=== PATIENT | female | born 1945 | race Caucasian/White ===

== ENCOUNTER 2016-07-30 13:32 | Inpatient (IN) | payer MEDICARE, OTHER ==
[2016-07-30] MEDS ORDERED: solu-MEDROL 125 MG IV ONE (13:57)
[2016-07-30] MEDS ORDERED: Pepcid 20 MG VIAL IV ONE ×2 (13:57→14:19)
[2016-07-30] MEDS ORDERED: DUONEB 0.5-3 MG/3 ml Neb IH ONE ×2 (13:57→14:59)
[2016-07-30] MEDS ORDERED: Sodium Chloride 0.9% 1000 ML 1,000 ML IV SCH ×2 (14:00→16:13)
--- NOTE | 2016-07-30 14:04 | ERPHSYRPT ---
- History of Present Illness Time Seen by Provider: 07/30/16 13:50 Source: patient Patient Subjective Stated Complaint: sob Triage Nursing Assessment: states since tuesday, pt has had bronchitis and is currently on prednisone. productive cough with clear sputum. increased sob. 4-5 word sentences. states insomnia due to coughing. fever at home. lt lower extrem 2+ edema--pt states that is normal Physician History: CC: cough Hx: 71 y/o patient of Dr Kim. She has COPD and is on home oxygen. She uses nebs. She was doing well last week and saw Dr Bri Strickland. Over the weekend she began to cough and has fever and worsening cough with dyspnea. She saw [facility] and had steroid shot. She saw [facility] and had more steroids. No current abtx. Dyspnea is moderate. Timing/Duration: day(s) (few) Allergies/Adverse Reactions: No Known Drug Allergies Allergy (Unverified 07/30/16 13:49) Home Medications: Albuterol 2.5 mg/3 ml Neb [Proventil 2.5 mg/3 ml Neb] 2.5 mg IH TID [History] Albuterol 8 gm Mdi Hfa [Ventolin Hfa MDI] 8 gm IH QIDPRN PRN 07/30/16 [ History] Hx Tetanus, Diphtheria Vaccination/Date Given: Yes Hx Influenza Vaccination/Date Given: No Hx Pneumococcal Vaccination/Date Given: No Immunizations Up to Date: Yes - Review of Systems Constitutional: Fever, Chills, Fatigue, Malaise Eyes: No Symptoms Ears, Nose, & Throat: No Symptoms Respiratory: Cough, Dyspnea, Wheezing Cardiac: No Chest Pain Abdominal/Gastrointestinal: No Abdominal Pain, No Vomiting, No Diarrhea Skin: No Rash Neurological: No Headache All Other Systems: Reviewed and Negative - Past Medical History Pertinent Past Medical History: Yes Cardiac History: Congestive Heart Failure Respiratory History: Asthma, COPD - Past Surgical History Past Surgical History: Yes Female Surgical History: Hysterectomy - Social History Smoking Status: Former smoker Drug Use: none Patient Lives Alone: No - Nursing Vital Signs Nursing Vital Signs: Initial Vital Signs Temperature 99.1 F Temperature Source Rectal Pulse Rate 102 Respiratory Rate 37 Blood Pressure [Right Arm] 169/76 Pain Intensity 0 - Physical Exam General Appearance: alert, other (mildly breathless at rest) Eye Exam: PERRL/EOMI Neck Exam: normal inspection, non-tender, supple Respiratory Exam: diminished breath sounds, wheezing Cardiovascular/Chest Exam: normal heart sounds, regular rate/rhythm Abdominal/Gastrointestinal Exam: soft, No tenderness, No distention Neurologic Exam: alert, oriented x 3, cooperative, sensation nml, No motor deficits Skin Exam: warm, dry, No rash SpO2 Interpretation: borderline oxygenation, O2 applied SpO2: 92 Oxygen Delivery: Nasal Cannula - Course Nursing assessment & vital signs reviewed: Yes - Radiology Exams cxr X-ray Interpretation: Reviewed by me (copd, mild patchy mid lung airspace disease bialteral) Ordered Tests: Active Orders 24 hr Category Date Time Status Dog Or Horse Racing Official STAT Care 07/30/16 13:57 Active IV Insertion STAT Care 07/30/16 13:57 Active Oxygen-ED Only NASAL CANNULA 2 lpm Care 07/30/16 13:57 Active Pulse Oximetry (ED) STAT Care 07/30/16 13:57 Active Rectal Temperature STAT Care 07/30/16 13:57 Active CHEST 1 VIEW (PORTABLE) Stat Exams 07/30/16 13:58 Completed BLOOD CULTURE Stat Lab 07/30/16 14:25 Received CBC W DIFF Stat Lab 07/30/16 14:20 Completed CMP Stat Lab 07/30/16 14:20 Completed Lactic Acid Urgent Lab 07/30/16 13:57 Completed Manual Differential NC Stat Lab 07/30/16 14:20 Completed VENOUS BLOOD GAS Urgent Lab 07/30/16 13:57 Completed Respiratory Nebulizer STAT RT 07/30/16 13:59 Active Medication Summary Generic Name Dose Route Start Last Admin Trade Name Freq PRN Reason Stop Dose Admin Sodium Chloride 1,000 mls @ 100 mls/hr 07/30/16 14:00 07/30/16 14:21 Sodium Chloride 0.9% 1000 Ml IV 08/29/16 13:59 100 mls/hr .Q10H TONI Administration Azithromycin 250 mls @ 125 mls/hr 07/30/16 14:32 Zithromax 500 Mg/ 250 Ml Nacl Premix IV 07/30/16 16:31 STAT ONE Discontinued Medications Generic Name Dose Route Start Last Admin Trade Name Freq PRN Reason Stop Dose Admin Albuterol/Ipratropium 3 ml 07/30/16 13:57 07/30/16 15:00 Duoneb 0.5-3 Mg/3 Ml Neb IH 07/30/16 13:58 3 ml STAT ONE Administration Albuterol/Ipratropium Confirm 07/30/16 14:59 Duoneb 0.5-3 Mg/3 Ml Neb Administered 07/30/16 15:00 Dose 3 ml IH .STK-MED ONE Famotidine 20 mg 07/30/16 13:57 07/30/16 14:21 Pepcid 20 Mg Vial IV 07/30/16 13:58 20 mg STAT ONE Administration Famotidine Confirm 07/30/16 14:19 Pepcid 20 Mg Vial Administered 07/30/16 14:20 Dose 20 mg IV .STK-MED ONE Sodium Chloride Confirm 07/30/16 14:20 Sodium Chloride 0.9% 1000 Ml Administered 07/30/16 14:21 Dose 1,000 mls @ ud .ROUTE .STK-MED ONE Ceftriaxone Sodium/Dextrose 50 mls @ 100 mls/hr 07/30/16 14:32 07/30/16 14:38 Rocephin 1 Gm-D5w 50 Ml Bag IV 07/30/16 15:01 100 mls/hr STAT ONE Administration Ceftriaxone Sodium/Dextrose Confirm 07/30/16 14:36 Rocephin 1 Gm-D5w 50 Ml Bag Administered 07/30/16 14:37 Dose 50 mls @ ud IV .STK-MED ONE Methylprednisolone Sodium Succinate 125 mg 07/30/16 13:57 07/30/16 14:21 Solu-Medrol 125 Mg IV 07/30/16 13:58 125 mg STAT ONE Administration Methylprednisolone Sodium Succinate Confirm 07/30/16 14:20 Solu-Medrol 125 Mg Administered 07/30/16 14:21 Dose 125 mg .ROUTE .STK-MED ONE Lab/Rad Data: Laboratory Result Diagrams 07/30/16 14:20 07/30/16 14:20 Laboratory Results 07/30/16 07/30/16 07/30/16 Range/Units 14:20 14:20 13:57 WBC 20.4 H (4.0-10.5) K/mm3 RBC 4.10 (4.1-5.4) M/mm3 Hgb 11.7 L (12.0-16.0) gm/dl Hct 38.9 (35-47) % MCV 94.9 (78-100) fl MCH 28.5 (26-32) pg MCHC 30.1 L (32-36) g/dl RDW 13.3 (11.5-14.0) % Plt Count 259 (150-450) K/mm3 MPV 12.2 H (6-9.5) fl Segmented Neutrophils 66 (36.0-66.0) % Band Neutrophils 23 H (0.0-2.0) % Lymphocytes (Manual) 5 L (24-44) % Monocytes (Manual) 6 (0.0-12.0) % Differential Comment ABNORMAL Platelet Estimate NORMAL (NORMAL) Poikilocytosis 1+ Anisocytosis 1+ VBG pH 7.34 (7.32-7.42) VBG pCO2 at Pat Temp 84 H* (42-55) mm/Hg VBG pO2 at Pat Temp 44 H (25-40) mm/Hg VBG HCO3 45.3 H* (22-28) meq/L VBG O2 Sat (Trever) 85.2 L (95-100) VBG Base Excess 15.7 H (-2.0-2.0) VBG Hemoglobin 12.4 VBG Carboxyhemoglobin 3.3 (0.0-6.9) % T HGB POC Potassium 4.0 (3.5-5.1) Sodium 143 (136-145) mEq/L Potassium 3.6 (3.5-5.1) mEq/L Chloride 100 (98-107) mEq/L Carbon Dioxide 35.3 H (21-32) mEq/L Anion Gap 11.5 (5-15) MEQ/L BUN 23 H (9-20) mg/dL Creatinine 0.67 (0.55-1.30) mg/dl Estimated GFR > 60 ML/MIN Glucose 126 H (70-110) MG/DL Lactic Acid 0.9 (0.4-2.0) Calcium 9.3 (8.5-10.1) mg/dL Total Bilirubin 0.2 (0.2-1.0) mg/dL AST 10 L (15-37) U/L ALT 19 (12-78) U/L Alkaline Phosphatase 101 (46-116) U/L Serum Total Protein 7.5 (6.4-8.2) gm/dL Albumin 2.9 L (3.4-5.0) g/dL - Progress Progress Note: 07/30/16 15:31 She has failed OP treatement. She has left shift leukocytosis. Called Dr Kim for admission. Flu pending. Abtx started. Discussed with .: Paulie Will see patient in: hospital (full admit) Counseled pt/family regarding: lab results, diagnosis, need for follow-up, rad results - Departure Time of Disposition: 15:31 Departure Disposition: In-patient Admission Clinical Impression: Pneumonia, COPD exacerbation Condition: Fair Critical Care Time: No Referrals: MARIN KIM [Primary Care Provider] -
[2016-07-30] MEDS ORDERED: solu-MEDROL 125 MG ONE (14:20)
[2016-07-30] MEDS ORDERED: Sodium Chloride 0.9% 1000 ML 1,000 ML ONE (14:20)
[2016-07-30 14:31] LABS: Mean Cell Volume 94.9 fl (78-100); Mean Corpuscular Hemoglobin 28.5 pg (26-32); Mean Platelet Volume 12.2 fl (6-9.5); Platelet Count 259 K/mm3 (150-450); Red Cell Distribution Width 13.3 % (11.5-14.0); White Blood Count 20.4 K/mm3 (4.0-10.5)
[2016-07-30] MEDS ORDERED: ROCEPHIN 1 Gm-D5w 50 ml Bag** 50 ML IV ONE ×2 (14:32→14:36)
[2016-07-30] MEDS ORDERED: Zithromax 500 MG/ 250 ML NaCl Premix 250 ML IV ONE ×2 (14:32→15:36)
--- NOTE | 2016-07-30 14:42 | XRAY ---
Indication: Cough and dyspnea. Comparison: September 20, 2013. Portable chest degraded by respiration and breasts. Again prominent interstitial lung markings with new patchy airspace disease in the midlung bilaterally and new small bibasilar effusions. Heart is not enlarged. Stable osteopenia and mild bony degenerative changes.
[2016-07-30 14:52] LABS: Lactic Acid 0.9 (0.4-2.0); VBG BASE EXCESS 15.7 (-2.0-2.0); VBG CARBOXYHEMOGLOBIN 3.3 % T HGB (0.0-6.9); VBG HCO3- 45.3 meq/L (22-28); VBG HEMOGLOBIN 12.4; VBG O2 SATURATION 85.2 (95-100); VBG pH 7.34 (7.32-7.42)
[2016-07-30 14:53] LABS: BAND 23 % (0.0-2.0); Total Cells Counted 100
[2016-07-30 14:55] LABS: ANISOCYTOSIS 1+; Platelet Estimate NORMAL (NORMAL); Poikilocytosis 1+
[2016-07-30 14:59] LABS: ALBUMIN 2.9 g/dL (3.4-5.0); ALKALINE PHOSPHATASE 101 U/L (46-116); ANION GAP 11.5 MEQ/L (5-15); BILIRUBIN,TOTAL 0.2 mg/dL (0.2-1.0); BLOOD UREA NITROGEN 23 mg/dL (9-20); CHLORIDE 100 mEq/L (98-107); Carbon Dioxide 35.3 mEq/L (21-32); Glucose 126 MG/DL (70-110); Potassium 3.6 mEq/L (3.5-5.1); SGOT/AST 10 U/L (15-37); SGPT/ALT 19 U/L (12-78); SODIUM 143 mEq/L (136-145); Total Protein 7.5 gm/dL (6.4-8.2)
[2016-07-30] MEDS ORDERED: TYLENOL 325 MG PO PRN (16:13)
[2016-07-30 17:50] LABS: A-aADO2 54; ARTERIAL BLD GAS O2 SATURATION 98.5 % (95-100); ARTERIAL BLOOD GAS BASE EXCESS 14.5 (-2.0-2.0); ARTERIAL BLOOD GAS FIO2 36 %; ARTERIAL BLOOD GAS PO2 93 mmHg (75-100); ARTERIAL BLOOD GAS pH 7.31 (7.35-7.45)
[2016-07-30 17:51] LABS: ALLEN TEST OK? YES
[2016-07-30] MEDS ORDERED: Cardizem 30 MG ONE (18:10)
[2016-07-30] MEDS: Cardizem 30 MG PO SCH (18:12)
[2016-07-30] MEDS: solu-MEDROL 125 MG IV SCH ×2 (18:54→23:56)
[2016-07-30] MEDS ORDERED: Lasix 20 MG/2 ML ONE (20:08)
[2016-07-30] MEDS: Apresoline 25 MG TABLET PO PRN (20:15)
[2016-07-30] MEDS: Lasix 20 MG/2 ML IV ONE (20:15)
[2016-07-30] MEDS: Pepcid 20 MG VIAL IV SCH (21:18)
[2016-07-30] MEDS: DUONEB 0.5-3 MG/3 ml Neb IH SCH (21:39)
[2016-07-31] MEDS: DUONEB 0.5-3 MG/3 ml Neb IH SCH ×7 (00:32→22:42)
[2016-07-31] MEDS: Apresoline 25 MG TABLET PO PRN ×3 (04:29→12:52)
[2016-07-31] MEDS: solu-MEDROL 125 MG IV SCH ×4 (05:23→23:44)
[2016-07-31 05:52] LABS: Mean Cell Volume 96.3 fl (78-100); Mean Corpuscular Hemoglobin 28.4 pg (26-32); Mean Platelet Volume 12.1 fl (6-9.5); Platelet Count 293 K/mm3 (150-450); Red Blood Count 4.08 M/mm3 (4.1-5.4); Red Cell Distribution Width 13.4 % (11.5-14.0); White Blood Count 18.1 K/mm3 (4.0-10.5)
[2016-07-31 06:09] LABS: ANION GAP 8.6 MEQ/L (5-15); BLOOD UREA NITROGEN 29 mg/dL (9-20); CHLORIDE 100 mEq/L (98-107); Carbon Dioxide 40.1 mEq/L (21-32); Glucose 149 MG/DL (70-110); Potassium 3.9 mEq/L (3.5-5.1); SODIUM 145 mEq/L (136-145)
[2016-07-31 08:17] LABS: BAND 3 % (0.0-2.0); Platelet Estimate NORMAL (NORMAL); Total Cells Counted 100; Toxic Granulation 2+
[2016-07-31 08:19] LABS: ANISOCYTOSIS 1+
--- NOTE | 2016-07-31 08:25 | PCM.NOTE ---
Date and Time: 07/31/16818 Subjective Assessment: She reports she wore the bipap last night and is feeling better today. 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 She reports not urinating much with the IV lasix last night. She says her blood pressure is often high when she is sick and then comes back down to normal. - Review of Systems Constitutional: Fatigue Eyes: No Symptoms Ears, Nose, & Throat: No Symptoms Respiratory: Cough, Short Of Breath, Wheezing Cardiac: No Symptoms Abdominal/Gastrointestinal: No Symptoms Genitourinary Symptoms: No Symptoms Musculoskeletal: No Symptoms Skin: No Symptoms, Other (swelling has improved in her legs.) Objective Exam General Appearance: no apparent distress, alert Neurologic Exam: alert, cooperative, normal mood/affect Skin Exam: normal color, warm, dry, No rash Respiratory Exam: other (distant, equal breath sounds with scattered wheezes throughout.), No crackles/rales, No rhonchi Cardiovascular Exam: regular rate/rhythm, normal heart sounds, No murmur, No friction rub, No gallop Gastrointestinal/Abdomen Exam: soft, normal bowel sounds, No tenderness, No distention, No mass, No guarding Extremity Exam: other (no c/c/e) OBJECTIVE DATA Vital Signs: Vital Signs - 24 hr Temp Pulse Resp BP Pulse Ox 07/31/16 07:33 97 07/31/16 07:23 98 F 100 H 22 174/89 99 07/31/16 07:00 96 H 20 97 07/31/16 04:00 98.1 F 94 H 14 193/96 100 07/31/16 03:53 89 23 98 07/31/16 00:32 87 18 100 07/30/16 23:59 98.5 F 89 14 145/66 100 07/30/16 20:08 98.1 F 99 H 15 188/90 96 07/30/16 19:02 98 07/30/16 16:47 22 170/90 07/30/16 16:19 98.4 F 111 H 22 200/100 90 L 07/30/16 16:14 98.4 F 105 H 22 170/90 92 L 07/30/16 16:13 94 L 07/30/16 15:55 100 H 22 171/85 97 07/30/16 15:32 92 L 07/30/16 15:00 102 H 37 H 98 07/30/16 14:45 91 H 22 169/76 96 07/30/16 14:12 99.1 F 07/30/16 13:50 94 L 07/30/16 13:41 98.3 F 106 H 22 165/73 92 L Oxygen-Last 24 hours O2 Percentage 4 Liters = 36% O2 Percentage 4 Liters = 36% O2 Percentage 4 Liters = 36% O2 Percentage 2 Liters = 28% O2 Percentage 4 Liters = 36% O2 Percentage 2 Liters = 28% O2 Percentage 2 Liters = 28% O2 Percentage 2 Liters = 28% O2 Percentage 2 Liters = 28% O2 Percentage 2 Liters = 28% Pain Assessment - Last Documented Pain Intensity 0 Pain Scale Used 0-10 Pain Scale Intake and Output: Intake & Output 07/29/16 07/30/16 07/31/16 08/01/16 06:59 06:59 06:59 07:59 Intake Total 658 Output Total 500 Balance 158 Weight 99.79 kg Lab Results: Lab Results-Last 24 Hours 07/30/16 07/31/16 07/31/16 Range/Units 17:40 05:20 05:20 WBC 18.1 H (4.0-10.5) K/mm3 RBC 4.08 L (4.1-5.4) M/mm3 Hgb 11.6 L (12.0-16.0) gm/dl Hct 39.3 (35-47) % MCV 96.3 (78-100) fl MCH 28.4 (26-32) pg MCHC 29.5 L (32-36) g/dl RDW 13.4 (11.5-14.0) % Plt Count 293 (150-450) K/mm3 MPV 12.1 H (6-9.5) fl Puncture Site RIGHT BRACHIAL pCO2 88 H* (35-45) mmHg pO2 93 (75-100) mmHg Base Excess 14.5 H (-2.0-2.0) O2 Saturation 95.4 (94-100) g/dF ABG pH 7.31 L (7.35-7.45) ABG HCO3 44.3 H* (22-28) ABG O2 Sat (Measured) 98.5 (95-100) % Huey Test YES A-a Gradient 54 a/A Ratio 0.63 Hemoglobin 11.6 Carboxyhemoglobin 1.7 (0.0-6.9) % THgb Methemoglobin 1.4 (1.4-1.5) % Potassium 3.8 3.9 (3.5-5.1) Temperature 37.0 C POC O2 Flow Rate 36 % Sodium 145 (136-145) mEq/L Chloride 100 (98-107) mEq/L Carbon Dioxide 40.1 H (21-32) mEq/L Anion Gap 8.6 (5-15) MEQ/L BUN 29 H (9-20) mg/dL Creatinine 0.78 (0.55-1.30) mg/dl Estimated GFR > 60 ML/MIN Glucose 149 H (70-110) MG/DL Calcium 9.2 (8.5-10.1) mg/dL Radiology Exams: Radiology Procedures Category Date Time Status CHEST 2 VIEWS (PA AND LAT) Routine Exams 07/31/16 08:18 Ordered ECHO W/2D AND DOPPLER [US] Routine Exams 08/02/16 09:00 Ordered Multi-Disciplinary Progress Notes: Multi-Disciplinary Progress Notes 07/30/16 21:35 Respiratory Note by Parish,Percy CAME INTO PT RM TO FIND THAT HER BIPAP WAS OFF AND SHE WAS ON O2. WHEN I QUESTIONED NURSING THEY STATED THAT WHEN THEY ENTERED PT RM SHE HAD BIPAP OFF AND NO O2 SO THEY PUT HER ON THE O2. PT DENIES TAKING BIPAP OFF. I HAVE TRIED TO PUT IT BACK ON HER AND SHE IS BEING SOMEWHAT COMBATIVE. PT SEEMS CONFUSED AND IRRITABLE. I WILL GIVE HER A TX VIA NEB AND MASK AND TRY AND PUT BIPAP ON AGAIN. Initialized on 07/30/16 21:35 - END OF NOTE Assessment/Plan (1) Pneumonia Current Visit: Yes Status: Acute Qualifiers: Laterality: bilateral Assessment & Plan: Continue with ceftriaxone and azithromycin Day 2. Continue oxygen and BIPAP if needed. [employer] System Operator, Dr. Jorge Strickland consulted and I appreciate his input. Lactic acid was normal yesterday. Check PA and lateral chest X-ray today. WBC improving. Code(s): J18.9 - PNEUMONIA, UNSPECIFIED ORGANISM (2) COPD exacerbation Current Visit: Yes Status: Acute Assessment & Plan: Continue IV steroids, antibiotics and oxygen as well as breathing treatments. Code(s): J44.1 - CHRONIC OBSTRUCTIVE PULMONARY DISEASE W (ACUTE) EXACERBATION (3) Hypertension Current Visit: Yes Status: Acute Assessment & Plan: Continue short acting diltiazem and use hydralazine as needed. Code(s): I10 - ESSENTIAL (PRIMARY) HYPERTENSION (4) Acute exacerbation of CHF (congestive heart failure) Current Visit: Yes Status: Acute Qualifiers: Congestive heart failure type: systolic Qualified Code(s): I50.23 - Acute on chronic systolic (congestive) heart failure Assessment & Plan: Check cardiac Echo Tuesday. BNP was elevated. Will try lasix 40 mg IV once today. Code(s): I50.9 - HEART FAILURE, UNSPECIFIED (5) DVT prophylaxis Current Visit: Yes Status: Acute Assessment & Plan: Continue lovenox and john hose. Code(s): [id number] -
[2016-07-31] MEDS ORDERED: FLUZONE QUAD 2016-2017 SYRINGE 36MO-64YO IM ONE ×2 (10:00→16:28)
[2016-07-31] MEDS ORDERED: PREVNAR 13 SYRINGE IM ONE (10:00)
[2016-07-31] MEDS: Calcium 500MG W/Vit D Tablet PO SCH (11:46)
[2016-07-31] MEDS: ENOXAPARIN SODIUM SQ SCH (11:46)
[2016-07-31] MEDS: Pepcid 20 MG VIAL IV SCH ×2 (11:47→22:13)
[2016-07-31] MEDS: Cardizem 30 MG PO SCH ×4 (11:47→22:15)
[2016-07-31] MEDS: ROCEPHIN 1 Gm-D5w 50 ml Bag** 50 ML IV SCH (11:53)
[2016-07-31] MEDS: Zithromax 500 MG/ 250 ML NaCl Premix 250 ML IV SCH (11:53)
--- NOTE | 2016-07-31 14:00 | HP ---
HISTORY OF PRESENT ILLNESS: This is a 71 y/o patient who presented to the Emergency Department with increasing shortness of breath. The patient reports she started to feel bad on Tuesday. She saw KULDEEP Andrade in the clinic and was given a shot of steroids and then she started to feel a little bit better and then got worse and Tuesday. She denies any cough. She says she is short of breath and just feels like she can't get enough air. She reports she uses CPAP at night at home and has 2 liters of O2 at night at home. She has had a fever at home and feels fatigued. REVIEW OF SYSTEMS: She has had some left lower extremity edema. She reports the right worse than the left. No chest pain. No abdominal pain. She reports she uses her nebulizer at home and that helps some with her breathing. PAST MEDICAL HISTORY: Asthma and chronic obstructive pulmonary disease. She has seen Dr. Jorge Strickland in the past. She wears O2 at night. History of knee pain. PAST SURGICAL HISTORY: Hysterectomy. SOCIAL HISTORY: She doesn't smoke. She reports she quit smoking 5 years ago. She lives with her grandchildren. She denies any alcohol use. FAMILY HISTORY: Noncontributory. CURRENT MEDICATIONS: Albuterol tid the nebulizer, albuterol HFA qid PRN, calcium 500 mg PO daily, naproxen 220 mg PO bid PRN. ALLERGIES: NO KNOWN ALLERGIES. PHYSICAL EXAMINATION: VITAL SIGNS: Temperature current 98.4, temperature maximum 99.1, heart rate 91-111, respiratory rate 22-37, O2 saturation 90-97% on 2-4 liters nasal cannula, BP 170-200/85-100. GENERAL: The patient is sitting up in bed. She is eating some supper. She can talk in full sentences, but is dyspneic with subcostal retractions. Respiratory rate 28. CVS: She is tachycardic with a regular rhythm. No murmurs, gallops, or rubs are appreciated. CHEST: She has distant breath sounds. Decreased breath sounds at the bases. Few scattered wheezes. ABDOMEN: Soft, nontender, nondistended with normal bowel sounds. EXTREMITIES: Trace edema. No clubbing. No cyanosis. LABORATORY DATA: WBC 20,400 with 66% neutrophils, 23% bands, 5% lymphocytes, 6% monocytes. Venous arterial blood gas had a PCO2 of 84, pH 7.34. CMP has got a glucose of 1126, albumin 2.9. Influenza A and B and respiratory syncytial virus were negative. Portable chest x-ray was read as interstitial lung markings with new patchy air space disease in the midlung bilaterally and new small bibasilar effusions. Heart is not enlarged. Stable osteopenia and mild bony degenerative changes. ASSESSMENT AND PLAN: 1. BILATERAL PNEUMONIA. She has been started on ceftriaxone and azithromycin. Will continue with these. Going to have them check an arterial blood gas. Will continue with O2 as needed. 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 2. HYPERTENSION. Will start diltiazem 30 mg PO qid and order hydralazine PRN. 3. CHRONIC OBSTRUCTIVE PULMONARY DISEASE EXACERBATION. Will continue with the IV steroids and antibiotics as well as O2 and nebulizer treatments. 4. EDEMA. Will check a NT Pro BNP.
[2016-07-31] MEDS: Lasix 20 MG/2 ML IV ONE (19:48)
--- NOTE | 2016-07-31 21:57 | XRAY ---
Indication: Pneumonia. Comparison: One day earlier. PA/lateral chest again hyperinflated with prominent interstitial lung markings. There remains bilateral midlung airspace disease, stable on the left and mildly improved on the right. Heart is not enlarged. No new cardiopulmonary abnormalities. Comment: Preliminary interpretation was made by [facility]. No discrepancy.
[2016-08-01] MEDS: DUONEB 0.5-3 MG/3 ml Neb IH SCH ×6 (03:02→22:56)
[2016-08-01] MEDS: solu-MEDROL 125 MG IV SCH ×3 (05:29→21:09)
[2016-08-01 05:37] LABS: Mean Cell Volume 97.3 fl (78-100); Mean Platelet Volume 11.8 fl (6-9.5); Platelet Count 335 K/mm3 (150-450); Red Blood Count 4.02 M/mm3 (4.1-5.4); Red Cell Distribution Width 13.4 % (11.5-14.0); White Blood Count 13.4 K/mm3 (4.0-10.5)
[2016-08-01 05:42] LABS: Mean Corpuscular Hemoglobin 28.8 pg (26-32)
[2016-08-01 05:57] LABS: ANION GAP 5.3 MEQ/L (5-15); BLOOD UREA NITROGEN 39 mg/dL (9-20); CHLORIDE 101 mEq/L (98-107); Carbon Dioxide 42.4 mEq/L (21-32); Glucose 174 MG/DL (70-110); SODIUM 145 mEq/L (136-145)
[2016-08-01 06:56] LABS: BAND 1 % (0.0-2.0); Platelet Estimate NORMAL (NORMAL); Total Cells Counted 100; Toxic Granulation 1+
[2016-08-01 06:57] LABS: ANISOCYTOSIS 1+
[2016-08-01] MEDS: ENOXAPARIN SODIUM SQ SCH (10:04)
[2016-08-01] MEDS: Pepcid 20 MG VIAL IV SCH ×2 (10:04→21:09)
[2016-08-01] MEDS: Cardizem 30 MG PO SCH ×4 (10:04→21:09)
[2016-08-01] MEDS: Zithromax 500 MG/ 250 ML NaCl Premix 250 ML IV SCH (10:05)
[2016-08-01] MEDS: ROCEPHIN 1 Gm-D5w 50 ml Bag** 50 ML IV SCH (10:05)
[2016-08-01] MEDS: Calcium 500MG W/Vit D Tablet PO SCH (10:05)
--- NOTE | 2016-08-01 12:45 | PCM.NOTE ---
Date and Time: 08/01/16 1241 Subjective Assessment: She reports she does not like the bipap and it scared her last night when she woke up with it on and she does not want to use it again unless she absolutely needs it. She reports she is feeling better. She is concerned about going back to work and having to work 12 hour shifts as she only wants to work 8 hours at a time. She has had a good appetite. She feels like her breathing is better. - Review of Systems Constitutional: No Symptoms Eyes: No Symptoms Ears, Nose, & Throat: No Symptoms Respiratory: Short Of Breath, Wheezing Cardiac: No Symptoms Abdominal/Gastrointestinal: No Symptoms Genitourinary Symptoms: No Symptoms Musculoskeletal: No Symptoms Skin: No Symptoms Objective Exam General Appearance: no apparent distress, alert, other (talkative) Neurologic Exam: alert, cooperative, normal mood/affect Skin Exam: normal color, No warm, No dry, No rash Respiratory Exam: other (few scattered wheezes, equal breath sounds, no retractions, no tachypnea) Cardiovascular Exam: regular rate/rhythm, normal heart sounds, No murmur, No friction rub, No gallop Gastrointestinal/Abdomen Exam: soft, normal bowel sounds, No tenderness, No distention, No mass Extremity Exam: other (no c/c/e) OBJECTIVE DATA Vital Signs: Vital Signs - 24 hr Temp Pulse Resp BP Pulse Ox 08/01/16 11:53 98.5 F 87 21 155/74 97 08/01/16 11:06 81 18 97 08/01/16 08:11 24 08/01/16 07:39 98.4 F 81 22 181/88 97 08/01/16 07:22 94 L 08/01/16 07:18 84 18 94 L 08/01/16 04:00 98.0 F 86 14 178/81 97 08/01/16 03:05 72 20 98 08/01/16 00:50 98.5 F 77 14 161/81 100 07/31/16 22:53 97 H 24 98 07/31/16 20:19 98 07/31/16 20:00 98.6 F 98 H 14 150/73 99 07/31/16 18:48 99 H 18 98 07/31/16 17:20 78 22 163/76 99 07/31/16 16:14 98 F 99 H 20 162/77 96 07/31/16 15:00 94 H 18 97 Oxygen-Last 24 hours O2 Percentage 3 Liters = 32% O2 Percentage 3 Liters = 32% O2 Percentage 5 Liters = 40% O2 Percentage 4 Liters = 36% Pain Assessment - Last Documented Pain Intensity 0 Pain Scale Used 0-10 Pain Scale Intake and Output: Intake & Output 07/30/16 07/31/16 08/01/16 08/02/16 05:59 05:59 06:59 06:59 Intake Total Output Total Balance Weight Lab Results: Lab Results-Last 24 Hours 08/01/16 08/01/16 Range/Units 05:15 05:15 WBC 13.4 H (4.0-10.5) K/mm3 RBC 4.02 L (4.1-5.4) M/mm3 Hgb 11.6 L (12.0-16.0) gm/dl Hct 39.1 (35-47) % MCV 97.3 (78-100) fl MCH 28.8 (26-32) pg MCHC 29.7 L (32-36) g/dl RDW 13.4 (11.5-14.0) % Plt Count 335 (150-450) K/mm3 MPV 11.8 H (6-9.5) fl Segmented Neutrophils 91 H (36.0-66.0) % Band Neutrophils 1 (0.0-2.0) % Lymphocytes (Manual) 5 L (24-44) % Monocytes (Manual) 3 (0.0-12.0) % Differential Comment ABNORMAL Toxic Granulation 1+ Platelet Estimate NORMAL (NORMAL) Anisocytosis 1+ Sodium 145 (136-145) mEq/L Potassium 4.0 (3.5-5.1) mEq/L Chloride 101 (98-107) mEq/L Carbon Dioxide 42.4 H (21-32) mEq/L Anion Gap 5.3 (5-15) MEQ/L BUN 39 H (9-20) mg/dL Creatinine 0.74 (0.55-1.30) mg/dl Estimated GFR > 60 ML/MIN Glucose 174 H (70-110) MG/DL Calcium 9.3 (8.5-10.1) mg/dL Radiology Exams: Radiology Procedures Category Date Time Status CHEST 2 VIEWS (PA AND LAT) Routine Exams 07/31/16 08:18 Completed ECHO W/2D AND DOPPLER [US] Routine Exams 08/02/16 09:00 Ordered Assessment/Plan (1) Pneumonia Current Visit: Yes Status: Acute Qualifiers: Laterality: bilateral Assessment & Plan: Continue ceftriaxone and azithromycin, oxygen as needed, breathing treatments. Her WBC is improving. Blood cultures no growth to date. Code(s): J18.9 - PNEUMONIA, UNSPECIFIED ORGANISM (2) COPD exacerbation Current Visit: Yes Status: Acute Assessment & Plan: Will start to wean steroids and continue treatment as above for pneumonia. Code(s): J44.1 - CHRONIC OBSTRUCTIVE PULMONARY DISEASE W (ACUTE) EXACERBATION (3) Hypertension Current Visit: Yes Status: Acute Assessment & Plan: Her blood pressure is better on the cardizem. She did need one dose of hydralazine yesterday. Code(s): I10 - ESSENTIAL (PRIMARY) HYPERTENSION (4) Acute exacerbation of CHF (congestive heart failure) Current Visit: Yes Status: Acute Qualifiers: Congestive heart failure type: systolic Qualified Code(s): I50.23 - Acute on chronic systolic (congestive) heart failure Assessment & Plan: Echo ordered. Improved. Code(s): I50.9 - HEART FAILURE, UNSPECIFIED (5) DVT prophylaxis Current Visit: Yes Status: Acute Assessment & Plan: continue lovenox. Code(s): [id number] -
[2016-08-01] MEDS: Apresoline 25 MG TABLET PO PRN ×2 (16:02→18:08)
[2016-08-02] MEDS: DUONEB 0.5-3 MG/3 ml Neb IH SCH ×6 (03:15→23:12)
[2016-08-02] MEDS: Apresoline 25 MG TABLET PO PRN ×3 (03:29→20:13)
[2016-08-02] MEDS: solu-MEDROL 125 MG IV SCH (05:28)
[2016-08-02 05:55] LABS: Mean Cell Volume 95.3 fl (78-100); Mean Platelet Volume 11.7 fl (6-9.5); Platelet Count 306 K/mm3 (150-450); Red Blood Count 4.02 M/mm3 (4.1-5.4); Red Cell Distribution Width 13.4 % (11.5-14.0); White Blood Count 13.4 K/mm3 (4.0-10.5)
[2016-08-02 06:01] LABS: Mean Corpuscular Hemoglobin 28.8 pg (26-32)
[2016-08-02 06:06] LABS: ANION GAP 9.1 MEQ/L (5-15); BLOOD UREA NITROGEN 29 mg/dL (9-20); CHLORIDE 103 mEq/L (98-107); Carbon Dioxide 40.3 mEq/L (21-32); Glucose 179 MG/DL (70-110); Potassium 4.3 mEq/L (3.5-5.1); SODIUM 148 mEq/L (136-145)
--- NOTE | 2016-08-02 08:30 | PCM.NOTE ---
Date and Time: 08/02/16824 Subjective Assessment: She reports her breathing is better. She has oxygen at home but she only wears it at night and during the day if she feels short of breath. She reports she will need a refill on her albuterol inhaler. She states she has been drinking well and her appetite has been good. She reports some mild rib/right upper quadrant tenderness. She does not feel like this is worse with eating. - Review of Systems Constitutional: No Symptoms Eyes: No Symptoms Ears, Nose, & Throat: No Symptoms Respiratory: Cough, Short Of Breath Cardiac: No Symptoms Abdominal/Gastrointestinal: No Symptoms Genitourinary Symptoms: No Symptoms Musculoskeletal: No Symptoms Skin: No Symptoms Neurological: No Symptoms Objective Exam General Appearance: no apparent distress Neurologic Exam: alert, cooperative, normal mood/affect Skin Exam: normal color, warm, dry, No rash Respiratory Exam: airway intact, diminished breath sounds, prolonged expirations , wheezing, No respiratory distress, No accessory muscle use, No crackles/rales , No rhonchi Cardiovascular Exam: regular rate/rhythm, normal heart sounds, No murmur, No friction rub, No gallop Gastrointestinal/Abdomen Exam: soft, normal bowel sounds, tenderness, other ( very mild right upper quadrant tenderness), No distention, No mass Extremity Exam: other (trace edema in left lower extremity) OBJECTIVE DATA Vital Signs: Vital Signs - 24 hr Temp Pulse Resp BP Pulse Ox 08/02/16 07:36 98.1 F 88 20 175/85 96 08/02/16 07:01 94 H 20 97 08/02/16 04:00 98.4 F 93 H 17 190/98 97 08/02/16 03:31 93 H 18 97 08/02/16 00:00 98.2 F 94 H 15 186/83 96 08/01/16 22:58 93 H 18 96 08/01/16 20:00 97 H 18 95 08/01/16 19:42 98.6 F 93 H 14 190/81 94 L 08/01/16 17:00 16 08/01/16 16:00 97.5 F 82 22 195/89 98 08/01/16 15:26 86 18 96 08/01/16 13:00 20 08/01/16 11:53 98.5 F 87 21 155/74 97 08/01/16 11:06 81 18 97 Oxygen-Last 24 hours O2 Percentage 3 Liters = 32% O2 Percentage 3 Liters = 32% O2 Percentage 4 Liters = 36% O2 Percentage 3 Liters = 32% O2 Percentage 3 Liters = 32% O2 Percentage 3 Liters = 32% Pain Assessment - Last Documented Pain Intensity 0 Pain Scale Used 0-10 Pain Scale Intake and Output: Intake & Output 07/31/16 08/01/16 08/02/16 08/03/16 05:59 06:59 06:59 06:59 Intake Total 480 Output Total 400 225 Balance 80 -225 Weight Lab Results: Lab Results-Last 24 Hours 08/02/16 08/02/16 Range/Units 05:15 05:15 WBC 13.4 H (4.0-10.5) K/mm3 RBC 4.02 L (4.1-5.4) M/mm3 Hgb 11.6 L (12.0-16.0) gm/dl Hct 38.3 (35-47) % MCV 95.3 (78-100) fl MCH 28.8 (26-32) pg MCHC 30.3 L (32-36) g/dl RDW 13.4 (11.5-14.0) % Plt Count 306 (150-450) K/mm3 MPV 11.7 H (6-9.5) fl Sodium 148 H (136-145) mEq/L Potassium 4.3 (3.5-5.1) mEq/L Chloride 103 (98-107) mEq/L Carbon Dioxide 40.3 H (21-32) mEq/L Anion Gap 9.1 (5-15) MEQ/L BUN 29 H (9-20) mg/dL Creatinine 0.67 (0.55-1.30) mg/dl Estimated GFR > 60 ML/MIN Glucose 179 H (70-110) MG/DL Calcium 8.9 (8.5-10.1) mg/dL Radiology Exams: Radiology Procedures Category Date Time Status CHEST 2 VIEWS (PA AND LAT) Routine Exams 07/31/16 08:18 Completed ECHO W/2D AND DOPPLER [US] Routine Exams 08/02/16 09:00 Ordered Assessment/Plan (1) Pneumonia Current Visit: Yes Status: Acute Qualifiers: Laterality: bilateral Assessment & Plan: Continue ceftriaxone and azithromycin Day 4, Continue oxygen as needed, breathing treatments. Code(s): J18.9 - PNEUMONIA, UNSPECIFIED ORGANISM (2) COPD exacerbation Current Visit: Yes Status: Acute Assessment & Plan: I will wean her steroids and continue treatment as above for pneumonia. Code(s): J44.1 - CHRONIC OBSTRUCTIVE PULMONARY DISEASE W (ACUTE) EXACERBATION (3) Hypertension Current Visit: Yes Status: Acute Assessment & Plan: Start Cardizem 240 mg po daily in AM and continue hydralazine as needed. Code(s): I10 - ESSENTIAL (PRIMARY) HYPERTENSION (4) Acute exacerbation of CHF (congestive heart failure) Current Visit: Yes Status: Acute Qualifiers: Congestive heart failure type: systolic Qualified Code(s): I50.23 - Acute on chronic systolic (congestive) heart failure Assessment & Plan: Checking Echo today. Code(s): I50.9 - HEART FAILURE, UNSPECIFIED (5) DVT prophylaxis Current Visit: Yes Status: Acute Code(s): [id number] - (6) Hyperglycemia Current Visit: Yes Status: Acute Assessment & Plan: Check hgb A1C. May be due to the steroids. Code(s): R73.9 - HYPERGLYCEMIA, UNSPECIFIED
[2016-08-02] MEDS: Cardizem CD 240 MG PO SCH (09:19)
[2016-08-02] MEDS: ROCEPHIN 1 Gm-D5w 50 ml Bag** 50 ML IV SCH (09:19)
[2016-08-02] MEDS: ENOXAPARIN SODIUM SQ SCH (09:20)
[2016-08-02] MEDS: Calcium 500MG W/Vit D Tablet PO SCH (09:20)
[2016-08-02] MEDS: Pepcid 20 MG VIAL IV SCH ×2 (09:20→21:23)
[2016-08-02 09:28] LABS: BAND 4 % (0.0-2.0); Platelet Estimate NORMAL (NORMAL); Total Cells Counted 100
[2016-08-02] MEDS: Zithromax 500 MG/ 250 ML NaCl Premix 250 ML IV SCH (10:40)
[2016-08-02] MEDS: solu-MEDROL 40 MG IV SCH (18:05)
[2016-08-03] MEDS: DUONEB 0.5-3 MG/3 ml Neb IH SCH ×6 (03:20→23:43)
[2016-08-03 05:47] LABS: Mean Cell Volume 93.9 fl (78-100); Mean Corpuscular Hemoglobin 28.9 pg (26-32); Mean Platelet Volume 11.2 fl (6-9.5); Platelet Count 311 K/mm3 (150-450); Red Blood Count 4.26 M/mm3 (4.1-5.4); Red Cell Distribution Width 13.4 % (11.5-14.0); White Blood Count 12.7 K/mm3 (4.0-10.5)
[2016-08-03 06:03] LABS: ANION GAP 7.9 MEQ/L (5-15); BLOOD UREA NITROGEN 26 mg/dL (9-20); CHLORIDE 103 mEq/L (98-107); Carbon Dioxide 39.4 mEq/L (21-32); Glucose 167 MG/DL (70-110); Potassium 4.7 mEq/L (3.5-5.1); SODIUM 146 mEq/L (136-145)
[2016-08-03] MEDS: solu-MEDROL 40 MG IV SCH ×2 (06:33→17:41)
[2016-08-03 07:37] LABS: BAND 6 % (0.0-2.0); Total Cells Counted 100
[2016-08-03 07:38] LABS: Platelet Estimate NORMAL (NORMAL)
[2016-08-03] MEDS: ROCEPHIN 1 Gm-D5w 50 ml Bag** 50 ML IV SCH (08:44)
[2016-08-03] MEDS: Pepcid 20 MG VIAL IV SCH ×2 (09:06→21:55)
--- NOTE | 2016-08-03 09:10 | PCM.NOTE ---
Date and Time: 08/03/16904 Subjective Assessment: She reports she continues to have a cough and wheezing. Her blood pressure was elevated yesterday even after I had increased her blood pressure medication. She wears oxgyen 2L NC usually at night and as needed during the day. She reports the swelling in her left leg is down more today. - Review of Systems Constitutional: No Symptoms Eyes: No Symptoms Ears, Nose, & Throat: No Symptoms Respiratory: Short Of Breath, Wheezing Cardiac: No Symptoms Abdominal/Gastrointestinal: No Symptoms Genitourinary Symptoms: No Symptoms Musculoskeletal: No Symptoms Objective Exam General Appearance: no apparent distress, alert Neurologic Exam: alert, cooperative, normal mood/affect Skin Exam: normal color, warm, dry, No rash Respiratory Exam: other (scattered wheezes throughout, equal breath sounds, no retractions.), No crackles/rales, No rhonchi Cardiovascular Exam: regular rate/rhythm, normal heart sounds, No murmur, No friction rub, No gallop Gastrointestinal/Abdomen Exam: soft, normal bowel sounds, No tenderness, No distention, No mass Extremity Exam: other (no c/c/e) OBJECTIVE DATA Vital Signs: Vital Signs - 24 hr Temp Pulse Resp BP Pulse Ox 08/03/16 07:58 18 08/03/16 07:25 98.2 F 87 18 198/91 95 08/03/16 07:00 77 16 96 08/03/16 05:00 21 08/03/16 04:00 98.2 F 91 H 21 164/77 93 L 08/03/16 03:00 86 20 94 L 08/03/16 01:00 21 08/03/16 00:00 98.2 F 94 H 21 201/98 95 08/02/16 23:19 79 20 94 L 08/02/16 21:00 25 H 08/02/16 19:39 98.7 F 89 25 H 221/98 94 L 08/02/16 19:32 78 20 93 L 08/02/16 16:00 98.2 F 89 23 180/83 96 08/02/16 15:01 88 20 95 08/02/16 12:00 98.3 F 85 21 171/80 94 L 08/02/16 10:46 90 20 95 Oxygen-Last 24 hours O2 Percentage 2 Liters = 28% O2 Percentage 3 Liters = 32% O2 Percentage 3 Liters = 32% O2 Percentage 3 Liters = 32% O2 Percentage 3 Liters = 32% O2 Percentage 3 Liters = 32% Pain Assessment - Last Documented Pain Intensity 4 Pain Scale Used 0-10 Pain Scale Intake and Output: Intake & Output 08/01/16 08/02/16 08/03/16 08/04/16 06:59 06:59 06:59 06:59 Intake Total 480 1192 Output Total 400 1275 Balance 80 -83 Weight 99.79 kg Lab Results: Lab Results-Last 24 Hours 08/02/16 08/02/16 08/03/16 Range/Units 05:15 08:30 05:35 WBC 13.4 H 12.7 H (4.0-10.5) K/mm3 RBC 4.02 L 4.26 (4.1-5.4) M/mm3 Hgb 11.6 L 12.3 (12.0-16.0) gm/dl Hct 38.3 40.0 (35-47) % MCV 95.3 93.9 (78-100) fl MCH 28.8 28.9 (26-32) pg MCHC 30.3 L 30.8 L (32-36) g/dl RDW 13.4 13.4 (11.5-14.0) % Plt Count 306 311 (150-450) K/mm3 MPV 11.7 H 11.2 H (6-9.5) fl Segmented Neutrophils 90 H 82 H (36.0-66.0) % Band Neutrophils 4 H 6 H (0.0-2.0) % Lymphocytes (Manual) 4 L 10 L (24-44) % Monocytes (Manual) 2 2 (0.0-12.0) % Differential Comment NORMAL NORMAL Platelet Estimate NORMAL NORMAL (NORMAL) Sodium (136-145) mEq/L Potassium (3.5-5.1) mEq/L Chloride (98-107) mEq/L Carbon Dioxide (21-32) mEq/L Anion Gap (5-15) MEQ/L BUN (9-20) mg/dL Creatinine (0.55-1.30) mg/dl Estimated GFR ML/MIN Glucose (70-110) MG/DL Hemoglobin A1c 5.8 (4.5-6.2) Calcium (8.5-10.1) mg/dL 08/03/16 Range/Units 05:35 WBC (4.0-10.5) K/mm3 RBC (4.1-5.4) M/mm3 Hgb (12.0-16.0) gm/dl Hct (35-47) % MCV (78-100) fl MCH (26-32) pg MCHC (32-36) g/dl RDW (11.5-14.0) % Plt Count (150-450) K/mm3 MPV (6-9.5) fl Segmented Neutrophils (36.0-66.0) % Band Neutrophils (0.0-2.0) % Lymphocytes (Manual) (24-44) % Monocytes (Manual) (0.0-12.0) % Differential Comment Platelet Estimate (NORMAL) Sodium 146 H (136-145) mEq/L Potassium 4.7 (3.5-5.1) mEq/L Chloride 103 (98-107) mEq/L Carbon Dioxide 39.4 H (21-32) mEq/L Anion Gap 7.9 (5-15) MEQ/L BUN 26 H (9-20) mg/dL Creatinine 0.66 (0.55-1.30) mg/dl Estimated GFR > 60 ML/MIN Glucose 167 H (70-110) MG/DL Hemoglobin A1c (4.5-6.2) Calcium 8.6 (8.5-10.1) mg/dL Radiology Exams: Radiology Procedures Category Date Time Status ECHO W/2D AND DOPPLER [US] Routine Exams 08/02/16 09:00 Taken Assessment/Plan (1) Pneumonia Current Visit: Yes Status: Acute Qualifiers: Laterality: bilateral Assessment & Plan: Continue ceftriaxone and azithromycin. Blood cultures no growth to date. Continue oxygen as needed. Dr. Jorge Strickland consulted. Continue with breathing treatments. Code(s): J18.9 - PNEUMONIA, UNSPECIFIED ORGANISM (2) COPD exacerbation Current Visit: Yes Status: Acute Assessment & Plan: Continue IV steroids. Code(s): J44.1 - CHRONIC OBSTRUCTIVE PULMONARY DISEASE W (ACUTE) EXACERBATION (3) Hypertension Current Visit: Yes Status: Acute Assessment & Plan: Continue cardizem and add lisinopril 20 mg po qam . Code(s): I10 - ESSENTIAL (PRIMARY) HYPERTENSION (4) Acute exacerbation of CHF (congestive heart failure) Current Visit: Yes Status: Acute Qualifiers: Congestive heart failure type: systolic Qualified Code(s): I50.23 - Acute on chronic systolic (congestive) heart failure Assessment & Plan: Echo done, awaiting report from financial planning assistant. Code(s): I50.9 - HEART FAILURE, UNSPECIFIED (5) DVT prophylaxis Current Visit: Yes Status: Acute Assessment & Plan: Continue lovenox. Code(s): [id number] - (6) Hyperglycemia Current Visit: Yes Status: Acute Assessment & Plan: Her Hgb A1C was normal at 5.8 so hyperglycemia most likely due to stress and steroids. Code(s): R73.9 - HYPERGLYCEMIA, UNSPECIFIED
[2016-08-03] MEDS: Cardizem CD 240 MG PO SCH (09:11)
[2016-08-03] MEDS: Apresoline 25 MG TABLET PO PRN ×2 (09:12→17:02)
[2016-08-03] MEDS: Zithromax 500 MG/ 250 ML NaCl Premix 250 ML IV SCH (09:12)
[2016-08-03] MEDS: ENOXAPARIN SODIUM SQ SCH (09:12)
[2016-08-03] MEDS: Calcium 500MG W/Vit D Tablet PO SCH (09:12)
[2016-08-03] MEDS: Zestril 20 MG PO SCH (09:28)
--- NOTE | 2016-08-03 10:56 | ECHO ---
Transthoracic echocardiographic examination and color Doppler was done on 08/02/2016. INDICATION: Hypertension, chronic obstructive pulmonary disease. IMPRESSION: 1) NO DEFINITE REGIONAL WALL MOTION ABNORMALITY. ESTIMATED GLOBAL LEFT VENTRICULAR EJECTION FRACTION 60%. 2) THERE IS MITRAL REGURGITATION. 3) TRACE TRICUSPID REGURGITATION. RIGHT VENTRICULAR SYSTOLIC PRESSURE OF 20 MM OF MERCURY. The left ventricle is visualized and demonstrated adequate motion of all the segments. Estimated global left ventricular ejection fraction 60%. Left ventricular thickness is normal. The mitral valve is seen and this opens adequately. There is trace mitral regurgitation. Left atrium is mildly enlarged. The aortic valve opens adequately. Right side chambers are normal. There is trace tricuspid regurgitation. Right ventricular systolic pressure of 20 mm of Mercury.
[2016-08-03] MEDS: hydroDIURIL 25 MG PO SCH (17:03)
[2016-08-04] MEDS: Apresoline 25 MG TABLET PO PRN (00:20)
[2016-08-04] MEDS: DUONEB 0.5-3 MG/3 ml Neb IH SCH ×6 (03:02→22:37)
[2016-08-04] MEDS: solu-MEDROL 40 MG IV SCH ×2 (05:29→17:27)
[2016-08-04] MEDS: ROCEPHIN 1 Gm-D5w 50 ml Bag** 50 ML IV SCH (09:27)
[2016-08-04] MEDS: ENOXAPARIN SODIUM SQ SCH (09:29)
[2016-08-04] MEDS: hydroDIURIL 25 MG PO SCH (09:29)
[2016-08-04] MEDS: Zestril 20 MG PO SCH (09:29)
[2016-08-04] MEDS: Calcium 500MG W/Vit D Tablet PO SCH (09:29)
[2016-08-04] MEDS: Cardizem CD 240 MG PO SCH (09:29)
[2016-08-04] MEDS: Pepcid 20 MG VIAL IV SCH ×2 (09:29→20:59)
[2016-08-04] MEDS: Zithromax 500 MG/ 250 ML NaCl Premix 250 ML IV SCH (10:06)
--- NOTE | 2016-08-04 13:02 | PCM.NOTE ---
Date and Time: 08/04/16 1256 Subjective Assessment: She reports she continues to feel better each day. She still has a cough. She reports she would like to go home in the next 1-[address] Jorge Strickland stated he would be in to see her today. - Review of Systems Constitutional: No Symptoms Eyes: No Symptoms Ears, Nose, & Throat: Nose Pain Respiratory: Cough, Wheezing Cardiac: No Symptoms Abdominal/Gastrointestinal: No Symptoms Genitourinary Symptoms: No Symptoms Musculoskeletal: No Symptoms Skin: No Symptoms Objective Exam General Appearance: no apparent distress, alert, obese Neurologic Exam: alert, cooperative, normal mood/affect Skin Exam: normal color, warm, dry, No rash Respiratory Exam: other (distant breath sounds with slightly better air exchange. Continued scattered wheezes.) Cardiovascular Exam: regular rate/rhythm, normal heart sounds, No murmur, No friction rub, No gallop Gastrointestinal/Abdomen Exam: soft, normal bowel sounds, No tenderness, No distention, No mass Extremity Exam: other (no c/c/e) OBJECTIVE DATA Vital Signs: Vital Signs - 24 hr Temp Pulse Resp BP Pulse Ox 08/04/16 11:19 97.7 F 84 20 163/74 97 08/04/16 10:21 94 H 20 96 08/04/16 06:59 97.8 F 85 20 170/85 96 08/04/16 06:39 82 20 97 08/04/16 04:00 98.0 F 77 15 167/81 95 08/04/16 03:02 77 15 95 08/04/16 00:00 98.4 F 81 17 191/93 93 L 08/03/16 23:44 75 18 92 L 08/03/16 19:56 84 16 96 08/03/16 19:46 98.7 F 88 15 181/90 92 L 08/03/16 17:00 18 08/03/16 16:00 98.1 F 87 18 188/89 95 08/03/16 14:00 83 16 93 L 08/03/16 13:00 18 Oxygen-Last 24 hours O2 Percentage 2 Liters = 28% O2 Percentage 3 Liters = 32% O2 Percentage 2 Liters = 28% O2 Percentage 2 Liters = 28% O2 Percentage 3 Liters = 32% O2 Percentage 2 Liters = 28% Pain Assessment - Last Documented Pain Intensity 4 Pain Scale Used 0-10 Pain Scale Intake and Output: Intake & Output 08/02/16 08/03/16 08/04/16 08/05/16 06:59 06:59 06:59 06:59 Intake Total 480 1192 540 420 Output Total 400 1275 600 Balance 80 -83 -60 420 Weight 99.79 kg Assessment/Plan (1) Pneumonia Current Visit: Yes Status: Acute Qualifiers: Laterality: bilateral Assessment & Plan: Continue ceftriaxone Day 5. She has finished 5 days of azithromycin so will discontinue this now. Continue oxygen as needed. May need home oxygen evaluation. Dr. Jorge Strickland to see her today and he usually prescribes her home oxygen. Code(s): J18.9 - PNEUMONIA, UNSPECIFIED ORGANISM (2) COPD exacerbation Current Visit: Yes Status: Acute Assessment & Plan: Continue with breathing treatments, IV steroids and IV antibiotics. Code(s): J44.1 - CHRONIC OBSTRUCTIVE PULMONARY DISEASE W (ACUTE) EXACERBATION (3) Hypertension Current Visit: Yes Status: Acute Assessment & Plan: She is on lisinopril, HCTZ and diltazem. She continues to have high blood pressure readings but they are starting to get better. She was not on any blood pressure medication at home. Code(s): I10 - ESSENTIAL (PRIMARY) HYPERTENSION (4) Acute exacerbation of CHF (congestive heart failure) Current Visit: Yes Status: Acute Qualifiers: Congestive heart failure type: systolic Qualified Code(s): I50.23 - Acute on chronic systolic (congestive) heart failure Assessment & Plan: Her cardiac Echo was normal. Code(s): I50.9 - HEART FAILURE, UNSPECIFIED (5) DVT prophylaxis Current Visit: Yes Status: Acute Code(s): [id number] -
--- NOTE | 2016-08-04 15:13 | CONS ---
CONSULT DATE: 08/04/2016 REASON FOR CONSULTATION: Evaluation of shortness of breath. HISTORY: Dg Copeland is a 71 year-old woman well known to me who was recently seen in the office. The patient reports that about four days after being seen she started experiencing cough, shortness of breath and wheezing that got progressively worse. She saw nurse practitioner at the urgent care clinic the next day and had a "shot" with p.o. steroids. However her symptoms got even further worse and today she was seen by Dr. Apodaca and has been admitted because of worsening pulmonary status. The patient did show possible infiltrate in the left lower lobe on admission. She does report significant clinical improvement since being admitted. PAST MEDICAL HISTORY: Positive for chronic obstructive pulmonary disease. Hypoxemia on home oxygen therapy. Anxiety disorder. The patient was noted to have accelerated hypertension which has now improved. PAST SURGICAL HISTORY: No recent surgeries. PERSONAL AND SOCIAL HISTORY: The patient is a former smoker. She was recently working but quit her job due to working and health problems. MEDICATIONS: Home and current medications are reviewed. ALLERGIES: ALLERGIES NOTED. PHYSICAL EXAMINATION: This is an elderly woman who appears comfortable. She is sitting in a chair. She is able to speak without difficulty. Vital signs are noted. HEENT: Normocephalic. Pupils are reactive. Oral exam is unremarkable. NECK: Supple. CVS: First and second heart sounds are normal, regular, rhythmic. RESPIRATORY: Shows diminished breath sounds. Scattered posterior rhonchi are heard. ABDOMEN: Soft. EXTREMITIES: No edema is noted. LABORATORY DATA AND TESTS: X-rays reviewed. ASSESSMENT: This is a 71 year old woman admitted with: 1) Left lower lobe community acquired pneumonia. 2) Chronic obstructive pulmonary disease with exacerbation. 3) Chronic respiratory failure with hypoxemia on home oxygen therapy. 4) Hypertension accelerated, improved. RECOMMENDATIONS: 1) The patient has shown clinical improvement. Will obtain follow up chest x-rays. 2) Reduce steroids. 3) Monitor blood pressure. 4) May discharge home when stable from primary care standpoint with outpatient follow up. Discussed his plan of care with the patient. Thank you for allowing me to participate in the care of Dg Copeland.
[2016-08-05] MEDS: DUONEB 0.5-3 MG/3 ml Neb IH SCH ×3 (02:45→10:53)
[2016-08-05] MEDS: solu-MEDROL 40 MG IV SCH (06:11)
[2016-08-05 07:25] VITALS: BP 150/72
[2016-08-05] MEDS: ENOXAPARIN SODIUM SQ SCH (08:48)
[2016-08-05] MEDS: hydroDIURIL 25 MG PO SCH (08:49)
[2016-08-05] MEDS: Cardizem CD 240 MG PO SCH (08:49)
[2016-08-05] MEDS: Calcium 500MG W/Vit D Tablet PO SCH (08:49)
[2016-08-05] MEDS: Apresoline 25 MG TABLET PO PRN (08:49)
[2016-08-05] MEDS: Pepcid 20 MG VIAL IV SCH (08:50)
[2016-08-05] MEDS: Zestril 20 MG PO SCH (08:50)
[2016-08-05] MEDS: ROCEPHIN 1 Gm-D5w 50 ml Bag** 50 ML IV SCH (08:50)
[2016-08-05 08:55] LABS: Mean Cell Volume 92.1 fl (78-100); Mean Corpuscular Hemoglobin 28.2 pg (26-32); Mean Platelet Volume 10.9 fl (6-9.5); Platelet Count 271 K/mm3 (150-450); Red Blood Count 4.29 M/mm3 (4.1-5.4); Red Cell Distribution Width 13.6 % (11.5-14.0); White Blood Count 12.8 K/mm3 (4.0-10.5)
--- NOTE | 2016-08-05 09:29 | XRAY ---
Indication: Short of breath. Comparison: July 31, 2016. PA/lateral chest again hyperinflated with chronic lung markings and calcified granulomas. There is continued improvement of the previous bilateral airspace opacities, cleared in the right lung and trace still present in the lingula. Heart is not enlarged. No new cardiopulmonary abnormalities.
--- NOTE | 2016-08-05 10:03 | PCM.DCORD ---
- Discharge Discharge Date: 08/05/16 Disposition: Home, Self-Care Condition: Good Prescriptions: New Prednisone 20 mg [Deltasone 20 mg] 20 mg PO DAILY #4 tablet Lisinopril/Hydrochlorothiazide [Lisinopril-Hctz 20-25 mg Tab] 1 each PO DAILY #30 tablet Metoprolol Tartrate 50 mg [Lopressor 50 MG] 50 mg PO BID #60 tablet Cefdinir [Omnicef 300 mg] 300 mg PO BID #6 capsule Continue Albuterol 2.5 mg/3 ml Neb [Proventil 2.5 mg/3 ml Neb] 2.5 mg IH TID Albuterol 8 gm Mdi Hfa [Ventolin Hfa MDI] 8 gm IH QIDPRN PRN PRN Reason: resp Naproxen Sodium [Aleve] 220 mg PO BIDPRN PRN PRN Reason: Pain Calcium 500 mg PO DAILY Instructions: Heart Failure, Chronic Obstructive Pulmonary Disease, Pneumonia - - Adult Additional Instructions: follow up with LUIS MANUEL Billy in 2-3 weeks Follow up with: SHAWNEE BILLY [ACTIVE STAFF] - 08/26/16 9:45 am MARIN KIM [Primary Care Provider] - Forms: Discharge Instructions, Patient Portal Information
[2016-08-05 10:56] VITALS: PULSE 86; O2SAT 94
--- NOTE | 2016-08-05 14:07 | DS ---
DISCHARGE DIAGNOSES: 1) BILATERAL PNEUMONIA. 2) CHRONIC OBSTRUCTIVE PULMONARY DISEASE EXACERBATION. 3) HYPERTENSION. DISCHARGE PHYSICAL EXAMINATION: VITALS: Temperature current 98.2F, temperature max 98.9F, heart rate 79 to 88, respiratory rate 19 to 20, blood pressure 135 to 175 over 63 to 78, currently 150/72. Oxygen saturation 95 to 97% on 2 liters nasal cannula. GENERAL: The patient is a pleasant talkative lady sitting up in bed in no acute distress. CVS: She has a regular rate and rhythm. No murmurs, gallops or rubs are appreciated. CHEST: She has a few scattered wheezes throughout with equal breath sounds. No retractions. No dyspnea. ABDOMEN: Soft, nontender, nondistended with normal bowel sounds. EXTREMITIES: No clubbing, cyanosis or edema. SKIN: Warm, dry and intact. HOSPITAL COURSE: 1) BILATERAL PNEUMONIA: She was started on ceftriaxone and azithromycin. She finished five days of azithromycin and seven days of ceftriaxone. I am sending her home with Cefdinir 300 mg p.o. b.i.d. for three more days. She had a repeat chest x-ray on the day of her discharge that was read as continued improvement in the previous bilateral airspace opacities cleared in the right lung and trace still present in the lingula. Dr. Riaz Strickland saw her while she was here and plans to follow up with her in the clinic. She has oxygen at home and states she has all the supplies that she needs for this. 2) CHRONIC OBSTRUCTIVE PULMONARY DISEASE WITH EXACERBATION: She was given IV steroids while she was here, will plan to discharge her with prednisone 20 mg tablet 1 tablet p.o. daily for four days, will continue with Albuterol treatments at home and have her follow up with Dr. Riaz Strickland as she has a lot of trouble affording any breathing medications as she does not have any prescription drug coverage. 3) HYPERTENSION: Her blood pressure was extremely high during her hospital stay. She was on Cardizem 240 mg extended release daily as well as lisinopril/hydrochlorothiazide 20/25 mg, again she has trouble with prescription drug coverage. I am going to discharge her on lisinopril/hydrochlorothiazide 20/25 mg tablets 1 tablet p.o. daily which as far as I can tell is on the [employer] $4 list. I am also going to have her start Lopressor 50 mg p.o. b.i.d. in the a.m. tomorrow for her blood pressure as Keith is not on the [employer] $4 list. DISCHARGE MEDICATIONS: She is to resume all of her home medications and take the medications as described above in the hospital course. DISPOSITION: The patient was discharged to home in fair condition. She is to follow up with myself and Dr. Riaz Strickland.
== END 2016-08-05 13:05 | disposition home or self-care (01) | DRG 193 ==
LOC: ED 13:32 → MED SURG 16:12
PROVIDERS: ADMIT Internal Medicine; ATTEND Internal Medicine
DX: J18.9 Pneumonia, unspecified organism (principal); I50.23 Acute on chronic systolic (congestive) heart failure; J44.1 Chronic obstructive pulmonary disease with (acute) exacerbation; I10 Essential (primary) hypertension; J45.909 Unspecified asthma, uncomplicated; R09.02 Hypoxemia; R73.9 Hyperglycemia, unspecified; M81.0 Age-related osteoporosis without current pathological fracture; Z99.81 Dependence on supplemental oxygen; Z79.899 Other long term (current) drug therapy; Z87.891 Personal history of nicotine dependence
CPT/HCPCS: 36000; 36415; 36600; 71010; 71020; 80048; 80053; 82375; 82803; 82805; 83036; 83605; 83880; 85025; 87040; 87631; 90670; 90686; 93041; 93306; 94002; 94003; 94640; 94667; 94668; 94760; 94762; 96360; 96361; 96365; 96366; 96374; 96375; 99285; G0008; G0009; J0456; J0696; J1650; J1940; J2920; J2930

== ENCOUNTER 2017-08-15 03:07 | Inpatient (IN) | payer MEDICARE, OTHER ==
[2017-08-15] MEDS ORDERED: PROVENTIL 2.5 MG/3 ML NEB IH ONE (15:19)
[2017-08-15] MEDS ORDERED: Zofran 4 MG/2 ML VIAL IV PRN (15:24)
[2017-08-15] MEDS ORDERED: TYLENOL 325 MG PO PRN (15:24)
[2017-08-15 15:49] LABS: A-aADO2 66; ABG HEMOGLOBIN 10.8; ARTERIAL BLD GAS O2 SATURATION 97.5 % (95-100); ARTERIAL BLOOD GAS BASE EXCESS 14.2 (-2.0-2.0); ARTERIAL BLOOD GAS FIO2 32 %; ARTERIAL BLOOD GAS PO2 73 mmHg (75-100); ARTERIAL BLOOD GAS pH 7.38 (7.35-7.45); HGB O2 SAT 94.5 g/dF (94-100); Methhemoglobin 1.1 % (1.4-1.5); paO2 pAO1 0.53
[2017-08-15 15:50] LABS: ABG POTASSIUM 2.8 (3.5-5.1); ARTERIAL BLOOD GAS PCO2 71 mmHg (35-45)
[2017-08-15 15:50] LABS: BASOPHIL % 0.1 % (0.0-0.4); Basophil (Absolute #) 0.01 (0-0.4); Eosinophil % 0.2 % (0.00-5.0); Eosinophil (Absolute #) 0.03 (0-0.5); Granulocyte Absolute (ANC) 16.65 (1.4-6.9); Granulocytes % 91.2 % (36.0-66.0); Hematocrit 34.7 % (35-47); Hemoglobin 10.9 gm/dl (12.0-16.0); Lymphocyte (Absolute #) 0.61 (1.0-4.6); Lymphocytes % 3.3 % (24.0-44.0); Mean Cell Volume 91.6 fl (78-100); Mean Corpuscular Hgb Concent. 31.4 g/dl (32-36); Mean Platelet Volume 11.7 fl (6-9.5); Monocyte (Absolute #) 0.94 (0.0-1.3); Monocytes % 5.2 % (0.0-12.0); Platelet Count 257 K/mm3 (150-450); Red Blood Count 3.79 M/mm3 (4.1-5.4); White Blood Count 18.2 K/mm3 (4.0-10.5)
[2017-08-15 15:51] LABS: ABG SITE LEFT RADIAL; ALLEN TEST OK? YES
[2017-08-15] MEDS: ROCEPHIN 1 Gm-D5w 50 ml Bag** 1 G/50 ML IVPB IV SCH (15:56)
[2017-08-15] MEDS: solu-CORTEF 100MG IV SCH (15:58)
[2017-08-15 16:05] LABS: Mean Corpuscular Hemoglobin 28.7 pg (26-32)
[2017-08-15] MEDS: ENOXAPARIN SODIUM SQ SCH (16:06)
[2017-08-15] MEDS: PROVENTIL 2.5 MG/3 ML NEB IH SCH ×2 (16:09→19:12)
[2017-08-15 16:50] LABS: ALBUMIN 3.7 g/dL (3.5-5.0); ALKALINE PHOSPHATASE 123 U/L (38-126); BLOOD UREA NITROGEN 18 mg/dL (7-17); CHLORIDE 87 mmol/L (98-107); Calcium 9.4 mg/dL (8.4-10.2); Creatinine 1 0.65 mg/dL (0.52-1.04); Glucose 144 mg/dL (74-106); Potassium 3.1 mmol/L (3.5-5.1); SGOT/AST 15 U/L (14-36); SGPT/ALT 16 U/L (0-35); SODIUM 139 mmol/L (137-145); Total Protein 7.3 g/dL (6.3-8.2)
[2017-08-15 16:58] LABS: Carbon Dioxide 39 mmol/L (22-30); NT PRO BNP 1220 pg/mL (0-900)
[2017-08-15] MEDS: Zithromax 500 MG/ 250 ML NaCl Premix 500 MG/250 ML IVPB IV SCH (17:09)
[2017-08-15] MEDS: Lasix 40 MG PO SCH (17:09)
[2017-08-15] MEDS ORDERED: Sodium Chloride 0.9% 500 ML 500 ML IV SCH (17:30)
[2017-08-15] MEDS: POTASSIUM CHLORIDE 20 mEq IN WATER 100ML 20 MEQ/100 ML BAG IV SCH ×2 (18:18→21:03)
--- NOTE | 2017-08-15 18:22 | PCM.HP ---
History of Present Illness - Chief Complaint Chief Complaint: exacerbation COPD Date: 08/15/17 History of Present Illness: is a 72 year old female. who has been having fever chills cough congestion and shortness of breath for the last 7 days. [facility] and was evaluated. She wears O2 at night and during the day as needed. She was on room air when she arrived with pulse ox of 80 and placed on her home O2 back up to 94% sent for chest xray and flu swab. Xray concerning for pneumonia. I was contacted emergency response technician for Dr. Apodaca for direct admission. She states she is feeling a little better after the treatments just weak and tired and congestion in her chest. No swelling in her legs no chest pain nausea vomiting or diarrhea. - Review of Systems Constitutional: Fever, Chills, Fatigue Eyes: No Symptoms Ears, Nose, & Throat: No Symptoms Respiratory: Cough, Short Of Breath Cardiac: No Chest Pain, No Edema, No Syncope Abdominal/Gastrointestinal: No Abdominal Pain, No Nausea, No Vomiting, No Diarrhea Genitourinary Symptoms: No Dysuria Musculoskeletal: No Back Pain, No Neck Pain Skin: No Rash Neurological: No Dizziness, No Focal Weakness, No Sensory Changes Psychological: No Symptoms Endocrine: No Symptoms Hematologic/Lymphatic: No Symptoms Immunological/Allergic: No Symptoms Medications & Allergies Home Medications: Home Medication List Albuterol 2.5 mg/3 ml Neb [Proventil 2.5 mg/3 ml Neb] 2.5 mg IH QID [History Confirmed 08/15/17] Albuterol 8 gm Mdi Hfa [Ventolin Hfa MDI] 8 gm IH QIDPRN PRN 07/30/16 [ History Confirmed 08/15/17] Calcium 500 mg PO DAILY 07/30/16 [History Confirmed 08/15/17] Naproxen Sodium [Aleve] 220 mg PO BIDPRN PRN 07/30/16 [History Confirmed ] Lisinopril/Hydrochlorothiazide [Lisinopril-Hctz 20-25 mg Tab] 1 each PO DAILY # 30 tablet 08/05/16 [Rx Confirmed 08/15/17] Metoprolol Tartrate 50 mg [Lopressor 50 MG] 50 mg PO BID #60 tablet [Rx Confirmed 08/15/17] Furosemide 40 mg [Lasix 40 MG] 40 mg PO DAILY PRN PRN 08/15/17 [History Confirmed 08/15/17] Allergies/Adverse Reactions: Allergies Allergy/AdvReac Type Severity Reaction Status Date / Time No Known Drug Allergies Allergy Unverified 07/30/16 13:49 - Past Medical History Past Medical History: Yes Neurological History: No Pertinent History ENT History: No Pertinent History Cardiac History: Hypertension Respiratory History: Asthma, COPD Endocrine Medical History: No Pertinent History Musculoskelatal History: No Pertinent History GI Medical History: No Pertinent History History: No Pertinent History Pyscho-Social History: No Pertinent History Reproductive Disorders: No Pertinent History - Female History Are you now?: No - Past Surgical History Past Surgical History: Yes Neuro Surgical History: No Pertinent History Cardiac History: No Pertinent History Respiratory Surgery: No Pertinent History GI Surgical History: Appendectomy Genitourinary Surgical Hx: No Pertinent History Musculskeletal Surgical Hx: No Pertinent History Female Surgical History: Hysterectomy - Social History Smoking Status: Former smoker Exposure to second hand smoke: No Alcohol: Occasionally Drug Use: none - Physical Exam Vital Signs: Vital Signs - 24 hr Temp Pulse Resp BP Pulse Ox 08/15/17 16:09 84 22 97 08/15/17 16:00 98.6 F 83 18 142/64 97 08/15/17 14:32 99.0 F 89 24 133/77 92 L Oxygen-Last 24 hours O2 Percentage 2 Liters = 28% O2 Percentage 3 Liters = 32% General Appearance: no apparent distress, alert Neurologic Exam: alert, oriented x 3, cooperative, normal mood/affect, nml cerebellar function, sensation nml, No motor deficits Eye Exam: PERRL/EOMI, eyes nml inspection Ears, Nose, Throat Exam: normal ENT inspection, pharynx normal, moist mucous membranes Neck Exam: normal inspection, non-tender, supple, full range of motion Respiratory Exam: rhonchi, wheezing Cardiovascular Exam: regular rate/rhythm, normal heart sounds, normal peripheral pulses Gastrointestinal/Abdomen Exam: soft, normal bowel sounds, No tenderness, No mass Back Exam: normal inspection, normal range of motion, No CVA tenderness, No vertebral tenderness Extremity Exam: normal inspection, normal range of motion, pelvis stable Skin Exam: normal color, warm, dry, No rash Lymphatic Exam: No adenopathy Results - Labs Lab/Micro Results: Lab Results-Last 24 Hours 08/15/17 08/15/17 08/15/17 Range/Units 15:24 15:36 15:36 WBC 18.2 H (4.0-10.5) K/mm3 RBC 3.79 L (4.1-5.4) M/mm3 Hgb 10.9 L (12.0-16.0) gm/dl Hct 34.7 L (35-47) % MCV 91.6 (78-100) fl MCH 28.7 (26-32) pg MCHC 31.4 L (32-36) g/dl RDW 13.0 (11.5-14.0) % Plt Count 257 (150-450) K/mm3 MPV 11.7 H (6-9.5) fl Gran % 91.2 H (36.0-66.0) % Eos # (Auto) 0.03 (0-0.5) Absolute Lymphs (auto) 0.61 L (1.0-4.6) Absolute Monos (auto) 0.94 (0.0-1.3) Lymphocytes % 3.3 L (24.0-44.0) % Monocytes % 5.2 (0.0-12.0) % Eosinophils % 0.2 (0.00-5.0) % Basophils % 0.1 (0.0-0.4) % Absolute Granulocytes 16.65 H (1.4-6.9) Basophils # 0.01 (0-0.4) Puncture Site LEFT RADIAL pCO2 71 H* (35-45) mmHg pO2 73 L (75-100) mmHg Base Excess 14.2 H (-2.0-2.0) O2 Saturation 94.5 (94-100) g/dF ABG pH 7.38 (7.35-7.45) ABG HCO3 42.0 H* (22-28) ABG O2 Sat (Measured) 97.5 (95-100) % Huey Test YES A-a Gradient 66 a/A Ratio 0.53 Hemoglobin 10.8 Carboxyhemoglobin 2.0 (0.0-6.9) % THgb Methemoglobin 1.1 L (1.4-1.5) % Potassium 2.8 L* 3.1 L (3.5-5.1) Temperature 37.0 C POC O2 Flow Rate 32 % Sodium 139 (137-145) mmol/L Chloride 87 L (98-107) mmol/L Carbon Dioxide 39 H (22-30) mmol/L BUN 18 H (7-17) mg/dL Creatinine 0.65 (0.52-1.04) mg/dL Estimated GFR > 60 ML/MIN Glucose 144 H (74-106) mg/dL Calcium 9.4 (8.4-10.2) mg/dL Total Bilirubin 0.40 (0.2-1.3) mg/dL AST 15 (14-36) U/L ALT 16 (0-35) U/L Alkaline Phosphatase 123 (38-126) U/L NT-Pro-B Natriuret Pep 1220 H (0-900) pg/mL Serum Total Protein 7.3 (6.3-8.2) g/dL Albumin 3.7 (3.5-5.0) g/dL - Other Procedures and Tests Respiratory Therapy 08/15/17 15:53 Respiratory Nebulizer PRN Respiratory Nebulizer QID 08/15/17 15:54 Oxygen NASAL CANNULA 2 lpm Assessment/Plan (1) Pneumonia Current Visit: Yes Status: Acute Qualifiers: Laterality: bilateral Assessment & Plan: patchy bilateral airspace disease on cxr today in quick care negative flu on Rocephin and azithromycin hydrocortisone 50 mg q6h with the copd exacerbation as well continue nebs prn lovenox for ppx replace K Code(s): J18.9 - PNEUMONIA, UNSPECIFIED ORGANISM (2) COPD exacerbation Current Visit: Yes Status: Acute Code(s): J44.1 - CHRONIC OBSTRUCTIVE PULMONARY DISEASE W (ACUTE) EXACERBATION (3) Chronic respiratory failure with hypoxia and hypercapnia Current Visit: Yes Status: Acute Code(s): J96.11 - CHRONIC RESPIRATORY FAILURE WITH HYPOXIA; J96.12 - CHRONIC RESPIRATORY FAILURE WITH HYPERCAPNIA (4) Hypertension Current Visit: Yes Status: Chronic Code(s): I10 - ESSENTIAL (PRIMARY) HYPERTENSION
[2017-08-15] MEDS: Klor Con 10 MEQ PO SCH (22:00)
[2017-08-15] MEDS: Lopressor 50 MG PO SCH (22:00)
[2017-08-16] MEDS: solu-CORTEF 100MG IV SCH ×4 (01:02→23:38)
[2017-08-16] MEDS ORDERED: Ativan 1 MG PO PRN (01:08)
[2017-08-16] MEDS ORDERED: solu-MEDROL 125 MG IV ONE (03:21)
[2017-08-16] MEDS ORDERED: DUONEB 0.5-3 MG/3 ml Neb IH ONE (03:22)
[2017-08-16 03:51] LABS: A-aADO2 -74; ABG HEMOGLOBIN 11.1; ABG POTASSIUM 3.3 (3.5-5.1); ARTERIAL BLD GAS O2 SATURATION 99.9 % (95-100); ARTERIAL BLOOD GAS BASE EXCESS 14.4 (-2.0-2.0); ARTERIAL BLOOD GAS FIO2 42 %; ARTERIAL BLOOD GAS PO2 216 mmHg (75-100); HGB O2 SAT 96.6 g/dF (94-100); Methhemoglobin 1.2 % (1.4-1.5); paO2 pAO1 1.52
[2017-08-16 03:53] LABS: ARTERIAL BLOOD GAS pH 7.18 (7.35-7.45)
[2017-08-16 03:54] LABS: ABG SITE RIGHT BRACHIAL; ALLEN TEST OK? YES; ARTERIAL BLOOD GAS PCO2 126 mmHg (35-45)
[2017-08-16 05:55] LABS: Granulocyte Absolute (ANC) 14.84 (1.4-6.9); Hematocrit 32.5 % (35-47); Hemoglobin 9.8 gm/dl (12.0-16.0); Mean Cell Volume 93.9 fl (78-100); Mean Corpuscular Hemoglobin 28.3 pg (26-32); Mean Corpuscular Hgb Concent. 30.2 g/dl (32-36); Mean Platelet Volume 12.9 fl (6-9.5); Platelet Count 117 K/mm3 (150-450); Red Blood Count 3.46 M/mm3 (4.1-5.4); Red Cell Distribution Width 13.2 % (11.5-14.0); White Blood Count 15.9 K/mm3 (4.0-10.5)
[2017-08-16 06:11] LABS: ANION GAP 13.6 MEQ/L (5-15); BLOOD UREA NITROGEN 18 mg/dL (7-17); CHLORIDE 90 mmol/L (98-107); Calcium 8.8 mg/dL (8.4-10.2); Carbon Dioxide 37 mmol/L (22-30); Creatinine 1 0.63 mg/dL (0.52-1.04); Glucose 160 mg/dL (74-106); Potassium 3.9 mmol/L (3.5-5.1); SODIUM 136 mmol/L (137-145)
[2017-08-16 06:53] LABS: A-aADO2 53; ABG POTASSIUM 3.3 (3.5-5.1); ARTERIAL BLD GAS O2 SATURATION 94.8 % (95-100); ARTERIAL BLOOD GAS BASE EXCESS 16.2 (-2.0-2.0); ARTERIAL BLOOD GAS FIO2 32 %; ARTERIAL BLOOD GAS PO2 58 mmHg (75-100); ARTERIAL BLOOD GAS VENT MODE BiPAP; CARBOXYHEMOGLOBIN 2.2 % THgb (0.0-6.9); HCO3- 46.3 (22-28); HGB O2 SAT 91.8 g/dF (94-100); Methhemoglobin 1.1 % (1.4-1.5); paO2 pAO1 0.52
[2017-08-16 06:54] LABS: ABG SITE RIGHT RADIAL; ALLEN TEST OK? YES; ARTERIAL BLOOD GAS PCO2 94 mmHg (35-45)
[2017-08-16] MEDS: PROVENTIL 2.5 MG/3 ML NEB IH SCH ×4 (07:00→19:17)
[2017-08-16 07:14] LABS: Lymphocytes 2 % (24-44); Monocyte 1 % (0.0-12.0); Neutrophils 97 % (36.0-66.0); Total Cells Counted 100
[2017-08-16 07:15] LABS: Platelet Estimate NORMAL (NORMAL)
--- NOTE | 2017-08-16 07:57 | PCM.NOTE ---
Date and Time: 08/16/17 0752 Subjective Assessment: she had code rapid called last night for respiratory distress and somnolent status. Currently she is on bipap she arouses easily asks questions appropriately and denies any pain or needs. She asks what happened last night. She denies any chest pain nausea or other pain. She is now communicating well. Objective Exam General Appearance: no apparent distress, alert, obese Neurologic Exam: alert, oriented x 3, cooperative, normal mood/affect, sensation nml, No motor deficits Skin Exam: normal color, warm, dry Eye Exam: PERRL, EOMI, eyes nml inspection Ears, Nose, Throat Exam: normal ENT inspection, pharynx normal, moist mucous membranes Neck Exam: normal inspection, non-tender, supple, full range of motion Respiratory Exam: diminished breath sounds, prolonged expirations (on bipap FiO2 at 32% currently), wheezing, other, No respiratory distress Cardiovascular Exam: regular rate/rhythm, normal heart sounds Gastrointestinal/Abdomen Exam: soft, No tenderness, No mass Extremity Exam: normal inspection, normal range of motion Back Exam: normal inspection, normal range of motion, No CVA tenderness, No vertebral tenderness Pelvic Exam: deferred Rectal Exam: deferred OBJECTIVE DATA Vital Signs: Vital Signs - 24 hr Temp Pulse Resp BP Pulse Ox 08/16/17 07:01 80 24 92 L 08/16/17 04:00 85 24 145/68 98 08/16/17 03:50 88 39 H 90 L 08/16/17 00:35 82 24 97 08/16/17 00:00 98.4 F 86 24 169/118 92 L 08/15/17 20:00 99.0 F 89 20 114/62 94 L 08/15/17 19:17 87 18 93 L 08/15/17 19:15 87 18 93 L 08/15/17 16:09 84 22 97 08/15/17 16:00 98.6 F 83 18 142/64 97 08/15/17 14:32 99.0 F 89 24 133/77 92 L Oxygen-Last 24 hours O2 Percentage 3 Liters = 32% O2 Percentage 3 Liters = 32% O2 Percentage 3 Liters = 32% O2 Percentage 2 Liters = 28% O2 Percentage 3 Liters = 32% Oxygen Flowrate (L/min)-RT 3 Pain Assessment - Last Documented Pain Intensity 0 Pain Scale Used 0-10 Pain Scale Intake and Output: Intake & Output 08/13/17 08/14/17 08/15/17 08/16/17 11:59 11:59 11:59 11:59 Intake Total 1023 Output Total 125 Balance 898 Weight 97.3 kg Lab Results: Lab Results-Last 24 Hours 08/15/17 08/15/17 08/15/17 Range/Units 15:24 15:36 15:36 WBC 18.2 H (4.0-10.5) K/mm3 RBC 3.79 L (4.1-5.4) M/mm3 Hgb 10.9 L (12.0-16.0) gm/dl Hct 34.7 L (35-47) % MCV 91.6 (78-100) fl MCH 28.7 (26-32) pg MCHC 31.4 L (32-36) g/dl RDW 13.0 (11.5-14.0) % Plt Count 257 (150-450) K/mm3 MPV 11.7 H (6-9.5) fl Gran % 91.2 H (36.0-66.0) % Eos # (Auto) 0.03 (0-0.5) Absolute Lymphs (auto) 0.61 L (1.0-4.6) Absolute Monos (auto) 0.94 (0.0-1.3) Lymphocytes % 3.3 L (24.0-44.0) % Monocytes % 5.2 (0.0-12.0) % Eosinophils % 0.2 (0.00-5.0) % Basophils % 0.1 (0.0-0.4) % Absolute Granulocytes 16.65 H (1.4-6.9) Segmented Neutrophils (36.0-66.0) % Lymphocytes (Manual) (24-44) % Monocytes (Manual) (0.0-12.0) % Basophils # 0.01 (0-0.4) Differential Comment Platelet Estimate (NORMAL) Puncture Site LEFT RADIAL pCO2 71 H* (35-45) mmHg pO2 73 L (75-100) mmHg Base Excess 14.2 H (-2.0-2.0) O2 Saturation 94.5 (94-100) g/dF ABG pH 7.38 (7.35-7.45) ABG HCO3 42.0 H* (22-28) ABG O2 Sat (Measured) 97.5 (95-100) % Huey Test YES A-a Gradient 66 a/A Ratio 0.53 Hemoglobin 10.8 Carboxyhemoglobin 2.0 (0.0-6.9) % THgb Methemoglobin 1.1 L (1.4-1.5) % Potassium 2.8 L* 3.1 L (3.5-5.1) Temperature 37.0 C POC O2 Flow Rate 32 % Vent Mode Inspiratory BiPAP Expiratory BiPAP Sodium 139 (137-145) mmol/L Chloride 87 L (98-107) mmol/L Carbon Dioxide 39 H (22-30) mmol/L Anion Gap (5-15) MEQ/L BUN 18 H (7-17) mg/dL Creatinine 0.65 (0.52-1.04) mg/dL Estimated GFR > 60 ML/MIN Glucose 144 H (74-106) mg/dL Calcium 9.4 (8.4-10.2) mg/dL Magnesium (1.6-2.3) mg/dL Total Bilirubin 0.40 (0.2-1.3) mg/dL AST 15 (14-36) U/L ALT 16 (0-35) U/L Alkaline Phosphatase 123 (38-126) U/L NT-Pro-B Natriuret Pep 1220 H (0-900) pg/mL Serum Total Protein 7.3 (6.3-8.2) g/dL Albumin 3.7 (3.5-5.0) g/dL 08/16/17 08/16/17 08/16/17 Range/Units 03:16 03:16 03:45 WBC (4.0-10.5) K/mm3 RBC (4.1-5.4) M/mm3 Hgb (12.0-16.0) gm/dl Hct (35-47) % MCV (78-100) fl MCH (26-32) pg MCHC (32-36) g/dl RDW (11.5-14.0) % Plt Count (150-450) K/mm3 MPV (6-9.5) fl Gran % (36.0-66.0) % Eos # (Auto) (0-0.5) Absolute Lymphs (auto) (1.0-4.6) Absolute Monos (auto) (0.0-1.3) Lymphocytes % (24.0-44.0) % Monocytes % (0.0-12.0) % Eosinophils % (0.00-5.0) % Basophils % (0.0-0.4) % Absolute Granulocytes (1.4-6.9) Segmented Neutrophils (36.0-66.0) % Lymphocytes (Manual) (24-44) % Monocytes (Manual) (0.0-12.0) % Basophils # (0-0.4) Differential Comment Platelet Estimate (NORMAL) Puncture Site RIGHT BRACHIAL pCO2 126 H* (35-45) mmHg pO2 216 H* (75-100) mmHg Base Excess 14.4 H (-2.0-2.0) O2 Saturation 96.6 (94-100) g/dF ABG pH 7.18 L* (7.35-7.45) ABG HCO3 47.0 H* (22-28) ABG O2 Sat (Measured) 99.9 (95-100) % Huey Test YES A-a Gradient -74 a/A Ratio 1.52 Hemoglobin 11.1 Carboxyhemoglobin 2.0 (0.0-6.9) % THgb Methemoglobin 1.2 L (1.4-1.5) % Potassium 3.7 3.3 L (3.5-5.1) Temperature 37.0 C POC O2 Flow Rate 42 % Vent Mode Inspiratory BiPAP Expiratory BiPAP Sodium (137-145) mmol/L Chloride (98-107) mmol/L Carbon Dioxide (22-30) mmol/L Anion Gap (5-15) MEQ/L BUN (7-17) mg/dL Creatinine (0.52-1.04) mg/dL Estimated GFR ML/MIN Glucose (74-106) mg/dL Calcium (8.4-10.2) mg/dL Magnesium 2.5 H (1.6-2.3) mg/dL Total Bilirubin (0.2-1.3) mg/dL AST (14-36) U/L ALT (0-35) U/L Alkaline Phosphatase (38-126) U/L NT-Pro-B Natriuret Pep (0-900) pg/mL Serum Total Protein (6.3-8.2) g/dL Albumin (3.5-5.0) g/dL 08/16/17 08/16/17 08/16/17 Range/Units 05:30 05:30 07:00 WBC 15.9 H (4.0-10.5) K/mm3 RBC 3.46 L (4.1-5.4) M/mm3 Hgb 9.8 L (12.0-16.0) gm/dl Hct 32.5 L (35-47) % MCV 93.9 (78-100) fl MCH 28.3 (26-32) pg MCHC 30.2 L (32-36) g/dl RDW 13.2 (11.5-14.0) % Plt Count 117 L (150-450) K/mm3 MPV 12.9 H (6-9.5) fl Gran % (36.0-66.0) % Eos # (Auto) (0-0.5) Absolute Lymphs (auto) (1.0-4.6) Absolute Monos (auto) (0.0-1.3) Lymphocytes % (24.0-44.0) % Monocytes % (0.0-12.0) % Eosinophils % (0.00-5.0) % Basophils % (0.0-0.4) % Absolute Granulocytes 14.84 H (1.4-6.9) Segmented Neutrophils 97 H (36.0-66.0) % Lymphocytes (Manual) 2 L (24-44) % Monocytes (Manual) 1 (0.0-12.0) % Basophils # (0-0.4) Differential Comment NORMAL Platelet Estimate NORMAL (NORMAL) Puncture Site RIGHT RADIAL pCO2 94 H* (35-45) mmHg pO2 58 L (75-100) mmHg Base Excess 16.2 H (-2.0-2.0) O2 Saturation 91.8 L (94-100) g/dF ABG pH 7.30 L (7.35-7.45) ABG HCO3 46.3 H* (22-28) ABG O2 Sat (Measured) 94.8 L (95-100) % Huey Test YES A-a Gradient 53 a/A Ratio 0.52 Hemoglobin 11.0 Carboxyhemoglobin 2.2 (0.0-6.9) % THgb Methemoglobin 1.1 L (1.4-1.5) % Potassium 3.9 3.3 L (3.5-5.1) Temperature 37.0 C POC O2 Flow Rate 32 % Vent Mode BiPAP Inspiratory BiPAP 12 Expiratory BiPAP 6 Sodium 136 L (137-145) mmol/L Chloride 90 L (98-107) mmol/L Carbon Dioxide 37 H (22-30) mmol/L Anion Gap 13.6 (5-15) MEQ/L BUN 18 H (7-17) mg/dL Creatinine 0.63 (0.52-1.04) mg/dL Estimated GFR > 60 ML/MIN Glucose 160 H (74-106) mg/dL Calcium 8.8 (8.4-10.2) mg/dL Magnesium (1.6-2.3) mg/dL Total Bilirubin (0.2-1.3) mg/dL AST (14-36) U/L ALT (0-35) U/L Alkaline Phosphatase (38-126) U/L NT-Pro-B Natriuret Pep (0-900) pg/mL Serum Total Protein (6.3-8.2) g/dL Albumin (3.5-5.0) g/dL Radiology Exams: Radiology Procedures Category Date Time Status CHEST 1 VIEW (PORTABLE) Routine Exams 08/16/17 07:51 Ordered Assessment/Plan (1) Acute respiratory failure with hypercapnia Current Visit: Yes Status: Acute Assessment & Plan: last night she became more somnolent difficult to arouse with increased respiratory distress code rapid called with Dr. Borrego responding and given 3 duoneb treatments. ABG showed hypercapnea to 120 with her oxygen in the upper 90 's throughout the night. It was likely failure secondary to decreased respiratory drive from her chronic respiratory failure. She was placed on bipap and did well on FiO2 at 32% currently titrated to keep pulse ox in the 88 to 92 % range. Continue the bipap repeat abg in 4 hours sooner as needed repeat chest xray incerase steroid solucortef 100 q6h continue antibiotic rocephin, azithromicin hold iv fluids with previous hx of volume overload Code(s): J96.02 - ACUTE RESPIRATORY FAILURE WITH HYPERCAPNIA (2) Acute metabolic encephalopathy Current Visit: Yes Status: Acute Code(s): G93.41 - METABOLIC ENCEPHALOPATHY (3) Pneumonia Current Visit: Yes Status: Acute Qualifiers: Laterality: bilateral Code(s): J18.9 - PNEUMONIA, UNSPECIFIED ORGANISM (4) COPD exacerbation Current Visit: Yes Status: Acute Code(s): J44.1 - CHRONIC OBSTRUCTIVE PULMONARY DISEASE W (ACUTE) EXACERBATION (5) Chronic respiratory failure with hypoxia and hypercapnia Current Visit: Yes Status: Acute Code(s): J96.11 - CHRONIC RESPIRATORY FAILURE WITH HYPOXIA; J96.12 - CHRONIC RESPIRATORY FAILURE WITH HYPERCAPNIA (6) Hypertension Current Visit: Yes Status: Chronic Code(s): I10 - ESSENTIAL (PRIMARY) HYPERTENSION (7) Thrombocytopenia Current Visit: Yes Status: Acute
--- NOTE | 2017-08-16 08:51 | XRAY ---
Indication: Respiratory failure. Comparison: One day earlier. Portable chest unchanged again demonstrating left mid to lower and right base airspace disease. Stable COPD, CIPD, biapical pleural thickening, and right base calcified granuloma. Heart is not enlarged. No new abnormalities.
[2017-08-16] MEDS ORDERED: NON-FORMULARY ITEM (Lisinopril/Hydrochlorothiazide [Lisinopril-Hctz 20-25 Mg Tab] 1 EACH) PO SCH ×2 (10:00)
[2017-08-16] MEDS: ROCEPHIN 1 Gm-D5w 50 ml Bag** 1 G/50 ML IVPB IV SCH (10:26)
[2017-08-16] MEDS: Lasix 40 MG PO SCH (10:35)
[2017-08-16] MEDS: Zestril 20 MG PO SCH (10:35)
[2017-08-16] MEDS: Klor Con 10 MEQ PO SCH ×2 (10:35→23:37)
[2017-08-16] MEDS: hydroDIURIL 25 MG PO SCH (10:35)
[2017-08-16] MEDS: Lopressor 50 MG PO SCH ×2 (10:36→23:38)
[2017-08-16] MEDS: ENOXAPARIN SODIUM SQ SCH (10:36)
[2017-08-16 11:48] LABS: A-aADO2 61; ABG HEMOGLOBIN 10.4; ABG POTASSIUM 3.4 (3.5-5.1); ARTERIAL BLD GAS O2 SATURATION 96.3 % (95-100); ARTERIAL BLOOD GAS BASE EXCESS 18.6 (-2.0-2.0); ARTERIAL BLOOD GAS PO2 62 mmHg (75-100); ARTERIAL BLOOD GAS pH 7.36 (7.35-7.45); CARBOXYHEMOGLOBIN 2.4 % THgb (0.0-6.9); HCO3- 47.5 (22-28); HGB O2 SAT 93.1 g/dF (94-100); Methhemoglobin 0.9 % (1.4-1.5)
[2017-08-16 11:49] LABS: ABG SITE RIGHT BRACHIAL; ARTERIAL BLOOD GAS PCO2 84 mmHg (35-45)
[2017-08-16] MEDS: Zithromax 500 MG/ 250 ML NaCl Premix 500 MG/250 ML IVPB IV SCH (12:09)
[2017-08-16 12:27] LABS: ARTERIAL BLOOD GAS FIO2 28 %
[2017-08-17] MEDS: PROVENTIL 2.5 MG/3 ML NEB IH PRN (04:22)
[2017-08-17 05:55] LABS: VBG BASE EXCESS 23.1 (-2.0-2.0); VBG CARBOXYHEMOGLOBIN 2.7 % T HGB (0.0-6.9); VBG HCO3- 52.6 meq/L (22-28); VBG O2 SATURATION 88.6 (95-100); VBG POTASSIUM 3.5 (3.5-5.1); VBG pH 7.38 (7.32-7.42)
[2017-08-17 06:06] LABS: Granulocyte Absolute (ANC) 10.07 (1.4-6.9); Hematocrit 36.5 % (35-47); Hemoglobin 10.7 gm/dl (12.0-16.0); Mean Cell Volume 96.3 fl (78-100); Mean Corpuscular Hemoglobin 28.2 pg (26-32); Mean Corpuscular Hgb Concent. 29.3 g/dl (32-36); Mean Platelet Volume 11.3 fl (6-9.5); Platelet Count 343 K/mm3 (150-450); Red Blood Count 3.79 M/mm3 (4.1-5.4); Red Cell Distribution Width 13.2 % (11.5-14.0); White Blood Count 11.6 K/mm3 (4.0-10.5)
[2017-08-17 06:19] LABS: ALBUMIN 3.6 g/dL (3.5-5.0); ALKALINE PHOSPHATASE 104 U/L (38-126); BLOOD UREA NITROGEN 29 mg/dL (7-17); CHLORIDE 86 mmol/L (98-107); Calcium 9.4 mg/dL (8.4-10.2); Creatinine 1 0.77 mg/dL (0.52-1.04); Glucose 200 mg/dL (74-106); Potassium 3.5 mmol/L (3.5-5.1); SGOT/AST 11 U/L (14-36); SGPT/ALT 16 U/L (0-35); SODIUM 143 mmol/L (137-145)
[2017-08-17] MEDS: solu-CORTEF 100MG IV SCH ×3 (06:20→17:34)
[2017-08-17 06:32] LABS: Carbon Dioxide 47 mmol/L (22-30)
[2017-08-17] MEDS: PROVENTIL 2.5 MG/3 ML NEB IH SCH ×4 (06:59→19:24)
[2017-08-17 07:20] LABS: Lymphocytes 6 % (24-44); Monocyte 8 % (0.0-12.0); Neutrophils 86 % (36.0-66.0); Platelet Estimate NORMAL (NORMAL); Total Cells Counted 100; Toxic Granulation 1+
--- NOTE | 2017-08-17 08:06 | PCM.NOTE ---
Date and Time: 08/17/17 0804 Subjective Assessment: sttes she is breathing better having cough with production of some mucous that is improving eating well felt much better yesterday wore bipap early in the night and then took it off very tired this am and co2 back up so it was placed back on she is tolerating it well she states she is just tired. Objective Exam General Appearance: no apparent distress, alert, obese Neurologic Exam: alert, oriented x 3, cooperative, normal mood/affect, nml cerebellar function, sensation nml, No motor deficits Skin Exam: normal color, warm, dry Eye Exam: PERRL, EOMI, eyes nml inspection Ears, Nose, Throat Exam: normal ENT inspection, pharynx normal, moist mucous membranes Neck Exam: normal inspection, non-tender, supple, full range of motion Respiratory Exam: crackles/rales, wheezing, No respiratory distress Cardiovascular Exam: regular rate/rhythm, normal heart sounds Gastrointestinal/Abdomen Exam: soft, No tenderness, No mass Extremity Exam: normal inspection, normal range of motion Back Exam: normal inspection, normal range of motion, No CVA tenderness, No vertebral tenderness Pelvic Exam: deferred Rectal Exam: deferred OBJECTIVE DATA Vital Signs: Vital Signs - 24 hr Temp Pulse Resp BP Pulse Ox 08/17/17 07:50 98.3 F 81 29 H 145/85 96 08/17/17 07:03 80 26 H 95 08/17/17 04:00 98.5 F 78 22 174/65 93 L 08/17/17 00:00 98.2 F 83 24 146/66 92 L 08/16/17 20:00 98.6 F 86 28 H 135/63 98 08/16/17 19:21 86 28 H 97 08/16/17 16:00 98.7 F 72 16 126/56 90 L 08/16/17 14:13 86 18 94 L 08/16/17 12:41 86 31 H 94 L 08/16/17 12:00 98.7 F 86 24 135/60 89 L Oxygen-Last 24 hours O2 Percentage 2 Liters = 28% O2 Percentage 2 Liters = 28% O2 Percentage 2 Liters = 28% O2 Percentage 2 Liters = 28% O2 Percentage 2 Liters = 28% O2 Percentage 2 Liters = 28% Pain Assessment - Last Documented Pain Intensity 0 Pain Scale Used 0-10 Pain Scale Intake and Output: Intake & Output 08/14/17 08/15/17 08/16/17 08/17/17 11:59 11:59 11:59 11:59 Intake Total 1023 1140 Output Total 125 1600 Balance 898 -460 Weight 97.3 kg Lab Results: Lab Results-Last 24 Hours 08/16/17 08/17/17 08/17/17 Range/Units 11:45 05:45 05:55 WBC 11.6 H (4.0-10.5) K/mm3 RBC 3.79 L (4.1-5.4) M/mm3 Hgb 10.7 L (12.0-16.0) gm/dl Hct 36.5 (35-47) % MCV 96.3 (78-100) fl MCH 28.2 (26-32) pg MCHC 29.3 L (32-36) g/dl RDW 13.2 (11.5-14.0) % Plt Count 343 (150-450) K/mm3 MPV 11.3 H (6-9.5) fl Absolute Granulocytes 10.07 H (1.4-6.9) Segmented Neutrophils 86 H (36.0-66.0) % Lymphocytes (Manual) 6 L (24-44) % Monocytes (Manual) 8 (0.0-12.0) % Differential Comment NORMAL Toxic Granulation 1+ Platelet Estimate NORMAL (NORMAL) Puncture Site RIGHT BRACHIAL pCO2 84 H* (35-45) mmHg pO2 62 L (75-100) mmHg pO2/FiO2 Ratio 28.0 % Base Excess 18.6 H (-2.0-2.0) O2 Saturation 93.1 L (94-100) g/dF ABG pH 7.36 (7.35-7.45) ABG HCO3 47.5 H* (22-28) ABG O2 Sat (Measured) 96.3 (95-100) % Huey Test NOT APPLICABLE VBG pH 7.38 (7.32-7.42) VBG pCO2 at Pat Temp 89 H* (42-55) mm/Hg VBG pO2 at Pat Temp 43 H (25-40) mm/Hg VBG HCO3 52.6 H* (22-28) meq/L VBG O2 Sat (Trever) 88.6 L (95-100) VBG Base Excess 23.1 H (-2.0-2.0) VBG Hemoglobin 11.0 VBG Carboxyhemoglobin 2.7 (0.0-6.9) % T HGB A-a Gradient 61 a/A Ratio 0.50 Hemoglobin 10.4 Carboxyhemoglobin 2.4 (0.0-6.9) % THgb Methemoglobin 0.9 L (1.4-1.5) % Potassium 3.4 L (3.5-5.1) POC Potassium 3.5 (3.5-5.1) Temperature 37.0 C POC O2 Flow Rate 28 % Sodium (137-145) mmol/L Chloride (98-107) mmol/L Carbon Dioxide (22-30) mmol/L BUN (7-17) mg/dL Creatinine (0.52-1.04) mg/dL Estimated GFR ML/MIN Glucose (74-106) mg/dL Calcium (8.4-10.2) mg/dL Total Bilirubin (0.2-1.3) mg/dL AST (14-36) U/L ALT (0-35) U/L Alkaline Phosphatase (38-126) U/L Serum Total Protein (6.3-8.2) g/dL Albumin (3.5-5.0) g/dL 08/17/17 Range/Units 05:55 WBC (4.0-10.5) K/mm3 RBC (4.1-5.4) M/mm3 Hgb (12.0-16.0) gm/dl Hct (35-47) % MCV (78-100) fl MCH (26-32) pg MCHC (32-36) g/dl RDW (11.5-14.0) % Plt Count (150-450) K/mm3 MPV (6-9.5) fl Absolute Granulocytes (1.4-6.9) Segmented Neutrophils (36.0-66.0) % Lymphocytes (Manual) (24-44) % Monocytes (Manual) (0.0-12.0) % Differential Comment Toxic Granulation Platelet Estimate (NORMAL) Puncture Site pCO2 (35-45) mmHg pO2 (75-100) mmHg pO2/FiO2 Ratio % Base Excess (-2.0-2.0) O2 Saturation (94-100) g/dF ABG pH (7.35-7.45) ABG HCO3 (22-28) ABG O2 Sat (Measured) (95-100) % Huey Test VBG pH (7.32-7.42) VBG pCO2 at Pat Temp (42-55) mm/Hg VBG pO2 at Pat Temp (25-40) mm/Hg VBG HCO3 (22-28) meq/L VBG O2 Sat (Trever) (95-100) VBG Base Excess (-2.0-2.0) VBG Hemoglobin VBG Carboxyhemoglobin (0.0-6.9) % T HGB A-a Gradient a/A Ratio Hemoglobin Carboxyhemoglobin (0.0-6.9) % THgb Methemoglobin (1.4-1.5) % Potassium 3.5 (3.5-5.1) POC Potassium (3.5-5.1) Temperature C POC O2 Flow Rate % Sodium 143 (137-145) mmol/L Chloride 86 L (98-107) mmol/L Carbon Dioxide 47 H (22-30) mmol/L BUN 29 H (7-17) mg/dL Creatinine 0.77 (0.52-1.04) mg/dL Estimated GFR > 60 ML/MIN Glucose 200 H (74-106) mg/dL Calcium 9.4 (8.4-10.2) mg/dL Total Bilirubin 0.20 (0.2-1.3) mg/dL AST 11 L (14-36) U/L ALT 16 (0-35) U/L Alkaline Phosphatase 104 (38-126) U/L Serum Total Protein 7.0 (6.3-8.2) g/dL Albumin 3.6 (3.5-5.0) g/dL Radiology Exams: Radiology Procedures Category Date Time Status CHEST 1 VIEW (PORTABLE) Routine Exams 08/16/17 07:51 Completed Multi-Disciplinary Progress Notes: Multi-Disciplinary Progress Notes 08/16/17 09:32 Case Management Note by Caro Tatum Talked with LISSETTE SPIVEY regarding needs at time of discharge. Pt lives at home and plans on returning there at discharge. She currently has home O2 provided for her by [facility] but says she needs a portable tank that she can carry. Plan to discuss with [facility] today. Discharge questionaire reviewed with patient. Important message from Medicare signed. Patient verbalized understanding. Forms placed on chart. Patient meets Acute Adult Inpatient Criteria. Will continue to follow for all Discharge needs. Initialized on 08/16/17 09:32 - END OF NOTE Assessment/Plan (1) Acute respiratory failure with hypercapnia Current Visit: Yes Status: Acute Assessment & Plan: improving bipap helped will use with sleeping now and prn continue keeping O2 88 to 92% continue azithromycin and rocephin and hydrocortisone for the pneumonia. Code(s): J96.02 - ACUTE RESPIRATORY FAILURE WITH HYPERCAPNIA (2) Acute metabolic encephalopathy Current Visit: Yes Status: Acute Code(s): G93.41 - METABOLIC ENCEPHALOPATHY (3) Pneumonia Current Visit: Yes Status: Acute Qualifiers: Laterality: bilateral Code(s): J18.9 - PNEUMONIA, UNSPECIFIED ORGANISM (4) COPD exacerbation Current Visit: Yes Status: Acute Code(s): J44.1 - CHRONIC OBSTRUCTIVE PULMONARY DISEASE W (ACUTE) EXACERBATION (5) Chronic respiratory failure with hypoxia and hypercapnia Current Visit: Yes Status: Acute Code(s): J96.11 - CHRONIC RESPIRATORY FAILURE WITH HYPOXIA; J96.12 - CHRONIC RESPIRATORY FAILURE WITH HYPERCAPNIA (6) Hypertension Current Visit: Yes Status: Chronic Code(s): I10 - ESSENTIAL (PRIMARY) HYPERTENSION
[2017-08-17] MEDS: ENOXAPARIN SODIUM SQ SCH (10:29)
[2017-08-17] MEDS: Klor Con 10 MEQ PO SCH ×2 (10:30→22:08)
[2017-08-17] MEDS: Pepcid 20 MG PO SCH ×2 (10:30→22:08)
[2017-08-17] MEDS: Zestril 20 MG PO SCH (10:30)
[2017-08-17] MEDS: ROCEPHIN 1 Gm-D5w 50 ml Bag** 1 G/50 ML IVPB IV SCH (10:30)
[2017-08-17] MEDS: hydroDIURIL 25 MG PO SCH (10:30)
[2017-08-17] MEDS: Lopressor 50 MG PO SCH ×2 (10:31→22:08)
[2017-08-17] MEDS: Lasix 40 MG PO SCH (10:31)
[2017-08-17] MEDS: Zithromax 500 MG/ 250 ML NaCl Premix 500 MG/250 ML IVPB IV SCH (12:24)
[2017-08-18] MEDS: solu-CORTEF 100MG IV SCH ×2 (01:00→05:44)
[2017-08-18] MEDS: PROVENTIL 2.5 MG/3 ML NEB IH PRN (05:23)
[2017-08-18 06:24] LABS: Granulocyte Absolute (ANC) 8.26 (1.4-6.9); Hematocrit 36.8 % (35-47); Mean Cell Volume 96.1 fl (78-100); Mean Corpuscular Hemoglobin 28.7 pg (26-32); Mean Corpuscular Hgb Concent. 29.9 g/dl (32-36); Mean Platelet Volume 13.1 fl (6-9.5); Platelet Count 258 K/mm3 (150-450); Red Blood Count 3.83 M/mm3 (4.1-5.4); White Blood Count 10.8 K/mm3 (4.0-10.5)
[2017-08-18 06:31] LABS: VBG BASE EXCESS 31.4 (-2.0-2.0); VBG CARBOXYHEMOGLOBIN 3.2 % T HGB (0.0-6.9); VBG HCO3- 57.6 meq/L (22-28); VBG HEMOGLOBIN 11.5; VBG O2 SATURATION 99.3 (95-100); VBG POTASSIUM 3.3 (3.5-5.1)
[2017-08-18 06:32] LABS: VBG pH 7.59 (7.32-7.42)
[2017-08-18 06:39] LABS: BLOOD UREA NITROGEN 39 mg/dL (7-17); CHLORIDE 85 mmol/L (98-107); Calcium 9.1 mg/dL (8.4-10.2); Creatinine 1 0.74 mg/dL (0.52-1.04); Glucose 113 mg/dL (74-106); Potassium 3.2 mmol/L (3.5-5.1); SODIUM 144 mmol/L (137-145)
[2017-08-18 06:50] LABS: Carbon Dioxide 50 mmol/L (22-30)
[2017-08-18] MEDS: PROVENTIL 2.5 MG/3 ML NEB IH SCH ×4 (06:51→20:38)
[2017-08-18 07:35] LABS: Lymphocytes 12 % (24-44); Monocyte 5 % (0.0-12.0); Neutrophils 83 % (36.0-66.0); Platelet Estimate NORMAL (NORMAL); Total Cells Counted 100
[2017-08-18] MEDS ORDERED: Klor Con 10 MEQ PO ONE (09:00)
--- NOTE | 2017-08-18 09:14 | PCM.NOTE ---
Date and Time: 08/18/17913 Subjective Assessment: she is feeling better today still with some coughing wore bipap some last night bp increasing no chest pain she is coughing nonproductive now no vomiting tolerating po less confusion Objective Exam General Appearance: no apparent distress, obese Neurologic Exam: alert, oriented x 3, cooperative Skin Exam: warm, dry Ears, Nose, Throat Exam: moist mucous membranes Neck Exam: non-tender, supple Respiratory Exam: crackles/rales, rhonchi, wheezing Cardiovascular Exam: regular rate/rhythm, No murmur Gastrointestinal/Abdomen Exam: soft, normal bowel sounds, No tenderness Extremity Exam: normal inspection OBJECTIVE DATA Vital Signs: Vital Signs - 24 hr Temp Pulse Resp BP Pulse Ox 08/18/17 07:56 80 20 167/79 91 L 08/18/17 07:10 98.3 F 67 20 195/95 91 L 08/18/17 06:52 64 21 98 08/18/17 05:44 69 24 96 08/18/17 04:00 98.4 F 79 16 180/82 94 L 08/18/17 00:00 98.3 F 81 16 150/65 93 L 08/17/17 20:00 98.4 F 74 18 178/80 95 08/17/17 19:29 85 14 96 08/17/17 16:00 98.4 F 84 20 155/81 91 L 08/17/17 14:50 80 22 94 L 08/17/17 12:00 98.5 F 73 22 135/76 96 08/17/17 10:56 78 24 98 Oxygen-Last 24 hours O2 Percentage 2 Liters = 28% O2 Percentage 2 Liters = 28% O2 Percentage 2 Liters = 28% O2 Percentage 2 Liters = 28% O2 Percentage 2 Liters = 28% O2 Percentage 2 Liters = 28% Pain Assessment - Last Documented Pain Intensity 0 Pain Scale Used 0-10 Pain Scale Intake and Output: Intake & Output 08/15/17 08/16/17 08/17/17 08/18/17 11:59 11:59 11:59 11:59 Intake Total 1023 1140 720 Output Total 125 1600 400 Balance 898 -460 320 Weight 97.3 kg Lab Results: Lab Results-Last 24 Hours 08/18/17 08/18/17 08/18/17 Range/Units 05:25 05:25 05:25 WBC 10.8 H (4.0-10.5) K/mm3 RBC 3.83 L (4.1-5.4) M/mm3 Hgb 11.0 L (12.0-16.0) gm/dl Hct 36.8 (35-47) % MCV 96.1 (78-100) fl MCH 28.7 (26-32) pg MCHC 29.9 L (32-36) g/dl RDW 13.0 (11.5-14.0) % Plt Count 258 (150-450) K/mm3 MPV 13.1 H (6-9.5) fl Absolute Granulocytes 8.26 H (1.4-6.9) Segmented Neutrophils 83 H (36.0-66.0) % Lymphocytes (Manual) 12 L (24-44) % Monocytes (Manual) 5 (0.0-12.0) % Differential Comment NORMAL Platelet Estimate NORMAL (NORMAL) pO2/FiO2 Ratio 28.0 % VBG pH 7.59 H* (7.32-7.42) VBG pCO2 at Pat Temp 60 H (42-55) mm/Hg VBG pO2 at Pat Temp 92 H (25-40) mm/Hg VBG HCO3 57.6 H* (22-28) meq/L VBG O2 Sat (Trever) 99.3 (95-100) VBG Base Excess 31.4 H (-2.0-2.0) VBG Hemoglobin 11.5 VBG Carboxyhemoglobin 3.2 (0.0-6.9) % T HGB POC Potassium 3.3 L (3.5-5.1) Sodium 144 (137-145) mmol/L Potassium 3.2 L (3.5-5.1) mmol/L Chloride 85 L (98-107) mmol/L Carbon Dioxide 50 H (22-30) mmol/L BUN 39 H (7-17) mg/dL Creatinine 0.74 (0.52-1.04) mg/dL Estimated GFR > 60 ML/MIN Glucose 113 H (74-106) mg/dL Calcium 9.1 (8.4-10.2) mg/dL Assessment/Plan (1) Acute respiratory failure with hypercapnia Current Visit: Yes Status: Acute Assessment & Plan: change steroid to po prednisone increase metoprolol for the elevated bp continue iv antibiotics for pneumonia if tolerting possibly home tomorrow the hypercapnea is improved now with metabolic alkalosis hold the lasix today Code(s): J96.02 - ACUTE RESPIRATORY FAILURE WITH HYPERCAPNIA (2) Acute metabolic encephalopathy Current Visit: Yes Status: Acute Code(s): G93.41 - METABOLIC ENCEPHALOPATHY (3) Pneumonia Current Visit: Yes Status: Acute Qualifiers: Laterality: bilateral Code(s): J18.9 - PNEUMONIA, UNSPECIFIED ORGANISM (4) COPD exacerbation Current Visit: Yes Status: Acute Code(s): J44.1 - CHRONIC OBSTRUCTIVE PULMONARY DISEASE W (ACUTE) EXACERBATION (5) Chronic respiratory failure with hypoxia and hypercapnia Current Visit: Yes Status: Acute Code(s): J96.11 - CHRONIC RESPIRATORY FAILURE WITH HYPOXIA; J96.12 - CHRONIC RESPIRATORY FAILURE WITH HYPERCAPNIA (6) Hypertension Current Visit: Yes Status: Chronic Code(s): I10 - ESSENTIAL (PRIMARY) HYPERTENSION
[2017-08-18] MEDS: Lopressor 50 MG PO SCH ×2 (11:15→21:30)
[2017-08-18] MEDS: DELTASONE 20 MG PO SCH (11:15)
[2017-08-18] MEDS: Zestril 20 MG PO SCH ×2 (11:16→21:30)
[2017-08-18] MEDS: ENOXAPARIN SODIUM SQ SCH (11:16)
[2017-08-18] MEDS: Pepcid 20 MG PO SCH ×2 (11:16→21:30)
[2017-08-18] MEDS: hydroDIURIL 25 MG PO SCH (11:16)
[2017-08-18] MEDS: ROCEPHIN 1 Gm-D5w 50 ml Bag** 1 G/50 ML IVPB IV SCH (11:17)
[2017-08-18] MEDS: Zithromax 500 MG/ 250 ML NaCl Premix 500 MG/250 ML IVPB IV SCH (11:18)
[2017-08-18] MEDS ORDERED: Klor Con 10 MEQ PO SCH (15:00)
[2017-08-18] MEDS ORDERED: APRESOLINE 20 MG/ML INJ IV PRN (17:17)
[2017-08-18] MEDS: Mucomyst 200 MG/ML IH SCH (20:38)
[2017-08-19] MEDS: PROVENTIL 2.5 MG/3 ML NEB IH SCH (05:15)
[2017-08-19] MEDS: Mucomyst 200 MG/ML IH SCH (05:15)
--- NOTE | 2017-08-19 08:17 | PCM.DS ---
Discharge Summary Date of Admission: 08/16/17 03:07 Date of Discharge: 08/19/2017 Admitting Physician: KIRA SOLOMON Primary Care Provider: MARIN KIM Allergies Allergies No Known Drug Allergies Allergy (Unverified 07/30/16 13:49) Hospital Summary - Hospital Course Hospital Course: she presented to [facility] an was found to be hypoxic with pneumonia and tachypnea with respiratory distress. She was direct admitted and required bipap overnight with hypercapneic respiratory failure with acute on chronic respiratory failure exacerbated by contraction alkalosis. She slowly showed improvement on the iv abx, steroids, bipap, and oxygen support. She did have hypertension and her blood pressure medications are adjusted and is still having some hypertension. her steroids were weaned to po and was tolerating well the day prior to discharge. She tolerated off the bipap the night prior to discharge as well and was ambulating in the room with her 3L nc O2 without significant difficulty. She will finish the steroid taper and antibiotics We have adjusted her blood pressure medications and she will followup next week to repeat blood pressure - Vitals & Intake/Output Vital Signs: Vital Signs Temperature 97.8 F 08/19/17 07:15 Pulse Rate 68 08/19/17 07:15 Respiratory Rate 20 08/19/17 07:15 Blood Pressure 153/67 08/19/17 07:15 O2 Sat by Pulse Oximetry 95 08/19/17 07:15 Oxygen-Last Documented O2 Percentage 3 Liters = 32% Intake & Output: Intake & Output 08/16/17 08/17/17 08/18/17 08/19/17 11:59 11:59 11:59 11:59 Intake Total 1023 5603 414 7097 Output Total 125 1600 400 Balance 898 -031 382 4182 Weight 97.3 kg 97.3 kg - Lab Result Diagrams: 08/18/17 05:25 08/18/17 05:25 Micro Results-Entire Visit: Microbiology 08/15/17 21:24 Sputum Culture - Preliminary Sputum - Expectorant Klebsiella Oxytoca 08/15/17 15:44 Blood Culture - Preliminary Blood NO GROWTH TO DATE 08/15/17 15:36 Blood Culture - Preliminary Blood NO GROWTH TO DATE - Procedures and Test Procedures and Tests throughout Hospitalization: Therapy Orders & Screens 08/15/17 14:52 RT Screen per Nursing Assess ONCE Comment: Protocol Order Physician Instructions: Greater than 3 points order RT Admission Screen Reason For Exam: Triggered on Admission Diagnosis: exacerbation COPD Diagnosis: exacerbation COPD Pneumonia: Yes Home O2: Yes Asthma: Yes CHF: No Home CPAP/BIPAP: No Home Nebs/MDI: Yes Total Points: 17 08/15/17 15:24 EKG STAT Comment: Diagnosis: exacerbation COPD 08/15/17 15:53 Respiratory Nebulizer BID Comment: Diagnosis: exacerbation COPD Respiratory Nebulizer QID Comment: Diagnosis: exacerbation COPD 08/15/17 15:54 Oxygen NASAL CANNULA 2 lpm Comment: Diagnosis: exacerbation COPD 08/16/17 03:22 Respiratory Nebulizer STAT Comment: Diagnosis: exacerbation COPD 08/16/17 04:01 BiPap/CPAP Assessment ROUTINE Comment: Diagnosis: exacerbation COPD Discharge Exam General Appearance: no apparent distress, alert, obese Neurologic Exam: alert, oriented x 3, cooperative, normal mood/affect, nml cerebellar function, sensation nml, No motor deficits Skin Exam: normal color, warm, dry Eye Exam: PERRL, EOMI, eyes nml inspection Ears, Nose, Throat Exam: normal ENT inspection, pharynx normal, moist mucous membranes Neck Exam: normal inspection, non-tender, supple, full range of motion Respiratory Exam: normal breath sounds, lungs clear, No respiratory distress Cardiovascular Exam: regular rate/rhythm, normal heart sounds Gastrointestinal/Abdomen Exam: soft, No tenderness, No mass Extremity Exam: No calf tenderness, No pedal edema Back Exam: No CVA tenderness Pelvic Exam: deferred Rectal Exam: deferred Final Diagnosis/Problem List - Final Discharge Diagnosis/Problem (1) Acute respiratory failure with hypercapnia Status: Acute (2) Acute metabolic encephalopathy Status: Resolved (3) Pneumonia Status: Acute (4) COPD exacerbation Status: Acute (5) Chronic respiratory failure with hypoxia and hypercapnia Status: Acute (6) Hypertension Status: Chronic - Discharge Discharge Date: 08/19/17 Disposition: Home, Self-Care Condition: Stable Prescriptions: New Prednisone 20 mg [Deltasone 20 mg] 40 mg PO UD #10 tablet Metoprolol Tartrate 100 mg PO BID #60 tablet Cefdinir 300 mg [Omnicef 300 mg] 300 mg PO BID #10 capsule Lisinopril 20 mg [Zestril 20 MG] 20 mg PO DAILY #30 tablet Continue Albuterol 2.5 mg/3 ml Neb [Proventil 2.5 mg/3 ml Neb] 2.5 mg IH QID Albuterol 8 gm Mdi Hfa [Ventolin Hfa MDI] 8 gm IH QIDPRN PRN PRN Reason: resp Calcium 500 mg PO DAILY Lisinopril/Hydrochlorothiazide [Lisinopril-Hctz 20-25 mg Tab] 1 each PO DAILY #30 tablet Furosemide 40 mg [Lasix 40 MG] 40 mg PO DAILY PRN PRN PRN Reason: swelling Discontinued Naproxen Sodium [Aleve] 220 mg PO BIDPRN PRN PRN Reason: Pain Metoprolol Tartrate 50 mg [Lopressor 50 MG] 50 mg PO BID #60 tablet Instructions: Pneumonia, Adult (DC) Follow up with: MARIN KIM [Primary Care Provider] - 08/29/17 10:15 am Forms: Discharge Instructions
[2017-08-19] MEDS: Zestril 20 MG PO SCH (08:42)
[2017-08-19] MEDS: Lopressor 50 MG PO SCH (08:43)
[2017-08-19] MEDS: hydroDIURIL 25 MG PO SCH (08:43)
[2017-08-19] MEDS: DELTASONE 20 MG PO SCH (08:43)
[2017-08-19] MEDS: Pepcid 20 MG PO SCH (08:43)
[2017-08-19] MEDS: ROCEPHIN 1 Gm-D5w 50 ml Bag** 1 G/50 ML IVPB IV SCH (08:52)
[2017-08-19] MEDS: ENOXAPARIN SODIUM SQ SCH (08:52)
[2017-08-19] MEDS: Zithromax 500 MG/ 250 ML NaCl Premix 500 MG/250 ML IVPB IV SCH (10:03)
[2017-08-19 12:23] VITALS: BP 153/70; PULSE 63; O2SAT 96
== END 2017-08-19 12:10 | disposition home or self-care (01) | DRG 189 ==
LOC: MED SURG 03:07 → OBSVTOIN 08-16 03:07 → MED SURG 08-16 04:32
PROVIDERS: ADMIT Family Medicine; ATTEND Family Medicine
DX: J96.02 Acute respiratory failure with hypercapnia (principal); G93.41 Metabolic encephalopathy; J18.9 Pneumonia, unspecified organism; J44.1 Chronic obstructive pulmonary disease with (acute) exacerbation; J96.11 Chronic respiratory failure with hypoxia; J96.12 Chronic respiratory failure with hypercapnia; I10 Essential (primary) hypertension; D69.6 Thrombocytopenia, unspecified; J45.909 Unspecified asthma, uncomplicated; Z87.891 Personal history of nicotine dependence
CPT/HCPCS: 36415; 36600; 71045; 71046; 80048; 80053; 82375; 82803; 82805; 83735; 83880; 84132; 85025; 87040; 87070; 87077; 87186; 93005; 93268; 94002; 94003; 94150; 94640; 94760; J0360; J0456; J0696; J1650; J1720; J2930; J3480; A9270-GY; G0378

== ENCOUNTER 2018-09-05 10:15 | Emergency (ER) | payer MEDICARE ==
[2018-09-05] MEDS ORDERED: solu-MEDROL 125 MG IV ONE (10:26)
--- NOTE | 2018-09-05 10:26 | ERPHSYRPT ---
- History of Present Illness Time Seen by Provider: 09/05/18 10:23 Source: patient, EMS Exam Limitations: no limitations Physician History: 73 y/o white female former smoker with h/o copd complains of worsening soa and productive cough for 3 days. pt called ems. upon arrival oxygen sats was 82 % on 2 liters. pt given duoneb svn and oxygen sats increased to 99% on 2 liters nc. denies cp. denies abd pain. denies n/v/d Timing/Duration: day(s) (4 days) Activities at Onset: none Severity of Dyspnea-Max: moderate Severity of Dyspnea-Current: moderate Possible Cause: occasional episodes Modifying Factors: Improves With: coughing, oxygen Associated Symptoms: cough, No chest pain/discomfort, No hemoptysis Allergies/Adverse Reactions: No Known Drug Allergies Allergy (Verified 09/05/18 10:32) Home Medications: Albuterol 2.5 mg/3 ml Neb [Proventil 2.5 mg/3 ml Neb] 2.5 mg IH QID [History] Albuterol 8 gm Mdi Hfa [Ventolin Hfa MDI] 8 gm IH QIDPRN PRN 07/30/16 [ History] Calcium 500 mg PO DAILY 07/30/16 [History] Furosemide 40 mg [Lasix 40 MG] 40 mg PO DAILY PRN PRN 08/15/17 [History] Doxycycline Hyclate 100 mg PO BID 09/05/18 [History] Hx Tetanus, Diphtheria Vaccination/Date Given: Yes Hx Influenza Vaccination/Date Given: No Hx Pneumococcal Vaccination/Date Given: No - Review of Systems Constitutional: No Symptoms Eyes: No Symptoms Ears, Nose, & Throat: No Symptoms Respiratory: Cough, Dyspnea Cardiac: No Symptoms, No Chest Pain, No Palpitations, No Syncope Abdominal/Gastrointestinal: No Symptoms, No Abdominal Pain, No Nausea, No Vomiting, No Diarrhea Genitourinary Symptoms: No Symptoms, No Dysuria, No Frequency, No Hematuria Musculoskeletal: No Symptoms Skin: No Symptoms Neurological: No Symptoms Psychological: No Symptoms Endocrine: No Symptoms Hematologic/Lymphatic: No Symptoms Immunological/Allergic: No Symptoms All Other Systems: Reviewed and Negative - Past Medical History Pertinent Past Medical History: Yes Neurological History: No Pertinent History ENT History: No Pertinent History Cardiac History: Hypertension Respiratory History: Asthma, COPD Endocrine Medical History: No Pertinent History Musculoskeletal History: No Pertinent History GI Medical History: No Pertinent History History: No Pertinent History Psycho-Social History: No Pertinent History Female Reproductive Disorders: No Pertinent History - Past Surgical History Past Surgical History: Yes Neuro Surgical History: No Pertinent History Cardiac: No Pertinent History Respiratory: No Pertinent History Gastrointestinal: Appendectomy Genitourinary: No Pertinent History Musculoskeletal: No Pertinent History Female Surgical History: Hysterectomy - Social History Smoking Status: Former smoker Exposure to second hand smoke: No Drug Use: none Patient Lives Alone: No - Nursing Vital Signs Nursing Vital Signs: Initial Vital Signs Temperature 98.2 F 09/05/18 10:16 Pulse Rate 89 09/05/18 10:16 Blood Pressure 172/80 09/05/18 10:16 O2 Sat by Pulse Oximetry 100 09/05/18 10:16 Pain Scale Pain Intensity 0 - Physical Exam General Appearance: mild distress, alert, anxiety Eye Exam: PERRL/EOMI Ears, Nose, Throat Exam: hearing grossly normal, normal ENT inspection, normal pharynx Neck Exam: normal inspection, non-tender, supple, full range of motion Respiratory Exam: airway intact, rhonchi, wheezing, No chest tenderness, No respiratory distress, No accessory muscle use Cardiovascular/Chest Exam: normal heart sounds, regular rate/rhythm, normal peripheral pulses Abdominal/Gastrointestinal Exam: soft, normal bowel sounds, No tenderness Rectal Exam: not done Extremity Exam: non-tender, normal range of motion, normal inspection Neurologic Exam: alert, oriented x 3, cooperative, aircraft inspector II-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 prolonged qrs. no sig change from ekg dated 08/15/17) Ordered Tests: Active Orders 24 hr Category Date Time Status Supervisor Engine Assembly STAT Care 09/05/18 10:27 Active EKG-ER Only STAT Care 09/05/18 10:26 Active IV Insertion STAT Care 09/05/18 10:26 Active CHEST 1 VIEW (PORTABLE) Stat Exams 09/05/18 10:27 Completed CHEST WITH CONTRAST [CT] Stat Exams 09/05/18 12:22 Taken BLOOD CULTURE Stat Lab 09/05/18 Ordered CBC W DIFF Stat Lab 09/05/18 10:20 Completed CMP Stat Lab 09/05/18 10:20 Completed D-DIMER QUANTITATION Stat Lab 09/05/18 10:20 Completed Lactic Acid Stat Lab 09/05/18 10:35 Completed Manual Differential NC Stat Lab 09/05/18 10:20 Completed NT PRO BNP Stat Lab 09/05/18 10:20 Completed TROPONIN Q3H Lab 09/05/18 10:20 Completed TROPONIN Q3H Lab 09/05/18 13:35 Completed TROPONIN Q3H Lab 09/05/18 16:30 Ordered TROPONIN Q3H Lab 09/05/18 19:30 Ordered TROPONIN Q3H Lab 09/05/18 22:30 Ordered Peak Expiratory Flow Rate DAILY RT 09/05/18 10:35 Active Respiratory Therapy Assessment DAILY RT 09/06/18 10:35 Active Medication Summary Generic Name Dose Route Start Last Admin Trade Name Freq PRN Reason Stop Dose Admin Ceftriaxone Sodium/Dextrose 1 g in 50 mls @ 100 mls/hr 09/05/18 14:24 Rocephin 1 Gm-D5w 50 Ml Bag IV 09/05/18 14:53 STAT STA Discontinued Medications Generic Name Dose Route Start Last Admin Trade Name Freq PRN Reason Stop Dose Admin Albuterol Sulfate Confirm 09/05/18 10:37 Proventil 2.5 Mg/3 Ml Neb Administered 09/05/18 10:38 Dose 2.5 mg IH .STK-MED ONE Albuterol Sulfate 2.5 mg 09/05/18 10:35 09/05/18 10:35 Proventil 2.5 Mg/3 Ml Neb IH 09/05/18 10:36 2.5 mg STAT ONE Administration Ceftriaxone Sodium/Dextrose Confirm 09/05/18 14:27 Rocephin 1 Gm-D5w 50 Ml Bag Administered 09/05/18 14:28 Dose 1 g in 50 mls @ ud IV .STK-MED ONE Methylprednisolone Sodium Succinate 125 mg 09/05/18 10:26 09/05/18 10:49 Solu-Medrol 125 Mg IV 09/05/18 10:27 125 mg STAT ONE Administration Methylprednisolone Sodium Succinate Confirm 09/05/18 10:47 Solu-Medrol 125 Mg Administered 09/05/18 10:48 Dose 125 mg .ROUTE .STK-MED ONE Potassium Bicarbonate 50 meq 09/05/18 14:24 K-Lyte 25 Meq PO 09/05/18 14:25 STAT ONE Potassium Bicarbonate Confirm 09/05/18 14:27 K-Lyte 25 Meq Administered 09/05/18 14:28 Dose 50 meq .ROUTE .STK-MED ONE Lab/Rad Data: Laboratory Result Diagrams 09/05/18 10:20 09/05/18 10:20 Laboratory Results 09/05/18 09/05/18 09/05/18 Range/Units 13:35 10:35 10:20 WBC (4.0-10.5) K/mm3 RBC (4.1-5.4) M/mm3 Hgb (12.0-16.0) gm/dl Hct (35-47) % MCV (78-100) fl MCH (26-32) pg MCHC (32-36) g/dl RDW (11.5-14.0) % Plt Count (150-450) K/mm3 MPV (6-9.5) fl Segmented Neutrophils (36.0-66.0) % Band Neutrophils (0.0-2.0) % Lymphocytes (Manual) (24-44) % Monocytes (Manual) (0.0-12.0) % Toxic Granulation Platelet Estimate (NORMAL) RBC Morphology D-Dimer (215-500) ng/mL Sodium (137-145) mmol/L Potassium (3.5-5.1) mmol/L Chloride (98-107) mmol/L Carbon Dioxide (22-30) mmol/L Anion Gap (5-15) MEQ/L BUN (7-17) mg/dL Creatinine (0.52-1.04) mg/dL Estimated GFR ML/MIN Glucose (74-106) mg/dL Lactic Acid 1.1 (0.4-2.0) Calcium (8.4-10.2) mg/dL Total Bilirubin (0.2-1.3) mg/dL AST (14-36) U/L ALT (0-35) U/L Alkaline Phosphatase (38-126) U/L Troponin I 0.061 H* 0.054 H* (0.000-0.034) ng/mL NT-Pro-B Natriuret Pep (0-900) pg/mL Serum Total Protein (6.3-8.2) g/dL Albumin (3.5-5.0) g/dL 09/05/18 09/05/18 09/05/18 Range/Units 10:20 10:20 10:20 WBC 18.3 H (4.0-10.5) K/mm3 RBC 3.74 L (4.1-5.4) M/mm3 Hgb 10.9 L (12.0-16.0) gm/dl Hct 36.6 (35-47) % MCV 97.9 (78-100) fl MCH 29.1 (26-32) pg MCHC 29.8 L (32-36) g/dl RDW 13.3 (11.5-14.0) % Plt Count 344 (150-450) K/mm3 MPV 11.1 H (6-9.5) fl Segmented Neutrophils 86 H (36.0-66.0) % Band Neutrophils 2 (0.0-2.0) % Lymphocytes (Manual) 9 L (24-44) % Monocytes (Manual) 3 (0.0-12.0) % Toxic Granulation 1+ Platelet Estimate NORMAL (NORMAL) RBC Morphology NORMAL D-Dimer 1385 H* (215-500) ng/mL Sodium 140 (137-145) mmol/L Potassium 3.1 L (3.5-5.1) mmol/L Chloride 87 L (98-107) mmol/L Carbon Dioxide 43 H (22-30) mmol/L Anion Gap 13.1 (5-15) MEQ/L BUN 30 H (7-17) mg/dL Creatinine 1.00 (0.52-1.04) mg/dL Estimated GFR 57.8 ML/MIN Glucose 155 H (74-106) mg/dL Lactic Acid (0.4-2.0) Calcium 10.0 (8.4-10.2) mg/dL Total Bilirubin 0.40 (0.2-1.3) mg/dL AST 16 (14-36) U/L ALT 19 (0-35) U/L Alkaline Phosphatase 101 (38-126) U/L Troponin I (0.000-0.034) ng/mL NT-Pro-B Natriuret Pep 1950 H (0-900) pg/mL Serum Total Protein 7.3 (6.3-8.2) g/dL Albumin 3.5 (3.5-5.0) g/dL - Progress Progress: improved, re-examined Air Movement: fair Progress Note: 09/05/18 14:37 cta chest-no pulmonary emboli; left lower lobe consolidation; enlarging right costrophrenic angle noncalcified mass versus atelectasis 09/05/18 14:39 spoke with maria eugenia mcdaniels at [facility]. reviewed pt hx, condition, lab, ekg and xray/ct scan results. she auto accepts pt. she is discussing with ED and will call back if any concerns or additional info needed. Blood Culture(s) Obtained: Yes Antibiotics given: Yes Counseled pt/family regarding: lab results, diagnosis - Departure Departure Disposition: Transfer Clinical Impression: CHF (congestive heart failure), Hypokalemia, Elevated troponin, Left lower lobe pneumonia Condition: Fair Critical Care Time: Yes Critical Care Time(excluding separately billable procedures): 30-74 minutes Referrals: MARIN KIM [Primary Care Provider] - Instructions: Heart Failure
[2018-09-05] MEDS ORDERED: PROVENTIL 2.5 MG/3 ML NEB IH ONE ×2 (10:35→10:37)
[2018-09-05 10:45] LABS: Hematocrit 36.6 % (35-47); Hemoglobin 10.9 gm/dl (12.0-16.0); Mean Cell Volume 97.9 fl (78-100); Mean Corpuscular Hemoglobin 29.1 pg (26-32); Mean Corpuscular Hgb Concent. 29.8 g/dl (32-36); Mean Platelet Volume 11.1 fl (6-9.5); Platelet Count 344 K/mm3 (150-450); Red Blood Count 3.74 M/mm3 (4.1-5.4); Red Cell Distribution Width 13.3 % (11.5-14.0); White Blood Count 18.3 K/mm3 (4.0-10.5)
[2018-09-05] MEDS ORDERED: solu-MEDROL 125 MG ONE (10:47)
--- NOTE | 2018-09-05 10:53 | XRAY ---
Indication: Short of breath. Cough. COPD. Comparison: August 16, 2017. Portable chest again demonstrates COPD, CIPD, right base calcified granuloma, and blunting of both costophrenic angles. Heart is not enlarged. Bony thorax intact again with mild degenerative changes and scoliosis. No new/acute findings. Impression: Stable nonacute chest with chronic features.
[2018-09-05 11:00] LABS: ALBUMIN 3.5 g/dL (3.5-5.0); BILIRUBIN,TOTAL 0.4 mg/dL (0.2-1.3); Potassium 3.1 mmol/L (3.5-5.1); Total Protein 7.3 g/dL (6.3-8.2)
[2018-09-05 11:01] LABS: ANION GAP 13.1 MEQ/L (5-15)
[2018-09-05 11:03] LABS: BAND 2 % (0.0-2.0); Lymphocytes 9 % (24-44); Monocyte 3 % (0.0-12.0); Neutrophils 86 % (36.0-66.0); Platelet Estimate NORMAL (NORMAL); Total Cells Counted 100; Toxic Granulation 1+
[2018-09-05] MEDS ORDERED: K-LYTE 25 MEQ PO ONE (14:24)
[2018-09-05] MEDS ORDERED: ROCEPHIN 1 Gm-D5w 50 ml Bag** 1 G/50 ML IVPB IV STA (14:24)
[2018-09-05] MEDS ORDERED: ROCEPHIN 1 Gm-D5w 50 ml Bag** 1 G/50 ML IVPB IV ONE (14:27)
[2018-09-05] MEDS ORDERED: K-LYTE 25 MEQ ONE (14:27)
[2018-09-05] MEDS ORDERED: DUONEB 0.5-3 MG/3 ml Neb IH ONE ×2 (15:33→15:35)
[2018-09-05 15:39] VITALS: O2SAT 96
[2018-09-05 15:43] VITALS: BP 147/87; PULSE 92
== END 2018-09-05 16:00 | disposition home or self-care (01) ==
LOC: ED 10:15
DX: I50.9 Heart failure, unspecified (principal); E87.6 Hypokalemia; R74.8 Abnormal levels of other serum enzymes; J18.1 Lobar pneumonia, unspecified organism; J44.9 Chronic obstructive pulmonary disease, unspecified; Z79.899 Other long term (current) drug therapy
CPT/HCPCS: 36000; 36415; 71045; 71260; 80053; 83605; 83880; 84484; 85025; 85379; 87040; 93005; 93041; 94150; 94640; 96365; 96374; 99285; J0696; J2930; J7609; A9270-GY

== ENCOUNTER 2019-03-03 15:47 | Inpatient (IN) | payer MEDICARE ==
[2019-03-03] MEDS ORDERED: DUONEB 0.5-3 MG/3 ml Neb IH ONE ×2 (15:50→15:54)
[2019-03-03] MEDS: Sodium Chloride 0.9% 1000 ML 1,000 ML IV SCH (15:57)
[2019-03-03 16:08] LABS: Hematocrit 33.8 % (35-47); Hemoglobin 10.5 gm/dl (12.0-16.0); Mean Cell Volume 92.6 fl (78-100); Mean Corpuscular Hgb Concent. 31.1 g/dl (32-36); Mean Platelet Volume 12.3 fl (6-9.5); Platelet Count 165 K/mm3 (150-450); Red Blood Count 3.65 M/mm3 (4.1-5.4); White Blood Count 18.4 K/mm3 (4.0-10.5)
[2019-03-03 16:09] LABS: Mean Corpuscular Hemoglobin 28.7 pg (26-32)
--- NOTE | 2019-03-03 16:23 | ERPHSYRPT ---
- History of Present Illness Time Seen by Provider: 03/03/19 15:50 Source: patient Exam Limitations: no limitations Patient Subjective Stated Complaint: increasing sob and cough with fever since last tuesday. hx copd Triage Nursing Assessment: to er per w/c from [facility]. has been sob for three days and had run out of oxygen in portable tank. patient sob at present time. skin w/d, color pale. patient placed on wall oxygen. sats increased to 98%. breath sounds diminished. Physician History: increasing sob and cough with fever since last Tuesday. 72-year-old female with significant past medical history of chronic obstructive lung disease, started having chest congestion, cough and shortness of breath since Tuesday. She came to the acute care clinic today, but she was so short of breath at this and had immediately to the emergency room. In the emergency room. She was very short of breath and she has oxygen but she ran out of the oxygen side, oxygen saturations were in the low 70s. She denies any fevers, chills, nausea, vomiting or chest pain. Timing/Duration: day(s) (2-3 days) Severity of Dyspnea-Max: moderate Severity of Dyspnea-Current: severe Possible Cause: frequent episodes Associated Symptoms: denies symptoms International travel in last 2 weeks: No Allergies/Adverse Reactions: No Known Drug Allergies Allergy (Verified 03/03/19 15:57) Home Medications: Albuterol 2.5 mg/3 ml Neb [Proventil 2.5 mg/3 ml Neb] 2.5 mg IH QID [History] Albuterol 8 gm Mdi Hfa [Ventolin Hfa MDI] 8 gm IH QIDPRN PRN 07/30/16 [ History] Calcium 500 mg PO DAILY 07/30/16 [History] Furosemide 40 mg [Lasix 40 MG] 40 mg PO DAILY PRN PRN 08/15/17 [History] Hx Tetanus, Diphtheria Vaccination/Date Given: No Hx Influenza Vaccination/Date Given: Yes Hx Pneumococcal Vaccination/Date Given: Yes - Review of Systems Constitutional: No Fever, No Chills Eyes: No Symptoms Ears, Nose, & Throat: No Symptoms Respiratory: Dyspnea, Dyspnea on Exertion (JESUS), Wheezing, No Cough Cardiac: No Chest Pain, No Edema, No Syncope Abdominal/Gastrointestinal: No Abdominal Pain, No Nausea, No Vomiting, No Diarrhea Genitourinary Symptoms: No Dysuria Musculoskeletal: No Back Pain, No Neck Pain Skin: No Rash Neurological: No Dizziness, No Focal Weakness, No Sensory Changes Psychological: No Symptoms Endocrine: No Symptoms All Other Systems: Reviewed and Negative - Past Medical History Pertinent Past Medical History: Yes Neurological History: No Pertinent History ENT History: No Pertinent History Cardiac History: Hypertension Respiratory History: Asthma, COPD Endocrine Medical History: No Pertinent History Musculoskeletal History: No Pertinent History GI Medical History: No Pertinent History History: No Pertinent History Psycho-Social History: No Pertinent History Female Reproductive Disorders: No Pertinent History - Past Surgical History Past Surgical History: Yes Neuro Surgical History: No Pertinent History Cardiac: No Pertinent History Respiratory: No Pertinent History Gastrointestinal: Appendectomy Genitourinary: No Pertinent History Musculoskeletal: No Pertinent History Female Surgical History: Hysterectomy - Social History Smoking Status: Former smoker How long have you smoked: 30 years Exposure to second hand smoke: No Drug Use: none Patient Lives Alone: Yes - Nursing Vital Signs Nursing Vital Signs: Initial Vital Signs Temperature 98.6 F 03/03/19 15:48 Pulse Rate 122 H 03/03/19 15:48 Respiratory Rate 28 H 03/03/19 15:48 Blood Pressure 172/82 03/03/19 15:48 O2 Sat by Pulse Oximetry 88 L 03/03/19 15:48 Pain Scale Pain Intensity 0 - Physical Exam General Appearance: no apparent distress, alert Eye Exam: PERRL/EOMI Neck Exam: normal inspection, supple Respiratory Exam: diminished breath sounds, prolonged expirations, crackles/ rales, rhonchi, wheezing Cardiovascular/Chest Exam: normal heart sounds, regular rate/rhythm Abdominal/Gastrointestinal Exam: soft, No tenderness, No distention, No mass Extremity Exam: non-tender, normal range of motion, normal inspection, no calf tenderness, no pedal edema Neurologic Exam: alert, oriented x 3, cooperative, clinical lab specialist II-XII nml as tested, sensation nml, No motor deficits Skin Exam: normal color, warm, No dry SpO2 Interpretation: borderline oxygenation SpO2: 88 - Course Nursing assessment & vital signs reviewed: Yes EKG Interpreted by Me: Right Bundle Branch Block - Radiology Exams Chest X-ray Interpretation: Reviewed by me Ordered Tests: Active Orders 24 hr Category Date Time Status Bedrest with BRP/BSC ROUTINE Activity 03/03/19 17:32 Ordered CO2 Monitoring STAT Care 03/03/19 15:50 Active Call Admit Doctor for Orders ROUTINE Care 03/03/19 17:31 Ordered Senior Caregiver STAT Care 03/03/19 16:04 Active Code Status Order ROUTINE Care 03/03/19 17:32 Ordered Code Status Order ROUTINE Care 03/03/19 17:32 Ordered EKG-ER Only STAT Care 03/03/19 15:50 Active IV Care Q6H Care 03/03/19 17:32 Ordered IV Care Q6H Care 03/03/19 17:32 Ordered IV Insertion STAT Care 03/03/19 16:04 Active Implement Chest Pain Pathway ROUTINE Care 03/03/19 17:32 Ordered Miscellaneous Nursing Order ROUTINE Care 03/03/19 17:31 Ordered Oxygen-ED Only Nasal Cannula 3 lpm Care 03/03/19 15:[address] in Observation ROUTINE Care 03/03/19 17:32 Ordered Ruddy Hose, Apply ROUTINE Care 03/03/19 17:32 Ordered Ruddy Hose, Apply ROUTINE Care 03/03/19 17:32 Ordered Weight,Daily 0600 Care 03/03/19 17:32 Ordered Weight,Daily 0600 Care 03/03/19 17:32 Ordered Cardiac Diet Diet 03/03/19 Dinner Ordered CHEST 1 VIEW (PORTABLE) Stat Exams 03/03/19 15:50 Taken CHEST 2 VIEWS (PA AND LAT) DAILY Exams 03/03/19 17:45 Ordered BLOOD CULTURE Stat Lab 03/03/19 16:38 Received CBC W DIFF Stat Lab 03/03/19 15:50 Completed CMP Stat Lab 03/03/19 15:50 Completed LIPID PROFILE AM.LAB Lab 03/04/19 04:00 Ordered Lactic Acid Stat Lab 03/03/19 16:00 Completed Manual Differential NC Stat Lab 03/03/19 15:50 Completed NT PRO BNP Stat Lab 03/03/19 15:50 Completed TROPONIN Q3H Lab 03/03/19 16:00 Completed TROPONIN Q3H Lab 03/03/19 19:00 Ordered TROPONIN Q3H Lab 03/03/19 22:00 Ordered TROPONIN Q3H Lab 03/04/19 01:00 Ordered TROPONIN Q3H Lab 03/04/19 04:00 Ordered EKG Q8HX2,QAMX3,PRN RT 03/03/19 17:32 Ordered Oxygen Nasal Cannula 3 lpm RT 03/03/19 17:31 Ordered Pulse Oximetry Q4H RT 03/03/19 17:32 Ordered Respiratory Therapy Assessment DAILY RT 03/04/19 07:00 Active Medication Summary Generic Name Dose Route Start Last Admin Trade Name Freq PRN Reason Stop Dose Admin Sodium Chloride 1,000 mls @ 50 mls/hr 03/03/19 16:00 03/03/19 15:57 Sodium Chloride 0.9% 1000 Ml IV 04/02/19 15:59 50 mls/hr .Q20H TONI Administration Discontinued Medications Generic Name Dose Route Start Last Admin Trade Name Freq PRN Reason Stop Dose Admin Albuterol/Ipratropium 3 ml 03/03/19 15:50 03/03/19 16:00 Duoneb 0.5-3 Mg/3 Ml Neb IH 03/03/19 15:51 3 ml STAT ONE Administration Albuterol/Ipratropium Confirm 03/03/19 15:54 Duoneb 0.5-3 Mg/3 Ml Neb Administered 03/03/19 15:55 Dose 3 ml IH .STK-MED ONE Ceftriaxone Sodium/Dextrose 1 g in 50 mls @ 100 mls/hr 03/03/19 16:25 16:48 Rocephin 1 Gm-D5w 50 Ml Bag IV 03/03/19 16:54 Infused STAT STA Infusion Azithromycin 500 mg in 250 mls @ 250 mls/hr 03/03/19 16:25 03/03/19 16:45 Zithromax 500 Mg/ 250 Ml Nacl Premix IV 03/03/19 17:24 250 ml/hr STAT STA 250 mls/hr Administration Azithromycin Confirm 03/03/19 16:29 Zithromax 500 Mg/ 250 Ml Nacl Premix Administered 03/03/19 16:30 Dose 500 mg in 250 mls @ ud IV .STK-MED ONE Ceftriaxone Sodium/Dextrose Confirm 03/03/19 16:29 Rocephin 1 Gm-D5w 50 Ml Bag Administered 03/03/19 16:30 Dose 1 g in 50 mls @ ud IV .STK-MED ONE Methylprednisolone Sodium Succinate 80 mg 03/03/19 16:25 03/03/19 16:39 Solu-Medrol 125 Mg IV 03/03/19 16:26 80 mg STAT ONE Administration Methylprednisolone Sodium Succinate Confirm 03/03/19 16:29 Solu-Medrol 125 Mg Administered 03/03/19 16:30 Dose 125 mg .ROUTE .STK-MED ONE Lab/Rad Data: Laboratory Result Diagrams 03/03/19 15:50 03/03/19 15:50 Laboratory Results 03/03/19 03/03/19 03/03/19 Range/Units 16:15 16:00 16:00 WBC (4.0-10.5) K/mm3 RBC (4.1-5.4) M/mm3 Hgb (12.0-16.0) gm/dl Hct (35-47) % MCV (78-100) fl MCH (26-32) pg MCHC (32-36) g/dl RDW (11.5-14.0) % Plt Count (150-450) K/mm3 MPV (6-9.5) fl Sodium (137-145) mmol/L Potassium (3.5-5.1) mmol/L Chloride (98-107) mmol/L Carbon Dioxide (22-30) mmol/L Anion Gap (5-15) MEQ/L BUN (7-17) mg/dL Creatinine (0.52-1.04) mg/dL Estimated GFR ML/MIN Glucose (74-106) mg/dL Lactic Acid 1.3 (0.4-2.0) Calcium (8.4-10.2) mg/dL Total Bilirubin (0.2-1.3) mg/dL AST (14-36) U/L ALT (0-35) U/L Alkaline Phosphatase (38-126) U/L Troponin I 0.048 H* (0.000-0.034) ng/mL NT-Pro-B Natriuret Pep (0-900) pg/mL Serum Total Protein (6.3-8.2) g/dL Albumin (3.5-5.0) g/dL Influenza Type A Ag NEGATIVE (NEGATIVE) Influenza Type B Ag NEGATIVE (NEGATIVE) RSV (PCR) NEGATIVE (Negative) 03/03/19 03/03/19 Range/Units 15:50 15:50 WBC 18.4 H (4.0-10.5) K/mm3 RBC 3.65 L (4.1-5.4) M/mm3 Hgb 10.5 L (12.0-16.0) gm/dl Hct 33.8 L (35-47) % MCV 92.6 (78-100) fl MCH 28.7 (26-32) pg MCHC 31.1 L (32-36) g/dl RDW 14.0 (11.5-14.0) % Plt Count 165 (150-450) K/mm3 MPV 12.3 H (6-9.5) fl Sodium 137 (137-145) mmol/L Potassium 3.8 (3.5-5.1) mmol/L Chloride 93 L (98-107) mmol/L Carbon Dioxide 35 H (22-30) mmol/L Anion Gap 12.9 (5-15) MEQ/L BUN 22 H (7-17) mg/dL Creatinine 1.03 (0.52-1.04) mg/dL Estimated GFR 55.8 ML/MIN Glucose 158 H (74-106) mg/dL Lactic Acid (0.4-2.0) Calcium 9.8 (8.4-10.2) mg/dL Total Bilirubin 0.60 (0.2-1.3) mg/dL AST 15 (14-36) U/L ALT 13 (0-35) U/L Alkaline Phosphatase 99 (38-126) U/L Troponin I (0.000-0.034) ng/mL NT-Pro-B Natriuret Pep 554 (0-900) pg/mL Serum Total Protein 7.9 (6.3-8.2) g/dL Albumin 4.2 (3.5-5.0) g/dL Influenza Type A Ag (NEGATIVE) Influenza Type B Ag (NEGATIVE) RSV (PCR) (Negative) - Progress Progress: improved, re-examined Air Movement: good Progress Note: 03/03/19 17:02 Patient is feeling much better shortness of breath has also improved. Oxygen saturation has improved ranges from 95-99%. Patient troponin is very slightly elevated, will admit patient as observation 03/03/19 17:38 initial admission orders are written Blood Culture(s) Obtained: Yes Antibiotics given: Yes Discussed with Dr.: Payne Counseled pt/family regarding: lab results, diagnosis, need for follow-up, rad results - Departure Departure Disposition: Observation Clinical Impression: COPD exacerbation, Elevated troponin I level Condition: Fair Critical Care Time: Yes Critical Care Time(excluding separately billable procedures): Critical 30-74 mins Referrals: MARIN KIM [Primary Care Provider] -
[2019-03-03] MEDS ORDERED: Zithromax 500 MG/ 250 ML NaCl Premix 500 MG/250 ML IVPB IV STA (16:25)
[2019-03-03] MEDS ORDERED: ROCEPHIN 1 Gm-D5w 50 ml Bag** 1 G/50 ML IVPB IV STA (16:25)
[2019-03-03] MEDS ORDERED: solu-MEDROL 125 MG IV ONE (16:25)
[2019-03-03] MEDS ORDERED: solu-MEDROL 125 MG ONE (16:29)
[2019-03-03] MEDS ORDERED: Zithromax 500 MG/ 250 ML NaCl Premix 500 MG/250 ML IVPB IV ONE (16:29)
[2019-03-03] MEDS ORDERED: ROCEPHIN 1 Gm-D5w 50 ml Bag** 1 G/50 ML IVPB IV ONE (16:29)
[2019-03-03 16:30] LABS: ALBUMIN 4.2 g/dL (3.5-5.0); ANION GAP 12.9 MEQ/L (5-15); BILIRUBIN,TOTAL 0.6 mg/dL (0.2-1.3); Calcium 9.8 mg/dL (8.4-10.2); Creatinine 1 1.03 mg/dL (0.52-1.04); Potassium 3.8 mmol/L (3.5-5.1); Total Protein 7.9 g/dL (6.3-8.2)
[2019-03-03 16:57] LABS: INFLUENZA A NEGATIVE (NEGATIVE); INFLUENZA B NEGATIVE (NEGATIVE); RESPIRATORY SYNCTIAL VIRUS NEGATIVE (Negative)
[2019-03-03] MEDS ORDERED: Zofran 4 MG/2 ML VIAL IV PRN (17:31)
[2019-03-03] MEDS ORDERED: MILK OF MAGNESIA 30 ML PO PRN (17:31)
[2019-03-03] MEDS ORDERED: Senokot-S Tablet PO PRN (17:31)
[2019-03-03] MEDS ORDERED: MAALOX ES 30 ML UNIT DOSE PO PRN (17:31)
[2019-03-03] MEDS ORDERED: Sodium Chloride 0.9% 1000 ML 1,000 ML IV SCH (17:45)
--- NOTE | 2019-03-03 18:57 | XRAY ---
Indication: Short of breath. Comparison: September 05, 2018. Portable chest unchanged again demonstrating COPD, CIPD, and right base calcified granuloma. Heart is not enlarged. Bony thorax intact again with mild degenerative changes and minimal scoliosis. No new/acute findings. Impression: Stable nonacute chest with chronic features.
[2019-03-03] MEDS: DUONEB 0.5-3 MG/3 ml Neb IH SCH ×2 (20:52→23:54)
[2019-03-03] MEDS: Advair Hfa 115/21 Common canister IH SCH (20:53)
[2019-03-03] MEDS: Mucinex 600MG ER Tabs PO SCH (22:21)
[2019-03-03] MEDS: solu-MEDROL 40 MG IV SCH (22:21)
[2019-03-03 23:49] LABS: Lymphocytes 11 % (24-44); Monocyte 7 % (0.0-12.0); Neutrophils 82 % (36.0-66.0); Total Cells Counted 100
[2019-03-03 23:50] LABS: Platelet Estimate NORMAL (NORMAL)
[2019-03-04] MEDS: DUONEB 0.5-3 MG/3 ml Neb IH SCH ×6 (03:47→23:15)
[2019-03-04 05:17] LABS: Risk Ratio 2.8
[2019-03-04 05:28] LABS: TROPONIN 0.044 ng/mL (0.000-0.034)
[2019-03-04] MEDS ORDERED: DUONEB 0.5-3 MG/3 ml Neb IH ONE (07:01)
[2019-03-04] MEDS ORDERED: Lasix 40 MG PO PRN (08:07)
[2019-03-04] MEDS: Advair Hfa 115/21 Common canister IH SCH ×2 (08:10→19:24)
[2019-03-04] MEDS: Spiriva 18 Mcg/Cap Inhaler IH SCH (08:11)
[2019-03-04] MEDS: hydroDIURIL 25 MG PO SCH (08:42)
[2019-03-04] MEDS: Mucinex 600MG ER Tabs PO SCH ×2 (08:42→23:02)
[2019-03-04] MEDS: Zestril 20 MG PO SCH (08:42)
[2019-03-04] MEDS: Lopressor 50 MG PO SCH ×2 (08:43→23:01)
[2019-03-04] MEDS: Calcium 500MG W/Vit D Tablet PO SCH (08:43)
[2019-03-04] MEDS: Ecotrin 325 MG PO SCH (08:43)
[2019-03-04] MEDS: ROCEPHIN 1 Gm-D5w 50 ml Bag** 1 G/50 ML IVPB IV SCH (08:44)
[2019-03-04] MEDS: Zithromax 500 MG/ 250 ML NaCl Premix 500 MG/250 ML IVPB IV SCH (09:40)
[2019-03-04] MEDS ORDERED: NON-FORMULARY ITEM (Calcium [Calcium] 500 MG) PO SCH (10:00)
[2019-03-04] MEDS ORDERED: NON-FORMULARY ITEM (Lisinopril/Hydrochlorothiazide [Lisinopril-Hctz 20-25 Mg Tab] 1 EACH) PO SCH (10:00)
[2019-03-04] MEDS ORDERED: NON-FORMULARY ITEM (Metoprolol Tartrate [Metoprolol Tartrate] 100 MG) PO SCH (10:00)
[2019-03-04] MEDS: solu-MEDROL 40 MG IV SCH ×2 (10:03→23:02)
[2019-03-04] MEDS: Sodium Chloride 0.9% 1000 ML 1,000 ML IV SCH (13:22)
--- NOTE | 2019-03-04 15:38 | PCM.HP ---
History of Present Illness - Chief Complaint Chief Complaint: COPD Elevated CTNI History of Present Illness: is a 73 year old female pt of Dr. Christina who was admitted through ER with COPD exacerbation and elevated troponin. She was going to [facility] and ran out of her oxygen; she was SOB with O2 sats in the 70s so was sent straight to ER. Pt c/o increased SOB, cough, and F for the past 5d. She initially had some STOVALL which has resolved. In the ER was started on rocephin and zithromax and given steroids. She is feeling better today. Pt does see a duralumin mechanic. Initial troponin was elevated to 0.048 and increased to 0.055, but has decreased since then. She has not had any chest pain. - Review of Systems Constitutional: Fever (low grade subjective 5d ago) Respiratory: Cough, Short Of Breath Musculoskeletal: Back Pain Neurological: Headache Psychological: Depression (chronic), No Suicidal Ideations, No Homicidal Ideations Medications & Allergies Home Medications: Home Medication List Albuterol 2.5 mg/3 ml Neb [Proventil 2.5 mg/3 ml Neb] 2.5 mg IH QID [History Confirmed 03/03/19] Albuterol 8 gm Mdi Hfa [Ventolin Hfa MDI] 8 gm IH QIDPRN PRN 07/30/16 [ History Confirmed 03/03/19] Calcium 500 mg PO DAILY 07/30/16 [History Confirmed 03/03/19] Lisinopril/Hydrochlorothiazide [Lisinopril-Hctz 20-25 mg Tab] 1 each PO DAILY # 30 tablet 08/05/16 [Rx Confirmed 03/03/19] Furosemide 40 mg [Lasix 40 MG] 40 mg PO DAILY PRN PRN 08/15/17 [History Confirmed 03/03/19] Metoprolol Tartrate 100 mg PO BID #60 tablet 08/19/17 [Rx Confirmed 03/03/19] Prednisone 20 mg [Deltasone 20 mg] 40 mg PO DAILY PRN PRN 03/03/19 [ History Confirmed 03/03/19] Allergies/Adverse Reactions: Allergies Allergy/AdvReac Type Severity Reaction Status Date / Time No Known Drug Allergies Allergy Verified 03/03/19 15:57 - Past Medical History Past Medical History: Yes Neurological History: No Pertinent History ENT History: No Pertinent History Cardiac History: Congestive Heart Failure, Hypertension Respiratory History: Asthma, CHF, COPD Endocrine Medical History: No Pertinent History Musculoskelatal History: No Pertinent History GI Medical History: No Pertinent History History: No Pertinent History Pyscho-Social History: No Pertinent History Reproductive Disorders: No Pertinent History - Past Surgical History Past Surgical History: Yes Neuro Surgical History: No Pertinent History Cardiac History: No Pertinent History Respiratory Surgery: No Pertinent History GI Surgical History: Appendectomy Genitourinary Surgical Hx: No Pertinent History Musculskeletal Surgical Hx: No Pertinent History Female Surgical History: Hysterectomy - Social History Smoking Status: Former smoker How long have you smoked: 30 years Exposure to second hand smoke: No Alcohol: None Drug Use: none - Physical Exam Vital Signs: Vital Signs - 24 hr Temp Pulse Resp BP Pulse Ox 03/04/19 12:29 98.1 F 86 20 130/67 94 L 03/04/19 12:28 94 L 03/04/19 11:29 88 20 95 03/04/19 07:27 97.8 F 88 20 147/80 94 L 03/04/19 07:00 80 18 98 03/04/19 04:15 97.5 F 88 18 137/61 98 03/04/19 03:48 98 H 18 98 03/04/19 00:14 98.4 F 103 H 22 137/63 91 L 03/03/19 23:54 110 H 20 92 L 03/03/19 20:53 120 H 20 93 L 03/03/19 20:00 98.1 F 120 H 20 162/72 93 L 03/03/19 18:24 98.1 F 120 H 20 162/72 93 L 03/03/19 18:05 98.1 F 120 H 20 162/72 93 L 03/03/19 17:39 88 L 03/03/19 17:36 110 H 20 145/60 98 03/03/19 17:09 122 H 22 138/84 96 03/03/19 16:53 114 H 20 155/73 97 03/03/19 16:19 118 H 22 152/72 99 03/03/19 16:00 96 03/03/19 15:48 98.6 F 122 H 28 H 172/82 88 L Oxygen-Last 24 hours O2 Percentage 3 Liters = 32% O2 Percentage 3 Liters = 32% O2 Percentage 3 Liters = 32% O2 Percentage 3 Liters = 32% O2 Percentage 3 Liters = 32% O2 Percentage 3 Liters = 32% O2 Percentage 3 Liters = 32% O2 Percentage 3 Liters = 32% O2 Percentage 3 Liters = 32% O2 Percentage 3 Liters = 32% O2 Percentage 3 Liters = 32% O2 Percentage 3 Liters = 32% O2 Percentage 2 Liters = 28% O2 Percentage 2 Liters = 28% Oxygen Flowrate (L/min)-RT 3 Oxygen Flowrate (L/min)-RT 3 General Appearance: no apparent distress, alert Neurologic Exam: oriented x 3, cooperative Eye Exam: eyes nml inspection Ears, Nose, Throat Exam: moist mucous membranes Neck Exam: normal inspection, non-tender, No lymphadenopathy Respiratory Exam: diminished breath sounds (poor to fair air exchange), wheezing (expiratory, throughout) Cardiovascular Exam: regular rate/rhythm, normal heart sounds, No murmur Gastrointestinal/Abdomen Exam: soft, normal bowel sounds, No tenderness, No distention, No mass, No guarding, No rebound Back Exam: normal inspection, No CVA tenderness, No rash Extremity Exam: normal inspection, No swelling, No tenderness Skin Exam: normal color, warm, dry, No rash Results - Labs Lab/Micro Results: Lab Results-Last 24 Hours 03/03/19 03/03/19 03/03/19 Range/Units 15:50 15:50 16:00 WBC 18.4 H (4.0-10.5) K/mm3 RBC 3.65 L (4.1-5.4) M/mm3 Hgb 10.5 L (12.0-16.0) gm/dl Hct 33.8 L (35-47) % MCV 92.6 (78-100) fl MCH 28.7 (26-32) pg MCHC 31.1 L (32-36) g/dl RDW 14.0 (11.5-14.0) % Plt Count 165 (150-450) K/mm3 MPV 12.3 H (6-9.5) fl Segmented Neutrophils 82 H (36.0-66.0) % Lymphocytes (Manual) 11 L (24-44) % Monocytes (Manual) 7 (0.0-12.0) % Platelet Estimate NORMAL (NORMAL) RBC Morphology NORMAL Sodium 137 (137-145) mmol/L Potassium 3.8 (3.5-5.1) mmol/L Chloride 93 L (98-107) mmol/L Carbon Dioxide 35 H (22-30) mmol/L Anion Gap 12.9 (5-15) MEQ/L BUN 22 H (7-17) mg/dL Creatinine 1.03 (0.52-1.04) mg/dL Estimated GFR 55.8 ML/MIN Glucose 158 H (74-106) mg/dL Lactic Acid 1.3 (0.4-2.0) Calcium 9.8 (8.4-10.2) mg/dL Total Bilirubin 0.60 (0.2-1.3) mg/dL AST 15 (14-36) U/L ALT 13 (0-35) U/L Alkaline Phosphatase 99 (38-126) U/L Troponin I (0.000-0.034) ng/mL NT-Pro-B Natriuret Pep 554 (0-900) pg/mL Serum Total Protein 7.9 (6.3-8.2) g/dL Albumin 4.2 (3.5-5.0) g/dL Triglycerides (30-150) mg/dL Cholesterol (50-200) mg/dL LDL Cholesterol (30-100) mg/dL HDL Cholesterol (40-60) mg/dL Heart Disease Risk Ratio Influenza Type A Ag (NEGATIVE) Influenza Type B Ag (NEGATIVE) RSV (PCR) (Negative) 03/03/19 03/03/19 03/03/19 Range/Units 16:00 16:15 19:00 WBC (4.0-10.5) K/mm3 RBC (4.1-5.4) M/mm3 Hgb (12.0-16.0) gm/dl Hct (35-47) % MCV (78-100) fl MCH (26-32) pg MCHC (32-36) g/dl RDW (11.5-14.0) % Plt Count (150-450) K/mm3 MPV (6-9.5) fl Segmented Neutrophils (36.0-66.0) % Lymphocytes (Manual) (24-44) % Monocytes (Manual) (0.0-12.0) % Platelet Estimate (NORMAL) RBC Morphology Sodium (137-145) mmol/L Potassium (3.5-5.1) mmol/L Chloride (98-107) mmol/L Carbon Dioxide (22-30) mmol/L Anion Gap (5-15) MEQ/L BUN (7-17) mg/dL Creatinine (0.52-1.04) mg/dL Estimated GFR ML/MIN Glucose (74-106) mg/dL Lactic Acid (0.4-2.0) Calcium (8.4-10.2) mg/dL Total Bilirubin (0.2-1.3) mg/dL AST (14-36) U/L ALT (0-35) U/L Alkaline Phosphatase (38-126) U/L Troponin I 0.048 H* 0.055 H* (0.000-0.034) ng/mL NT-Pro-B Natriuret Pep (0-900) pg/mL Serum Total Protein (6.3-8.2) g/dL Albumin (3.5-5.0) g/dL Triglycerides (30-150) mg/dL Cholesterol (50-200) mg/dL LDL Cholesterol (30-100) mg/dL HDL Cholesterol (40-60) mg/dL Heart Disease Risk Ratio Influenza Type A Ag NEGATIVE (NEGATIVE) Influenza Type B Ag NEGATIVE (NEGATIVE) RSV (PCR) NEGATIVE (Negative) 03/03/19 03/04/19 03/04/19 Range/Units 23:17 01:15 04:20 WBC (4.0-10.5) K/mm3 RBC (4.1-5.4) M/mm3 Hgb (12.0-16.0) gm/dl Hct (35-47) % MCV (78-100) fl MCH (26-32) pg MCHC (32-36) g/dl RDW (11.5-14.0) % Plt Count (150-450) K/mm3 MPV (6-9.5) fl Segmented Neutrophils (36.0-66.0) % Lymphocytes (Manual) (24-44) % Monocytes (Manual) (0.0-12.0) % Platelet Estimate (NORMAL) RBC Morphology Sodium (137-145) mmol/L Potassium (3.5-5.1) mmol/L Chloride (98-107) mmol/L Carbon Dioxide (22-30) mmol/L Anion Gap (5-15) MEQ/L BUN (7-17) mg/dL Creatinine (0.52-1.04) mg/dL Estimated GFR ML/MIN Glucose (74-106) mg/dL Lactic Acid (0.4-2.0) Calcium (8.4-10.2) mg/dL Total Bilirubin (0.2-1.3) mg/dL AST (14-36) U/L ALT (0-35) U/L Alkaline Phosphatase (38-126) U/L Troponin I 0.047 H* 0.047 H* 0.044 H* (0.000-0.034) ng/mL NT-Pro-B Natriuret Pep (0-900) pg/mL Serum Total Protein (6.3-8.2) g/dL Albumin (3.5-5.0) g/dL Triglycerides 52 (30-150) mg/dL Cholesterol 200 (50-200) mg/dL LDL Cholesterol 62 (30-100) mg/dL HDL Cholesterol 73 H (40-60) mg/dL Heart Disease Risk Ratio 2.8 Influenza Type A Ag (NEGATIVE) Influenza Type B Ag (NEGATIVE) RSV (PCR) (Negative) - Radiology Impressions Radiology Exams & Impressions: Radiology Procedures Category Date Time Status CHEST 1 VIEW (PORTABLE) Stat Exams 03/03/19 15:50 Completed CHEST 2 VIEWS (PA AND LAT) Routine Exams 03/04/19 07:06 Taken - Other Procedures and Tests Respiratory Therapy 03/03/19 17:31 Oxygen Nasal Cannula 3 lpm 03/03/19 22:34 Peak Expiratory Flow Rate ONCE 03/04/19 07:00 Respiratory Therapy Assessment DAILY 03/05/19 05:00 EKG DAILY 03/06/19 05:00 EKG DAILY 03/07/19 05:00 EKG DAILY Assessment/Plan (1) COPD exacerbation Current Visit: Yes Status: Acute Assessment & Plan: On rocephin and zithromax day #2 with improvement. IV steroid 40 mg BID. Code(s): J44.1 - CHRONIC OBSTRUCTIVE PULMONARY DISEASE W (ACUTE) EXACERBATION (2) Elevated troponin I level Current Visit: Yes Status: Acute Assessment & Plan: trended down. Code(s): R79.89 - OTHER SPECIFIED ABNORMAL FINDINGS OF BLOOD CHEMISTRY (3) Chronic respiratory failure with hypoxia and hypercapnia Current Visit: No Status: Chronic Code(s): J96.11 - CHRONIC RESPIRATORY FAILURE WITH HYPOXIA; J96.12 - CHRONIC RESPIRATORY FAILURE WITH HYPERCAPNIA (4) DVT prophylaxis Current Visit: No Status: Acute Assessment & Plan: started pt on lovenox 40mg SQ daily. Code(s): TBC7933 - (5) Hypertension Current Visit: No Status: Chronic Qualifiers: Hypertension type: essential hypertension Qualified Code(s): I10 - Essential (primary) hypertension Code(s): I10 - ESSENTIAL (PRIMARY) HYPERTENSION
[2019-03-04] MEDS: ENOXAPARIN SODIUM SQ SCH (16:47)
--- NOTE | 2019-03-04 20:40 | XRAY ---
Indication: COPD exacerbation. Comparison: One day earlier. Portable chest demonstrates new minimal bibasilar infiltrates/atelectasis and tiny right effusion. Remaining chest unchanged with stable COPD, CIPD, and right base calcified granuloma. Heart is not enlarged.
[2019-03-05] MEDS: DUONEB 0.5-3 MG/3 ml Neb IH SCH ×6 (03:33→23:39)
[2019-03-05 04:56] LABS: Absolute Neutrophil Ct (ANC) 12.88 (1.4-6.9); Basophil (Absolute #) 0 (0-0.4); Eosinophil % 0.1 % (0.00-5.0); Eosinophil (Absolute #) 0.01 (0-0.5); Hematocrit 31.9 % (35-47); Hemoglobin 9.3 gm/dl (12.0-16.0); Lymphocytes % 4.3 % (24.0-44.0); Mean Cell Volume 97.3 fl (78-100); Mean Corpuscular Hgb Concent. 29.2 g/dl (32-36); Mean Platelet Volume 12.4 fl (6-9.5); Monocyte (Absolute #) 0.57 (0.0-1.3); Monocytes % 4.1 % (0.0-12.0); Neutrophil % 91.5 % (36.0-66.0); Red Blood Count 3.28 M/mm3 (4.1-5.4); Red Cell Distribution Width 13.7 % (11.5-14.0); White Blood Count 14.1 K/mm3 (4.0-10.5)
[2019-03-05 04:58] LABS: ANION GAP 10.7 MEQ/L (5-15); Calcium 9.4 mg/dL (8.4-10.2); Creatinine 1 1.03 mg/dL (0.52-1.04)
[2019-03-05 05:05] LABS: Potassium 5.2 mmol/L (3.5-5.1)
[2019-03-05 05:08] LABS: Mean Corpuscular Hemoglobin 28.3 pg (26-32)
[2019-03-05 05:09] LABS: Platelet Count 228 K/mm3 (150-450)
[2019-03-05] MEDS: Advair Hfa 115/21 Common canister IH SCH ×2 (06:58→19:14)
[2019-03-05] MEDS: Spiriva 18 Mcg/Cap Inhaler IH SCH (06:58)
--- NOTE | 2019-03-05 10:33 | PCM.NOTE ---
Date and Time: 03/05/19 1028 Subjective Assessment: 73 yr old female seen and examined this am. Patient reports that she is doing better today. She has been coughing and feels like she is getting stuff up now. Patient reports that she has been doing the incentive spirometry as directed. She reports at baseline she requires 2.5 L of oxygen as needed. She reports decreased SOB. Patient reports that she takes lasix at home but is not on potassium supplementation because her potassium was wnl. Patient reports she is routinely on prednisone for PMR. - Review of Systems Constitutional: No Fever Eyes: No Symptoms Ears, Nose, & Throat: Other (throat irritation), No Ear Pain, No Nose Discharge Respiratory: Cough, Short Of Breath Cardiac: Edema (hx of edema but patient states it has improved), No Chest Pain Abdominal/Gastrointestinal: No Abdominal Pain, No Nausea, No Vomiting, No Diarrhea, No Constipation Genitourinary Symptoms: No Dysuria, No Hematuria Musculoskeletal: Other (Hx of PMR) Skin: No Symptoms Neurological: No Headache Psychological: Other (Quit smoking 6 years ago) Objective Exam General Appearance: mild distress Neurologic Exam: alert, oriented x 3, cooperative, normal mood/affect Skin Exam: normal color, warm, dry Eye Exam: eyes nml inspection, No scleral icterus Ears, Nose, Throat Exam: moist mucous membranes Neck Exam: normal inspection, non-tender Respiratory Exam: diminished breath sounds, wheezing Cardiovascular Exam: normal heart sounds, No murmur Gastrointestinal/Abdomen Exam: soft, normal bowel sounds, No tenderness Extremity Exam: normal inspection OBJECTIVE DATA Vital Signs: Vital Signs - 24 hr Temp Pulse Resp BP Pulse Ox 03/05/19 07:33 98.1 F 79 19 159/69 97 03/05/19 07:05 76 22 95 03/05/19 03:46 98.2 F 79 18 159/70 96 03/05/19 03:45 96 03/05/19 03:39 79 18 96 03/05/19 00:00 98.2 F 86 22 142/60 96 03/04/19 23:15 90 20 97 03/04/19 20:00 98.8 F 87 22 139/60 92 L 03/04/19 19:26 76 20 94 L 03/04/19 16:06 97.8 F 76 20 128/70 94 L 03/04/19 16:00 94 L 03/04/19 15:48 88 18 95 03/04/19 12:29 98.1 F 86 20 130/67 94 L 03/04/19 12:28 94 L 03/04/19 11:29 88 20 95 Oxygen-Last 24 hours O2 Percentage 3 Liters = 32% O2 Percentage 3 Liters = 32% O2 Percentage 3 Liters = 32% Oxygen Flowrate (L/min)-RT 3 Oxygen Flowrate (L/min)-RT 3 Oxygen Flowrate (L/min)-RT 3 Oxygen Flowrate (L/min)-RT 3 Pain Assessment - Last Documented Pain Intensity 0 Pain Scale Used 0-10 Pain Scale Intake and Output: Intake & Output 03/02/19 03/03/19 03/04/19 03/05/19 11:59 11:59 11:59 11:59 Intake Total 2091 2792 Output Total 850 600 Balance 1241 2192 Weight 98 kg 99.8 kg Lab Results: Lab Results-Last 24 Hours 03/05/19 03/05/19 Range/Units 04:51 04:51 WBC 14.1 H (4.0-10.5) K/mm3 RBC 3.28 L (4.1-5.4) M/mm3 Hgb 9.3 L (12.0-16.0) gm/dl Hct 31.9 L (35-47) % MCV 97.3 (78-100) fl MCH 28.3 (26-32) pg MCHC 29.2 L (32-36) g/dl RDW 13.7 (11.5-14.0) % Plt Count 228 D (150-450) K/mm3 MPV 12.4 H (6-9.5) fl Gran % 91.5 H (36.0-66.0) % Eos # (Auto) 0.01 (0-0.5) Absolute Lymphs (auto) 0.60 L (1.0-4.6) Absolute Monos (auto) 0.57 (0.0-1.3) Lymphocytes % 4.3 L (24.0-44.0) % Monocytes % 4.1 (0.0-12.0) % Eosinophils % 0.1 (0.00-5.0) % Basophils % 0.0 (0.0-0.4) % Absolute Granulocytes 12.88 H (1.4-6.9) Basophils # 0 (0-0.4) Sodium 140 (137-145) mmol/L Potassium 5.2 H D (3.5-5.1) mmol/L Chloride 97 L (98-107) mmol/L Carbon Dioxide 38 H (22-30) mmol/L Anion Gap 10.7 (5-15) MEQ/L BUN 36 H (7-17) mg/dL Creatinine 1.03 (0.52-1.04) mg/dL Estimated GFR 55.8 ML/MIN Glucose 163 H (74-106) mg/dL Calcium 9.4 (8.4-10.2) mg/dL Radiology Exams: Radiology Procedures Category Date Time Status CHEST 1 VIEW (PORTABLE) Stat Exams 03/03/19 15:50 Completed CHEST 2 VIEWS (PA AND LAT) Routine Exams 03/04/19 07:06 Completed Assessment/Plan (1) COPD exacerbation Current Visit: Yes Status: Acute Assessment & Plan: Patient has been receiving breathing treatments, steroids and cough medication for COPD exacerbation. Patient reports she has been doing incentive spirometry as well. Patient has been breathing better. She reports that she feels like she is clearing her lung congestion. Will continue with steroids and duonebs and incentive spirometry.Patient has been on mucinex and antibiotics as well. Code(s): J44.1 - CHRONIC OBSTRUCTIVE PULMONARY DISEASE W (ACUTE) EXACERBATION (2) Hyperkalemia Current Visit: Yes Status: Acute Assessment & Plan: Patient's potassium has trended up from to 5.2. Unsure why as patient is not on potassium supplementation. Will continue to trend. If elevated in am patient will likely need to have hyperkalemia treatment including calcium gluconate and insulin with D5. Code(s): E87.5 - HYPERKALEMIA (3) Hypertension Current Visit: No Status: Chronic Qualifiers: Hypertension type: essential hypertension Qualified Code(s): I10 - Essential (primary) hypertension Assessment & Plan: Patient has hx of HTN. Will continue with routine meds and continue to monitor. Code(s): I10 - ESSENTIAL (PRIMARY) HYPERTENSION (4) Chronic respiratory failure with hypoxia and hypercapnia Current Visit: No Status: Chronic Assessment & Plan: Same plan as for COPD exacerbation. Code(s): J96.11 - CHRONIC RESPIRATORY FAILURE WITH HYPOXIA; J96.12 - CHRONIC RESPIRATORY FAILURE WITH HYPERCAPNIA
[2019-03-05] MEDS: Mucinex 600MG ER Tabs PO SCH ×2 (10:41→23:03)
[2019-03-05] MEDS: Zestril 20 MG PO SCH (10:41)
[2019-03-05] MEDS: Zithromax 500 MG/ 250 ML NaCl Premix 500 MG/250 ML IVPB IV SCH (10:41)
[2019-03-05] MEDS: hydroDIURIL 25 MG PO SCH (10:42)
[2019-03-05] MEDS: Lopressor 50 MG PO SCH ×2 (10:42→23:02)
[2019-03-05] MEDS: ENOXAPARIN SODIUM SQ SCH (10:42)
[2019-03-05] MEDS: Ecotrin 325 MG PO SCH (10:42)
[2019-03-05] MEDS: Calcium 500MG W/Vit D Tablet PO SCH (10:42)
[2019-03-05] MEDS: solu-MEDROL 40 MG IV SCH ×2 (10:51→23:03)
[2019-03-05] MEDS: Sodium Chloride 0.9% 1000 ML 1,000 ML IV SCH (11:00)
[2019-03-05] MEDS: ROCEPHIN 1 Gm-D5w 50 ml Bag** 1 G/50 ML IVPB IV SCH (12:07)
[2019-03-05 19:41] LABS: A-aADO2 -1; ABG HEMOGLOBIN 16.5; ARTERIAL BLD GAS O2 SATURATION 97.5 % (95-100); ARTERIAL BLOOD GAS BASE EXCESS 8.8 (-2.0-2.0); ARTERIAL BLOOD GAS FIO2 32 %; ARTERIAL BLOOD GAS PO2 80 mmHg (75-100); CARBOXYHEMOGLOBIN 2.1 % THgb (0.0-6.9); HCO3- 43.4 (22-28); HGB O2 SAT 94.3 g/dF (94-100); Methhemoglobin 1.1 % (1.4-1.5); paO2 pAO1 1.01
[2019-03-05 19:42] LABS: ABG SITE RIGHT RADIAL; ALLEN TEST OK? YES; ARTERIAL BLOOD GAS PCO2 119 mmHg (35-45); ARTERIAL BLOOD GAS pH 7.17 (7.35-7.45)
[2019-03-05 21:39] LABS: A-aADO2 54; ABG HEMOGLOBIN 10.4; ARTERIAL BLD GAS O2 SATURATION 97.6 % (95-100); ARTERIAL BLOOD GAS FIO2 36 %; ARTERIAL BLOOD GAS PO2 79 mmHg (75-100); ARTERIAL BLOOD GAS pH 7.26 (7.35-7.45); CARBOXYHEMOGLOBIN 1.8 % THgb (0.0-6.9); HCO3- 44.4 (22-28); HGB O2 SAT 94.6 g/dF (94-100); Methhemoglobin 1.4 % (1.4-1.5); paO2 pAO1 0.59
[2019-03-05 21:40] LABS: ABG SITE RIGHT RADIAL; ALLEN TEST OK? YES; ARTERIAL BLOOD GAS PCO2 99 mmHg (35-45)
[2019-03-06] MEDS: Sodium Chloride 0.9% 1000 ML 1,000 ML IV SCH ×2 (01:11→23:04)
[2019-03-06] MEDS: DUONEB 0.5-3 MG/3 ml Neb IH SCH ×6 (03:36→22:57)
[2019-03-06 04:54] LABS: A-aADO2 64; ABG HEMOGLOBIN 8.8; ABG POTASSIUM 4.8 (3.5-5.1); ARTERIAL BLD GAS O2 SATURATION 98.2 % (95-100); ARTERIAL BLOOD GAS BASE EXCESS 12.7 (-2.0-2.0); ARTERIAL BLOOD GAS FIO2 36 %; ARTERIAL BLOOD GAS PO2 88 mmHg (75-100); CARBOXYHEMOGLOBIN 1.6 % THgb (0.0-6.9); HCO3- 41.3 (22-28); HGB O2 SAT 94.8 g/dF (94-100); Methhemoglobin 1.9 % (1.4-1.5); paO2 pAO1 0.58
[2019-03-06 04:55] LABS: ABG SITE LEFT RADIAL; ALLEN TEST OK? YES; ARTERIAL BLOOD GAS PCO2 84 mmHg (35-45)
[2019-03-06] MEDS: Advair Hfa 115/21 Common canister IH SCH ×2 (07:13→18:56)
[2019-03-06] MEDS: Spiriva 18 Mcg/Cap Inhaler IH SCH (07:14)
[2019-03-06] MEDS: ROCEPHIN 1 Gm-D5w 50 ml Bag** 1 G/50 ML IVPB IV SCH (09:49)
[2019-03-06] MEDS: Lopressor 50 MG PO SCH ×2 (09:52→21:04)
[2019-03-06] MEDS: Calcium 500MG W/Vit D Tablet PO SCH (09:52)
[2019-03-06] MEDS: solu-MEDROL 40 MG IV SCH ×2 (09:52→21:04)
[2019-03-06] MEDS: Zestril 20 MG PO SCH (09:54)
[2019-03-06] MEDS: hydroDIURIL 25 MG PO SCH (09:54)
[2019-03-06] MEDS: ENOXAPARIN SODIUM SQ SCH (09:55)
[2019-03-06] MEDS: Mucinex 600MG ER Tabs PO SCH ×2 (09:55→21:04)
[2019-03-06] MEDS: Ecotrin 325 MG PO SCH (09:55)
[2019-03-06] MEDS: Zithromax 500 MG/ 250 ML NaCl Premix 500 MG/250 ML IVPB IV SCH (10:33)
[2019-03-06] MEDS: Robitussin AC Syrup Unit Dose Cup PO PRN (22:46)
[2019-03-07] MEDS: DUONEB 0.5-3 MG/3 ml Neb IH SCH ×6 (02:58→23:36)
[2019-03-07 03:31] LABS: A-aADO2 69; ABG HEMOGLOBIN 10.4; ABG POTASSIUM 4.9 (3.5-5.1); ARTERIAL BLD GAS O2 SATURATION 98.5 % (95-100); ARTERIAL BLOOD GAS BASE EXCESS 16.9 (-2.0-2.0); ARTERIAL BLOOD GAS FIO2 36 %; ARTERIAL BLOOD GAS PO2 81 mmHg (75-100); ARTERIAL BLOOD GAS pH 7.34 (7.35-7.45); CARBOXYHEMOGLOBIN 1.9 % THgb (0.0-6.9); HCO3- 45.9 (22-28); HGB O2 SAT 95.4 g/dF (94-100); Methhemoglobin 1.2 % (1.4-1.5); paO2 pAO1 0.54
[2019-03-07 03:32] LABS: ABG SITE LEFT RADIAL; ALLEN TEST OK? YES; ARTERIAL BLOOD GAS PCO2 85 mmHg (35-45)
[2019-03-07 04:45] LABS: Hematocrit 33.7 % (35-47); Hemoglobin 9.9 gm/dl (12.0-16.0); Mean Cell Volume 97.1 fl (78-100); Mean Corpuscular Hemoglobin 28.5 pg (26-32); Mean Corpuscular Hgb Concent. 29.4 g/dl (32-36); Mean Platelet Volume 11.2 fl (6-9.5); Platelet Count 287 K/mm3 (150-450); Red Blood Count 3.47 M/mm3 (4.1-5.4); Red Cell Distribution Width 13.5 % (11.5-14.0); White Blood Count 7.1 K/mm3 (4.0-10.5)
[2019-03-07 04:53] LABS: BLOOD UREA NITROGEN 39 mg/dL (7-17); CHLORIDE 95 mmol/L (98-107); Calcium 9.9 mg/dL (8.4-10.2); Creatinine 1 0.91 mg/dL (0.52-1.04); Glucose 143 mg/dL (74-106); Potassium 5.1 mmol/L (3.5-5.1); SODIUM 141 mmol/L (137-145)
[2019-03-07 05:00] LABS: Carbon Dioxide 39 mmol/L (22-30)
[2019-03-07 05:02] LABS: ANION GAP 12.1 MEQ/L (5-15)
[2019-03-07] MEDS: Advair Hfa 115/21 Common canister IH SCH ×2 (07:57→19:38)
[2019-03-07] MEDS: Robitussin AC Syrup Unit Dose Cup PO PRN ×3 (08:03→20:50)
[2019-03-07] MEDS: xanAX 0.25 MG PO PRN (08:03)
--- NOTE | 2019-03-07 08:06 | PCM.NOTE ---
Date and Time: 03/07/19800 Subjective Assessment: Patient is alert and oriented x 3 but then doesn't answer other questions appropriately. She tells me it is still Tuesday. Discussed with her that if the director of customer acquisition could not see her here today for whatever reason, that she would need transferred and she tells me she is "fine" and "not disoriented anymore". When I asked her if she would want to be put on a ventilator or have chest compressions done if she did not improve, she said "I would just want my family notified". I called her granddaughter ,Molly Rivas, and updated her and discussed her code status and she states she would want her to be a full code. She is also aware if the director of customer acquisition can't see her today that she would need transferred to a [facility]. Patient denies pain, denies constipation. - Review of Systems Constitutional: Other (tired) Respiratory: Cough, Short Of Breath Cardiac: No Symptoms Abdominal/Gastrointestinal: No Symptoms, No Diarrhea, No Constipation Genitourinary Symptoms: No Symptoms Musculoskeletal: No Symptoms Skin: No Symptoms Objective Exam General Appearance: no apparent distress, alert, other (talking but not always making sense) Skin Exam: normal color, warm, dry, No rash Respiratory Exam: other (decreased breath sounds at bases bilat, scattered rhonichi, deep cough) Cardiovascular Exam: regular rate/rhythm, No murmur, No friction rub, No gallop Gastrointestinal/Abdomen Exam: soft, normal bowel sounds, No tenderness, No distention, No mass Extremity Exam: other (no c/c/e) OBJECTIVE DATA Vital Signs: Vital Signs - 24 hr Temp Pulse Resp BP Pulse Ox 03/07/19 04:00 98.7 F 68 20 146/67 97 03/07/19 02:58 74 25 H 98 03/07/19 00:00 98.3 F 72 26 H 136/72 96 03/06/19 22:51 75 28 H 99 03/06/19 20:00 98.1 F 82 24 154/72 99 03/06/19 18:56 77 20 99 03/06/19 15:36 77 20 96 03/06/19 15:00 98.6 F 71 18 171/77 98 03/06/19 11:00 98.5 F 77 20 150/70 98 03/06/19 10:54 74 24 94 L Oxygen-Last 24 hours Oxygen Flowrate (L/min)-RT 4 Oxygen Flowrate (L/min)-RT 4 Pain Assessment - Last Documented Pain Intensity 0 Pain Scale Used 0-10 Pain Scale Intake and Output: Intake & Output 03/05/19 03/06/19 03/07/19 03/08/19 06:59 06:59 06:59 06:59 Intake Total 3752 2982 2559 Output Total 1250 1400 Balance 2502 1582 2559 Weight 99.8 kg 102.7 kg 102.7 kg Lab Results: Lab Results-Last 24 Hours 03/07/19 03/07/19 03/07/19 Range/Units 03:25 04:25 04:25 WBC 7.1 (4.0-10.5) K/mm3 RBC 3.47 L (4.1-5.4) M/mm3 Hgb 9.9 L (12.0-16.0) gm/dl Hct 33.7 L (35-47) % MCV 97.1 (78-100) fl MCH 28.5 (26-32) pg MCHC 29.4 L (32-36) g/dl RDW 13.5 (11.5-14.0) % Plt Count 287 (150-450) K/mm3 MPV 11.2 H (6-9.5) fl Puncture Site LEFT RADIAL pCO2 85 H* (35-45) mmHg pO2 81 (75-100) mmHg Base Excess 16.9 H (-2.0-2.0) O2 Saturation 95.4 (94-100) g/dF ABG pH 7.34 L (7.35-7.45) ABG HCO3 45.9 H* (22-28) ABG O2 Sat (Measured) 98.5 (95-100) % Huey Test YES A-a Gradient 69 a/A Ratio 0.54 Hemoglobin 10.4 Carboxyhemoglobin 1.9 (0.0-6.9) % THgb Methemoglobin 1.2 L (1.4-1.5) % Potassium 4.9 5.1 (3.5-5.1) Temperature 37.0 C POC O2 Flow Rate 36 % Sodium 141 (137-145) mmol/L Chloride 95 L (98-107) mmol/L Carbon Dioxide 39 H (22-30) mmol/L Anion Gap 12.1 (5-15) MEQ/L BUN 39 H (7-17) mg/dL Creatinine 0.91 (0.52-1.04) mg/dL Estimated GFR > 60.0 ML/MIN Glucose 143 H (74-106) mg/dL Calcium 9.9 (8.4-10.2) mg/dL Radiology Exams: Radiology Procedures Category Date Time Status CHEST 2 VIEWS (PA AND LAT) Urgent Exams 03/07/19 Ordered Assessment/Plan (1) Acute on chronic respiratory failure with hypercapnia Current Visit: Yes Status: Acute Assessment & Plan: Continue Bipap as needed. Dr. Jorge Strickland consulted yesterday. I spoke with him personally and he says he will be here today to see her. Checking D-dimer today and also repeat chest X-ray. Code(s): J96.22 - ACUTE AND CHRONIC RESPIRATORY FAILURE WITH HYPERCAPNIA (2) End stage COPD Current Visit: Yes Status: Acute Assessment & Plan: Continue IV steroids and IV antibiotics. WBC has improved. Overall prognosis guarded and poor. Granddaughter updated. Code(s): J44.9 - CHRONIC OBSTRUCTIVE PULMONARY DISEASE, UNSPECIFIED (3) Elevated troponin I level Current Visit: Yes Status: Acute Assessment & Plan: Will recheck troponin and ask for cardiology consult. No hx of CAD in past. EKG with sinus rhythm with RBBB. Code(s): R79.89 - OTHER SPECIFIED ABNORMAL FINDINGS OF BLOOD CHEMISTRY (4) Elevated troponin Current Visit: No Status: Acute Assessment & Plan: Will ask for telecardiology consult today. Recheck troponin today. Code(s): R74.8 - ABNORMAL LEVELS OF OTHER SERUM ENZYMES (5) COPD exacerbation Current Visit: Yes Status: Acute Assessment & Plan: Continue IV steroids and IV antibiotics. Code(s): J44.1 - CHRONIC OBSTRUCTIVE PULMONARY DISEASE W (ACUTE) EXACERBATION (6) Hypertension Current Visit: No Status: Chronic Qualifiers: Hypertension type: essential hypertension Qualified Code(s): I10 - Essential (primary) hypertension Assessment & Plan: Continue home medication. Code(s): I10 - ESSENTIAL (PRIMARY) HYPERTENSION (7) DVT prophylaxis Current Visit: No Status: Acute Assessment & Plan: On lovenox. Code(s): [id number] -
[2019-03-07 08:53] LABS: A-aADO2 71; ABG HEMOGLOBIN 10.2; ABG POTASSIUM 4.9 (3.5-5.1); ARTERIAL BLD GAS O2 SATURATION 99.4 % (95-100); ARTERIAL BLOOD GAS BASE EXCESS 17.8 (-2.0-2.0); ARTERIAL BLOOD GAS FIO2 36 %; ARTERIAL BLOOD GAS PCO2 54 mmHg (35-45); ARTERIAL BLOOD GAS PO2 118 mmHg (75-100); ARTERIAL BLOOD GAS VENT MODE BiPAP; ARTERIAL BLOOD GAS pH 7.51 (7.35-7.45); CARBOXYHEMOGLOBIN 3.7 % THgb (0.0-6.9); HCO3- 43.1 (22-28); HGB O2 SAT 93.9 g/dF (94-100); Methhemoglobin 1.7 % (1.4-1.5); paO2 pAO1 0.62
[2019-03-07 08:54] LABS: ABG SITE RIGHT RADIAL; ALLEN TEST OK? YES
[2019-03-07] MEDS: Spiriva 18 Mcg/Cap Inhaler IH SCH (09:19)
--- NOTE | 2019-03-07 10:19 | XRAY ---
Indication: Short of breath. Comparison: March 04, 2019. Portable apical lordotic chest again demonstrates minimal bibasilar infiltrates/atelectasis, left greater than right with minimal increasing small left effusion. Remaining heart and lungs unremarkable again with COPD, CIPD, and right base calcified granuloma.
[2019-03-07] MEDS: solu-MEDROL 40 MG IV SCH ×2 (10:20→20:50)
[2019-03-07] MEDS: ROCEPHIN 1 Gm-D5w 50 ml Bag** 1 G/50 ML IVPB IV SCH (10:20)
[2019-03-07] MEDS: Zithromax 500 MG/ 250 ML NaCl Premix 500 MG/250 ML IVPB IV SCH (10:58)
[2019-03-07] MEDS: Calcium 500MG W/Vit D Tablet PO SCH (12:23)
[2019-03-07] MEDS: Ecotrin 325 MG PO SCH (12:23)
[2019-03-07] MEDS: Mucinex 600MG ER Tabs PO SCH ×2 (12:23→20:49)
[2019-03-07] MEDS: hydroDIURIL 25 MG PO SCH (12:23)
[2019-03-07] MEDS: ENOXAPARIN SODIUM SQ SCH (12:23)
[2019-03-07] MEDS: Lopressor 50 MG PO SCH ×2 (12:23→20:49)
[2019-03-07] MEDS: Zestril 20 MG PO SCH (12:23)
--- NOTE | 2019-03-07 13:13 | CONS ---
CONSULT DATE: 03/07/2019 BRIEF HISTORY: This is a 73 year-old female who was seen because of an elevated troponin I. The patient was primarily admitted for progressive shortness of breath secondary to exacerbation of chronic obstructive pulmonary disease. She apparently had ran out of oxygen. On initial evaluation in the emergency room she was in respiratory acidosis with severe hypoxemia. She was started on IV antibiotics and was given steroids. She had troponin I obtained which peaked to about 0.055 but is trending down. She denies any chest pain. She has never had myocardial infarction or heart failure. CARDIAC RISK FACTORS: Negative for diabetes. History of hypertension. She quit smoking several years ago. She has hyperlipidemia. FAMILY HISTORY: Positive for coronary artery disease. Father had myocardial infarction. CURRENT MEDICATIONS: DuoNeb, Xanax, aspirin, Lasix, Mucinex, Robitussin AC, hydrodiuril, Zithromax, Rocephin, Zestril, Milk Of Magnesia, Solu-Medrol, Lopressor, Advair, Senokot, Spiriva. REVIEW OF SYSTEMS: [employer]: There is no history of stroke. No seizures. No chronic headache. RESPIRATORY: She has chronic obstructive lung disease, asthma and history of bronchitis. No history of pulmonary embolism. GI: She has had history of heartburn in the past. No nausea. No vomiting. No diarrhea. : Negative for dysuria or hematuria. No urinary frequency. No flank pain. PERIPHERAL VASCULAR: No history of deep venous thrombosis or claudication. HEMATOLOGY: No history of blood dyscrasia. ENDOCRINE: No thyroid disorder. MUSCULOSKELETAL: She has occasional joint pains. PAST SURGICAL HISTORY: Unremarkable. 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 She has no significant alcohol intake. PHYSICAL EXAMINATION: Her blood pressure is 146/67 with a heart rate 68, respirations about 20. GENERAL: The patient is an elderly female who is alert, oriented, who is not in any form of distress, who is chest pain free. HEENT: Unremarkable. NECK: No significant JVD. No carotid bruit. CHEST: The breath sounds are generally diminished with some rhonchi. CARDIAC: Heart tones are somewhat distant. The rhythm is regular. No audible gallop. ABDOMEN: Soft with normal bowel sounds. Guarding. EXTREMITIES: No significant edema with decreased distal pulses. LAB DATA AND DIAGNOSTIC TESTS: The EKG showed sinus rhythm with a right bundle branch block. Laboratory data: The troponin I was 0.055. Glomerular filtration rate greater than 55. Sugar 163. The hemoglobin is 10.5 with PLT of 165,000. Lactic acid was 1.3. ProBNP 554. Serum transaminases are normal. The initial blood gases on 03/05/2019 showed a pH of 7.1, pCO2 119 with a pO2 of 80. ASSESSMENT AND PLAN: 1) The mild troponin is most likely secondary to benign ischemia from severe hypoxemia and respiratory acidosis, exacerbation of chronic obstructive pulmonary disease: Currently she does not have any chest pains and therefore no evidence of ACS. She does have multiple cardiac risk factors which need to be evaluation when her respiratory status has improved, this can be done as an outpatient. 2) Hypertension: Continue with current medical regimen. I will be glad to see her in the office for her follow up.
[2019-03-07] MEDS: Sodium Chloride 0.9% 1000 ML 1,000 ML IV SCH (20:47)
[2019-03-08] MEDS: xanAX 0.25 MG PO PRN (00:01)
[2019-03-08] MEDS: DUONEB 0.5-3 MG/3 ml Neb IH SCH ×6 (03:37→23:29)
[2019-03-08] MEDS: Advair Hfa 115/21 Common canister IH SCH ×2 (06:52→19:15)
[2019-03-08] MEDS: Spiriva 18 Mcg/Cap Inhaler IH SCH (06:53)
--- NOTE | 2019-03-08 08:44 | CONS ---
CONSULT DATE: 03/07/2019 HISTORY: Dg Copeland is a 73 year-old woman with history of chronic obstructive pulmonary disease, well known to me, who has been hospitalized with complaints of cough, shortness of breath and wheezing that started about four to five days prior to admission. The patient was seen in the emergency room at [facility] where her labs revealed elevated white count of 18.4 and a positive cardiac enzyme of 0.05. She also was noted to have acute on chronic hypercapnic respiratory failure. She was placed on BiPAP. Subsequent blood gases have shown improvement. I was contacted two nights ago at which time I recommended increasing back up rate which seems to have helped. Her ABG this morning showed pH of 7.34, pCO2 85, pO2 81. Subsequent blood gases showed pH of 7.51 indicating over correction of hypercapnia. At the time of my evaluation the patient is awake, comfortable and able to talk. She was just taken off of BiPAP. She reports feeling "A lot better". PAST MEDICAL HISTORY: Positive for chronic obstructive pulmonary disease, chronic bronchitis, chronic hypoxemia and respiratory failure. She also has history of hypertension. PAST SURGICAL HISTORY: No recent surgery. In the past she had hysterectomy. PERSONAL AND SOCIAL HISTORY: She is a former smoker and had smoked for about 30 years. MEDICATIONS: Home and current medications are reviewed. ALLERGIES: NKDA. PHYSICAL EXAMINATION: This is an elderly woman who appears tired but not in any distress. Vital signs are noted. HEENT: Normocephalic. Oral exam is limited. NECK: Supple. Accessory muscles are mildly prominent. CVS: First and second heart sounds are normal, regular and rhythmic. RESPIRATORY: Shows diminished breath sounds, scattered rhonchi are heard. ABDOMEN: Soft. EXTREMITIES: 1+ leg edema is noted. LABORATORY DATA AND TESTS: Troponin has now normalized. D-dimer is 867. White count 7.1, hemoglobin 9.9, hematocrit 33.7, PLT 287,000. Sodium 141, potassium 5.1, chloride 95, bicarb 39, glucose 142, BUN 39, creatinine 0.9. Chest x-ray has been reviewed. ASSESSMENT: This is a 73 year old woman admitted with: 1) Acute on chronic hypercapnic respiratory failure. Acute component resolved. 2) Chronic hypoxemia. 3) Chronic obstructive pulmonary disease with exacerbation. 4) Acute bronchitis, resolving. 5) Non-ST myocardial infarction likely from stress of pulmonary problems causing cardiac enzymes. 6) Positive D-dimer low clinical suspicion of pulmonary embolism. 7) Severe debilitation. RECOMMENDATIONS: 1) The patient has shown significant improvement with BiPAP. 2) Discussed with respiratory therapy, will reduce back up rate of BiPAP from 26 now to 16. 3) Will attempt to get BiPAP off during day as much as possible and have the patient sleep with it on at night. 4) The patient will have to be reassessed prior to discharge to see if she will qualify for noninvasive ventilation. 5) I agree with antibiotics, steroids, bronchodilators. 6) Cardiac work up as may be deemed necessary by Dr. Apodaca. 7) Further recommendations pending clinical improvement. Discussed this plan of care with respiratory therapy, nursing staff as well as the patient. Thank you, Dr. Apodaca, for allowing me to participate in the care of your patient.
[2019-03-08] MEDS: ROCEPHIN 1 Gm-D5w 50 ml Bag** 1 G/50 ML IVPB IV SCH (09:33)
[2019-03-08] MEDS: Calcium 500MG W/Vit D Tablet PO SCH (09:34)
[2019-03-08] MEDS: Ecotrin 325 MG PO SCH (09:34)
[2019-03-08] MEDS: Zithromax 500 MG/ 250 ML NaCl Premix 500 MG/250 ML IVPB IV SCH (09:34)
[2019-03-08] MEDS: Lopressor 50 MG PO SCH ×2 (09:34→21:34)
[2019-03-08] MEDS: Mucinex 600MG ER Tabs PO SCH ×2 (09:34→21:34)
[2019-03-08] MEDS: solu-MEDROL 40 MG IV SCH ×2 (09:35→21:34)
[2019-03-08] MEDS: Zestril 20 MG PO SCH (09:35)
[2019-03-08] MEDS: hydroDIURIL 25 MG PO SCH (09:35)
[2019-03-08] MEDS: ENOXAPARIN SODIUM SQ SCH (09:35)
--- NOTE | 2019-03-08 10:19 | PCM.NOTE ---
Date and Time: 03/08/19 [facility] Subjective Assessment: Patient denies constipation and states she is feeling better and was happy to see her family yesterday. She is coughing up some white sputum. - Review of Systems Constitutional: No Symptoms, Other Eyes: No Symptoms Ears, Nose, & Throat: No Symptoms Respiratory: Cough, Short Of Breath Cardiac: No Symptoms Abdominal/Gastrointestinal: No Symptoms, No Constipation Genitourinary Symptoms: No Symptoms Musculoskeletal: No Symptoms Skin: No Symptoms Objective Exam General Appearance: no apparent distress, alert, obese Neurologic Exam: alert, cooperative, normal mood/affect, other (says month is january) Skin Exam: normal color, warm, dry, No rash Respiratory Exam: other (few scattered wheezes, no crackles, equal breath sounds ) Cardiovascular Exam: regular rate/rhythm, normal heart sounds, No murmur, No friction rub, No gallop Gastrointestinal/Abdomen Exam: soft, normal bowel sounds, No tenderness, No distention, No mass Extremity Exam: other (no c/c/e) OBJECTIVE DATA Vital Signs: Vital Signs - 24 hr Temp Pulse Resp BP Pulse Ox 03/08/19 07:54 98.5 F 71 26 H 139/79 99 03/08/19 06:55 71 26 H 100 03/08/19 04:00 98.2 F 61 26 H 141/65 92 L 03/08/19 03:38 66 26 H 96 03/07/19 23:59 98.1 F 61 22 144/70 94 L 03/07/19 23:36 76 32 H 91 L 03/07/19 19:51 98.6 F 72 21 149/68 95 03/07/19 19:39 73 20 94 L 03/07/19 18:00 93 L 03/07/19 16:00 97.3 F 65 22 136/70 96 03/07/19 15:36 74 29 H 96 03/07/19 12:00 99.3 F 75 22 126/63 94 L 03/07/19 10:57 66 24 99 Oxygen-Last 24 hours O2 Percentage 2 Liters = 28% O2 Percentage 4 Liters = 36% O2 Percentage 3 Liters = 32% O2 Percentage 2 Liters = 28% Pain Assessment - Last Documented Pain Intensity 0 Pain Scale Used 0-10 Pain Scale Intake and Output: Intake & Output 03/06/19 03/07/19 03/08/1918/19 06:59 06:59 06:59 06:59 Intake Total 2982 2559 2666 240 Output Total 1400 550 Balance 1582 2559 2116 240 Weight 102.7 kg 102.7 kg 102.2 kg Radiology Exams: Radiology Procedures Category Date Time Status CHEST 1 VIEW (PORTABLE) Urgent Exams 03/07/19 10:06 Completed Assessment/Plan (1) Acute on chronic respiratory failure with hypercapnia Current Visit: Yes Status: Acute Assessment & Plan: Continue bipap as needed. Dr. Jorge Strickland is following. Code(s): J96.22 - ACUTE AND CHRONIC RESPIRATORY FAILURE WITH HYPERCAPNIA (2) End stage COPD Current Visit: Yes Status: Acute Assessment & Plan: Continue IV antibiotics and IV steroids. Code(s): J44.9 - CHRONIC OBSTRUCTIVE PULMONARY DISEASE, UNSPECIFIED (3) Elevated troponin I level Current Visit: Yes Status: Acute Assessment & Plan: Dr. Ren saw her and wants to follow as an outpatient. Code(s): R79.89 - OTHER SPECIFIED ABNORMAL FINDINGS OF BLOOD CHEMISTRY (4) Elevated troponin Current Visit: No Status: Acute Code(s): R74.8 - ABNORMAL LEVELS OF OTHER SERUM ENZYMES (5) COPD exacerbation Current Visit: Yes Status: Acute Assessment & Plan: Continue breathing treatments, Treatment as above. Code(s): J44.1 - CHRONIC OBSTRUCTIVE PULMONARY DISEASE W (ACUTE) EXACERBATION (6) Hypertension Current Visit: No Status: Chronic Qualifiers: Hypertension type: essential hypertension Qualified Code(s): I10 - Essential (primary) hypertension Assessment & Plan: Well controlled. Code(s): I10 - ESSENTIAL (PRIMARY) HYPERTENSION (7) DVT prophylaxis Current Visit: No Status: Acute Assessment & Plan: Continue lovenox. Code(s): [id number] -
[2019-03-08] MEDS: Sodium Chloride 0.9% 1000 ML 1,000 ML IV SCH (23:04)
[2019-03-09] MEDS: DUONEB 0.5-3 MG/3 ml Neb IH SCH ×6 (03:51→23:08)
[2019-03-09 04:33] LABS: Hematocrit 32.6 % (35-47); Hemoglobin 9.9 gm/dl (12.0-16.0); Mean Cell Volume 94.2 fl (78-100); Mean Corpuscular Hemoglobin 28.6 pg (26-32); Mean Corpuscular Hgb Concent. 30.4 g/dl (32-36); Platelet Count 288 K/mm3 (150-450); Red Blood Count 3.46 M/mm3 (4.1-5.4); Red Cell Distribution Width 13.7 % (11.5-14.0); White Blood Count 7.7 K/mm3 (4.0-10.5)
[2019-03-09 04:45] LABS: BLOOD UREA NITROGEN 34 mg/dL (7-17); CHLORIDE 91 mmol/L (98-107); Calcium 9.5 mg/dL (8.4-10.2); Creatinine 1 0.85 mg/dL (0.52-1.04); Glucose 153 mg/dL (74-106); SODIUM 139 mmol/L (137-145)
[2019-03-09 04:53] LABS: Carbon Dioxide 45 mmol/L (22-30)
[2019-03-09 04:54] LABS: ANION GAP 8 MEQ/L (5-15)
[2019-03-09 05:17] LABS: ATYPICAL LYMPHS 1 %; Lymphocytes 9 % (24-44); Monocyte 2 % (0.0-12.0); Neutrophils 88 % (36.0-66.0); Total Cells Counted 100
[2019-03-09 05:18] LABS: Platelet Estimate NORMAL (NORMAL); Toxic Granulation RARE
[2019-03-09] MEDS: Spiriva 18 Mcg/Cap Inhaler IH SCH (07:06)
[2019-03-09] MEDS: Advair Hfa 115/21 Common canister IH SCH ×2 (07:07→19:02)
--- NOTE | 2019-03-09 08:44 | PCM.NOTE ---
Date and Time: 03/09/19843 Subjective Assessment: Patient reports she slept better and wore the cpap last night. She states she doesn't feel as confused. She is not sure about going to a swing bed. Dr. Jorge Strickland was looking into seeing if she qualified for a home noninvasive ventilator. She denies constipation and has been up to a chair. - Review of Systems Constitutional: Weakness Eyes: No Symptoms Ears, Nose, & Throat: No Symptoms Respiratory: Cough, Short Of Breath Cardiac: No Symptoms Abdominal/Gastrointestinal: No Symptoms Genitourinary Symptoms: No Symptoms Musculoskeletal: Other (IV sight is bothering her) Objective Exam General Appearance: no apparent distress, obese Neurologic Exam: alert, cooperative, normal mood/affect Skin Exam: normal color, warm, dry, No rash Respiratory Exam: other (distant breath sounds, scattered rhonchi, no wheezing, no crackles, equal breath sounds) Cardiovascular Exam: regular rate/rhythm, normal heart sounds, No murmur, No friction rub, No gallop Gastrointestinal/Abdomen Exam: soft, normal bowel sounds, No tenderness, No distention, No mass Extremity Exam: normal inspection OBJECTIVE DATA Vital Signs: Vital Signs - 24 hr Temp Pulse Resp BP Pulse Ox 03/09/19 07:24 98.2 F 70 20 138/72 99 03/09/19 07:10 68 18 97 03/09/19 04:00 98.1 F 62 21 123/76 96 03/09/19 03:15 65 18 95 03/09/19 00:00 98.3 F 57 L 16 165/75 97 03/08/19 23:30 67 17 97 03/08/19 20:00 98.3 F 71 16 149/70 95 03/08/19 19:19 68 22 95 03/08/19 16:00 98.9 F 63 22 175/74 97 03/08/19 12:00 98.4 F 69 20 171/71 96 03/08/19 11:04 73 24 98 Oxygen-Last 24 hours O2 Percentage 2 Liters = 28% O2 Percentage 3 Liters = 32% O2 Percentage 3 Liters = 32% O2 Percentage 2 Liters = 28% O2 Percentage 2 Liters = 28% O2 Percentage 2 Liters = 28% Pain Assessment - Last Documented Pain Intensity 0 Pain Scale Used 0-10 Pain Scale Intake and Output: Intake & Output 03/07/19 03/08/19 03/09/19 03/10/19 06:59 06:59 06:59 06:59 Intake Total 2550 5796 2198 Output Total 550 850 350 Balance 2559 2116 1348 -350 Weight 102.7 kg 102.2 kg 102.9 kg Lab Results: Lab Results-Last 24 Hours 03/09/19 03/09/19 Range/Units 04:15 04:15 WBC 7.7 (4.0-10.5) K/mm3 RBC 3.46 L (4.1-5.4) M/mm3 Hgb 9.9 L (12.0-16.0) gm/dl Hct 32.6 L (35-47) % MCV 94.2 (78-100) fl MCH 28.6 (26-32) pg MCHC 30.4 L (32-36) g/dl RDW 13.7 (11.5-14.0) % Plt Count 288 (150-450) K/mm3 MPV 11.0 H (6-9.5) fl Segmented Neutrophils 88 H (36.0-66.0) % Lymphocytes (Manual) 9 L (24-44) % Monocytes (Manual) 2 (0.0-12.0) % Atypical Lymphocytes 1 % Toxic Granulation RARE Platelet Estimate NORMAL (NORMAL) RBC Morphology NORMAL Sodium 139 (137-145) mmol/L Potassium 5.0 (3.5-5.1) mmol/L Chloride 91 L (98-107) mmol/L Carbon Dioxide 45 H (22-30) mmol/L Anion Gap 8 (5-15) MEQ/L BUN 34 H (7-17) mg/dL Creatinine 0.85 (0.52-1.04) mg/dL Estimated GFR > 60.0 ML/MIN Glucose 153 H (74-106) mg/dL Calcium 9.5 (8.4-10.2) mg/dL Radiology Exams: Radiology Procedures Category Date Time Status CHEST 1 VIEW (PORTABLE) Urgent Exams 03/07/19 10:06 Completed Multi-Disciplinary Progress Notes: Multi-Disciplinary Progress Notes 03/08/19 15:32 Nutrition Note by Gloria Ackerman F/u Note: Cardiac diet con't with 90-100% po intake. adm weight 03/03= 98 kg; current wt 102.2 kg. +fluid balance 2559 mls. Labs 03/07= BUN 39, glu 143, hgb 9.9, hct 33.7. goal of maintaining po intake >=75% met goal to decrease fluid balance not met. Pt on Na restriction with cardiac diet. Recommend to con't with diet and goals. Will con't to monitor and f/u prn. TSUZAN Swan Initialized on 03/08/19 15:32 - END OF NOTE 03/08/19 15:00 (created 03/08/19 15:07) Case Management Note by Ivone Mack DISCHARGE PLAN REVIEWED WITH PT AND DAUGHTER AT BEDSIDE. DISCUSSED HOME WITH C SERVICES VS REHAB STAY AT [facility] VS SWING BED. DISCUSSED TRILOGY, IF PT MEETS REQUIREMENTS. DAUGHTER REPORTS THAT SHE FEELS THAT PT COULD BENEFIT FROM SWING BED FOR SHORT TERM P.T. PRIOR TO GOING HOME. REPORTS THAT WHEN SHE GOES HOME, THAT SHE WILL BE STAYING WITH HER, MAKING SURE HER NEEDS ARE MET. DENIES ADDNL NEEDS AT PRESENT. DOES HAVE [facility] FOR ALL HOME OXYGEN NEEDS, REPORTS THAT ALL EQUIP IS IN WORKING CONDITION. DAUGHTER REPORTS THAT SHE WOULD LIKE FOR PT TO HAVE AN OXYGEN TANK THAT IS MORE PORTABLE. REPORTS THAT SHE HAS TO CARRY AROUND A LARGE TANK WHEN SHE IS OUT. DISCUSSED THAT WE COULD CALL [facility] , AND ASK ABOUT DIFFERENT OPTIONS FOR PORTABILITY. PT REPORTS THAT SHE WILL DISCUSS SWING BED WITH HER DAUGHTER AND DR. KIM. WILL FOLLOW. Initialized on 03/08/19 15:07 - END OF NOTE Assessment/Plan (1) Acute on chronic respiratory failure with hypercapnia Current Visit: Yes Status: Acute Assessment & Plan: Continue with management per branch employment coordinator, Dr. Jorge Strickland. Code(s): J96.22 - ACUTE AND CHRONIC RESPIRATORY FAILURE WITH HYPERCAPNIA (2) End stage COPD Current Visit: Yes Status: Acute Assessment & Plan: Improving with IV steroids and IV antibiotics. Code(s): J44.9 - CHRONIC OBSTRUCTIVE PULMONARY DISEASE, UNSPECIFIED (3) Elevated troponin I level Current Visit: Yes Status: Acute Assessment & Plan: Dr. Ren saw her while she was here. Trended down and will follow up as an outpatient. Code(s): R79.89 - OTHER SPECIFIED ABNORMAL FINDINGS OF BLOOD CHEMISTRY (4) Elevated troponin Current Visit: No Status: Acute Code(s): R74.8 - ABNORMAL LEVELS OF OTHER SERUM ENZYMES (5) COPD exacerbation Current Visit: Yes Status: Acute Code(s): J44.1 - CHRONIC OBSTRUCTIVE PULMONARY DISEASE W (ACUTE) EXACERBATION (6) Hypertension Current Visit: No Status: Chronic Qualifiers: Hypertension type: essential hypertension Qualified Code(s): I10 - Essential (primary) hypertension Assessment & Plan: Well controlled. Code(s): I10 - ESSENTIAL (PRIMARY) HYPERTENSION (7) DVT prophylaxis Current Visit: No Status: Acute Code(s): [id number] -
[2019-03-09] MEDS: solu-MEDROL 40 MG IV SCH ×2 (10:34→21:19)
[2019-03-09] MEDS: ROCEPHIN 1 Gm-D5w 50 ml Bag** 1 G/50 ML IVPB IV SCH (10:36)
[2019-03-09] MEDS: TYLENOL 325 MG PO PRN (10:39)
[2019-03-09] MEDS: Mucinex 600MG ER Tabs PO SCH ×2 (10:39→21:19)
[2019-03-09] MEDS: hydroDIURIL 25 MG PO SCH (10:39)
[2019-03-09] MEDS: Calcium 500MG W/Vit D Tablet PO SCH (10:39)
[2019-03-09] MEDS: Zestril 20 MG PO SCH (10:39)
[2019-03-09] MEDS: Ecotrin 325 MG PO SCH (10:39)
[2019-03-09] MEDS: Lopressor 50 MG PO SCH ×2 (10:39→21:19)
[2019-03-09] MEDS: ENOXAPARIN SODIUM SQ SCH (10:42)
[2019-03-09] MEDS: Zithromax 500 MG/ 250 ML NaCl Premix 500 MG/250 ML IVPB IV SCH (11:51)
[2019-03-09] MEDS: Robitussin AC Syrup Unit Dose Cup PO PRN (21:20)
[2019-03-10] MEDS: DUONEB 0.5-3 MG/3 ml Neb IH SCH ×6 (03:40→23:00)
[2019-03-10] MEDS: Advair Hfa 115/21 Common canister IH SCH ×2 (06:44→19:22)
[2019-03-10] MEDS: Spiriva 18 Mcg/Cap Inhaler IH SCH (06:44)
[2019-03-10] MEDS: Sodium Chloride 0.9% 1000 ML 1,000 ML IV SCH ×2 (07:18→17:30)
[2019-03-10] MEDS: Mucinex 600MG ER Tabs PO SCH ×2 (09:01→21:23)
[2019-03-10] MEDS: ROCEPHIN 1 Gm-D5w 50 ml Bag** 1 G/50 ML IVPB IV SCH (09:01)
[2019-03-10] MEDS: ENOXAPARIN SODIUM SQ SCH (09:01)
[2019-03-10] MEDS: solu-MEDROL 40 MG IV SCH ×2 (09:02→21:23)
[2019-03-10] MEDS: hydroDIURIL 25 MG PO SCH (09:02)
[2019-03-10] MEDS: Zestril 20 MG PO SCH (09:02)
[2019-03-10] MEDS: Lopressor 50 MG PO SCH ×2 (09:02→21:23)
[2019-03-10] MEDS: Calcium 500MG W/Vit D Tablet PO SCH (09:02)
[2019-03-10] MEDS: Ecotrin 325 MG PO SCH (09:02)
[2019-03-10] MEDS: Zithromax 500 MG/ 250 ML NaCl Premix 500 MG/250 ML IVPB IV SCH (09:46)
--- NOTE | 2019-03-10 10:32 | PCM.NOTE ---
Date and Time: 03/10/19 1030 Subjective Assessment: patient reports improvement in her breathing and that she thinks she is benefitting from the cpap, no new complaints Objective Exam General Appearance: no apparent distress, alert Respiratory Exam: prolonged expirations, rhonchi Cardiovascular Exam: regular rate/rhythm, normal heart sounds Gastrointestinal/Abdomen Exam: soft, No tenderness, No mass OBJECTIVE DATA Vital Signs: Vital Signs - 24 hr Temp Pulse Resp BP Pulse Ox 03/10/19 07:25 98.7 F 72 20 137/68 99 03/10/19 06:48 70 20 95 03/10/19 05:00 71 23 164/71 96 03/10/19 03:40 57 L 25 H 96 03/10/19 01:00 98.2 F 64 20 141/70 96 03/09/19 23:08 64 18 96 03/09/19 21:00 98.6 F 77 20 159/71 92 L 03/09/19 19:08 68 20 96 03/09/19 17:02 98.2 F 78 22 170/78 95 03/09/19 15:00 78 22 95 03/09/19 11:05 71 20 97 03/09/19 10:57 97.8 F 78 20 128/74 96 Oxygen-Last 24 hours O2 Percentage 2 Liters = 28% O2 Percentage 2 Liters = 28% O2 Percentage 2 Liters = 28% O2 Percentage 2 Liters = 28% Oxygen Flowrate (L/min)-RT 2 Oxygen Flowrate (L/min)-RT 2 Pain Assessment - Last Documented Pain Intensity 0 Pain Scale Used FLACC Intake and Output: Intake & Output 03/07/19 03/08/19 03/09/19 03/10/19 11:59 11:59 11:59 11:59 Intake Total 2319 2906 2678 876 Output Total 550 1600 400 Balance 2319 2356 1078 476 Weight 102.2 kg 102.9 kg 102.4 kg Assessment/Plan (1) COPD exacerbation Current Visit: Yes Status: Acute Assessment & Plan: improving clinically on solu medrol, rocephin/zithromax and nebs Code(s): J44.1 - CHRONIC OBSTRUCTIVE PULMONARY DISEASE W (ACUTE) EXACERBATION (2) Acute on chronic respiratory failure with hypercapnia Current Visit: Yes Status: Acute Code(s): J96.22 - ACUTE AND CHRONIC RESPIRATORY FAILURE WITH HYPERCAPNIA (3) Elevated troponin I level Current Visit: Yes Status: Acute Code(s): R79.89 - OTHER SPECIFIED ABNORMAL FINDINGS OF BLOOD CHEMISTRY (4) End stage COPD Current Visit: Yes Status: Acute Code(s): J44.9 - CHRONIC OBSTRUCTIVE PULMONARY DISEASE, UNSPECIFIED
[2019-03-10] MEDS: TYLENOL 325 MG PO PRN (14:33)
[2019-03-10] MEDS: Robitussin AC Syrup Unit Dose Cup PO PRN ×2 (14:34→21:30)
[2019-03-11] MEDS: DUONEB 0.5-3 MG/3 ml Neb IH SCH ×4 (03:05→18:22)
[2019-03-11] MEDS: Spiriva 18 Mcg/Cap Inhaler IH SCH (07:28)
[2019-03-11] MEDS: Advair Hfa 115/21 Common canister IH SCH ×2 (07:28→18:23)
[2019-03-11] MEDS: Zithromax 500 MG/ 250 ML NaCl Premix 500 MG/250 ML IVPB IV SCH (09:09)
[2019-03-11] MEDS: ROCEPHIN 1 Gm-D5w 50 ml Bag** 1 G/50 ML IVPB IV SCH (09:10)
[2019-03-11] MEDS: ENOXAPARIN SODIUM SQ SCH (09:16)
[2019-03-11] MEDS: Robitussin AC Syrup Unit Dose Cup PO PRN (09:19)
[2019-03-11] MEDS: Lopressor 50 MG PO SCH (09:20)
[2019-03-11] MEDS: Calcium 500MG W/Vit D Tablet PO SCH (09:20)
[2019-03-11] MEDS: Ecotrin 325 MG PO SCH (09:20)
[2019-03-11] MEDS: hydroDIURIL 25 MG PO SCH (09:22)
[2019-03-11] MEDS: Zestril 20 MG PO SCH (09:22)
[2019-03-11] MEDS: Mucinex 600MG ER Tabs PO SCH (09:22)
[2019-03-11] MEDS: solu-MEDROL 40 MG IV SCH (09:22)
--- NOTE | 2019-03-11 09:45 | PCM.DS ---
Discharge Summary Date of Admission: 03/04/19 15:33 Admitting Physician: MEREDITH RODRIGUEZ Consults: Consults on Case 03/05/19 20:38 Consult Pulmonology ROUTINE 03/07/19 08:12 Consult Cardiology ROUTINE Primary Care Provider: MARIN KIM Allergies Allergies No Known Drug Allergies Allergy (Verified 03/03/19 15:57) Hospital Summary - Hospital Course Hospital Course: patient admitted with acute on chronic copd exacerbation with end stage copd. has improved with treatment for exacerbation, requiring cpap at night. she is weak and deconditioned and felt a good candidate for swing bed stay for further treatment of copd and PT consult for deconditioning. - Vitals & Intake/Output Vital Signs: Vital Signs Temperature 98.2 F 03/11/19 09:00 Pulse Rate 65 03/11/19 09:00 Respiratory Rate 18 03/11/19 09:00 Blood Pressure 145/67 03/11/19 09:00 O2 Sat by Pulse Oximetry 94 L 03/11/19 09:00 Oxygen-Last Documented O2 Percentage 2 Liters = 28% Intake & Output: Intake & Output 03/08/19 03/09/19 03/10/19 03/11/19 11:59 11:59 11:59 11:59 Intake Total 2906 2678 876 1489 Output Total 550 3562 717 1895 Balance 2356 1078 476 489 Weight 102.2 kg 102.9 kg 102.4 kg 102 kg - Lab Result Diagrams: 03/09/19 04:15 03/09/19 04:15 Micro Results-Entire Visit: Microbiology 03/03/19 16:30 Blood Culture Gram Stain - Final Blood Not Reportable Blood Culture - Final NO GROWTH 03/03/19 16:38 Blood Culture Gram Stain - Final Blood Not Reportable Blood Culture - Final NO GROWTH - Procedures and Test Procedures and Tests throughout Hospitalization: Therapy Orders & Screens 03/03/19 17:31 Oxygen Nasal Cannula 3 lpm Comment: 03/03/19 17:32 EKG Q8HX2,QAMX3,PRN Comment: 03/03/19 18:39 RT Screen per Nursing Assess ONCE Comment: Protocol Order Physician Instructions: Greater than 3 points order RT Admission Screen Reason For Exam: Triggered on Admission Diagnosis: COPD Elevated CTNI Diagnosis: COPD Elevated CTNI Pneumonia: No Home O2: Yes Asthma: Yes CHF: Yes Home CPAP/BIPAP: Yes Home Nebs/MDI: Yes Total Points: 22 03/03/19 22:34 Peak Expiratory Flow Rate ONCE Comment: Reason For Exam: Diagnosis: COPD Elevated CTNI 03/04/19 00:00 EKG ROUTINE Comment: Diagnosis: COPD Elevated CTNI 03/04/19 07:00 Respiratory MDI UD Comment: RITA Diagnosis: COPD Elevated CTNI Respiratory Therapy Assessment DAILY Comment: 03/05/19 05:00 EKG DAILY Comment: Diagnosis: COPD Elevated CTNI 03/05/19 20:10 BiPap/CPAP ROUTINE Comment: Diagnosis: COPD Elevated CTNI 03/06/19 05:00 EKG DAILY Comment: Diagnosis: COPD Elevated CTNI 03/07/19 05:00 EKG DAILY Comment: Diagnosis: COPD Elevated CTNI Discharge Exam General Appearance: no apparent distress Neurologic Exam: alert, oriented x 3 Respiratory Exam: prolonged expirations, rhonchi, No respiratory distress Cardiovascular Exam: regular rate/rhythm, normal heart sounds Gastrointestinal/Abdomen Exam: soft, No tenderness, No mass Extremity Exam: normal inspection, normal range of motion Final Diagnosis/Problem List - Final Discharge Diagnosis/Problem (1) COPD exacerbation Current Visit: Yes Status: Acute Assessment & Plan: continue IV steroids, antibiotics and nebs at this time Code(s): J44.1 - CHRONIC OBSTRUCTIVE PULMONARY DISEASE W (ACUTE) EXACERBATION (2) Acute on chronic respiratory failure with hypercapnia Current Visit: Yes Status: Acute Code(s): J96.22 - ACUTE AND CHRONIC RESPIRATORY FAILURE WITH HYPERCAPNIA (3) Elevated troponin I level Current Visit: Yes Status: Acute Assessment & Plan: has been followed by Dr Ren, no intervention planned at this time. Code(s): R79.89 - OTHER SPECIFIED ABNORMAL FINDINGS OF BLOOD CHEMISTRY (4) End stage COPD Current Visit: Yes Status: Acute Code(s): J44.9 - CHRONIC OBSTRUCTIVE PULMONARY DISEASE, UNSPECIFIED - Discharge Disposition: Swing Bed @ [facility] Condition: Fair Prescriptions: No Action Albuterol 2.5 mg/3 ml Neb [Proventil 2.5 mg/3 ml Neb] 2.5 mg IH QID Albuterol 8 gm Mdi Hfa [Ventolin Hfa MDI] 8 gm IH QIDPRN PRN PRN Reason: resp Calcium 500 mg PO DAILY Lisinopril/Hydrochlorothiazide [Lisinopril-Hctz 20-25 mg Tab] 1 each PO DAILY #30 tablet Furosemide 40 mg [Lasix 40 MG] 40 mg PO DAILY PRN PRN PRN Reason: swelling Metoprolol Tartrate 100 mg PO BID #60 tablet Prednisone 20 mg [Deltasone 20 mg] 40 mg PO DAILY PRN PRN PRN Reason: Pain Follow up with: MARIN KIM [Primary Care Provider] - 1 Week
[2019-03-11 11:18] VITALS: BP 136/63
[2019-03-11 18:32] VITALS: O2SAT 96
[2019-03-11 18:46] VITALS: PULSE 69
== END 2019-03-11 14:14 | disposition swing bed (61) | DRG 190 ==
LOC: ED 15:47 → MED SURG 17:50 → OBSVTOIN 03-04 15:33 → MED SURG 03-06 15:22
PROVIDERS: ADMIT Family Medicine; ATTEND Internal Medicine
DX: J44.1 Chronic obstructive pulmonary disease with (acute) exacerbation (principal); J96.22 Acute and chronic respiratory failure with hypercapnia; J96.21 Acute and chronic respiratory failure with hypoxia; I10 Essential (primary) hypertension; R53.81 Other malaise; R79.89 Other specified abnormal findings of blood chemistry; E87.5 Hyperkalemia; R41.0 Disorientation, unspecified; Z79.899 Other long term (current) drug therapy
CPT/HCPCS: 36415; 36600; 71045; 71046; 80048; 80053; 80061; 82375; 82803; 83605; 83721; 83880; 84484; 85025; 85027; 85379; 87040; 87631; 93005; 93041; 93268; 94002; 94003; 94150; 94640; 94760; 94762; 96360; 96365; 96368; 96374; 99291; G0378; 36000; 99285; J0456; J0696; J1650; J2920; J2930; A9270-GY

== ENCOUNTER 2019-03-11 14:15 | Inpatient (IN) | payer MEDICARE ==
[2019-03-11] MEDS ORDERED: TYLENOL 325 MG PO PRN (14:54)
[2019-03-11] MEDS ORDERED: Lasix 40 MG PO PRN (14:54)
[2019-03-11] MEDS ORDERED: Sodium Chloride 0.9% 1000 ML 1,000 ML IV SCH (14:54)
[2019-03-11] MEDS ORDERED: xanAX 0.25 MG PO PRN (14:54)
[2019-03-11] MEDS ORDERED: Zofran 4 MG/2 ML VIAL IV PRN (14:54)
[2019-03-11] MEDS ORDERED: Senokot-S Tablet PO PRN (14:54)
[2019-03-11] MEDS ORDERED: MILK OF MAGNESIA 30 ML PO PRN (14:54)
[2019-03-11] MEDS ORDERED: MAALOX ES 30 ML UNIT DOSE PO PRN (14:54)
[2019-03-11] MEDS: DUONEB 0.5-3 MG/3 ml Neb IH SCH ×3 (15:19→22:50)
[2019-03-11 16:09] LABS: Calcium 9.3 mg/dL (8.4-10.2); Creatinine 1 1.01 mg/dL (0.52-1.04); Potassium 4.9 mmol/L (3.5-5.1)
[2019-03-11 16:17] LABS: ANION GAP 11.9 MEQ/L (5-15)
[2019-03-11] MEDS: Advair Hfa 115/21 Common canister IH SCH (18:41)
[2019-03-11] MEDS: Mucinex 600MG ER Tabs PO SCH (21:16)
[2019-03-11] MEDS: Lopressor 50 MG PO SCH (21:16)
[2019-03-11] MEDS: Robitussin AC Syrup Unit Dose Cup PO PRN (21:21)
[2019-03-11] MEDS ORDERED: solu-MEDROL 40 MG IV SCH (22:00)
[2019-03-12] MEDS: DUONEB 0.5-3 MG/3 ml Neb IH SCH ×6 (02:54→23:31)
[2019-03-12] MEDS: Advair Hfa 115/21 Common canister IH SCH ×2 (07:05→19:28)
[2019-03-12] MEDS: Spiriva 18 Mcg/Cap Inhaler IH SCH (07:05)
[2019-03-12] MEDS ORDERED: Sodium Chloride 0.9% 10 ML FLUSH Syringe IV PRN (08:33)
[2019-03-12] MEDS ORDERED: Aplisol ID ONE (10:00)
[2019-03-12] MEDS ORDERED: Zithromax 500 MG/ 250 ML NaCl Premix 500 MG/250 ML IVPB IV SCH (10:00)
[2019-03-12] MEDS: ROCEPHIN 1 Gm-D5w 50 ml Bag** 1 G/50 ML IVPB IV SCH (10:44)
[2019-03-12] MEDS: Calcium 500MG W/Vit D Tablet PO SCH (10:45)
[2019-03-12] MEDS: ENOXAPARIN SODIUM SQ SCH (10:45)
[2019-03-12] MEDS: Mucinex 600MG ER Tabs PO SCH ×2 (10:46→21:21)
[2019-03-12] MEDS: Zestril 20 MG PO SCH (10:46)
[2019-03-12] MEDS: hydroDIURIL 25 MG PO SCH (10:46)
[2019-03-12] MEDS: DELTASONE 20 MG PO SCH ×2 (10:46→21:21)
[2019-03-12] MEDS: Ecotrin 325 MG PO SCH (10:46)
[2019-03-12] MEDS: Lopressor 50 MG PO SCH ×2 (10:46→21:20)
--- NOTE | 2019-03-12 15:17 | CONS ---
CONSULT DATE: 03/12/2019 Events noted. HISTORY: The patient seen by me during her last admission. Now switched to swing-bed. Sitting in chair and reports significant improvement in shortness of breath. Vital signs are noted. PHYSICAL EXAMINATION: HEENT: Normocephalic. Oral exam is unremarkable. CVS: First and second heart sounds are normal, regular, rhythmic. RESPIRATORY: Shows diminished breath sounds but clear. ABDOMEN: Soft. EXTREMITIES: No edema is noted. LABORATORY DATA AND TESTS: Labs reviewed. ASSESSMENT: This is a 73 year old woman admitted with: 1) Status post acute on chronic hypercapnic respiratory failure. 2) Chronic hypoxemia. 3) Chronic obstructive pulmonary disease. 4) Acute bronchitis, resolved. 5) Non-ST myocardial infarction. RECOMMENDATIONS: 1) She is doing well from pulmonary standpoint. 2) Will benefit from polysomnography in order to arrange noninvasive ventilation upon discharge. Continue other supportive care. I will follow up in outpatient setting. Discussed with case management.
[2019-03-12] MEDS: Robitussin AC Syrup Unit Dose Cup PO PRN (21:20)
[2019-03-13] MEDS: DUONEB 0.5-3 MG/3 ml Neb IH SCH ×5 (03:15→18:46)
[2019-03-13] MEDS: Spiriva 18 Mcg/Cap Inhaler IH SCH (06:49)
[2019-03-13] MEDS: Advair Hfa 115/21 Common canister IH SCH ×2 (06:49→18:46)
[2019-03-13] MEDS: ENOXAPARIN SODIUM SQ SCH (09:08)
[2019-03-13] MEDS: ROCEPHIN 1 Gm-D5w 50 ml Bag** 1 G/50 ML IVPB IV SCH (09:08)
[2019-03-13] MEDS: Mucinex 600MG ER Tabs PO SCH ×2 (09:09→22:50)
[2019-03-13] MEDS: Calcium 500MG W/Vit D Tablet PO SCH (09:09)
[2019-03-13] MEDS: hydroDIURIL 25 MG PO SCH (09:09)
[2019-03-13] MEDS: DELTASONE 20 MG PO SCH ×2 (09:09→22:50)
[2019-03-13] MEDS: Lopressor 50 MG PO SCH ×2 (09:09→22:49)
[2019-03-13] MEDS: Ecotrin 325 MG PO SCH (09:09)
[2019-03-13] MEDS: Zestril 20 MG PO SCH (09:09)
[2019-03-14] MEDS: Spiriva 18 Mcg/Cap Inhaler IH SCH (06:57)
[2019-03-14] MEDS: Advair Hfa 115/21 Common canister IH SCH ×2 (06:57→19:25)
[2019-03-14] MEDS: DUONEB 0.5-3 MG/3 ml Neb IH SCH ×4 (06:57→19:25)
--- NOTE | 2019-03-14 08:45 | PCM.NOTE ---
Date and Time: 03/14/19 0840 Subjective Assessment: Patient reports therapy is going well and she is starting to feel better. Dr. Larry saw her yesterday and has ordered a sleep study so she can have CPAP at home when she is discharged and work toward bipap/home ventilation in the future. She reports some lower extremity swelling that is new and some redness of her left foot which seems to be getting better now. Objective Exam General Appearance: no apparent distress Neurologic Exam: alert, cooperative, normal mood/affect Skin Exam: normal color, warm, dry Respiratory Exam: prolonged expirations, other (distant breath sounds throughout ), No crackles/rales, No rhonchi, No wheezing Cardiovascular Exam: regular rate/rhythm, normal heart sounds, No murmur, No friction rub, No gallop Gastrointestinal/Abdomen Exam: soft, normal bowel sounds, No tenderness, No distention Extremity Exam: other (+1 edema of lower extremities bilat) OBJECTIVE DATA Vital Signs: Vital Signs - 24 hr Temp Pulse Resp BP Pulse Ox 03/14/19 07:43 98.4 F 66 18 141/63 99 03/14/19 07:01 67 18 98 03/13/19 20:00 99.0 F 73 17 125/60 94 L 03/13/19 18:47 76 18 76 L 03/13/19 15:25 68 16 03/13/19 11:23 76 16 Oxygen-Last 24 hours O2 Percentage 2 Liters = 28% Pain Assessment - Last Documented Pain Intensity 0 Pain Scale Used FLACC Intake and Output: Intake & Output 03/12/19 03/13/19 03/14/19 03/15/19 06:59 06:59 06:59 06:59 Intake Total 1142 770 960 Output Total 600 400 Balance 542 370 960 Weight 102 kg 102.1 kg 101.7 kg Multi-Disciplinary Progress Notes: Multi-Disciplinary Progress Notes 03/13/19 11:28 Occupational Therapy Note by Brooke Pandey Patient seated at edge of bed upon OTR arrival and stated she had already had her bath and gotten dressed this morning. She was wearing her clothes from home brought by her daughter. She transferred to [facility] with [facility] and was agreeable to skilled OT treatment session. OTR educated patient on pursed lip and diaphragmatic breathing techniques and energy conservation principles with written, illustrated handouts provided for carryover. Dg participated in BUE strengthening ther ex's with 1# wrist cuff and 1# weighted dowel to address BUE strength and functional activity tolerance in sitting with coordination of breathing techniques. Patient's daughter arrived towards end of treatment session. Dg reports that UB ADLs are still difficult for her as she tires easily when performing tasks requiring sustained BUE use above shoulder level. She tolerated today's session very well and demo's good carryover of education provided. OTR will continue to see Dg 5x/week to address functional strength, activity tolerance, and independence and safety with I/ADLs. Initialized on 03/13/19 11:28 - END OF NOTE Assessment/Plan (1) Chronic respiratory failure with hypoxia and hypercapnia Current Visit: Yes Status: Acute Assessment & Plan: Using CPAP every night; plan for sleep study. Code(s): J96.11 - CHRONIC RESPIRATORY FAILURE WITH HYPOXIA; J96.12 - CHRONIC RESPIRATORY FAILURE WITH HYPERCAPNIA (2) COPD exacerbation Current Visit: No Status: Acute Assessment & Plan: Will stop IV antibiotics today as has finished 10 days. Continue with prednisone wean. Continue breathing treatments. Will follow up with Dr. Jorge Strickland. Code(s): J44.1 - CHRONIC OBSTRUCTIVE PULMONARY DISEASE W (ACUTE) EXACERBATION (3) Hypertension Current Visit: No Status: Chronic Qualifiers: Assessment & Plan: Well controlled. Code(s): I10 - ESSENTIAL (PRIMARY) HYPERTENSION (4) Elevated troponin Current Visit: No Status: Acute Assessment & Plan: Will follow with pc installation engineer, Dr. Ren, as outpatient. Code(s): R74.8 - ABNORMAL LEVELS OF OTHER SERUM ENZYMES (5) Leg swelling Current Visit: Yes Status: Acute Assessment & Plan: Will check dopplers to rule out DVT. Code(s): M79.89 - OTHER SPECIFIED SOFT TISSUE DISORDERS
[2019-03-14] MEDS: Ecotrin 325 MG PO SCH (09:59)
[2019-03-14] MEDS: Calcium 500MG W/Vit D Tablet PO SCH (09:59)
[2019-03-14] MEDS: DELTASONE 20 MG PO SCH ×2 (09:59→23:22)
[2019-03-14] MEDS: Zestril 20 MG PO SCH (09:59)
[2019-03-14] MEDS: Lopressor 50 MG PO SCH ×2 (09:59→23:22)
[2019-03-14] MEDS: Mucinex 600MG ER Tabs PO SCH ×2 (09:59→23:22)
[2019-03-14] MEDS: hydroDIURIL 25 MG PO SCH (09:59)
[2019-03-14] MEDS: ENOXAPARIN SODIUM SQ SCH (10:00)
--- NOTE | 2019-03-14 16:24 | XRAY ---
Indication: Bilateral leg swelling. Two-dimensional sonogram and color Doppler imaging of the major venous vessels of the left and right leg was performed. Comparison: None No thrombus seen in the examined deep venous vessels of the left and right leg including greater saphenous vein. Veins demonstrate normal compressibility. Venous waveforms are normal with and without augmentation. Impression: Left and right legs negative for DVT.
[2019-03-15] MEDS: DUONEB 0.5-3 MG/3 ml Neb IH SCH ×4 (07:21→20:27)
[2019-03-15] MEDS: Spiriva 18 Mcg/Cap Inhaler IH SCH (07:21)
[2019-03-15] MEDS: Advair Hfa 115/21 Common canister IH SCH ×2 (07:21→20:29)
[2019-03-15] MEDS: Lopressor 50 MG PO SCH ×2 (09:37→21:51)
[2019-03-15] MEDS: hydroDIURIL 25 MG PO SCH (09:37)
[2019-03-15] MEDS: Zestril 20 MG PO SCH (09:37)
[2019-03-15] MEDS: Calcium 500MG W/Vit D Tablet PO SCH (09:37)
[2019-03-15] MEDS: DELTASONE 20 MG PO SCH ×2 (09:37→21:51)
[2019-03-15] MEDS: Mucinex 600MG ER Tabs PO SCH ×2 (09:37→21:51)
[2019-03-15] MEDS: Ecotrin 325 MG PO SCH (09:37)
[2019-03-15] MEDS: ENOXAPARIN SODIUM SQ SCH (09:39)
--- NOTE | 2019-03-15 10:05 | XRAY ---
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 Comparison: March 07, 2019. Portable apical lordotic chest unchanged again demonstrating COPD, CIPD, and minimal bibasilar infiltrates/atelectasis. Heart and mediastinal structures within normal limits. No new cardiopulmonary abnormalities.
[2019-03-16] MEDS: DUONEB 0.5-3 MG/3 ml Neb IH SCH ×3 (06:54→16:08)
[2019-03-16] MEDS: Spiriva 18 Mcg/Cap Inhaler IH SCH (06:56)
[2019-03-16] MEDS: Advair Hfa 115/21 Common canister IH SCH (06:57)
[2019-03-16 07:50] VITALS: BP 136/64
--- NOTE | 2019-03-16 08:59 | PCM.NOTE ---
Date and Time: 03/16/19 0859 OBJECTIVE DATA Vital Signs: Vital Signs - 24 hr Temp Pulse Resp BP Pulse Ox 03/16/19 07:49 98.4 F 64 20 136/64 99 03/16/19 07:29 65 16 98 03/15/19 20:27 61 20 98 03/15/19 20:00 98.3 F 62 20 123/57 96 03/15/19 15:23 70 20 96 03/15/19 10:50 65 20 97 Oxygen-Last 24 hours O2 Percentage 2 Liters = 28% Pain Assessment - Last Documented Pain Intensity 0 Pain Scale Used 0-10 Pain Scale,FLACC Intake and Output: Intake & Output 03/14/19 03/15/19 03/16/19 03/17/19 06:59 06:59 06:59 06:59 Intake Total 960 1060 660 Balance 960 1060 660 Weight 101.7 kg 101.2 kg 99.8 kg Radiology Exams: Radiology Procedures Category Date Time Status CHEST 1 VIEW (PORTABLE) Urgent Exams 03/14/19 19:47 Completed VENOUS BILATERAL EXTREMITY [US] Urgent Exams 03/14/19 09:52 Completed Multi-Disciplinary Progress Notes: Multi-Disciplinary Progress Notes 03/15/19 16:21 Occupational Therapy Note by Brooke Pandey Patient resting in recliner with BLE elevated upon OTR arrival to room with nasal cannula in place. Patient reports that she performed sponge bath and dressing in her bathroom and was seen by PT prior to OTR arrival OTR provided patient with written, illustrated handout for HEP carryover for home followed by patient participation in BUE strengthening ther ex's using 1.5# wrist cuffs without rest breaks 1x10 reps. She stated she would like to rest and declined participation in second set as she has had a busy morning. Patient demo's good carryover of breathing techniques and activity pacing as educated previously with occasional cueing for proper pursed lip breathing techniques. Patient tolerated session well and verbalized understanding of education provided. Will continue to see patient 1x/day to address BUE strength, functional activity tolerance, and I and safety with I/ADLs. Addendum entered by Brooke Pandey 03/15/19 16:25: OT discussed energy conservation strategies to incorporate into daily tasks at home in prep for discharge. Patient verbalized techniques for energy conservation including chair placement for rest breaks during IADLs and recommended time of day for major activities. Initialized on 03/15/19 16:21 - END OF NOTE Assessment/Plan (1) Chronic respiratory failure with hypoxia and hypercapnia Current Visit: Yes Status: Acute Code(s): J96.11 - CHRONIC RESPIRATORY FAILURE WITH HYPOXIA; J96.12 - CHRONIC RESPIRATORY FAILURE WITH HYPERCAPNIA (2) COPD exacerbation Current Visit: No Status: Acute Code(s): J44.1 - CHRONIC OBSTRUCTIVE PULMONARY DISEASE W (ACUTE) EXACERBATION (3) Hypertension Current Visit: No Status: Chronic Qualifiers: Code(s): I10 - ESSENTIAL (PRIMARY) HYPERTENSION (4) Elevated troponin Current Visit: No Status: Acute Code(s): R74.8 - ABNORMAL LEVELS OF OTHER SERUM ENZYMES (5) Leg swelling Current Visit: Yes Status: Acute Code(s): M79.89 - OTHER SPECIFIED SOFT TISSUE DISORDERS
[2019-03-16] MEDS: Zestril 20 MG PO SCH (10:12)
[2019-03-16] MEDS: hydroDIURIL 25 MG PO SCH (10:12)
[2019-03-16] MEDS: ENOXAPARIN SODIUM SQ SCH (10:12)
[2019-03-16] MEDS: Calcium 500MG W/Vit D Tablet PO SCH (10:12)
[2019-03-16] MEDS: Lopressor 50 MG PO SCH (10:12)
[2019-03-16] MEDS: DELTASONE 20 MG PO SCH (10:12)
[2019-03-16] MEDS: Ecotrin 325 MG PO SCH (10:12)
[2019-03-16] MEDS: Mucinex 600MG ER Tabs PO SCH (10:12)
--- NOTE | 2019-03-16 15:40 | PROG NOTE ---
DATE: 03/16/2019 Miss Copeland is a 73 year old woman admitted with pulmonary symptoms, well known to me. The patient has done well. She had an overnight sleep study performed which showed mild obstructive sleep apnea. The patient does report excessive daytime sleepiness and lack of morning freshness. She reports being tired and fatigued all of the time. PHYSICAL EXAMINATION: Vital signs noted. HEENT: Normocephalic. Oral exam is limited. CVS: First and second heart sounds normal, regular, rhythmic. RESPIRATORY: Shows diminished breath sounds. ABDOMEN: Soft. ASSESSMENT: A 73 year old woman admitted with: 1) COPD with exacerbation, resolved. 2) Hypoxemia. 3) Obstructive sleep apnea. 4) Hypertension. RECOMMENDATIONS: 1) The patient has tested positive for obstructive sleep apnea. 2) Will benefit from noninvasive positive pressure ventilation therapy. I will follow up in outpatient setting.
[2019-03-16 17:04] VITALS: PULSE 62; O2SAT 97
--- NOTE | 2019-03-16 17:33 | PCM.DCORD ---
- Discharge Discharge Date: 03/16/19 Disposition: Home, Self-Care Condition: Fair Prescriptions: New Fluticasone/Salmeterol 115/21 [Advair Hfa 115/21 Common canister*] 2 puff IH BIDRT #1 aer.w.adap Prednisone 20 mg [Deltasone 20 mg] 20 mg PO DAILY #7 tablet Aspirin EC 325 mg [Ecotrin 325 MG] 325 mg PO DAILY #0 tablet.ec Guaifenesin 600 mg ER [Mucinex 600MG ER Tabs] 600 mg PO BID #30 tablet Tiotropium [place] Inhaler [Spiriva 18 Mcg/Cap Inhaler] 1 ea IH DAILY inh Continue Albuterol 2.5 mg/3 ml Neb [Proventil 2.5 mg/3 ml Neb] 2.5 mg IH QID Albuterol 8 gm Mdi Hfa [Ventolin Hfa MDI] 8 gm IH QIDPRN PRN PRN Reason: resp Calcium 500 mg PO DAILY Lisinopril/Hydrochlorothiazide [Lisinopril-Hctz 20-25 mg Tab] 1 each PO DAILY #30 tablet Furosemide 40 mg [Lasix 40 MG] 40 mg PO DAILY PRN PRN PRN Reason: swelling Metoprolol Tartrate 100 mg PO BID #60 tablet Discontinued Prednisone 20 mg [Deltasone 20 mg] 40 mg PO DAILY PRN PRN PRN Reason: Pain Follow up with: JENNY LANZA [ACTIVE STAFF] - 03/29/19 3:15 pm (at [facility] office) MARIN KIM [Primary Care Provider] - 1 Week
== END 2019-03-16 18:30 | disposition home or self-care (01) | DRG 191 ==
LOC: MED SURG 14:15
PROVIDERS: ADMIT Family Medicine; ATTEND Internal Medicine
DX: J44.1 Chronic obstructive pulmonary disease with (acute) exacerbation (principal); J96.11 Chronic respiratory failure with hypoxia; J96.12 Chronic respiratory failure with hypercapnia; J20.9 Acute bronchitis, unspecified; J44.0 Chronic obstructive pulmonary disease with (acute) lower respiratory infection; R79.89 Other specified abnormal findings of blood chemistry; I10 Essential (primary) hypertension; M79.89 Other specified soft tissue disorders; G47.33 Obstructive sleep apnea (adult) (pediatric); Z79.899 Other long term (current) drug therapy
CPT/HCPCS: 36415; 71045; 80048; 93970; 94003; 94150; 94640; 94760; 94762; 95806; J0696; J1650; J2920; 97110-GP; A9270-GY; G0398

== ENCOUNTER 2020-07-23 08:01 | Emergency (ER) | payer MEDICARE ==
[2020-07-23] MEDS ORDERED: Rocephin 1000 MG INJ IM ONE (08:08)
[2020-07-23] MEDS ORDERED: Zovirax INJ*** 500 MG in D5w 100ML Mini Bag 100 ML 100 ML IV ONE (08:20)
[2020-07-23] MEDS ORDERED: VENTOLIN COMMON CANISTER IH PRN (08:23)
[2020-07-23] MEDS ORDERED: Rocephin 1000 MG INJ ONE (08:24)
[2020-07-23] MEDS ORDERED: Zovirax INJ IV ONE (08:24)
[2020-07-23] MEDS ORDERED: D5w 100ML Mini Bag 100 ML 0 ML IV ONE (08:25)
[2020-07-23 08:34] LABS: BASOPHIL % 0.1 % (0.0-0.4); Basophil (Absolute #) 0.01 (0-0.4); Eosinophil % 0.2 % (0.00-5.0); Eosinophil (Absolute #) 0.02 (0-0.5); Hematocrit 31.6 % (35-47); Hemoglobin 9.3 gm/dl (12.0-16.0); Lymphocyte (Absolute #) 1.22 (1.0-4.6); Lymphocytes % 11.7 % (24.0-44.0); Mean Cell Volume 93.2 fl (78-100); Mean Corpuscular Hemoglobin 27.4 pg (26-32); Mean Corpuscular Hgb Concent. 29.4 g/dl (32-36); Mean Platelet Volume 12.3 fl (7.5-11.0); Monocyte (Absolute #) 1.05 (0.0-1.3); Monocytes % 10.1 % (0.0-12.0); Neutrophil % 77.9 % (36.0-66.0); Platelet Count 203 K/mm3 (150-450); Red Blood Count 3.39 M/mm3 (4.1-5.4); White Blood Count 10.4 K/mm3 (4.0-10.5)
[2020-07-23] MEDS: Rocephin 1000 MG INJ IV ONE ×2 (08:39→08:40)
--- NOTE | 2020-07-23 08:43 | XRAY ---
Indication: Chest pain. Cough. Comparison: March 14, 2019. Portable chest demonstrates new marked cardiomegaly. Stable COPD and right base calcified granuloma without focal infiltrate, consolidation, or large effusion. Bony thorax intact again with mild osteopenia and degenerative changes. Impression: New cardiomegaly without CHF. Stable COPD and old granulomatous disease.
--- NOTE | 2020-07-23 08:46 | ERPHSYRPT ---
- History of Present Illness Time Seen by Provider: 07/23/20 08:05 Source: patient Exam Limitations: no limitations Patient Subjective Stated Complaint: states "For the past two days I have been short of breath and had this cough." Triage Nursing Assessment: Pt presetned alert and oriented X 3, skin pwd. Pt able to speak in clear full sentences pt hs intermittant dry cough. Pt tachypneic. PT denied any pain. Physician History: Patient is a 75-year-old female with a history of COPD presents to our emergency department with complaints of shortness of breath. Patient symptoms are similar to her previous COPD exacerbations. Shortness of breath is associated with intermittent dry cough. Symptoms started approximately 2 days ago. Symptoms have been progressive. Patient arrived via EMS. In route she received 125 mg of Solu-Medrol. Patient also received a DuoNeb. Patient states she feels much better. Patient advises that she is experiencing some soreness to the area just beneath her rib cage. Patient attributes this to work of breathing. No associated fever. No nausea or vomiting. No diarrhea. No diaphoresis. No chest pain. Symptoms are moderate in intensity. Symptoms are present at rest. . She voices no other complaints or concerns at this time. Timing/Duration: day(s) Activities at Onset: none Severity of Dyspnea-Max: moderate Severity of Dyspnea-Current: mild Possible Cause: occasional episodes Modifying Factors: Improves With: albuterol nebulizer, coughing Associated Symptoms: cough, No fever, No lightheadedness, No wheezing, No ankle swelling, No dizziness, No lightheadedness, No leg swelling, No muscle spasms feet, No muscle spasms hands, No painful breathing Allergies/Adverse Reactions: No Known Drug Allergies Allergy (Verified 03/11/19 14:43) Home Medications: Albuterol 2.5 mg/3 ml Neb [Proventil 2.5 mg/3 ml Neb] 2.5 mg IH QID 0 07/30/16 [History] Albuterol 8 gm Mdi Hfa [Ventolin Hfa MDI] 8 gm IH QIDPRN PRN 07/30/16 [History] Calcium 500 mg PO DAILY 07/30/16 [History] Furosemide 40 mg [Lasix 40 MG] 40 mg PO DAILY PRN PRN 08/15/17 [History] Celecoxib [Celebrex] 200 mg PO DAILY 07/23/20 [History] Guaifenesin 600 mg ER [Mucinex 600MG ER Tabs] 600 mg PO BID PRN 07/23/20 [History] Omeprazole 20 mg PO DAILY 07/23/20 [History] Hx Tetanus, Diphtheria Vaccination/Date Given: No Hx Influenza Vaccination/Date Given: Yes Hx Pneumococcal Vaccination/Date Given: No Immunizations Up to Date: Yes Travel Risk - International Travel Have you traveled outside of the country in past 3 weeks: No - Coronavirus Screening Are you exhibiting any of the following symptoms?: Yes Symptoms: Cough: New Onset, Shortness of Breath - Review of Systems Constitutional: No Symptoms, No Fever, No Chills Eyes: No Symptoms Ears, Nose, & Throat: No Symptoms Respiratory: No Symptoms, No Cough, No Dyspnea Cardiac: No Symptoms, No Chest Pain, No Edema, No Syncope Abdominal/Gastrointestinal: No Symptoms, No Abdominal Pain, No Nausea, No Vo miting, No Diarrhea Genitourinary Symptoms: No Symptoms, No Dysuria Musculoskeletal: No Symptoms, No Back Pain, No Neck Pain Skin: No Symptoms, No Rash Neurological: No Symptoms, No Dizziness, No Focal Weakness, No Sensory Changes Psychological: No Symptoms Endocrine: No Symptoms Hematologic/Lymphatic: No Symptoms Immunological/Allergic: No Symptoms All Other Systems: Reviewed and Negative - Past Medical History Pertinent Past Medical History: Yes Neurological History: No Pertinent History ENT History: No Pertinent History Cardiac History: Congestive Heart Failure, Hypertension Respiratory History: Asthma, CHF, COPD Endocrine Medical History: No Pertinent History Musculoskeletal History: No Pertinent History GI Medical History: No Pertinent History History: No Pertinent History Psycho-Social History: No Pertinent History Female Reproductive Disorders: No Pertinent History - Past Surgical History Past Surgical History: Yes Neuro Surgical History: No Pertinent History Cardiac: No Pertinent History Respiratory: No Pertinent History Gastrointestinal: Appendectomy Genitourinary: No Pertinent History Musculoskeletal: No Pertinent History Female Surgical History: Hysterectomy - Social History Smoking Status: Former smoker How long have you smoked: 30 years Exposure to second hand smoke: Yes Drug Use: none Patient Lives Alone: Yes - Nursing Vital Signs Nursing Vital Signs: Initial Vital Signs Temperature 98.1 F 07/23/20 08:02 Pulse Rate 103 H 07/23/20 08:02 Respiratory Rate 24 07/23/20 08:02 Blood Pressure 116/83 07/23/20 08:02 O2 Sat by Pulse Oximetry 99 07/23/20 08:02 Pain Scale Pain Intensity 0 - Physical Exam General Appearance: no apparent distress, alert Eye Exam: PERRL/EOMI Neck Exam: normal inspection, supple Respiratory Exam: diminished breath sounds, other (Mild tachypnea, slightly coarse and diminished breath sounds.) Cardiovascular/Chest Exam: normal heart sounds, regular rate/rhythm Abdominal/Gastrointestinal Exam: soft, No tenderness, No distention, No mass Extremity Exam: non-tender, normal range of motion, normal inspection, no calf tenderness, no pedal edema Neurologic Exam: alert, oriented x 3, cooperative, 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 No STEMI) - Radiology Exams Chest X-ray Interpretation: Teleradiologist Report (Portable chest demonstrates no cardiomegaly. Stable COPD and right base calcified granuloma without focal infiltrate consolidation or large effusion. Bony thorax intact mild osteopenia degenerative changes. No CHF.) Ordered Tests: Active Orders 24 hr Category Date Time Status Wildlife Officer STAT Care 07/23/20 08:04 Active EKG-ER Only STAT Care 07/23/20 08:03 Active IV Insertion STAT Care 07/23/20 08:03 Active Pulse Oximetry (ED) STAT Care 07/23/20 08:03 Active CHEST 1 VIEW (PORTABLE) Stat Exams 07/23/20 08:04 Completed BLOOD CULTURE Stat Lab 07/23/20 08:26 Received CBC W DIFF Stat Lab 07/23/20 08:34 Completed CMP Stat Lab 07/23/20 08:22 Completed D-DIMER QUANTITATIVE Stat Lab 07/23/20 08:04 Completed MAGNESIUM Stat Lab 07/23/20 08:22 Completed NT PRO BNP Stat Lab 07/23/20 08:22 Completed TROPONIN Q3H Lab 07/23/20 08:22 Completed TROPONIN Q3H Lab 07/23/20 10:17 Completed TROPONIN Q3H Lab 07/23/20 14:15 Ordered TROPONIN Q3H Lab 07/23/20 17:15 Ordered TROPONIN Q3H Lab 07/23/20 20:15 Ordered UA W/RFX UR CULTURE Stat Lab 07/23/20 08:04 Ordered Respiratory Therapy Assessment DAILY RT 07/23/20 08:38 Active Medication Summary Generic Name Dose Route Start Last Admin Trade Name Freq PRN Reason Stop Dose Admin Albuterol Sulfate 4 puff 07/23/20 08:23 07/23/20 08:37 Ventolin Common Canister IH 08/22/20 08:22 4 puff Q4H PRN PRN Administration SHORTNESS OF BREATH/WHEEZING Discontinued Medications Generic Name Dose Route Start Last Admin Trade Name Freq PRN Reason Stop Dose Admin Acyclovir Sodium Confirm 07/23/20 08:24 Zovirax Inj Administered 07/23/20 08:25 Dose 500 mg IV .STK-MED ONE Ceftriaxone Sodium 1,000 mg 07/23/20 08:08 07/23/20 08:21 Rocephin 1000 Mg Inj IM 07/23/20 08:09 Not Given STAT ONE Ceftriaxone Sodium 1,000 mg 07/23/20 08:08 07/23/20 08:40 Rocephin 1000 Mg Inj IV 07/23/20 08:09 1,000 mg STAT ONE Administration Ceftriaxone Sodium Confirm 07/23/20 08:24 Rocephin 1000 Mg Inj Administered 07/23/20 08:25 Dose 1,000 mg .ROUTE .STK-MED ONE Enoxaparin Sodium 80 mg 07/23/20 11:36 07/23/20 11:41 Enoxaparin Sodium SQ 07/23/20 11:37 80 mg STAT ONE Administration Enoxaparin Sodium Confirm 07/23/20 11:40 Enoxaparin Sodium Administered 07/23/20 11:41 Dose 80 mg SQ .STK-MED ONE Acyclovir Sodium 500 mg/ 100 mls @ 100 mls/hr 07/23/20 08:20 07/23/20 08:40 Dextrose IV 07/23/20 09:19 100 mls/hr STAT ONE Administration Dextrose Confirm 07/23/20 08:25 D5w 100ml Mini Bag 100 Ml Administered 07/23/20 08:26 Dose 100 mls @ ud IV .STK-MED ONE Lab/Rad Data: Laboratory Result Diagrams 07/23/20 08:34 07/23/20 08:22 Laboratory Results 07/23/20 07/23/20 07/23/20 Range/Units 10:17 08:34 08:22 WBC 10.4 (4.0-10.5) K/mm3 RBC 3.39 L (4.1-5.4) M/mm3 Hgb 9.3 L (12.0-16.0) gm/dl Hct 31.6 L (35-47) % MCV 93.2 (78-100) fl MCH 27.4 (26-32) pg MCHC 29.4 L (32-36) g/dl RDW 13.0 (11.5-14.0) % Plt Count 203 (150-450) K/mm3 MPV 12.3 H (7.5-11.0) fl Gran % 77.9 H (36.0-66.0) % Eos # (Auto) 0.02 (0-0.5) Absolute Lymphs (auto) 1.22 (1.0-4.6) Absolute Monos (auto) 1.05 (0.0-1.3) Lymphocytes % 11.7 L (24.0-44.0) % Monocytes % 10.1 (0.0-12.0) % Eosinophils % 0.2 (0.00-5.0) % Basophils % 0.1 (0.0-0.4) % Absolute Granulocytes 8.10 H (1.4-6.9) Basophils # 0.01 (0-0.4) D-Dimer (215-500) ng/mL Sodium (137-145) mmol/L Potassium (3.5-5.1) mmol/L Chloride (98-107) mmol/L Carbon Dioxide (22-30) mmol/L Anion Gap (5-15) MEQ/L BUN (7-17) mg/dL Creatinine (0.52-1.04) mg/dL Estimated GFR ML/MIN Glucose (74-106) mg/dL Calcium (8.4-10.2) mg/dL Magnesium (1.6-2.3) mg/dL Total Bilirubin (0.2-1.3) mg/dL AST (14-36) U/L ALT (0-35) U/L Alkaline Phosphatase (38-126) U/L Troponin I 0.032 0.031 (0.000-0.034) ng/mL NT-Pro-B Natriuret Pep (0-1800) pg/mL Serum Total Protein (6.3-8.2) g/dL Albumin (3.5-5.0) g/dL 07/23/20 07/23/20 Range/Units 08:22 08:04 WBC (4.0-10.5) K/mm3 RBC (4.1-5.4) M/mm3 Hgb (12.0-16.0) gm/dl Hct (35-47) % MCV (78-100) fl MCH (26-32) pg MCHC (32-36) g/dl RDW (11.5-14.0) % Plt Count (150-450) K/mm3 MPV (7.5-11.0) fl Gran % (36.0-66.0) % Eos # (Auto) (0-0.5) Absolute Lymphs (auto) (1.0-4.6) Absolute Monos (auto) (0.0-1.3) Lymphocytes % (24.0-44.0) % Monocytes % (0.0-12.0) % Eosinophils % (0.00-5.0) % Basophils % (0.0-0.4) % Absolute Granulocytes (1.4-6.9) Basophils # (0-0.4) D-Dimer 2407 H* (215-500) ng/mL Sodium 134 L (137-145) mmol/L Potassium 4.3 (3.5-5.1) mmol/L Chloride 93 L (98-107) mmol/L Carbon Dioxide 36 H (22-30) mmol/L Anion Gap 10.2 (5-15) MEQ/L BUN 38 H (7-17) mg/dL Creatinine 1.30 H (0.52-1.04) mg/dL Estimated GFR 42.4 ML/MIN Glucose 163 H (74-106) mg/dL Calcium 9.5 (8.4-10.2) mg/dL Magnesium 2.6 H (1.6-2.3) mg/dL Total Bilirubin 0.40 (0.2-1.3) mg/dL AST 26 (14-36) U/L ALT 26 (0-35) U/L Alkaline Phosphatase 81 (38-126) U/L Troponin I (0.000-0.034) ng/mL NT-Pro-B Natriuret Pep 1150 (0-1800) pg/mL Serum Total Protein 7.2 (6.3-8.2) g/dL Albumin 4.2 (3.5-5.0) g/dL - Progress Progress: improved Air Movement: good Progress Note: 07/23/20 11:[address] Hernandez. In light of marginally elevated troponins new cardiomegaly and excessively elevated D-dimer we will transfer patient to outside hospital. Patient prefers [facility] for transfer. Patient received a dose of weight-based Lovenox. Case discussed with Dr. Black, ER attending physician at [facility] who accepts transfer. 07/23/20 11:48 Blood Culture(s) Obtained: Yes Antibiotics given: Yes Discussed with Dr.: Bri Will see patient in: other Counseled pt/family regarding: lab results, diagnosis, rad results - Departure Departure Disposition: Observation Clinical Impression: COPD exacerbation, Cardiomegaly, Calcified granuloma of lung, Osteopenia, Degenerative arthritis, Normocytic anemia, Acute renal injury, Elevated d-dimer Condition: Stable Critical Care Time: No Referrals: MARIN KIM [NON-STAFF PHY W/O PRIVILEGES] - Instructions: Chronic Obstructive Pulmonary Disease
[2020-07-23 08:55] LABS: ALBUMIN 4.2 g/dL (3.5-5.0); ANION GAP 10.2 MEQ/L (5-15); BILIRUBIN,TOTAL 0.4 mg/dL (0.2-1.3); Calcium 9.5 mg/dL (8.4-10.2); Creatinine 1 1.3 mg/dL (0.52-1.04); EST GLOMERULAR FILTRATION RATE 42.4 ML/MIN; MAGNESIUM 2.6 mg/dL (1.6-2.3); Potassium 4.3 mmol/L (3.5-5.1); Total Protein 7.2 g/dL (6.3-8.2)
[2020-07-23 11:03] VITALS: BP 146/79; PULSE 112
[2020-07-23 11:23] VITALS: O2SAT 99
[2020-07-23] MEDS ORDERED: ENOXAPARIN SODIUM SQ ONE ×2 (11:36→11:40)
== END 2020-07-23 12:26 | disposition short-term general hospital (02) ==
LOC: ED 08:01
DX: J44.1 Chronic obstructive pulmonary disease with (acute) exacerbation (principal); I51.7 Cardiomegaly; J84.10 Pulmonary fibrosis, unspecified; M85.80 Other specified disorders of bone density and structure, unspecified site; M19.90 Unspecified osteoarthritis, unspecified site; D64.9 Anemia, unspecified; N28.9 Disorder of kidney and ureter, unspecified; R79.89 Other specified abnormal findings of blood chemistry; R06.82 Tachypnea, not elsewhere classified; R07.9 Chest pain, unspecified; R05 Cough; I50.9 Heart failure, unspecified; I10 Essential (primary) hypertension; Z79.899 Other long term (current) drug therapy
CPT/HCPCS: 36000; 36415; 71045; 80053; 83735; 83880; 84484; 85025; 85379; 87040; 93005; 93041; 94640; 94760; 96372; 96374; 96375; 99285; J0133; J0696; J1650; A9270-GY

== ENCOUNTER 2020-08-02 14:22 | Observation (INO) | payer MEDICARE ==
[2020-08-02] MEDS ORDERED: Pepcid 20 MG VIAL IV ONE ×2 (14:44→14:53)
[2020-08-02] MEDS ORDERED: Sodium Chloride 0.9% 1000 ML 1,000 ML IV STA (14:44)
[2020-08-02] MEDS ORDERED: Sodium Chloride 0.9% 1000 ML 1,000 ML ONE (14:53)
--- NOTE | 2020-08-02 15:13 | ERPHSYRPT ---
- History of Present Illness Time Seen by Provider: 08/02/20 15:07 Source: patient Exam Limitations: no limitations Patient Subjective Stated Complaint: PT states "I am short of breath again. I was released from [facility] on the and I started to have difficulty breathing ever since I was home." Triage Nursing Assessment: Pt presented alert and oriented X 3, skin pwd pt able to speak in 5 to 6 word sentences pt tachypneic. PT resting comfortably on the bed. Pt has NC in with rate of 6 LPM supplimental O2. Physician History: Patient is 75-year-old female with significant past medical history of COPD recently patient has a deep vein thrombosis and for which patient was started on Eliquis when she was admitted at [facility]. 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 Patient states that as soon as she started Metformin she started getting sick. She started having abdominal pain epigastric pain and short of breath as well as some diarrhea. She denies any blood in her stool. She denies any fever or chills. Timing/Duration: today Severity: moderate Associated Symptoms: abdominal pain, shortness of breath, heartburn, other (stomach upset and diarrhea) Allergies/Adverse Reactions: No Known Drug Allergies Allergy (Verified 03/11/19 14:43) Home Medications: Albuterol 2.5 mg/3 ml Neb [Proventil 2.5 mg/3 ml Neb] 2.5 mg IH QID 07/30/16 [History] Albuterol 8 gm Mdi Hfa [Ventolin Hfa MDI] 8 gm IH QIDPRN PRN 07/30/16 [History] Calcium 500 mg PO DAILY 07/30/16 [History] Furosemide 40 mg [Lasix 40 MG] 40 mg PO DAILY PRN PRN 08/15/17 [History] Celecoxib [Celebrex] 200 mg PO DAILY 07/23/20 [History] Guaifenesin 600 mg ER [Mucinex 600MG ER Tabs] 600 mg PO BID PRN 07/23/20 [History] Omeprazole 20 mg PO DAILY 07/23/20 [History] Apixaban [Eliquis] 2.5 mg PO BID 08/02/20 [History] Lisinopril/Hydrochlorothiazide [Lisinopril-Hctz 20-25 mg Tab] 20 mg PO DAILY 08/02/20 [History] Metformin HCl [Metformin ER Gastric] 1,000 mg PO DAILY 08/02/20 [History] Metoprolol Tartrate 25 mg PO BID 08/02/20 [History] Hx Tetanus, Diphtheria Vaccination/Date Given: No Hx Influenza Vaccination/Date Given: Yes Hx Pneumococcal Vaccination/Date Given: No Immunizations Up to Date: Yes Travel Risk - International Travel Have you traveled outside of the country in past 3 weeks: No - Coronavirus Screening Are you exhibiting any of the following symptoms?: No Close contact with a COVID-19 positive Pt in past 14-21 Days: No - Review of Systems Constitutional: No Fever, No Chills Eyes: No Symptoms Ears, Nose, & Throat: No Symptoms Respiratory: Dyspnea, No Cough Cardiac: No Chest Pain, No Edema, No Syncope Abdominal/Gastrointestinal: Abdominal Pain, Nausea, Diarrhea, Appetite Changes, No Vomiting Genitourinary Symptoms: No Dysuria Musculoskeletal: No Back Pain, No Neck Pain Skin: No Rash Neurological: No Dizziness, No Focal Weakness, No Sensory Changes Psychological: No Symptoms Endocrine: No Symptoms All Other Systems: Reviewed and Negative - Past Medical History Pertinent Past Medical History: Yes Neurological History: No Pertinent History ENT History: No Pertinent History Cardiac History: Congestive Heart Failure, Hypertension Respiratory History: Asthma, CHF, COPD Endocrine Medical History: No Pertinent History Musculoskeletal History: No Pertinent History GI Medical History: No Pertinent History History: No Pertinent History Psycho-Social History: No Pertinent History Female Reproductive Disorders: No Pertinent History - Past Surgical History Past Surgical History: Yes Neuro Surgical History: No Pertinent History Cardiac: No Pertinent History Respiratory: No Pertinent History Gastrointestinal: Appendectomy Genitourinary: No Pertinent History Musculoskeletal: No Pertinent History Female Surgical History: Hysterectomy - Social History Smoking Status: Former smoker How long have you smoked: 30 years Exposure to second hand smoke: Yes Drug Use: none Patient Lives Alone: Yes - Nursing Vital Signs Nursing Vital Signs: Initial Vital Signs Temperature 98.6 F 08/02/20 14:23 Pulse Rate 90 08/02/20 14:23 Respiratory Rate 28 H 08/02/20 14:23 Blood Pressure 106/58 08/02/20 14:23 O2 Sat by Pulse Oximetry 94 L 08/02/20 14:23 Pain Scale Pain Intensity 4 - Physical Exam General Appearance: no apparent distress, alert Eye Exam: PERRL/EOMI, eyes nml inspection Ears, Nose, Throat Exam: normal ENT inspection, TMs normal, pharynx normal, moist mucous membranes Neck Exam: normal inspection, non-tender, supple, full range of motion Respiratory Exam: normal breath sounds, lungs clear, No respiratory distress Cardiovascular Exam: regular rate/rhythm, normal heart sounds, normal peripheral pulses Gastrointestinal/Abdomen Exam: soft, normal bowel sounds, No tenderness, No mass Back Exam: normal inspection, normal range of motion, No CVA tenderness, No vertebral tenderness Extremity Exam: normal inspection, normal range of motion, pelvis stable Neurologic Exam: alert, oriented x 3, cooperative, normal mood/affect, nml cerebellar function, nml station & gait, sensation nml, No motor deficits Skin Exam: normal color, warm, dry, No rash Lymphatic Exam: No adenopathy SpO2: 94 - Course Nursing assessment & vital signs reviewed: Yes EKG Interpreted by Me: Sinus Rhythm - Radiology Exams Chest X-ray Interpretation: Reviewed by me Ordered Tests: Active Orders 24 hr Category Date 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 STAT Care 08/02/20 14:44 Active EKG-ER Only STAT Care 08/02/20 14:44 Active CHEST 1 VIEW (PORTABLE) Stat Exams 08/02/20 14:46 Taken CBC W DIFF Stat Lab 08/02/20 16:05 Completed CMP Stat Lab 08/02/20 16:05 Completed D-DIMER QUANTITATIVE Stat Lab 08/02/20 16:05 Completed NT PRO BNP Stat Lab 08/02/20 16:05 Completed TROPONIN Stat Lab 08/02/20 16:05 Completed Medication Summary Discontinued Medications Generic Name Dose Route Start Last Admin Trade Name Freq PRN Reason Stop Dose Admin Famotidine 20 mg 08/02/20 14:44 08/02/20 14:57 Pepcid 20 Mg Vial IV 08/02/20 14:45 20 mg STAT ONE Administration Famotidine Confirm 08/02/20 14:53 Pepcid 20 Mg Vial Administered 08/02/20 14:54 Dose 20 mg IV .STK-MED ONE Sodium Chloride 1,000 mls @ 999 mls/hr 08/02/20 14:44 08/02/20 16:05 Sodium Chloride 0.9% 1000 Ml IV 08/02/20 15:44 Infused .Q1H1M STA Infusion Sodium Chloride Confirm 08/02/20 14:53 Sodium Chloride 0.9% 1000 Ml Administered 08/02/20 14:54 Dose 1,000 mls @ ud .ROUTE .STK-MED ONE Pantoprazole Sodium 40 mg 08/02/20 16:45 Protonix 40 Mg Iv IV 08/02/20 16:46 STAT ONE Pantoprazole Sodium Confirm 08/02/20 16:48 Protonix 40 Mg Iv Administered 08/02/20 16:49 Dose 40 mg IV .STK-MED ONE Sucralfate 1 g 08/02/20 16:45 Carafate 1 Gm PO 08/02/20 16:46 STAT ONE Lab/Rad Data: Laboratory Result Diagrams 08/02/20 16:05 08/02/20 16:05 Laboratory Results 08/02/20 08/02/20 08/02/20 Range/Units 16:05 16:05 16:05 WBC 12.6 H (4.0-10.5) K/mm3 RBC 3.07 L (4.1-5.4) M/mm3 Hgb 8.6 L (12.0-16.0) gm/dl Hct 28.8 L (35-47) % MCV 93.8 (78-100) fl MCH 28.0 (26-32) pg MCHC 29.9 L (32-36) g/dl RDW 13.8 (11.5-14.0) % Plt Count 179 (150-450) K/mm3 MPV 12.5 H (7.5-11.0) fl Gran % 91.1 H (36.0-66.0) % Eos # (Auto) 0.02 (0-0.5) Absolute Lymphs (auto) 0.51 L (1.0-4.6) Absolute Monos (auto) 0.55 (0.0-1.3) Lymphocytes % 4.1 L (24.0-44.0) % Monocytes % 4.4 (0.0-12.0) % Eosinophils % 0.2 (0.00-5.0) % Basophils % 0.2 (0.0-0.4) % Absolute Granulocytes 11.46 H (1.4-6.9) Basophils # 0.02 (0-0.4) D-Dimer 2535 H* (215-500) ng/mL Sodium 132 L (137-145) mmol/L Potassium 4.6 (3.5-5.1) mmol/L Chloride 87 L (98-107) mmol/L Carbon Dioxide > 40 H (22-30) mmol/L Anion Gap 9.6 (5-15) MEQ/L BUN 70 H (7-17) mg/dL Creatinine 2.16 H (0.52-1.04) mg/dL Estimated GFR 23.6 ML/MIN Glucose 125 H (74-106) mg/dL Calcium 9.0 (8.4-10.2) mg/dL Total Bilirubin 0.40 (0.2-1.3) mg/dL AST 28 (14-36) U/L ALT 31 (0-35) U/L Alkaline Phosphatase 63 (38-126) U/L Troponin I 0.084 H* (0.000-0.034) ng/mL NT-Pro-B Natriuret Pep 1590 (0-1800) pg/mL Serum Total Protein 6.3 (6.3-8.2) g/dL Albumin 3.6 (3.5-5.0) g/dL - Progress Progress: improved Discussed with Dr.: Bri Ballard Will see patient in: hospital (observation) Counseled pt/family regarding: lab results, diagnosis, need for follow-up, rad results - Departure Departure Disposition: Observation Clinical Impression: Elevated troponin I level, Elevated d-dimer, Upper GI bleeding Acute renal failure Qualifiers: Acute renal failure type: unspecified Qualified Code(s): N17.9 - Acute kidney failure, unspecified Condition: Fair Critical Care Time: Yes Critical Care Time(excluding separately billable procedures): Critical 30-74 mins Referrals: SILVIA FOSTER DO [Primary Care Provider] -
[2020-08-02 16:10] LABS: Absolute Neutrophil Ct (ANC) 11.46 (1.4-6.9); BASOPHIL % 0.2 % (0.0-0.4); Basophil (Absolute #) 0.02 (0-0.4); Eosinophil % 0.2 % (0.00-5.0); Eosinophil (Absolute #) 0.02 (0-0.5); Hematocrit 28.8 % (35-47); Hemoglobin 8.6 gm/dl (12.0-16.0); Lymphocyte (Absolute #) 0.51 (1.0-4.6); Lymphocytes % 4.1 % (24.0-44.0); Mean Cell Volume 93.8 fl (78-100); Mean Corpuscular Hgb Concent. 29.9 g/dl (32-36); Mean Platelet Volume 12.5 fl (7.5-11.0); Monocyte (Absolute #) 0.55 (0.0-1.3); Monocytes % 4.4 % (0.0-12.0); Neutrophil % 91.1 % (36.0-66.0); Platelet Count 179 K/mm3 (150-450); Red Blood Count 3.07 M/mm3 (4.1-5.4); Red Cell Distribution Width 13.8 % (11.5-14.0); White Blood Count 12.6 K/mm3 (4.0-10.5)
[2020-08-02 16:32] LABS: ALBUMIN 3.6 g/dL (3.5-5.0); ALKALINE PHOSPHATASE 63 U/L (38-126); BLOOD UREA NITROGEN 70 mg/dL (7-17); CHLORIDE 87 mmol/L (98-107); Creatinine 1 2.16 mg/dL (0.52-1.04); EST GLOMERULAR FILTRATION RATE 23.6 ML/MIN; Glucose 125 mg/dL (74-106); NT PRO BNP 1590 pg/mL (0-1800); Potassium 4.6 mmol/L (3.5-5.1); SGOT/AST 28 U/L (14-36); SGPT/ALT 31 U/L (0-35); SODIUM 132 mmol/L (137-145); Total Protein 6.3 g/dL (6.3-8.2)
[2020-08-02 16:42] LABS: Carbon Dioxide > 40 mmol/L (22-30)
[2020-08-02] MEDS ORDERED: Carafate 1 GM PO ONE ×2 (16:45→17:24)
[2020-08-02] MEDS ORDERED: PROTONIX 40 MG IV IV ONE ×3 (16:45→17:24)
[2020-08-02 16:46] LABS: ANION GAP 9.6 MEQ/L (5-15); TROPONIN 0.084 ng/mL (0.000-0.034)
[2020-08-02 17:54] LABS: INFLUENZA A NEGATIVE (NEGATIVE); INFLUENZA B NEGATIVE (NEGATIVE); RESPIRATORY SYNCTIAL VIRUS NEGATIVE (Negative)
[2020-08-02] MEDS ORDERED: PROVENTIL 2.5 MG/3 ML NEB IH ONE ×2 (18:22→18:38)
[2020-08-02 19:18] LABS: Slide Review 1 YES
[2020-08-02] MEDS ORDERED: HUMULIN R SQ PRN (19:42)
[2020-08-02] MEDS: Sodium Chloride 0.9% 1000 ML 1,000 ML IV SCH (19:50)
--- NOTE | 2020-08-02 20:14 | XRAY ---
Indication: Short of breath. Comparison: July 23, 2020. Portable chest unchanged again demonstrating cardiomegaly, COPD, and right base calcified granuloma. No new/acute cardiopulmonary abnormalities.
[2020-08-02] MEDS ORDERED: VENTOLIN COMMON CANISTER IH PRN (21:00)
[2020-08-02] MEDS: Pepcid 20 MG VIAL IV SCH (21:02)
[2020-08-02] MEDS: DUONEB 0.5-3 MG/3 ml Neb IH PRN (23:25)
[2020-08-03 05:50] LABS: Absolute Neutrophil Ct (ANC) 10.38 (1.4-6.9); BASOPHIL % 0.1 % (0.0-0.4); Basophil (Absolute #) 0.01 (0-0.4); Eosinophil (Absolute #) 0 (0-0.5); Hematocrit 28.4 % (35-47); Hemoglobin 8.2 gm/dl (12.0-16.0); Lymphocyte (Absolute #) 0.61 (1.0-4.6); Lymphocytes % 5.2 % (24.0-44.0); Mean Corpuscular Hemoglobin 27.4 pg (26-32); Mean Corpuscular Hgb Concent. 28.9 g/dl (32-36); Monocyte (Absolute #) 0.84 (0.0-1.3); Monocytes % 7.1 % (0.0-12.0); Neutrophil % 87.6 % (36.0-66.0); Platelet Count 168 K/mm3 (150-450); Red Blood Count 2.99 M/mm3 (4.1-5.4); Red Cell Distribution Width 13.8 % (11.5-14.0); White Blood Count 11.8 K/mm3 (4.0-10.5)
[2020-08-03 06:14] LABS: ALBUMIN 3.6 g/dL (3.5-5.0); BILIRUBIN,TOTAL 0.1 mg/dL (0.2-1.3); Calcium 8.7 mg/dL (8.4-10.2); Creatinine 1 1.99 mg/dL (0.52-1.04); Potassium 4.3 mmol/L (3.5-5.1); Total Protein 6.3 g/dL (6.3-8.2)
[2020-08-03 06:26] LABS: ANION GAP 12.3 MEQ/L (5-15)
[2020-08-03 06:27] LABS: TROPONIN 0.063 ng/mL (0.000-0.034)
[2020-08-03] MEDS: Sodium Chloride 0.9% 1000 ML 1,000 ML IV SCH ×2 (06:30→16:34)
[2020-08-03] MEDS: DUONEB 0.5-3 MG/3 ml Neb IH SCH ×4 (06:37→19:30)
[2020-08-03 10:28] LABS: Slide Review 1 YES
[2020-08-03] MEDS: PROTONIX 40 MG IV IV SCH (11:44)
[2020-08-03] MEDS: Lopressor 25MG Tab PO SCH ×2 (11:44→21:44)
[2020-08-03] MEDS: Lasix 40 MG PO SCH (11:44)
[2020-08-03] MEDS: Pepcid 20 MG VIAL IV SCH ×2 (11:44→21:44)
--- NOTE | 2020-08-03 12:02 | PCM.HP ---
History of Present Illness - Chief Complaint Chief Complaint: GI bleed History of Present Illness: is a 75 year old female patient of Dr Kaufman, recently released from [facility], new dvt in lower extremity and new onset diabetes. put on eliquis and metformin, having abd pain and black tarry stools, has decrease in hemoglobin on arrival. thought to have upper gi bleed secondary to eliquis, no more black/tarry stools since admission and stomach is feeling better. hx of copd and chronic oxygen requirement. - Review of Systems Constitutional: No Fever, No Chills Respiratory: No Cough, No Short Of Breath Cardiac: No Chest Pain, No Edema, No Syncope Abdominal/Gastrointestinal: Abdominal Pain, Diarrhea, Hematochezia Genitourinary Symptoms: No Dysuria Skin: No Rash All Other Systems: Reviewed and Negative Medications & Allergies Home Medications: Home Medication List Albuterol 2.5 mg/3 ml Neb [Proventil 2.5 mg/3 ml Neb] 2.5 mg IH QID 07/30/16 [History Confirmed 08/02/20] Albuterol 8 gm Mdi Hfa [Ventolin Hfa MDI] 8 gm IH QIDPRN PRN 07/30/16 [History Confirmed 08/02/20] Calcium 500 mg PO DAILY PRN PRN 07/30/16 [History Confirmed 08/02/20] Furosemide 40 mg [Lasix 40 MG] 40 mg PO DAILY 08/15/17 [History Confirmed 08/02/20] Celecoxib [Celebrex] 200 mg PO DAILY PRN PRN 07/23/20 [History Confirmed 08/02/20] Guaifenesin 600 mg ER [Mucinex 600MG ER Tabs] 600 mg PO BID PRN PRN 07/23/20 [History Confirmed 08/02/20] Omeprazole 20 mg PO DAILY PRN PRN 07/23/20 [History Confirmed 08/02/20] Apixaban [Eliquis] 2.5 mg PO BID 08/02/20 [History Confirmed 08/02/20] Lisinopril/Hydrochlorothiazide [Lisinopril-Hctz 20-25 mg Tab] 20 mg PO DAILY 08/02/20 [History Confirmed 08/02/20] Metoprolol Tartrate 25 mg PO BID 08/02/20 [History Confirmed 08/02/20] Allergies/Adverse Reactions: Allergies Allergy/AdvReac Type Severity Reaction Status Date / Time No Known Drug Allergies Allergy Verified 08/02/20 20:21 - Past Medical History Past Medical History: Yes Neurological History: No Pertinent History ENT History: No Pertinent History Cardiac History: Congestive Heart Failure, Deep Vein Thrombosis, Hypertension Respiratory History: Asthma, CHF, COPD Endocrine Medical History: Diabetes Type II Musculoskelatal History: No Pertinent History GI Medical History: No Pertinent History History: No Pertinent History Pyscho-Social History: No Pertinent History Reproductive Disorders: No Pertinent History - Female History Are you now?: No - Past Surgical History Past Surgical History: Yes Neuro Surgical History: No Pertinent History Cardiac History: No Pertinent History Respiratory Surgery: No Pertinent History GI Surgical History: Appendectomy Genitourinary Surgical Hx: No Pertinent History Musculskeletal Surgical Hx: No Pertinent History Female Surgical History: Hysterectomy - Social History Smoking Status: Former smoker How long have you smoked: 25 years Exposure to second hand smoke: No Alcohol: None Drug Use: none - Physical Exam Vital Signs: Vital Signs - 24 hr Temp Pulse Resp BP Pulse Ox 08/03/20 11:08 88 20 96 08/03/20 07:43 98.5 F 90 25 H 109/51 95 08/03/20 06:40 91 H 24 96 08/03/20 04:00 98.1 F 86 20 106/55 95 08/03/20 00:00 98 F 81 20 107/57 95 08/02/20 23:25 84 20 95 08/02/20 20:45 84 20 93 L 08/02/20 20:00 98.1 F 85 22 117/60 94 L 08/02/20 18:40 81 20 97 08/02/20 18:06 98.4 F 79 20 108/70 100 08/02/20 17:34 98.4 F 80 20 168/110 98 08/02/20 17:01 94 L 08/02/20 16:05 78 22 110/60 98 08/02/20 15:25 98.6 F 79 22 106/58 99 08/02/20 14:23 98.6 F 90 28 H 106/58 93 L General Appearance: no apparent distress, alert Neurologic Exam: alert, oriented x 3, cooperative Respiratory Exam: lungs clear, diminished breath sounds, prolonged expirations, No respiratory distress Cardiovascular Exam: regular rate/rhythm, normal heart sounds, normal peripheral pulses Gastrointestinal/Abdomen Exam: soft, normal bowel sounds, No tenderness, No mass Extremity Exam: normal inspection, normal range of motion, pelvis stable Results - Labs Lab/Micro Results: Lab Results-Last 24 Hours 08/02/20 08/02/20 08/02/20 Range/Units 16:05 16:05 16:05 WBC 12.6 H (4.0-10.5) K/mm3 RBC 3.07 L (4.1-5.4) M/mm3 Hgb 8.6 L (12.0-16.0) gm/dl Hct 28.8 L (35-47) % MCV 93.8 (78-100) fl MCH 28.0 (26-32) pg MCHC 29.9 L (32-36) g/dl RDW 13.8 (11.5-14.0) % Plt Count 179 (150-450) K/mm3 MPV 12.5 H (7.5-11.0) fl Gran % 91.1 H (36.0-66.0) % Eos # (Auto) 0.02 (0-0.5) Absolute Lymphs (auto) 0.51 L (1.0-4.6) Absolute Monos (auto) 0.55 (0.0-1.3) Lymphocytes % 4.1 L (24.0-44.0) % Monocytes % 4.4 (0.0-12.0) % Eosinophils % 0.2 (0.00-5.0) % Basophils % 0.2 (0.0-0.4) % Absolute Granulocytes 11.46 H (1.4-6.9) Basophils # 0.02 (0-0.4) D-Dimer 2535 H* (215-500) ng/mL Sodium 132 L (137-145) mmol/L Potassium 4.6 (3.5-5.1) mmol/L Chloride 87 L (98-107) mmol/L Carbon Dioxide > 40 H (22-30) mmol/L Anion Gap 9.6 (5-15) MEQ/L BUN 70 H (7-17) mg/dL Creatinine 2.16 H (0.52-1.04) mg/dL Estimated GFR 23.6 ML/MIN Glucose 125 H (74-106) mg/dL POC Glucometer (74 to 106) mg/dL Calcium 9.0 (8.4-10.2) mg/dL Total Bilirubin 0.40 (0.2-1.3) mg/dL AST 28 (14-36) U/L ALT 31 (0-35) U/L Alkaline Phosphatase 63 (38-126) U/L Troponin I 0.084 H* (0.000-0.034) ng/mL NT-Pro-B Natriuret Pep 1590 (0-1800) pg/mL Serum Total Protein 6.3 (6.3-8.2) g/dL Albumin 3.6 (3.5-5.0) g/dL Influenza Type A Ag (NEGATIVE) Influenza Type B Ag (NEGATIVE) RSV (PCR) (Negative) SARS-CoV-2 (PCR) (NEGATIVE) Slides for Path Review YES 08/02/20 08/02/20 08/03/20 Range/Units 17:03 21:29 05:15 WBC 11.8 H (4.0-10.5) K/mm3 RBC 2.99 L (4.1-5.4) M/mm3 Hgb 8.2 L (12.0-16.0) gm/dl Hct 28.4 L (35-47) % MCV 95.0 (78-100) fl MCH 27.4 (26-32) pg MCHC 28.9 L (32-36) g/dl RDW 13.8 (11.5-14.0) % Plt Count 168 (150-450) K/mm3 MPV 13.0 H (7.5-11.0) fl Gran % 87.6 H (36.0-66.0) % Eos # (Auto) 0 (0-0.5) Absolute Lymphs (auto) 0.61 L (1.0-4.6) Absolute Monos (auto) 0.84 (0.0-1.3) Lymphocytes % 5.2 L (24.0-44.0) % Monocytes % 7.1 (0.0-12.0) % Eosinophils % 0.0 (0.00-5.0) % Basophils % 0.1 (0.0-0.4) % Absolute Granulocytes 10.38 H (1.4-6.9) Basophils # 0.01 (0-0.4) D-Dimer (215-500) ng/mL Sodium (137-145) mmol/L Potassium (3.5-5.1) mmol/L Chloride (98-107) mmol/L Carbon Dioxide (22-30) mmol/L Anion Gap (5-15) MEQ/L BUN (7-17) mg/dL Creatinine (0.52-1.04) mg/dL Estimated GFR ML/MIN Glucose (74-106) mg/dL POC Glucometer 160 H (74 to 106) mg/dL Calcium (8.4-10.2) mg/dL Total Bilirubin (0.2-1.3) mg/dL AST (14-36) U/L ALT (0-35) U/L Alkaline Phosphatase (38-126) U/L Troponin I (0.000-0.034) ng/mL NT-Pro-B Natriuret Pep (0-1800) pg/mL Serum Total Protein (6.3-8.2) g/dL Albumin (3.5-5.0) g/dL Influenza Type A Ag NEGATIVE (NEGATIVE) Influenza Type B Ag NEGATIVE (NEGATIVE) RSV (PCR) NEGATIVE (Negative) SARS-CoV-2 (PCR) NEGATIVE (NEGATIVE) Slides for Path Review YES 08/03/20 08/03/20 08/03/20 Range/Units 05:15 07:21 11:35 WBC (4.0-10.5) K/mm3 RBC (4.1-5.4) M/mm3 Hgb (12.0-16.0) gm/dl Hct (35-47) % MCV (78-100) fl MCH (26-32) pg MCHC (32-36) g/dl RDW (11.5-14.0) % Plt Count (150-450) K/mm3 MPV (7.5-11.0) fl Gran % (36.0-66.0) % Eos # (Auto) (0-0.5) Absolute Lymphs (auto) (1.0-4.6) Absolute Monos (auto) (0.0-1.3) Lymphocytes % (24.0-44.0) % Monocytes % (0.0-12.0) % Eosinophils % (0.00-5.0) % Basophils % (0.0-0.4) % Absolute Granulocytes (1.4-6.9) Basophils # (0-0.4) D-Dimer (215-500) ng/mL Sodium 135 L (137-145) mmol/L Potassium 4.3 (3.5-5.1) mmol/L Chloride 90 L (98-107) mmol/L Carbon Dioxide 37 H (22-30) mmol/L Anion Gap 12.3 (5-15) MEQ/L BUN 74 H (7-17) mg/dL Creatinine 1.99 H (0.52-1.04) mg/dL Estimated GFR 26.0 ML/MIN Glucose 203 H (74-106) mg/dL POC Glucometer 119 H 82 (74 to 106) mg/dL Calcium 8.7 (8.4-10.2) mg/dL Total Bilirubin 0.10 L (0.2-1.3) mg/dL AST 22 (14-36) U/L ALT 28 (0-35) U/L Alkaline Phosphatase 58 (38-126) U/L Troponin I 0.063 H* (0.000-0.034) ng/mL NT-Pro-B Natriuret Pep (0-1800) pg/mL Serum Total Protein 6.3 (6.3-8.2) g/dL Albumin 3.6 (3.5-5.0) g/dL Influenza Type A Ag (NEGATIVE) Influenza Type B Ag (NEGATIVE) RSV (PCR) (Negative) SARS-CoV-2 (PCR) (NEGATIVE) Slides for Path Review Accuchecks Date 08/03/20 - Radiology Impressions Radiology Exams & Impressions: Radiology Procedures Category Date Time Status CHEST 1 VIEW (PORTABLE) Stat Exams 08/02/20 14:46 Completed - Other Procedures and Tests Respiratory Therapy 08/02/20 19:42 Oxygen Nasal Cannula 3 lpm 08/02/20 20:55 Respiratory Therapy Assessment DAILY Assessment/Plan (1) Upper GI bleeding Current Visit: Yes Status: Acute Assessment & Plan: h/h stable, no active bleeding. hold anticoagulation and continue PPI IV, tolerating regular diet Code(s): K92.2 - GASTROINTESTINAL HEMORRHAGE, UNSPECIFIED (2) Acute renal failure Current Visit: Yes Status: Acute Qualifiers: Acute renal failure type: unspecified Qualified Code(s): N17.9 - Acute kidney failure, unspecified Assessment & Plan: improved overnight, likely exacerbated with gi bleed (3) Elevated troponin I level Current Visit: Yes Status: Acute Assessment & Plan: no chest pain, secondary to renal function elevation Code(s): R79.89 - OTHER SPECIFIED ABNORMAL FINDINGS OF BLOOD CHEMISTRY (4) Chronic respiratory failure with hypoxia and hypercapnia Current Visit: No Status: Acute Assessment & Plan: stable, chronic Code(s): J96.11 - CHRONIC RESPIRATORY FAILURE WITH HYPOXIA; J96.12 - CHRONIC RESPIRATORY FAILURE WITH HYPERCAPNIA (5) Diabetes mellitus Current Visit: Yes Status: Acute Assessment & Plan: sliding scale insulin, hold metformin Code(s): E11.9 - TYPE 2 DIABETES MELLITUS WITHOUT COMPLICATIONS
[2020-08-03] MEDS ORDERED: METOPROLOL TARTRATE 25 MG PO SCH (22:00)
[2020-08-04] MEDS: DUONEB 0.5-3 MG/3 ml Neb IH PRN (00:24)
[2020-08-04 05:37] LABS: Absolute Neutrophil Ct (ANC) 6.97 (1.4-6.9); BASOPHIL % 0.1 % (0.0-0.4); Basophil (Absolute #) 0.01 (0-0.4); Eosinophil % 0.9 % (0.00-5.0); Eosinophil (Absolute #) 0.09 (0-0.5); Hematocrit 28.7 % (35-47); Hemoglobin 8.2 gm/dl (12.0-16.0); Lymphocyte (Absolute #) 1.36 (1.0-4.6); Mean Cell Volume 96.6 fl (78-100); Mean Corpuscular Hemoglobin 27.6 pg (26-32); Mean Corpuscular Hgb Concent. 28.6 g/dl (32-36); Mean Platelet Volume 13.3 fl (7.5-11.0); Monocyte (Absolute #) 1.29 (0.0-1.3); Monocytes % 13.3 % (0.0-12.0); Neutrophil % 71.7 % (36.0-66.0); Platelet Count 172 K/mm3 (150-450); Red Blood Count 2.97 M/mm3 (4.1-5.4); White Blood Count 9.7 K/mm3 (4.0-10.5)
[2020-08-04 05:53] LABS: ALBUMIN 3.6 g/dL (3.5-5.0); BILIRUBIN,TOTAL 0.2 mg/dL (0.2-1.3); Calcium 8.6 mg/dL (8.4-10.2); Creatinine 1 1.79 mg/dL (0.52-1.04); EST GLOMERULAR FILTRATION RATE 29.3 ML/MIN; Potassium 4.9 mmol/L (3.5-5.1); Total Protein 6.2 g/dL (6.3-8.2)
[2020-08-04 06:05] LABS: ANION GAP 7.9 MEQ/L (5-15)
[2020-08-04] MEDS: DUONEB 0.5-3 MG/3 ml Neb IH SCH ×4 (06:44→19:27)
[2020-08-04 07:41] LABS: Slide Review 1 YES
[2020-08-04] MEDS: Lopressor 25MG Tab PO SCH ×2 (09:33→22:36)
[2020-08-04] MEDS: PROTONIX 40 MG IV IV SCH (09:34)
[2020-08-04] MEDS: Lasix 40 MG PO SCH (09:34)
[2020-08-04] MEDS: Pepcid 20 MG VIAL IV SCH ×2 (09:34→22:36)
--- NOTE | 2020-08-04 13:42 | PCM.NOTE ---
Date and Time: 08/04/20 0052 Subjective Assessment: Patient states she is feeling stronger . No further black stool .BM is brown since day of admission. Some epig tenderness but eating at meals without difficulty. Elliott is on hold over the weekend, recent DVT initially treated at [facility]. Is on IV Pantoprazole and Famotadine.Troponin was elevated in ER,no chest pain,no further dyspnea. Spoke to Dr Ren and he would like patient to have a cardiac calcium score (has to be done as an outptn).ECHO done today to be read by Dr Ren. Spoke with Dr Strickland,[employer] Registrar who advises IVC filter if EGD shows ulcer. Patient has chronic anemia and IVC filter may be best,will discuss with Dg. She will receive 1 dose of Lovenox,dosed by shira this evening H&H at midnight and in AM. Objective Exam General Appearance: no apparent distress Neurologic Exam: alert, oriented x 3, cooperative, normal mood/affect Skin Exam: warm, dry, pale Eye Exam: eyes nml inspection Ears, Nose, Throat Exam: normal ENT inspection Neck Exam: normal inspection Respiratory Exam: other (fine eew right mid) Cardiovascular Exam: regular rate/rhythm Gastrointestinal/Abdomen Exam: soft, normal bowel sounds, tenderness (minimal tenderness epigastrum no guarding) Extremity Exam: other (Left calf larger than right with some induration and minimal swelling but is not tender,no edema RLE) Back Exam: normal inspection Rectal Exam: other (brown stool this morning per patient) OBJECTIVE DATA Vital Signs: Vital Signs - 24 hr Temp Pulse Resp BP Pulse Ox 08/04/20 12:00 98.0 F 83 30 H 110/57 98 08/04/20 10:47 84 22 98 08/04/20 08:00 97.8 F 76 18 108/57 100 08/04/20 06:46 79 20 98 08/04/20 04:05 97.9 F 77 22 111/56 98 08/04/20 00:24 68 20 96 08/03/20 23:42 98.4 F 83 24 131/58 97 08/03/20 20:00 98.4 F 81 22 116/57 95 08/03/20 19:30 82 20 98 08/03/20 16:00 98.6 F 82 18 105/56 92 L 08/03/20 14:46 84 18 96 Pain Assessment - Last Documented Pain Intensity 2 Intake and Output: Intake & Output 08/02/20 08/03/20 08/04/20 08/05/20 10:59 11:59 11:59 11:59 Intake Total 2495 Output Total 1150 Balance 1345 Weight Lab Results: Lab Results-Last 24 Hours 08/03/20 08/03/20 08/03/20 Range/Units 09:05 16:37 21:46 WBC (4.0-10.5) K/mm3 RBC (4.1-5.4) M/mm3 Hgb (12.0-16.0) gm/dl Hct (35-47) % MCV (78-100) fl MCH (26-32) pg MCHC (32-36) g/dl RDW (11.5-14.0) % Plt Count (150-450) K/mm3 MPV (7.5-11.0) fl Gran % (36.0-66.0) % Eos # (Auto) (0-0.5) Absolute Lymphs (auto) (1.0-4.6) Absolute Monos (auto) (0.0-1.3) Lymphocytes % (24.0-44.0) % Monocytes % (0.0-12.0) % Eosinophils % (0.00-5.0) % Basophils % (0.0-0.4) % Absolute Granulocytes (1.4-6.9) Basophils # (0-0.4) Sodium (137-145) mmol/L Potassium (3.5-5.1) mmol/L Chloride (98-107) mmol/L Carbon Dioxide (22-30) mmol/L Anion Gap (5-15) MEQ/L BUN (7-17) mg/dL Creatinine (0.52-1.04) mg/dL Estimated GFR ML/MIN Glucose (74-106) mg/dL POC Glucometer 108 H 107 H (74 to 106) mg/dL Hemoglobin A1c 5.12 (4.5-6.0) % Calcium (8.4-10.2) mg/dL Total Bilirubin (0.2-1.3) mg/dL AST (14-36) U/L ALT (0-35) U/L Alkaline Phosphatase (38-126) U/L Serum Total Protein (6.3-8.2) g/dL Albumin (3.5-5.0) g/dL Slides for Path Review 08/04/20 08/04/20 08/04/20 Range/Units 04:46 04:46 07:51 WBC 9.7 (4.0-10.5) K/mm3 RBC 2.97 L (4.1-5.4) M/mm3 Hgb 8.2 L (12.0-16.0) gm/dl Hct 28.7 L (35-47) % MCV 96.6 (78-100) fl MCH 27.6 (26-32) pg MCHC 28.6 L (32-36) g/dl RDW 14.0 (11.5-14.0) % Plt Count 172 (150-450) K/mm3 MPV 13.3 H (7.5-11.0) fl Gran % 71.7 H (36.0-66.0) % Eos # (Auto) 0.09 (0-0.5) Absolute Lymphs (auto) 1.36 (1.0-4.6) Absolute Monos (auto) 1.29 (0.0-1.3) Lymphocytes % 14.0 L (24.0-44.0) % Monocytes % 13.3 H (0.0-12.0) % Eosinophils % 0.9 (0.00-5.0) % Basophils % 0.1 (0.0-0.4) % Absolute Granulocytes 6.97 H (1.4-6.9) Basophils # 0.01 (0-0.4) Sodium 137 (137-145) mmol/L Potassium 4.9 (3.5-5.1) mmol/L Chloride 93 L (98-107) mmol/L Carbon Dioxide 41 H (22-30) mmol/L Anion Gap 7.9 (5-15) MEQ/L BUN 66 H (7-17) mg/dL Creatinine 1.79 H (0.52-1.04) mg/dL Estimated GFR 29.3 ML/MIN Glucose 109 H (74-106) mg/dL POC Glucometer 99 (74 to 106) mg/dL Hemoglobin A1c (4.5-6.0) % Calcium 8.6 (8.4-10.2) mg/dL Total Bilirubin 0.20 (0.2-1.3) mg/dL AST 20 (14-36) U/L ALT 25 (0-35) U/L Alkaline Phosphatase 53 (38-126) U/L Serum Total Protein 6.2 L (6.3-8.2) g/dL Albumin 3.6 (3.5-5.0) g/dL Slides for Path Review YES 08/04/20 Range/Units 11:47 WBC (4.0-10.5) K/mm3 RBC (4.1-5.4) M/mm3 Hgb (12.0-16.0) gm/dl Hct (35-47) % MCV (78-100) fl MCH (26-32) pg MCHC (32-36) g/dl RDW (11.5-14.0) % Plt Count (150-450) K/mm3 MPV (7.5-11.0) fl Gran % (36.0-66.0) % Eos # (Auto) (0-0.5) Absolute Lymphs (auto) (1.0-4.6) Absolute Monos (auto) (0.0-1.3) Lymphocytes % (24.0-44.0) % Monocytes % (0.0-12.0) % Eosinophils % (0.00-5.0) % Basophils % (0.0-0.4) % Absolute Granulocytes (1.4-6.9) Basophils # (0-0.4) Sodium (137-145) mmol/L Potassium (3.5-5.1) mmol/L Chloride (98-107) mmol/L Carbon Dioxide (22-30) mmol/L Anion Gap (5-15) MEQ/L BUN (7-17) mg/dL Creatinine (0.52-1.04) mg/dL Estimated GFR ML/MIN Glucose (74-106) mg/dL POC Glucometer 97 (74 to 106) mg/dL Hemoglobin A1c (4.5-6.0) % Calcium (8.4-10.2) mg/dL Total Bilirubin (0.2-1.3) mg/dL AST (14-36) U/L ALT (0-35) U/L Alkaline Phosphatase (38-126) U/L Serum Total Protein (6.3-8.2) g/dL Albumin (3.5-5.0) g/dL Slides for Path Review Radiology Exams: Radiology Procedures Category Date Time Status CHEST 1 VIEW (PORTABLE) Stat Exams 08/02/20 14:46 Completed ECHO W/2D AND DOPPLER [US] Routine Exams 08/04/20 Ordered Multi-Disciplinary Progress Notes: Multi-Disciplinary Progress Notes 08/04/20 11:55 Case Management Note by Nano Yang PATIENT HAS [facility]. THEY WERE NOTIFIED PATIENT IS HERE. THEY WILL NEED NOTIFIED AT TIME OF DC AT [phone]. THEY WILL NEED FAXED THE DC INSTRUCTIONS, DC MED LIST AND DC SUMMARY (IF AVAILABLE) TO [phone] Initialized on 08/04/20 11:55 - END OF NOTE Assessment/Plan (1) Upper GI bleeding Current Visit: Yes Status: Resolved Assessment & Plan: resolved prior to admit-had black tarry stool after starting Eliquis for DVT approx 2 days prior to this admission Code(s): K92.2 - GASTROINTESTINAL HEMORRHAGE, UNSPECIFIED (2) DVT (deep venous thrombosis) Current Visit: Yes Status: Acute Qualifiers: DVT location: lower extremity Assessment & Plan: eliquis was held over the weekend and Lovenox to be given today x 1 while deciding if IVC filter or EGD to see if active ulcer.Discussed with Dr LUIS MANUEL cannon. Code(s): I82.409 - ACUTE EMBOLISM AND THOMBOS UNSP DEEP VN UNSP LOWER EXTREMITY (3) Acute on chronic respiratory failure with hypercapnia Current Visit: No Status: Acute Assessment & Plan: is oxygen dependent ,chronically and followed by Dr LUIS MANUEL Strickland Code(s): J96.22 - ACUTE AND CHRONIC RESPIRATORY FAILURE WITH HYPERCAPNIA (4) Acute renal failure Current Visit: Yes Status: Acute Qualifiers: Acute renal failure type: unspecified Qualified Code(s): N17.9 - Acute kidney failure, unspecified Assessment & Plan: Improving with hydration (5) Elevated troponin I level Current Visit: Yes Status: Acute Assessment & Plan: phone consult with Media Traffic Manager Dr Ren. Patient does not have chest pain and dyspnea has resolved. ECHO today will be read by Dr Ren. Code(s): R79.89 - OTHER SPECIFIED ABNORMAL FINDINGS OF BLOOD CHEMISTRY (6) Hyperglycemia Current Visit: No Status: Acute Assessment & Plan: A1C =5.12% this admission. Note [facility] and given Metformin that caused epigastric pain and extreme weakness. I do not believe patient to be diabetic but will monitor. Code(s): R73.9 - HYPERGLYCEMIA, UNSPECIFIED
[2020-08-04] MEDS ORDERED: PHARMACY DOSING REQUEST MC ONE (16:49)
[2020-08-04] MEDS ORDERED: ENOXAPARIN SODIUM SQ SCH (18:00)
[2020-08-04] MEDS: Sodium Chloride 0.9% 1000 ML 1,000 ML IV SCH ×2 (22:36→22:48)
[2020-08-05 00:27] LABS: Hematocrit 29.3 % (35-47); Hemoglobin 8.4 gm/dl (12.0-16.0)
[2020-08-05] MEDS: DUONEB 0.5-3 MG/3 ml Neb IH PRN (04:38)
[2020-08-05 05:17] LABS: Absolute Neutrophil Ct (ANC) 5.16 (1.4-6.9); BASOPHIL % 0.3 % (0.0-0.4); Basophil (Absolute #) 0.02 (0-0.4); Eosinophil % 1.5 % (0.00-5.0); Eosinophil (Absolute #) 0.11 (0-0.5); Hematocrit 31.1 % (35-47); Hemoglobin 8.7 gm/dl (12.0-16.0); Lymphocyte (Absolute #) 1.11 (1.0-4.6); Lymphocytes % 14.8 % (24.0-44.0); Mean Cell Volume 98.4 fl (78-100); Mean Corpuscular Hemoglobin 27.5 pg (26-32); Mean Platelet Volume 13.3 fl (7.5-11.0); Monocyte (Absolute #) 1.11 (0.0-1.3); Monocytes % 14.8 % (0.0-12.0); Neutrophil % 68.6 % (36.0-66.0); Platelet Count 192 K/mm3 (150-450); Red Blood Count 3.16 M/mm3 (4.1-5.4); Red Cell Distribution Width 13.7 % (11.5-14.0); White Blood Count 7.5 K/mm3 (4.0-10.5)
[2020-08-05 05:34] LABS: ALBUMIN 3.6 g/dL (3.5-5.0); BILIRUBIN,TOTAL 0.2 mg/dL (0.2-1.3); Creatinine 1 1.49 mg/dL (0.52-1.04); EST GLOMERULAR FILTRATION RATE 36.3 ML/MIN; Potassium 4.3 mmol/L (3.5-5.1); Slide Review 1 YES; Total Protein 6.4 g/dL (6.3-8.2)
[2020-08-05 06:22] LABS: ANION GAP 13.3 MEQ/L (5-15)
[2020-08-05] MEDS: DUONEB 0.5-3 MG/3 ml Neb IH SCH (07:42)
[2020-08-05 07:50] VITALS: O2SAT 96
[2020-08-05 08:15] VITALS: BP 134/65; PULSE 83
[2020-08-05] MEDS: Pepcid 20 MG VIAL IV SCH (09:13)
[2020-08-05] MEDS: Lopressor 25MG Tab PO SCH (09:13)
[2020-08-05] MEDS: PROTONIX 40 MG IV IV SCH (09:17)
--- NOTE | 2020-08-06 09:51 | ECHO ---
Transthoracic echocardiographic examination and color Doppler was done on 08/04/2020. INDICATION: Shortness of breath. IMPRESSION: 1) LARGE PERICARDIAL EFFUSION WITH EVIDENCE OF EARLY TAMPONADE. 2) LEFT VENTRICULAR EJECTION FRACTION OF AROUND 50%. 3) LEFT VENTRICULAR HYPERTROPHY. 4) TRACE TRICUSPID REGURGITATION. RIGHT VENTRICULAR SYSTOLIC PRESSURE OF 20 MM OF MERCURY. The left ventricle is visualized and demonstrated mild hypokinesia. Ejection fraction is around 50%. There is concentric left ventricular hypertrophy. The mitral valve was seen and this opens adequately. There is trace mitral regurgitation. Left atrium appears to be normal. The aortic valve opens adequately, mildly sclerotic. The right side chambers are normal. There is a large pericardial effusion with some evidence of early tamponade. The patient needs urgent pericardial drainage.
== END 2020-08-05 10:28 | disposition short-term general hospital (02) ==
LOC: ED 14:22 → MED SURG 19:28
PROVIDERS: ADMIT Family Medicine; ATTEND Family Medicine
DX: K92.2 Gastrointestinal hemorrhage, unspecified (principal); N17.9 Acute kidney failure, unspecified; J96.11 Chronic respiratory failure with hypoxia; J96.12 Chronic respiratory failure with hypercapnia; I82.409 Acute embolism and thrombosis of unspecified deep veins of unspecified lower extremity; E11.9 Type 2 diabetes mellitus without complications; Z79.01 Long term (current) use of anticoagulants; Z79.899 Other long term (current) drug therapy; J44.9 Chronic obstructive pulmonary disease, unspecified; I10 Essential (primary) hypertension; R79.89 Other specified abnormal findings of blood chemistry
CPT/HCPCS: 0241U; 36000; 36415; 71045; 80053; 82947; 83036; 83880; 84484; 85014; 85018; 85025; 85379; 93005; 93041; 93268; 93306; 94640; 94760; 96360; 96374; 96375; 97161; 99284; 99291; G0378; J1650; J7609; A9270-GY

== ENCOUNTER 2020-09-16 14:37 | Inpatient (IN) | payer MEDICARE ==
[2020-09-16 15:35] LABS: Absolute Neutrophil Ct (ANC) 12.76 (1.4-6.9); BASOPHIL % 0.1 % (0.0-0.4); Basophil (Absolute #) 0.02 (0-0.4); Eosinophil % 0.1 % (0.00-5.0); Eosinophil (Absolute #) 0.01 (0-0.5); Hematocrit 30.3 % (35-47); Hemoglobin 8.8 gm/dl (12.0-16.0); Lymphocyte (Absolute #) 0.44 (1.0-4.6); Lymphocytes % 3.2 % (24.0-44.0); Mean Cell Volume 93.2 fl (78-100); Mean Corpuscular Hemoglobin 27.1 pg (26-32); Mean Platelet Volume 12.6 fl (7.5-11.0); Monocyte (Absolute #) 0.58 (0.0-1.3); Monocytes % 4.2 % (0.0-12.0); Neutrophil % 92.4 % (36.0-66.0); Platelet Count 258 K/mm3 (150-450); Red Blood Count 3.25 M/mm3 (4.1-5.4); Red Cell Distribution Width 15.9 % (11.5-14.0); White Blood Count 13.8 K/mm3 (4.0-10.5)
[2020-09-16] MEDS ORDERED: DUONEB 0.5-3 MG/3 ml Neb IH ONE ×3 (15:36→22:07)
[2020-09-16] MEDS ORDERED: solu-MEDROL 125 MG IV ONE (15:37)
[2020-09-16 15:42] LABS: ALBUMIN 3.8 g/dL (3.5-5.0); ALKALINE PHOSPHATASE 80 U/L (38-126); BLOOD UREA NITROGEN 28 mg/dL (7-17); CHLORIDE 88 mmol/L (98-107); Calcium 9.6 mg/dL (8.4-10.2); Creatinine 1 0.88 mg/dL (0.52-1.04); EST GLOMERULAR FILTRATION RATE > 60.0 ML/MIN; Glucose 166 mg/dL (74-106); MAGNESIUM 2.4 mg/dL (1.6-2.3); SGOT/AST 24 U/L (14-36); SGPT/ALT 14 U/L (0-35); SODIUM 132 mmol/L (137-145)
[2020-09-16] MEDS ORDERED: solu-MEDROL 125 MG ONE (15:49)
[2020-09-16 15:51] LABS: Carbon Dioxide 39 mmol/L (22-30)
[2020-09-16 15:53] LABS: NT PRO BNP 2960 pg/mL (0-1800)
--- NOTE | 2020-09-16 15:59 | XRAY ---
Exam: AP portable chest film from 09/16/2020. Comparison: AP portable chest film from 08/02/2020. Indication: 75-year-old female with shortness of breath. Findings: The patient's chin partially obscures the suprasternal notch and upper medial edge of the left lung apex. The heart size remains mildly enlarged. Vascular calcification is seen within the aortic knob. New mild bibasilar vascular congestion or air space infiltrates are seen. The upper and midlung zones appear relatively clear. There appears to be a small pleural effusion blunting the left lateral costophrenic angle. A small calcified granuloma is again seen at the right lung base. There is no pneumothorax. Mild degenerative changes are seen within both shoulder girdles. Impression: 1. Interval development of mild bibasilar vascular congestion versus infiltrates. Pneumonia cannot be excluded. 2. In addition, there is a new small left lateral pleural effusion. 3. Mild cardiomegaly representing no change. 4. The upper lung liang appear free of active disease.
[2020-09-16] MEDS ORDERED: Lasix 40 MG/4 ML IV ONE (16:10)
[2020-09-16] MEDS ORDERED: NITRO-BID 2% UD PACKETS TOP ONE (16:11)
--- NOTE | 2020-09-16 16:16 | ERPHSYRPT ---
- History of Present Illness Time Seen by Provider: 09/16/20 14:50 Source: patient Exam Limitations: no limitations Patient Subjective Stated Complaint: SOB Triage Nursing Assessment: Patient brought back to ED and transferred self to bed. Patient A+O X3. Patient's skin pink, warm and dry. Patient complains of increased SOB since Tuesday. Patient currently wears home O2 at 3 liters per n/c. Patient's lung diminished throughout. Patient denies pain or discomfort. Physician History: Patient is a 75-year-old female presents to our ED with complaints of shortness of breath. Shortness of breath started Tuesday and progressed over the past few days. No associated chest pain. No nausea vomiting or diaphoresis. Patient has a history of a large pericardial effusion. Patient states she had a pericardial window. She currently has an IVC filter. Patient symptoms are mild to moderate in intensity. No specific worsening or improving factors. Patient denies fever. No trauma. Patient voices no other complaints or concerns at this time. Timing/Duration: day(s) (4 days ago) Activities at Onset: none Severity of Dyspnea-Max: moderate Severity of Dyspnea-Current: mild Possible Cause: occasional episodes Modifying Factors: Improves With: activity Associated Symptoms: constant, No fever, No ankle swelling, No calf pain, No leg swelling, No muscle spasms hands, No sweating Allergies/Adverse Reactions: metformin Allergy (Verified 09/16/20 21:26) Home Medications: Albuterol 2.5 mg/3 ml Neb [Proventil 2.5 mg/3 ml Neb] 2.5 mg IH QID 07/30/16 [History] Albuterol 8 gm Mdi Hfa [Ventolin Hfa MDI] 8 gm IH QIDPRN PRN 07/30/16 [History] Furosemide 40 mg [Lasix 40 MG] 40 mg PO DAILY 08/15/17 [History] Apixaban [Eliquis] 2.5 mg PO BID 08/02/20 [History] Docusate Sodium 100 mg [Colace 100 MG] 100 mg PO DAILY 09/16/20 [History] Ferrous Sulfate 325 mg PO QHS 09/16/20 [History] Furosemide 20 mg [Lasix 20 mg] 20 mg PO UD PRN 09/16/20 [History] Metoprolol Succinate 25 mg PO BID 09/16/20 [History] PANTOPRAZOLE 40 mg Tablet [Protonix 40MG Tablet] 40 mg PO QAM 09/16/20 [History] Potassium Chloride 10 Meq Tab* [Klor Con 10 MEQ] 10 meq PO DAILY 09/16/20 [History] Hx Tetanus, Diphtheria Vaccination/Date Given: No Hx Influenza Vaccination/Date Given: Yes Hx Pneumococcal Vaccination/Date Given: No Immunizations Up to Date: Yes Travel Risk - International Travel Have you traveled outside of the country in past 3 weeks: No - Coronavirus Screening Are you exhibiting any of the following symptoms?: No Close contact with a COVID-19 positive Pt in past 14-21 Days: No - Vaccine Status Have you recieved a Covid-19 vaccination: No - Review of Systems Constitutional: No Symptoms, No Fever, No Chills Eyes: No Symptoms Ears, Nose, & Throat: No Symptoms Respiratory: No Symptoms, No Cough, No Dyspnea Cardiac: No Symptoms, No Chest Pain, No Edema, No Syncope Abdominal/Gastrointestinal: No Symptoms, No Abdominal Pain, No Nausea, No Vomiting, No Diarrhea Genitourinary Symptoms: No Symptoms, No Dysuria Musculoskeletal: No Symptoms, No Back Pain, No Neck Pain Skin: No Rash Neurological: No Symptoms, No Dizziness, No Focal Weakness, No Sensory Changes Psychological: No Symptoms Endocrine: No Symptoms Hematologic/Lymphatic: No Symptoms Immunological/Allergic: No Symptoms All Other Systems: Reviewed and Negative - Past Medical History Pertinent Past Medical History: Yes Neurological History: No Pertinent History ENT History: No Pertinent History Cardiac History: Congestive Heart Failure, Deep Vein Thrombosis, Hypertension Respiratory History: Asthma, CHF, COPD Endocrine Medical History: Diabetes Type II Musculoskeletal History: No Pertinent History GI Medical History: No Pertinent History History: No Pertinent History Psycho-Social History: No Pertinent History Female Reproductive Disorders: No Pertinent History - Past Surgical History Past Surgical History: Yes Neuro Surgical History: No Pertinent History Cardiac: No Pertinent History Respiratory: No Pertinent History Gastrointestinal: Appendectomy Genitourinary: No Pertinent History Musculoskeletal: No Pertinent History Female Surgical History: Hysterectomy - Social History Smoking Status: Former smoker How long have you smoked: 25 years Exposure to second hand smoke: No Drug Use: none Patient Lives Alone: No - Female History Hx Now: No - Nursing Vital Signs Nursing Vital Signs: Initial Vital Signs Temperature 99.4 F 09/16/20 14:44 Pulse Rate 99 H 09/16/20 14:44 Respiratory Rate 23 09/16/20 14:44 Blood Pressure 144/68 09/16/20 14:44 O2 Sat by Pulse Oximetry 97 09/16/20 14:44 Pain Scale Pain Intensity 0 - Physical Exam General Appearance: no apparent distress, alert Eye Exam: PERRL/EOMI Ears, Nose, Throat Exam: hearing grossly normal, normal ENT inspection, normal pharynx Neck Exam: normal inspection, supple, No non-tender Respiratory Exam: diminished breath sounds, No respiratory distress Cardiovascular/Chest Exam: normal heart sounds, regular rate/rhythm Abdominal/Gastrointestinal Exam: soft, No tenderness, No distention, No mass Extremity Exam: non-tender, normal range of motion, normal inspection, no calf tenderness, no pedal edema Neurologic Exam: alert, oriented x 3, cooperative, 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 Pleural effusion seen.) Ordered Tests: Medication Summary Generic Name Dose Route Start Last Admin Trade Name Freq PRN Reason Stop Dose Admin Albuterol Sulfate 2 puff 09/16/20 21:36 Ventolin Common Canister IH 10/16/20 21:35 Q4H PRN PRN SHORTNESS OF BREATH/WHEEZING Albuterol/Ipratropium 3 ml 09/16/20 23:00 09/19/20 02:36 Duoneb 0.5-3 Mg/3 Ml Neb IH 10/16/20 22:59 3 ml Q4HRT TONI Administration Apixaban 2.5 mg 09/17/20 10:00 09/18/20 21:36 Eliquis 2.5 Mg Tablet PO 10/17/20 09:59 2.5 mg BID TONI Administration Docusate Sodium 100 mg 09/17/20 10:00 09/18/20 09:42 Colace 100 Mg PO 10/17/20 09:59 100 mg DAILY TONI Administration Ferrous Sulfate 325 mg 09/17/20 22:00 09/18/20 21:35 Feosol 325 Mg PO 10/17/20 21:59 325 mg QHS TONI Administration Furosemide 60 mg 09/19/20 10:00 Lasix 20 Mg PO 10/19/20 09:59 QAM TONI Metoprolol Succinate 25 mg 09/17/20 10:00 09/18/20 21:35 Toprol-Xl 25mg Tablets PO 10/17/20 09:59 25 mg BID TONI Administration Pantoprazole Sodium 40 mg 09/17/20 10:00 09/18/20 07:29 Protonix 40mg Tablet PO 10/17/20 09:59 40 mg QAM TONI Administration Potassium Chloride 10 meq 09/17/20 10:00 09/18/20 09:42 Klor Con 10 Meq PO 10/17/20 09:59 10 meq DAILY TONI Administration Discontinued Medications Generic Name Dose Route Start Last Admin Trade Name Freq PRN Reason Stop Dose Admin Albuterol/Ipratropium 3 ml 09/16/20 15:36 09/16/20 15:58 Duoneb 0.5-3 Mg/3 Ml Neb IH 09/16/20 15:37 3 ml STAT ONE Administration Albuterol/Ipratropium Confirm 09/16/20 15:47 Duoneb 0.5-3 Mg/3 Ml Neb Administered 09/16/20 15:48 Dose 3 ml IH .STK-MED ONE Albuterol/Ipratropium Confirm 09/16/20 22:07 Duoneb 0.5-3 Mg/3 Ml Neb Administered 09/16/20 22:08 Dose 3 ml IH .STK-MED ONE Apixaban 2.5 mg 09/16/20 23:40 09/16/20 23:48 Eliquis 2.5 Mg Tablet PO 09/16/20 23:41 2.5 mg ONCE ONE Administration Ferrous Sulfate 325 mg 09/16/20 23:41 09/16/20 23:48 Feosol 325 Mg PO 09/16/20 23:42 325 mg ONCE ONE Administration Furosemide 40 mg 09/16/20 16:10 09/16/20 16:26 Lasix 40 Mg/4 Ml IV 09/16/20 16:11 40 mg STAT ONE Administration Furosemide Confirm 09/16/20 16:24 Lasix 40 Mg/4 Ml Administered 09/16/20 16:25 Dose 40 mg .ROUTE .STK-MED ONE Furosemide 40 mg 09/17/20 10:00 09/17/20 10:35 Lasix 40 Mg/4 Ml IV 09/17/20 10:01 40 mg NOW ONE Administration Furosemide 20 mg 09/17/20 09:47 Lasix 20 Mg PO 10/17/20 09:46 MoWeFr PRN edema Furosemide 40 mg 09/18/20 10:00 Lasix 40 Mg PO 10/18/20 09:59 DAILY TONI Furosemide 40 mg 09/18/20 10:00 09/18/20 09:42 Lasix 40 Mg/4 Ml IV 09/18/20 10:01 40 mg 1000 TONI Administration Methylprednisolone Sodium Succinate 125 mg 09/16/20 15:37 09/16/20 16:02 Solu-Medrol 125 Mg IV 09/16/20 15:38 125 mg STAT ONE Administration Methylprednisolone Sodium Succinate Confirm 09/16/20 15:49 Solu-Medrol 125 Mg Administered 09/16/20 15:50 Dose 125 mg .ROUTE .STK-MED ONE Metoprolol Succinate 25 mg 09/16/20 23:42 09/16/20 23:48 Toprol-Xl 25mg Tablets PO 09/16/20 23:43 25 mg ONCE ONE Administration Nitroglycerin 1 gm 09/16/20 16:11 09/16/20 16:26 Nitro-Bid 2% Ud Packets TOP 09/16/20 16:12 1 gm STAT ONE Administration Nitroglycerin Confirm 09/16/20 16:24 Nitro-Bid 2% Ud Packets Administered 09/16/20 16:25 Dose 1 gm .ROUTE .STK-MED ONE Ondansetron HCl 4 mg 09/17/20 15:10 09/17/20 15:17 Zofran 4 Mg/2 Ml Vial IV 09/17/20 15:11 4 mg ONCE ONE Administration Ondansetron HCl Confirm 09/17/20 15:15 Zofran 4 Mg/2 Ml Vial Administered 09/17/20 15:16 Dose 4 mg .ROUTE .STK-MED ONE Pantoprazole Sodium 40 mg 09/17/20 06:00 09/17/20 05:50 Protonix 40mg Tablet PO 09/17/20 06:01 40 mg ONCE ONE Administration Lab/Rad Data: Laboratory Result Diagrams 09/16/20 15:34 09/16/20 15:34 Laboratory Results 09/16/20 09/16/20 09/16/20 Range/Units 18:30 17:39 16:42 WBC (4.0-10.5) K/mm3 RBC (4.1-5.4) M/mm3 Hgb (12.0-16.0) gm/dl Hct (35-47) % MCV (78-100) fl MCH (26-32) pg MCHC (32-36) g/dl RDW (11.5-14.0) % Plt Count (150-450) K/mm3 MPV (7.5-11.0) fl Gran % (36.0-66.0) % Eos # (Auto) (0-0.5) Absolute Lymphs (auto) (1.0-4.6) Absolute Monos (auto) (0.0-1.3) Lymphocytes % (24.0-44.0) % Monocytes % (0.0-12.0) % Eosinophils % (0.00-5.0) % Basophils % (0.0-0.4) % Absolute Granulocytes (1.4-6.9) Basophils # (0-0.4) Sodium (137-145) mmol/L Potassium (3.5-5.1) mmol/L Chloride (98-107) mmol/L Carbon Dioxide (22-30) mmol/L Anion Gap (5-15) MEQ/L BUN (7-17) mg/dL Creatinine (0.52-1.04) mg/dL Estimated GFR ML/MIN Glucose (74-106) mg/dL Calcium (8.4-10.2) mg/dL Magnesium (1.6-2.3) mg/dL Total Bilirubin (0.2-1.3) mg/dL AST (14-36) U/L ALT (0-35) U/L Alkaline Phosphatase (38-126) U/L Troponin I 0.040 H* (0.000-0.034) ng/mL NT-Pro-B Natriuret Pep (0-1800) pg/mL Serum Total Protein (6.3-8.2) g/dL Albumin (3.5-5.0) g/dL Urine Color YELLOW (YELLOW) Urine Appearance SLIGHTLY CLOUDY (CLEAR) Urine pH 6.0 (5-6) Ur Specific [place] 1.011 (1.005-1.025) Urine Protein NEGATIVE (Negative) Urine Ketones NEGATIVE (NEGATIVE) Urine Blood NEGATIVE (0-5) [place] Urine Nitrite NEGATIVE (NEGATIVE) Urine Bilirubin NEGATIVE (NEGATIVE) Urine Urobilinogen NEGATIVE (0-1) mg/dL Ur Leukocyte Esterase NEGATIVE (NEGATIVE) Urine WBC (Auto) 0-2 (0-5) /HPF Urine RBC (Auto) NONE (0-2) /HPF U Epithel Cells (Auto) RARE (FEW) /HPF Urine Bacteria (Auto) NONE (NEGATIVE) /HPF Urine Mucus (Auto) SLIGHT (NEGATIVE) /HPF Urine Culture Reflexed NO (NO) Urine Glucose NEGATIVE (NEGATIVE) mg/dL Influenza Type A Ag NEGATIVE (NEGATIVE) Influenza Type B Ag NEGATIVE (NEGATIVE) RSV (PCR) NEGATIVE (Negative) SARS-CoV-2 (PCR) NEGATIVE (NEGATIVE) Slides for Path Review 09/16/20 09/16/20 09/16/20 Range/Units 15:34 15:34 15:34 WBC 13.8 H (4.0-10.5) K/mm3 RBC 3.25 L (4.1-5.4) M/mm3 Hgb 8.8 L (12.0-16.0) gm/dl Hct 30.3 L (35-47) % MCV 93.2 (78-100) fl MCH 27.1 (26-32) pg MCHC 29.0 L (32-36) g/dl RDW 15.9 H (11.5-14.0) % Plt Count 258 (150-450) K/mm3 MPV 12.6 H (7.5-11.0) fl Gran % 92.4 H (36.0-66.0) % Eos # (Auto) 0.01 (0-0.5) Absolute Lymphs (auto) 0.44 L (1.0-4.6) Absolute Monos (auto) 0.58 (0.0-1.3) Lymphocytes % 3.2 L (24.0-44.0) % Monocytes % 4.2 (0.0-12.0) % Eosinophils % 0.1 (0.00-5.0) % Basophils % 0.1 (0.0-0.4) % Absolute Granulocytes 12.76 H (1.4-6.9) Basophils # 0.02 (0-0.4) Sodium 132 L (137-145) mmol/L Potassium 4.0 (3.5-5.1) mmol/L Chloride 88 L (98-107) mmol/L Carbon Dioxide 39 H (22-30) mmol/L Anion Gap 9.0 (5-15) MEQ/L BUN 28 H (7-17) mg/dL Creatinine 0.88 (0.52-1.04) mg/dL Estimated GFR > 60.0 ML/MIN Glucose 166 H (74-106) mg/dL Calcium 9.6 (8.4-10.2) mg/dL Magnesium 2.4 H (1.6-2.3) mg/dL Total Bilirubin 0.30 (0.2-1.3) mg/dL AST 24 (14-36) U/L ALT 14 (0-35) U/L Alkaline Phosphatase 80 (38-126) U/L Troponin I 0.040 H* (0.000-0.034) ng/mL NT-Pro-B Natriuret Pep 2960 H (0-1800) pg/mL Serum Total Protein 7.0 (6.3-8.2) g/dL Albumin 3.8 (3.5-5.0) g/dL Urine Color (YELLOW) Urine Appearance (CLEAR) Urine pH (5-6) Ur Specific [place] (1.005-1.025) Urine Protein (Negative) Urine Ketones (NEGATIVE) Urine Blood (0-5) [place] Urine Nitrite (NEGATIVE) Urine Bilirubin (NEGATIVE) Urine Urobilinogen (0-1) mg/dL Ur Leukocyte Esterase (NEGATIVE) Urine WBC (Auto) (0-5) /HPF Urine RBC (Auto) (0-2) /HPF U Epithel Cells (Auto) (FEW) /HPF Urine Bacteria (Auto) (NEGATIVE) /HPF Urine Mucus (Auto) (NEGATIVE) /HPF Urine Culture Reflexed (NO) Urine Glucose (NEGATIVE) mg/dL Influenza Type A Ag (NEGATIVE) Influenza Type B Ag (NEGATIVE) RSV (PCR) (Negative) SARS-CoV-2 (PCR) (NEGATIVE) Slides for Path Review YES - Progress Progress: improved Air Movement: good Progress Note: Patient is 75-year-old female presents to our ED with complaints of shortness of breath. Work-up suggestive of congestive heart failure. Mild pulmonary con gestion observed on chest x-ray. Heart mildly enlarged. Elevated BNP. Elevated troponin. Case discussed with Dr. Gupta who accepts admission to observation. Plan of care discussed with patient. She agrees to admission to [facility] for the evaluation and treatment. Blood cultures obtained. Lasix provided. Nitroglycerin administered as well. Patient voices no other complaints or concerns at this time. 09/19/20 04:53 Blood Culture(s) Obtained: Yes Antibiotics given: No Discussed with Dr.: Cespedes Counseled pt/family regarding: lab results, diagnosis, rad results - Departure Departure Disposition: Observation Clinical Impression: Cardiomegaly, Pleural effusion, CHF (congestive heart failure), Anemia, Shortness of breath, Elevated brain natriuretic peptide (BNP) level, Right bundle branch block Condition: Stable Critical Care Time: No
[2020-09-16] MEDS ORDERED: NITRO-BID 2% UD PACKETS ONE (16:24)
[2020-09-16] MEDS ORDERED: Lasix 40 MG/4 ML ONE (16:24)
[2020-09-16 17:41] LABS: INFLUENZA A NEGATIVE (NEGATIVE); INFLUENZA B NEGATIVE (NEGATIVE); RESPIRATORY SYNCTIAL VIRUS NEGATIVE (Negative)
[2020-09-16 17:49] LABS: Appearance SLIGHTLY CLOUDY (CLEAR); Bilirubin NEGATIVE (NEGATIVE); Blood NEGATIVE Ery/ul (0-5); Epithelial Cells RARE /HPF (FEW); Glucose NEGATIVE (NEGATIVE); Ketones NEGATIVE (NEGATIVE); Leukocyte Esterase NEGATIVE (NEGATIVE); Mucus SLIGHT /HPF (NEGATIVE); Nitrite NEGATIVE (NEGATIVE); Protein,Urine Dip NEGATIVE (Negative); Specific Gravity 1.011 (1.005-1.025); Urobilinogen NEGATIVE mg/dL (0-1); WBC 0-2 /HPF (0-5)
[2020-09-16 18:37] LABS: Slide Review 1 YES
[2020-09-16] MEDS ORDERED: VENTOLIN COMMON CANISTER IH PRN (21:36)
[2020-09-16] MEDS: DUONEB 0.5-3 MG/3 ml Neb IH SCH (22:09)
[2020-09-16] MEDS ORDERED: ELIQUIS 2.5 MG TABLET PO ONE (23:40)
[2020-09-16] MEDS ORDERED: FEOSOL 325 MG PO ONE (23:41)
[2020-09-16] MEDS ORDERED: Toprol-Xl 25MG Tablets PO ONE (23:42)
[2020-09-17] MEDS: DUONEB 0.5-3 MG/3 ml Neb IH SCH ×6 (02:47→22:38)
[2020-09-17 04:14] LABS: Hemoglobin 8.6 gm/dl (12.0-16.0); Mean Cell Volume 93.2 fl (78-100); Mean Corpuscular Hemoglobin 26.7 pg (26-32); Mean Corpuscular Hgb Concent. 28.7 g/dl (32-36); Mean Platelet Volume 12.3 fl (7.5-11.0); Platelet Count 268 K/mm3 (150-450); Red Blood Count 3.22 M/mm3 (4.1-5.4); Red Cell Distribution Width 15.8 % (11.5-14.0); White Blood Count 8.3 K/mm3 (4.0-10.5)
[2020-09-17 04:32] LABS: Calcium 9.7 mg/dL (8.4-10.2); Creatinine 1 1.13 mg/dL (0.52-1.04); EST GLOMERULAR FILTRATION RATE 49.9 ML/MIN; Potassium 4.6 mmol/L (3.5-5.1)
[2020-09-17 04:38] LABS: ANION GAP 12.6 MEQ/L (5-15)
[2020-09-17 05:08] LABS: Slide Review YES
[2020-09-17] MEDS ORDERED: Protonix 40MG Tablet PO ONE (06:00)
[2020-09-17] MEDS ORDERED: LASIX 20 MG PO PRN (09:47)
[2020-09-17] MEDS ORDERED: Lasix 40 MG/4 ML IV ONE (10:00)
[2020-09-17] MEDS ORDERED: NON-FORMULARY ITEM (Metoprolol Succinate 25 MG) PO SCH (10:00)
[2020-09-17] MEDS: Colace 100 MG PO SCH (10:29)
[2020-09-17] MEDS: ELIQUIS 2.5 MG TABLET PO SCH ×2 (10:30→21:27)
[2020-09-17] MEDS: Klor Con 10 MEQ PO SCH (10:31)
[2020-09-17] MEDS: Protonix 40MG Tablet PO SCH (10:32)
[2020-09-17] MEDS: Toprol-Xl 25MG Tablets PO SCH ×2 (10:33→21:27)
--- NOTE | 2020-09-17 13:51 | CONS ---
CONSULT DATE: 09/17/2020 HISTORY: Miss Dg Copeland is a 75 year-old pleasant woman, well known to me, who had been admitted through the emergency room at [facility] yesterday. The patient called the office reporting she was getting progressively more shortness of breath and was advised to go to the emergency room. Her lab work through the emergency room has shown an elevated BNP and a weakly positive troponin. She was scheduled to have a calcium score and cardiac scan done tomorrow which may still be done while she is in the hospital. She was started on diuretic therapy and currently admitted to the medical floor. She appears comfortable. She is currently sitting in chair and is able to talk in full sentences. She does report improvement in shortness of breath. Her chest x-ray was also revealed pleural effusion with congestive changes. PAST MEDICAL HISTORY: Positive for chronic obstructive pulmonary disease, coronary artery disease, congestive heart failure. The patient had a pericardial effusion that was also drained recently at [facility]. PAST SURGICAL HISTORY: As above. PERSONAL AND SOCIAL HISTORY: She is a former smoker, lives with family. MEDICATIONS: Home and current medications are reviewed. ALLERGIES: METFORMIN. PHYSICAL EXAMINATION: An elderly woman who appears comfortable, able to speak who denies shortness of breath or chest pain at rest. Vital signs noted. HEENT: Normocephalic. Oral exam is unremarkable. NECK: Supple. CVS: First and second heart sounds are mildly irregular. RESPIRATORY: Shows diminished breath sounds, basilar crackles are heard. ABDOMEN: Soft. EXTREMITIES: Trace pedal edema is noted. LABORATORY DATA AND TESTS: Troponin I 0.047. Sodium 132, potassium 4.6, chloride 88, bicarb 39, BUN 30, creatinine 1.13 and glucose 248. White count 8.3, hemoglobin 8.6, hematocrit 30, PLT 268,000. Chest x-ray noted. ASSESSMENT: This is a 75 year old female admitted with: 1) Progressive shortness of breath. Again, it appears to be primarily cardiac in etiology. 2) Underlying chronic obstructive pulmonary disease, stable. 3) Congestive heart failure with decompensation. 4) Non-ST myocardial infarction. 5) Pleural effusion secondary to congestive heart failure. 6) Comorbidities listed above. RECOMMENDATIONS: 1) Continue current treatment. 2) Cautious diuresis. 3) Cardiac work up per Dr. Ren. 4) Continue bronchodilators. 5) Clinically do not suspect pneumonia. I will be available if needed. Thank you for allowing me to participate in the care of Miss Copeland.
[2020-09-17] MEDS ORDERED: Zofran 4 MG/2 ML VIAL IV ONE (15:10)
[2020-09-17] MEDS ORDERED: Zofran 4 MG/2 ML VIAL ONE (15:15)
[2020-09-17 15:32] LABS: AMYLASE 60 U/L (30-110); LIPASE 46 U/L (23-300)
[2020-09-17] MEDS: FEOSOL 325 MG PO SCH (21:27)
[2020-09-18] MEDS: DUONEB 0.5-3 MG/3 ml Neb IH SCH ×6 (02:37→23:00)
[2020-09-18 05:23] LABS: Hematocrit 27.7 % (35-47); Hemoglobin 7.7 gm/dl (12.0-16.0); Mean Cell Volume 95.5 fl (78-100); Mean Corpuscular Hemoglobin 26.6 pg (26-32); Mean Corpuscular Hgb Concent. 27.8 g/dl (32-36); Mean Platelet Volume 11.7 fl (7.5-11.0); Platelet Count 279 K/mm3 (150-450); Red Cell Distribution Width 16.1 % (11.5-14.0); White Blood Count 9.8 K/mm3 (4.0-10.5)
[2020-09-18 05:42] LABS: Calcium 9.4 mg/dL (8.4-10.2); Creatinine 1 1.16 mg/dL (0.52-1.04); EST GLOMERULAR FILTRATION RATE 48.4 ML/MIN; Potassium 4.9 mmol/L (3.5-5.1)
[2020-09-18 06:36] LABS: ANION GAP 10.9 MEQ/L (5-15)
[2020-09-18] MEDS: Protonix 40MG Tablet PO SCH (07:29)
--- NOTE | 2020-09-18 07:57 | CONS ---
CONSULT DATE: 09/17/2020 BRIEF HISTORY: This is a 75 year-old female who was seen because of shortness of breath. The patient has a history of a large pericardial effusion sometime in July which was drained. She also has a history of deep vein thrombosis that required an inferior vena cava filter. She had an episode of GI bleeding. She has been recovering well until Tuesday when she started to become short of breath even at rest. She denies any chest pains. She is not orthopneic. No paroxysmal or nocturnal dyspnea. The patient has a long standing history of chronic obstructive pulmonary disease and is oxygen dependent. She has never had myocardial infarction. The last echocardiogram showed a normal left ventricular systolic function. CARDIAC RISK FACTORS: Negative for diabetes. History of hypertension. SOCIAL HISTORY: She is a reformed smoker. PAST MEDICAL HISTORY: Her significant medical history included chronic obstructive lung disease oxygen dependent, chronic hypoxia and respiratory failure. PAST SURGICAL HISTORY: Includes hysterectomy. FAMILY HISTORY: Negative for premature coronary artery disease. CURRENT MEDICATIONS: Albuterol inhaler, apixaban 2.5 mg twice a day, furosemide 40 mg a day, metoprolol 25 mg twice a day, Protonix 40 mg a day, ferrous sulfate 325 mg daily. PHYSICAL EXAMINATION: Blood pressure 141/71 with a heart rate of 84, respirations about 20. GENERAL: The patient is an elderly female who is alert, conversant, who does not appear to be in any acute distress. HEENT: Unremarkable. NECK: No obvious JVD. No carotid bruit. CHEST: There is decrease in respiratory excursion. The breath sounds are generally diminished. There is some expiratory wheezing. CARDIAC: The heart tones are somewhat diminished. The rhythm is regular. There is no audible gallop. There is a soft apical systolic murmur. ABDOMEN: Soft with normal bowel sounds. EXTREMITIES: There is trace edema. Decreased distal pulses. LAB DATA AND DIAGNOSTIC TESTS: The EKG showed sinus rhythm with a right bundle branch block. Laboratory data: Troponin I 0.047. Creatinine is 1.3 with GFR of 50. BNP 3450. Potassium 4.6. CBC showed hemoglobin 8.6 with PLT 268,000. ASSESSMENT AND PLAN: Shortness of breath is probably multifactorial but I suspect this is more exacerbation of chronic obstructive pulmonary disease. Will repeat her echocardiogram to reassess left ventricular systolic function and also right ventricular systolic pressure. Meanwhile continue with current medical regimen. She is due to have a cardiac calcium score to screen her for coronary artery disease. Further recommendations will be made after the tests have been completed.
[2020-09-18] MEDS: Klor Con 10 MEQ PO SCH (09:42)
[2020-09-18] MEDS: ELIQUIS 2.5 MG TABLET PO SCH ×2 (09:42→21:36)
[2020-09-18] MEDS: Toprol-Xl 25MG Tablets PO SCH ×2 (09:42→21:35)
[2020-09-18] MEDS: Colace 100 MG PO SCH (09:42)
[2020-09-18 09:54] LABS: Slide Review YES
[2020-09-18] MEDS ORDERED: Lasix 40 MG PO SCH (10:00)
[2020-09-18] MEDS ORDERED: Lasix 40 MG/4 ML IV SCH (10:00)
[2020-09-18] MEDS: FEOSOL 325 MG PO SCH (21:35)
[2020-09-19] MEDS: DUONEB 0.5-3 MG/3 ml Neb IH SCH ×6 (02:36→22:45)
[2020-09-19 06:28] LABS: Calcium 9.8 mg/dL (8.4-10.2); Creatinine 1 1.13 mg/dL (0.52-1.04); EST GLOMERULAR FILTRATION RATE 49.9 ML/MIN; Potassium 5.1 mmol/L (3.5-5.1)
[2020-09-19 06:42] LABS: ANION GAP 11.1 MEQ/L (5-15)
[2020-09-19 06:49] LABS: Hemoglobin 7.9 gm/dl (12.0-16.0); Mean Cell Volume 97.3 fl (78-100); Mean Corpuscular Hemoglobin 26.5 pg (26-32); Mean Corpuscular Hgb Concent. 27.2 g/dl (32-36); Mean Platelet Volume 11.8 fl (7.5-11.0); Platelet Count 302 K/mm3 (150-450); Red Blood Count 2.98 M/mm3 (4.1-5.4); White Blood Count 7.6 K/mm3 (4.0-10.5)
--- NOTE | 2020-09-19 09:08 | XRAY ---
Indication: Short of breath. Comparison: September 16, 2020. PA/lateral chest again hyperinflated with interval resolved cardiomegaly, diminished central vascular congestion, and diminished bibasilar infiltrates/atelectasis/effusions again left greater than right. No new cardiopulmonary abnormalities.
[2020-09-19] MEDS: LASIX 20 MG PO SCH (09:18)
[2020-09-19] MEDS: Protonix 40MG Tablet PO SCH (09:18)
[2020-09-19] MEDS: Klor Con 10 MEQ PO SCH (09:18)
[2020-09-19] MEDS: Toprol-Xl 25MG Tablets PO SCH ×2 (09:19→22:36)
[2020-09-19] MEDS: Colace 100 MG PO SCH (09:19)
[2020-09-19] MEDS: ELIQUIS 2.5 MG TABLET PO SCH ×2 (09:19→22:36)
[2020-09-19] MEDS ORDERED: Sodium Chloride 0.9% 500 ML 500 ML IV SCH (10:00)
[2020-09-19 11:34] LABS: Iron 27 ug/dL (37-170); Iron Saturation 12 % (20-39); TIBC 221 ug/dL (265-462)
[2020-09-19 12:15] LABS: ABO TYPING A; Antibody Screen NEGATIVE (NEGATIVE); RH TYPING POSITIVE
[2020-09-19 12:21] LABS: CROSS MATCH (PRBC) COMPATIBLE (COMPATIBLE)
[2020-09-19 12:33] LABS: Folate (Folic Acid) 11.6 ng/mL (2.76 - >20)
[2020-09-19] MEDS: Lasix 20 MG/2 ML IV PRN (19:00)
[2020-09-19] MEDS: FEOSOL 325 MG PO SCH (22:36)
[2020-09-20] MEDS: Lasix 20 MG/2 ML IV PRN (00:27)
[2020-09-20 02:09] LABS: Hematocrit 33.2 % (35-47); Hemoglobin 9.8 gm/dl (12.0-16.0); Mean Cell Volume 93.8 fl (78-100); Mean Corpuscular Hemoglobin 27.7 pg (26-32); Mean Corpuscular Hgb Concent. 29.5 g/dl (32-36); Platelet Count 291 K/mm3 (150-450); Red Blood Count 3.54 M/mm3 (4.1-5.4); Red Cell Distribution Width 15.8 % (11.5-14.0)
[2020-09-20 02:18] LABS: BLOOD UREA NITROGEN 23 mg/dL (7-17); CHLORIDE 84 mmol/L (98-107); Calcium 9.5 mg/dL (8.4-10.2); Creatinine 1 0.91 mg/dL (0.52-1.04); EST GLOMERULAR FILTRATION RATE > 60.0 ML/MIN; Glucose 109 mg/dL (74-106); Potassium 3.7 mmol/L (3.5-5.1); SODIUM 137 mmol/L (137-145)
[2020-09-20 02:38] LABS: Carbon Dioxide 49 mmol/L (22-30)
[2020-09-20 02:39] LABS: ANION GAP 7.7 MEQ/L (5-15)
[2020-09-20] MEDS: DUONEB 0.5-3 MG/3 ml Neb IH SCH ×6 (03:15→22:58)
[2020-09-20] MEDS: Protonix 40MG Tablet PO SCH (09:35)
[2020-09-20] MEDS: Klor Con 10 MEQ PO SCH (09:35)
[2020-09-20] MEDS: ELIQUIS 2.5 MG TABLET PO SCH ×2 (09:35→21:33)
[2020-09-20] MEDS: LASIX 20 MG PO SCH (09:35)
[2020-09-20] MEDS: Colace 100 MG PO SCH (09:35)
[2020-09-20] MEDS: Toprol-Xl 25MG Tablets PO SCH ×2 (09:35→21:33)
--- NOTE | 2020-09-20 16:45 | PCM.NOTE ---
Date and Time: 09/20/20 [facility] Subjective Assessment: Pt was up last night with blood transfusion. Her breathing is a little better. She is tolerating po but has decreased appetite. Would be interested in PT in the home upon discharge. - Review of Systems Constitutional: No Fever Respiratory: Short Of Breath Objective Exam General Appearance: no apparent distress, alert Neurologic Exam: oriented x 3, cooperative, other (sitting in chair) Skin Exam: normal color, warm, dry, No rash Eye Exam: eyes nml inspection Ears, Nose, Throat Exam: moist mucous membranes Respiratory Exam: lungs clear, diminished breath sounds (good air exchange), wheezing (faint, RLL), No crackles/rales, No rhonchi Cardiovascular Exam: regular rate/rhythm, normal heart sounds, No murmur Gastrointestinal/Abdomen Exam: soft, normal bowel sounds, No tenderness, No distention, No mass, No guarding, No rebound Extremity Exam: swelling (trace pretibial edema on L, none on R) OBJECTIVE DATA Vital Signs: Vital Signs - 24 hr Temp Pulse Resp BP Pulse Ox 09/20/20 15:59 98.0 F 81 22 116/62 98 09/20/20 15:36 82 16 98 09/20/20 11:43 98.1 F 87 16 135/65 97 09/20/20 11:35 90 20 96 09/20/20 08:00 97.9 F 86 20 137/82 97 09/20/20 07:44 83 18 97 09/20/20 04:00 97.9 F 89 21 125/60 93 L 09/20/20 03:17 91 H 18 95 09/20/20 00:00 98.2 F 94 H 19 144/63 93 L 09/19/20 22:45 91 H 19 93 L 09/19/20 19:59 88 21 99 09/19/20 19:49 98.3 F 85 19 111/61 97 Oxygen-Last 24 hours Oxygen Flowrate (L/min)-RT 3 Pain Assessment - Last Documented Pain Intensity 0 Intake and Output: Intake & Output 09/18/20 09/19/20 09/20/20 09/21/20 11:59 11:59 11:59 11:59 Intake Total 1140 1120 1573 Output Total 900 2905 2400 150 Balance 444 -3595 -067 -150 Weight 94.4 kg 93.1 kg Lab Results: Lab Results-Last 24 Hours 09/20/20 09/20/20 Range/Units 02:00 02:00 WBC 8.0 (4.0-10.5) K/mm3 RBC 3.54 L (4.1-5.4) M/mm3 Hgb 9.8 L D (12.0-16.0) gm/dl Hct 33.2 L (35-47) % MCV 93.8 (78-100) fl MCH 27.7 (26-32) pg MCHC 29.5 L (32-36) g/dl RDW 15.8 H (11.5-14.0) % Plt Count 291 (150-450) K/mm3 MPV 11.0 (7.5-11.0) fl Sodium 137 (137-145) mmol/L Potassium 3.7 D (3.5-5.1) mmol/L Chloride 84 L (98-107) mmol/L Carbon Dioxide 49 H (22-30) mmol/L Anion Gap 7.7 (5-15) MEQ/L BUN 23 H (7-17) mg/dL Creatinine 0.91 (0.52-1.04) mg/dL Estimated GFR > 60.0 ML/MIN Glucose 109 H (74-106) mg/dL Calcium 9.5 (8.4-10.2) mg/dL Radiology Exams: Radiology Procedures Category Date Time Status CHEST 2 VIEWS (PA AND LAT) Routine Exams 09/19/20 08:00 Completed Assessment/Plan (1) Anemia Current Visit: Yes Status: Acute Qualifiers: Anemia type: iron deficiency Iron deficiency anemia type: chronic blood loss Qualified Code(s): D50.0 - Iron deficiency anemia secondary to blood loss (chronic) Assessment & Plan: Received blood. Hgb 9.8 today (7.9 yesterday) Code(s): D64.9 - ANEMIA, UNSPECIFIED (2) CHF (congestive heart failure) Current Visit: Yes Status: Chronic Code(s): I50.9 - HEART FAILURE, UNSPECIFIED (3) Right bundle branch block Current Visit: Yes Status: Chronic Code(s): I45.10 - UNSPECIFIED RIGHT BUNDLE-BRANCH BLOCK (4) COPD exacerbation Current Visit: No Status: Suspected Code(s): J44.1 - CHRONIC OBSTRUCTIVE PULMONARY DISEASE W (ACUTE) EXACERBATION (5) Leg swelling Current Visit: No Status: Chronic Code(s): M79.89 - OTHER SPECIFIED SOFT TISSUE DISORDERS (6) Chronic respiratory failure with hypoxia and hypercapnia Current Visit: No Status: Chronic Code(s): J96.11 - CHRONIC RESPIRATORY FAILURE WITH HYPOXIA; J96.12 - CHRONIC RESPIRATORY FAILURE WITH HYPERCAPNIA (7) Hypertension Current Visit: No Status: Chronic Qualifiers: Hypertension type: essential hypertension Code(s): I10 - ESSENTIAL (PRIMARY) HYPERTENSION
[2020-09-20] MEDS: FEOSOL 325 MG PO SCH (21:33)
[2020-09-21] MEDS: DUONEB 0.5-3 MG/3 ml Neb IH SCH ×5 (03:20→20:34)
[2020-09-21] MEDS: Protonix 40MG Tablet PO SCH (06:38)
[2020-09-21 08:33] LABS: Hematocrit 35.2 % (35-47); Hemoglobin 10.1 gm/dl (12.0-16.0); Mean Cell Volume 95.7 fl (78-100); Mean Corpuscular Hemoglobin 27.4 pg (26-32); Mean Corpuscular Hgb Concent. 28.7 g/dl (32-36); Mean Platelet Volume 10.6 fl (7.5-11.0); Platelet Count 278 K/mm3 (150-450); Red Blood Count 3.68 M/mm3 (4.1-5.4); White Blood Count 7.2 K/mm3 (4.0-10.5)
[2020-09-21 08:52] LABS: BLOOD UREA NITROGEN 20 mg/dL (7-17); CHLORIDE 83 mmol/L (98-107); Calcium 9.7 mg/dL (8.4-10.2); Creatinine 1 0.92 mg/dL (0.52-1.04); EST GLOMERULAR FILTRATION RATE > 60.0 ML/MIN; Glucose 113 mg/dL (74-106); Potassium 4.1 mmol/L (3.5-5.1); SODIUM 137 mmol/L (137-145)
[2020-09-21] MEDS: Colace 100 MG PO SCH (09:19)
[2020-09-21] MEDS: Toprol-Xl 25MG Tablets PO SCH ×2 (09:19→21:12)
[2020-09-21] MEDS: ELIQUIS 2.5 MG TABLET PO SCH ×2 (09:19→21:11)
[2020-09-21] MEDS: Klor Con 10 MEQ PO SCH (09:19)
[2020-09-21] MEDS: LASIX 20 MG PO SCH (09:20)
[2020-09-21 09:24] LABS: Carbon Dioxide 50 mmol/L (22-30)
[2020-09-21 09:25] LABS: ANION GAP 8.1 MEQ/L (5-15)
--- NOTE | 2020-09-21 12:09 | PCM.NOTE ---
Date and Time: 09/21/20 1205 Subjective Assessment: RN heard some crackles in lungs last night so her IV has been locked today. She is stand by assist when she is up. Rboerta po but decreased appetite. She is still SOB with any exertion but her breathing is now normal at rest. She got a shower this morning! - Review of Systems Constitutional: No Fever Respiratory: Short Of Breath Objective Exam General Appearance: no apparent distress, alert Neurologic Exam: oriented x 3, cooperative Skin Exam: normal color, warm, dry, No rash Eye Exam: eyes nml inspection Ears, Nose, Throat Exam: moist mucous membranes Neck Exam: normal inspection Respiratory Exam: diminished breath sounds (good air exchange), No crackles/rales, No rhonchi, No wheezing Cardiovascular Exam: regular rate/rhythm, normal heart sounds, No murmur Gastrointestinal/Abdomen Exam: soft, normal bowel sounds, No tenderness, No distention, No mass, No guarding, No rebound Extremity Exam: normal inspection, No pedal edema, No swelling OBJECTIVE DATA Vital Signs: Vital Signs - 24 hr Temp Pulse Resp BP Pulse Ox 09/21/20 10:52 81 20 95 09/21/20 08:00 98.1 F 83 16 121/59 95 09/21/20 07:06 83 20 98 09/21/20 03:46 98.2 F 81 20 126/60 98 09/21/20 03:22 84 25 H 97 09/21/20 00:00 98.2 F 80 20 127/60 97 09/20/20 20:00 98.6 F 84 22 134/64 96 09/20/20 19:38 96 H 15 96 09/20/20 15:59 98.0 F 81 22 116/62 98 09/20/20 15:36 82 16 98 Oxygen-Last 24 hours Oxygen Flowrate (L/min)-RT 3 Pain Assessment - Last Documented Pain Intensity 0 Intake and Output: Intake & Output 09/19/20 09/20/20 09/21/20 09/22/20 11:59 11:59 11:59 11:59 Intake Total 1120 1573 440 Output Total 2475 2400 1650 Balance -2720 -727 1210 Weight 93.1 kg 92.7 kg Lab Results: Lab Results-Last 24 Hours 09/19/20 09/21/20 09/21/20 Range/Units 10:40 08:24 08:24 WBC 7.2 (4.0-10.5) K/mm3 RBC 3.68 L (4.1-5.4) M/mm3 Hgb 10.1 L (12.0-16.0) gm/dl Hct 35.2 (35-47) % MCV 95.7 (78-100) fl MCH 27.4 (26-32) pg MCHC 28.7 L (32-36) g/dl RDW 16.0 H (11.5-14.0) % Plt Count 278 (150-450) K/mm3 MPV 10.6 (7.5-11.0) fl Percent Retic 1.4 (0.6-2.6) % Sodium 137 (137-145) mmol/L Potassium 4.1 (3.5-5.1) mmol/L Chloride 83 L (98-107) mmol/L Carbon Dioxide 50 H (22-30) mmol/L Anion Gap 8.1 (5-15) MEQ/L BUN 20 H (7-17) mg/dL Creatinine 0.92 (0.52-1.04) mg/dL Estimated GFR > 60.0 ML/MIN Glucose 113 H (74-106) mg/dL Calcium 9.7 (8.4-10.2) mg/dL Assessment/Plan (1) Anemia Current Visit: Yes Status: Acute Qualifiers: Anemia type: iron deficiency Iron deficiency anemia type: chronic blood loss Qualified Code(s): D50.0 - Iron deficiency anemia secondary to blood loss (chronic) Assessment & Plan: Hgb is stable at 10.1 (was 9.8 yesterday, post transfusion). Code(s): D64.9 - ANEMIA, UNSPECIFIED (2) CHF (congestive heart failure) Current Visit: Yes Status: Chronic Assessment & Plan: kidney function is good, so will continue diuretic (po lasix) for now. Code(s): I50.9 - HEART FAILURE, UNSPECIFIED (3) Right bundle branch block Current Visit: Yes Status: Chronic Code(s): I45.10 - UNSPECIFIED RIGHT BUNDLE-BRANCH BLOCK (4) COPD exacerbation Current Visit: No Status: Suspected Assessment & Plan: Her SOB is much better. Code(s): J44.1 - CHRONIC OBSTRUCTIVE PULMONARY DISEASE W (ACUTE) EXACERBATION (5) Leg swelling Current Visit: No Status: Chronic Code(s): M79.89 - OTHER SPECIFIED SOFT TISSUE DISORDERS (6) Chronic respiratory failure with hypoxia and hypercapnia Current Visit: No Status: Chronic Code(s): J96.11 - CHRONIC RESPIRATORY FAILURE WITH HYPOXIA; J96.12 - CHRONIC RESPIRATORY FAILURE WITH HYPERCAPNIA (7) Hypertension Current Visit: No Status: Chronic Qualifiers: Hypertension type: essential hypertension Code(s): I10 - ESSENTIAL (PRIMARY) HYPERTENSION
[2020-09-21 12:50] LABS: Slide Review YES
[2020-09-21] MEDS: FEOSOL 325 MG PO SCH (21:11)
[2020-09-21] MEDS: Mucinex 600MG ER Tabs PO SCH (21:12)
[2020-09-22] MEDS: DUONEB 0.5-3 MG/3 ml Neb IH SCH ×7 (03:20→22:33)
[2020-09-22 05:46] LABS: Hematocrit 34.9 % (35-47); Mean Cell Volume 94.8 fl (78-100); Mean Corpuscular Hemoglobin 27.2 pg (26-32); Mean Corpuscular Hgb Concent. 28.7 g/dl (32-36); Mean Platelet Volume 11.2 fl (7.5-11.0); Platelet Count 286 K/mm3 (150-450); Red Blood Count 3.68 M/mm3 (4.1-5.4); Red Cell Distribution Width 16.4 % (11.5-14.0); White Blood Count 7.9 K/mm3 (4.0-10.5)
[2020-09-22 06:11] LABS: BLOOD UREA NITROGEN 20 mg/dL (7-17); CHLORIDE 82 mmol/L (98-107); Calcium 9.6 mg/dL (8.4-10.2); Creatinine 1 0.91 mg/dL (0.52-1.04); EST GLOMERULAR FILTRATION RATE > 60.0 ML/MIN; Glucose 111 mg/dL (74-106); Potassium 3.9 mmol/L (3.5-5.1); SODIUM 135 mmol/L (137-145)
[2020-09-22 06:29] LABS: Carbon Dioxide 47 mmol/L (22-30)
[2020-09-22 06:30] LABS: ANION GAP 9.9 MEQ/L (5-15)
[2020-09-22 07:56] LABS: Slide Review YES
[2020-09-22] MEDS: ELIQUIS 2.5 MG TABLET PO SCH ×2 (09:10→22:04)
[2020-09-22] MEDS: Toprol-Xl 25MG Tablets PO SCH ×2 (09:10→22:04)
[2020-09-22] MEDS: Colace 100 MG PO SCH (09:10)
[2020-09-22] MEDS: Klor Con 10 MEQ PO SCH (09:10)
[2020-09-22] MEDS: Protonix 40MG Tablet PO SCH (09:10)
[2020-09-22] MEDS: Mucinex 600MG ER Tabs PO SCH ×2 (09:10→22:04)
[2020-09-22] MEDS: LASIX 20 MG PO SCH (09:11)
--- NOTE | 2020-09-22 11:16 | ECHO ---
Transthoracic echocardiographic examination and color Doppler was done on 09/18/2020. INDICATION: Shortness of breath. The patient has history of pericardial effusion. IMPRESSION: 1) NO REGIONAL WALL MOTION ABNORMALITY. ESTIMATED GLOBAL LEFT VENTRICULAR EJECTION FRACTION OF AROUND 60-65%. 2) TRACE MITRAL REGURGITATION. 3) TRACE TRICUSPID REGURGITATION. RIGHT VENTRICULAR SYSTOLIC PRESSURE OF 43 MM OF MERCURY. 4) AORTIC VALVE SCLEROSIS. 5) THE PEAK TRANSAORTIC GRADIENT 18 MM OF MERCURY WITH MILD TO MODERATE AORTIC REGURGITATION. 6) LEFT VENTRICULAR HYPERTROPHY. 7) MILDLY DILATED RIGHT SIDE CHAMBERS. The left ventricle is visualized and demonstrated adequate motion of all the segments. Estimated global left ventricular ejection fraction between 60-65%. There is concentric left ventricular hypertrophy. The mitral valve is seen and this opens adequately. There is trace mitral regurgitation. Left atrium is normal. The aortic valve is sclerotic but opens adequately. The peak gradient across the aortic valve 18 mm of Mercury. The right side chambers are mildly dilated. There is trace tricuspid regurgitation. The right ventricular systolic pressure of 43 mm of Mercury. There is trivial pericardial effusion.
--- NOTE | 2020-09-22 13:57 | PROG NOTE ---
CONSULT DATE: 09/21/2020 Events noted. HISTORY: The patient was evaluated last week for shortness of breath. She is also followed by Dr. Ren. She has done reasonably well, currently on oxygen 2 liters, reportedly going for pulmonary rehab. PHYSICAL EXAMINATION: Vital signs noted. HEENT: Normocephalic. Oral exam limited. NECK: Supple. CVS: First and second heart sounds are normal, regular, rhythmic. RESPIRATORY: Shows diminished breath sounds, crackles have cleared. ABDOMEN: Soft. EXTREMITIES: No edema is noted. LABORATORY DATA AND TESTS: Labs reviewed from this morning: Hemoglobin 10.1. BUN 20, creatinine 0.9. ASSESSMENT: This is a 75 year old woman admitted with: 1) Shortness of breath, improved, primary cardiac etiology. 2) Chronic obstructive pulmonary disease, stable. 3) Chronic hypoxemia. 4) Congestive heart failure with decompensation. 5) Non-ST myocardial infarction. 6) Pleural effusion. 7) Will require follow up x-ray in two to three weeks for resolution. RECOMMENDATIONS: I agree with current treatment. The patient will benefit from cardiac/pulmonary rehab. Advised to follow up with me in two weeks upon release from rehab facility.
[2020-09-22] MEDS: FEOSOL 325 MG PO SCH (22:04)
[2020-09-23] MEDS: DUONEB 0.5-3 MG/3 ml Neb IH SCH ×6 (02:52→23:02)
[2020-09-23] MEDS: Protonix 40MG Tablet PO SCH (06:37)
[2020-09-23] MEDS: Klor Con 10 MEQ PO SCH (08:58)
[2020-09-23] MEDS: Mucinex 600MG ER Tabs PO SCH ×2 (08:58→21:34)
[2020-09-23] MEDS: ELIQUIS 2.5 MG TABLET PO SCH ×2 (08:58→21:34)
[2020-09-23] MEDS: Toprol-Xl 25MG Tablets PO SCH ×2 (08:58→21:34)
[2020-09-23] MEDS: Colace 100 MG PO SCH (08:58)
[2020-09-23] MEDS: LASIX 20 MG PO SCH (08:58)
[2020-09-23] MEDS: FEOSOL 325 MG PO SCH (21:34)
[2020-09-24] MEDS: DUONEB 0.5-3 MG/3 ml Neb IH SCH ×6 (03:15→22:09)
[2020-09-24] MEDS: Protonix 40MG Tablet PO SCH (06:49)
[2020-09-24] MEDS: LASIX 20 MG PO SCH (09:19)
[2020-09-24] MEDS: Toprol-Xl 25MG Tablets PO SCH ×2 (09:19→21:19)
[2020-09-24] MEDS: Mucinex 600MG ER Tabs PO SCH ×2 (09:20→21:19)
[2020-09-24] MEDS: ELIQUIS 2.5 MG TABLET PO SCH ×2 (09:20→21:19)
[2020-09-24] MEDS: Colace 100 MG PO SCH (09:20)
[2020-09-24] MEDS: Klor Con 10 MEQ PO SCH (09:20)
[2020-09-24] MEDS ORDERED: Pepcid 20 MG VIAL IV ONE (17:30)
[2020-09-24] MEDS: Pepcid 20 MG VIAL IV SCH ×2 (17:33→21:19)
[2020-09-24 20:58] LABS: Mean Cell Volume 95.1 fl (78-100); Mean Corpuscular Hemoglobin 27.2 pg (26-32); Mean Corpuscular Hgb Concent. 28.6 g/dl (32-36); Mean Platelet Volume 11.6 fl (7.5-11.0); Platelet Count 204 K/mm3 (150-450); Red Blood Count 3.68 M/mm3 (4.1-5.4); White Blood Count 12.2 K/mm3 (4.0-10.5)
[2020-09-24 21:18] LABS: ALBUMIN 3.9 g/dL (3.5-5.0); ALKALINE PHOSPHATASE 71 U/L (38-126); BLOOD UREA NITROGEN 24 mg/dL (7-17); CHLORIDE 84 mmol/L (98-107); Calcium 9.4 mg/dL (8.4-10.2); Creatinine 1 0.96 mg/dL (0.52-1.04); EST GLOMERULAR FILTRATION RATE > 60.0 ML/MIN; Glucose 125 mg/dL (74-106); NT PRO BNP 833 pg/mL (0-1800); Potassium 3.8 mmol/L (3.5-5.1); SGOT/AST 17 U/L (14-36); SGPT/ALT 13 U/L (0-35); SODIUM 132 mmol/L (137-145); Total Protein 6.7 g/dL (6.3-8.2)
[2020-09-24] MEDS: FEOSOL 325 MG PO SCH (21:19)
[2020-09-24 21:21] LABS: Carbon Dioxide 42 mmol/L (22-30)
[2020-09-24 21:22] LABS: ANION GAP 9.8 MEQ/L (5-15)
[2020-09-24] MEDS ORDERED: ROCEPHIN 1 Gm-D5w 50 ml Bag** 1 G/50 ML IVPB IV SCH (22:15)
[2020-09-25] MEDS: DUONEB 0.5-3 MG/3 ml Neb IH SCH ×6 (02:47→23:19)
[2020-09-25] MEDS: Protonix 40MG Tablet PO SCH (05:52)
[2020-09-25] MEDS ORDERED: ROCEPHIN 1 Gm-D5w 50 ml Bag** 1 G/50 ML IVPB IV SCH ×2 (07:00→22:00)
--- NOTE | 2020-09-25 08:44 | XRAY ---
Indication: Short of breath and elevated d-dimer. Multiple contiguous axial images obtained through the chest using total 130 cc Isovue 370 contrast and PE protocol. Comparison: September 05, 2018. There is good opacification of the pulmonary arteries to include the lobar and segmental branches. No pulmonary embolus. Heart is now enlarged with moderate pericardial effusion. Aorta remains mildly arteriosclerotic without aneurysm/dissection. No pathologic mediastinal/hilar lymphadenopathy. Lungs demonstrate new small bilateral pleural effusions. Elsewhere stable diffuse pulmonary emphysema, scattered fibrosis/scarring, and calcified/noncalcified micronodules. Bony thorax intact again with mild degenerative changes throughout the spine and minimal remote T7 compression deformity. Limited upper abdomen demonstrate stable bilateral adrenal adenomas. Impression: 1. Continued negative for pulmonary embolus. 2. New cardiomegaly with pericardial effusion and small bilateral effusions. Echocardiogram may yield further information. 3. Again chronic findings including pulmonary emphysema, fibrosis/scarring, calcified/noncalcified granulomas, bilateral adrenal adenomas, and chronic bony findings.
[2020-09-25] MEDS: LASIX 20 MG PO SCH (08:58)
[2020-09-25] MEDS: Mucinex 600MG ER Tabs PO SCH ×2 (08:59→22:03)
[2020-09-25] MEDS: Toprol-Xl 25MG Tablets PO SCH ×2 (08:59→22:03)
[2020-09-25] MEDS: Klor Con 10 MEQ PO SCH (08:59)
[2020-09-25] MEDS: Colace 100 MG PO SCH (08:59)
[2020-09-25] MEDS: ELIQUIS 2.5 MG TABLET PO SCH ×2 (08:59→22:03)
[2020-09-25] MEDS: Pepcid 20 MG VIAL IV SCH ×2 (09:03→22:03)
[2020-09-25] MEDS: TYLENOL EXTRA STRENGTH 500 MG PO PRN ×2 (14:44→22:21)
--- NOTE | 2020-09-25 18:18 | PCM.NOTE ---
Date and Time: 09/25/201812 Patient has had chest pain today feeling weak ,trouble getting a deep breath. Resting now after Tylenol this afternoon. States the pain was at the lower ster num under both breasts points to the area or pericardial window surgery scar. Appetite is good,denies GI upset. Hx upper GI bleed recent when on anticoagulant for DVT and had IVC place,no longer on anticoagulant. Objective Exam General Appearance: no apparent distress, lethargy Neurologic Exam: alert, oriented x 3, cooperative Skin Exam: warm, dry, ecchymosis (large right forearm), pale Neck Exam: normal inspection Respiratory Exam: diminished breath sounds (bases) Cardiovascular Exam: tachycardia (bases) Gastrointestinal/Abdomen Exam: soft, normal bowel sounds, other (epigastrum scar healed) Extremity Exam: other (no edema ,no calf tenderness) OBJECTIVE DATA Vital Signs: Vital Signs - 24 hr Temp Pulse Resp BP Pulse Ox 09/25/20 16:14 81 18 99 09/25/20 16:00 98.5 F 93 H 20 101/53 96 09/25/20 12:00 98.0 F 89 20 112/55 98 09/25/20 11:36 88 18 98 09/25/20 07:38 98.4 F 97 H 20 126/62 97 09/25/20 07:13 97 H 18 97 09/25/20 04:00 98.4 F 99 H 20 125/63 95 09/25/20 02:49 105 H 20 95 09/24/20 23:49 98.5 F 105 H 21 128/62 96 09/24/20 22:11 106 H 18 97 09/24/20 19:47 99.3 F 101 H 18 137/65 99 09/24/20 18:45 101 H 18 99 Pain Assessment - Last Documented Pain Intensity 2 Pain Scale Used 0-10 Pain Scale Intake and Output: Intake & Output 09/23/20 09/24/20 09/25/20 09/26/20 11:59 11:59 11:59 11:59 Intake Total 081 370 2555 Output Total 1100 1050 1150 Balance -260 -190 -5 Weight 91.7 kg 92.1 kg 93.2 kg Lab Results: Lab Results-Last 24 Hours 09/24/20 09/24/20 09/24/20 Range/Units 17:40 17:40 17:49 WBC 12.2 H (4.0-10.5) K/mm3 RBC 3.68 L (4.1-5.4) M/mm3 Hgb 10.0 L (12.0-16.0) gm/dl Hct 35.0 (35-47) % MCV 95.1 (78-100) fl MCH 27.2 (26-32) pg MCHC 28.6 L (32-36) g/dl RDW 17.0 H (11.5-14.0) % Plt Count 204 (150-450) K/mm3 MPV 11.6 H (7.5-11.0) fl D-Dimer 1036 H* (215-500) ng/mL Sodium 132 L (137-145) mmol/L Potassium 3.8 (3.5-5.1) mmol/L Chloride 84 L (98-107) mmol/L Carbon Dioxide 42 H (22-30) mmol/L Anion Gap 9.8 (5-15) MEQ/L BUN 24 H (7-17) mg/dL Creatinine 0.96 (0.52-1.04) mg/dL Estimated GFR > 60.0 ML/MIN Glucose 125 H (74-106) mg/dL Calcium 9.4 (8.4-10.2) mg/dL Total Bilirubin 0.50 (0.2-1.3) mg/dL AST 17 (14-36) U/L ALT 13 (0-35) U/L Alkaline Phosphatase 71 (38-126) U/L Troponin I (0.000-0.034) ng/mL NT-Pro-B Natriuret Pep 833 (0-1800) pg/mL Serum Total Protein 6.7 (6.3-8.2) g/dL Albumin 3.9 (3.5-5.0) g/dL 09/24/20 Range/Units 17:49 WBC (4.0-10.5) K/mm3 RBC (4.1-5.4) M/mm3 Hgb (12.0-16.0) gm/dl Hct (35-47) % MCV (78-100) fl MCH (26-32) pg MCHC (32-36) g/dl RDW (11.5-14.0) % Plt Count (150-450) K/mm3 MPV (7.5-11.0) fl D-Dimer (215-500) ng/mL Sodium (137-145) mmol/L Potassium (3.5-5.1) mmol/L Chloride (98-107) mmol/L Carbon Dioxide (22-30) mmol/L Anion Gap (5-15) MEQ/L BUN (7-17) mg/dL Creatinine (0.52-1.04) mg/dL Estimated GFR ML/MIN Glucose (74-106) mg/dL Calcium (8.4-10.2) mg/dL Total Bilirubin (0.2-1.3) mg/dL AST (14-36) U/L ALT (0-35) U/L Alkaline Phosphatase (38-126) U/L Troponin I 0.027 (0.000-0.034) ng/mL NT-Pro-B Natriuret Pep (0-1800) pg/mL Serum Total Protein (6.3-8.2) g/dL Albumin (3.5-5.0) g/dL Radiology Exams: Radiology Procedures Category Date Time Status CHEST WITH CONTRAST [CT] Stat Exams 09/24/20 18:25 Completed Multi-Disciplinary Progress Notes: Multi-Disciplinary Progress Notes 09/25/20 17:20 Physical Therapy Note by Rupal Cordova PT. SEEN BY PT THIS AM. REPORTED SOME MIDSTERNAL PN. HAD CHEST CT WHICH WAS - FOR PE. PT. IN CHAIR UPON P.T. ARRIVAL TO ROOM. SIT TO STAND W/ CBA X 1 W/ RW. AMBULATED TO RESTROOM AND PERFORMED TOILET TRANSFERS AND HYGIENE INDEPENDENTLY. PT. CONT. W/ O2 AT 3.5 L. O2 SATS 95% AT REST. PT. AGREEABLE TO WALK. AMBULATED ~ 100' W/ RW AND SBA W/ O2 SATS 91% WHEN PT. STOPPED TO REST IN STANDING AT 50' POINT. PT REPORTED SOME SLIGHT INCREASE IN CP AFTER WALK. O2 SATS 91% AFTER WALK. PT. WANTED TO SIT IN CHAIR. ATTEMPTED PM RX BUT CP INCREASED W/ SEATED LE EX'S S OPTED TO HOLD P.T. UNTIL AFTER DR. FOSTER SAW PT. WILL CONT. PT TOLERATED. STILL AWAITING INSURANCE AUTH FOR SNF. Initialized on 09/25/20 17:20 - END OF NOTE 09/25/20 11:42 Case Management Note by Nano Yang STILL AWAITING INSURANCE RESPONSE REGARDING REHAB STAY. UPDATED INFORMATION FAXED TO [facility] THIS AM. Initialized on 09/25/20 11:42 - END OF NOTE Assessment/Plan (1) Chest pain at rest Current Visit: Yes Status: Acute Assessment & Plan: Dr Ren ,Wallpaper Scraper evaluated patient. S/P recent tx for cardiac tampanode pericardial window ,stated feels chest pain not cardiac pain. Code(s): R07.9 - CHEST PAIN, UNSPECIFIED (2) COPD exacerbation Current Visit: Yes Status: Acute Assessment & Plan: oxygen dependent,Elevated WBC on Rocephin,will recheck CBCdiff. May be developing pulmonary infection. Code(s): J44.1 - CHRONIC OBSTRUCTIVE PULMONARY DISEASE W (ACUTE) EXACERBATION (3) Leukocytosis Current Visit: Yes Status: Acute Assessment & Plan: COPD/bronchitis on Rocephin-reevaluate. Code(s): D72.829 - ELEVATED WHITE BLOOD CELL COUNT, UNSPECIFIED (4) Hyponatremia Current Visit: Yes Status: Acute Assessment & Plan: rechecking lab now,sodium was 132 yesterday.Is contributing to lethargy. Code(s): E87.1 - HYPO-OSMOLALITY AND HYPONATREMIA (5) CHF (congestive heart failure) Current Visit: Yes Status: Chronic Code(s): I50.9 - HEART FAILURE, UNSPECIFIED (6) Frailty Current Visit: Yes Status: Chronic Assessment & Plan: Multisystem dz and recurrent hospitalizations. COPD oxygen dependent,CHF,Recent Cardiac tamponade tx with pericardial window,Hx UGI bleed while on anticoagulant. Recent IVC placed for DVT. Code(s): R54 - AGE-RELATED PHYSICAL DEBILITY
[2020-09-25] MEDS: FEOSOL 325 MG PO SCH (22:03)
[2020-09-26] MEDS: DUONEB 0.5-3 MG/3 ml Neb IH SCH ×6 (03:29→23:18)
[2020-09-26 05:50] LABS: Hematocrit 34.3 % (35-47); Hemoglobin 9.7 gm/dl (12.0-16.0); Mean Cell Volume 96.6 fl (78-100); Mean Corpuscular Hemoglobin 27.3 pg (26-32); Mean Corpuscular Hgb Concent. 28.3 g/dl (32-36); Mean Platelet Volume 11.9 fl (7.5-11.0); Platelet Count 140 K/mm3 (150-450); Red Blood Count 3.55 M/mm3 (4.1-5.4); Red Cell Distribution Width 16.6 % (11.5-14.0); White Blood Count 17.7 K/mm3 (4.0-10.5)
[2020-09-26 06:24] LABS: Calcium 9.6 mg/dL (8.4-10.2); Creatinine 1 1.18 mg/dL (0.52-1.04); EST GLOMERULAR FILTRATION RATE 47.5 ML/MIN; Potassium 4.2 mmol/L (3.5-5.1)
[2020-09-26 06:46] LABS: Lymphocytes 7 % (24-44); Monocyte 1 % (0.0-12.0); Neutrophils 92 % (36.0-66.0); Total Cells Counted 100
[2020-09-26 06:47] LABS: ANISOCYTOSIS 1+; Platelet Estimate NORMAL (NORMAL); Poikilocytosis 1+
[2020-09-26 06:52] LABS: ANION GAP 14.2 MEQ/L (5-15)
[2020-09-26] MEDS: Protonix 40MG Tablet PO SCH (07:53)
--- NOTE | 2020-09-26 08:36 | XRAY ---
Indication: Short of breath. Comparison: September 19, 2020. AP/lateral chest obtained in wheelchair unchanged again demonstrating COPD, scattered tiny calcified granulomas, borderline cardiomegaly, and bibasilar infiltrates/atelectasis/effusions. No new cardiopulmonary abnormalities.
[2020-09-26] MEDS ORDERED: PHARMACY DOSING REQUEST MC ONE (08:45)
[2020-09-26] MEDS: Colace 100 MG PO SCH (09:26)
[2020-09-26] MEDS: Klor Con 10 MEQ PO SCH (09:27)
[2020-09-26] MEDS: Pepcid 20 MG VIAL IV SCH ×2 (09:27→22:05)
[2020-09-26] MEDS: TYLENOL EXTRA STRENGTH 500 MG PO PRN ×2 (09:27→22:03)
[2020-09-26] MEDS: LASIX 20 MG PO SCH (09:27)
[2020-09-26] MEDS: Mucinex 600MG ER Tabs PO SCH ×2 (09:27→22:03)
[2020-09-26] MEDS: ELIQUIS 2.5 MG TABLET PO SCH ×2 (09:27→22:05)
[2020-09-26] MEDS: Toprol-Xl 25MG Tablets PO SCH ×2 (09:27→22:05)
[2020-09-26] MEDS: Zosyn 3.375 GM Vial 3.375 GM in Sodium Chloride 100ML MINI-BAG PLUS 100 ML IV SCH ×3 (10:02→22:02)
--- NOTE | 2020-09-26 19:09 | PCM.NOTE ---
Date and Time: 09/26/201903 Subjective Assessment: Patient had a decline early this morning . Nurse reported patient dazed and increased sob with wheezing on auscultation. WBC up to 17,700 .She was on Rocephin and changed to Zosyn. CXR this morning did not show acute changes but does have a 3 day lag before a new infiltrate would show. Treating clinically for pneumonia. Objective Exam General Appearance: mild distress (a little anxious over hearing WBC elevated ,frustrated and trying to figure out why but is confused.) Neurologic Exam: alert, confusion (trying to figure why "sick again" . When discussing WBC up she is looking all over her body "why is this happening,my hands are ok"), other Skin Exam: warm, dry, pale Eye Exam: eyes nml inspection Ears, Nose, Throat Exam: normal ENT inspection Neck Exam: normal inspection Respiratory Exam: wheezing (left mid lung liang) Gastrointestinal/Abdomen Exam: soft (nontender) Extremity Exam: other (no pitting) OBJECTIVE DATA Vital Signs: Vital Signs - 24 hr Temp Pulse Resp BP Pulse Ox 09/26/20 16:00 98.0 F 87 20 118/55 99 09/26/20 15:20 81 18 99 09/26/20 12:00 96.5 F 87 20 113/54 97 09/26/20 10:23 91 H 24 93 L 09/26/20 08:00 97.0 F 92 H 18 123/59 94 L 09/26/20 06:36 90 26 H 98 09/26/20 04:00 98.0 F 95 H 18 122/58 96 09/26/20 03:30 94 H 18 97 09/26/20 00:00 97.6 F 98 H 19 118/57 98 09/25/20 23:21 102 H 19 99 09/25/20 19:53 97.6 F 94 H 18 115/57 98 09/25/20 19:28 92 H 18 96 Pain Assessment - Last Documented Pain Intensity 0 Pain Scale Used 0-10 Pain Scale Intake and Output: Intake & Output 09/24/20 09/25/20 09/26/20 09/27/20 11:59 11:59 11:59 11:59 Intake Total 860 1145 650 120 Output Total 1050 1150 1000 Balance -190 -5 -350 120 Weight 92.1 kg 93.2 kg 93.4 kg Lab Results: Lab Results-Last 24 Hours 09/26/20 09/26/20 09/26/20 Range/Units 04:33 04:33 06:08 WBC 17.7 H (4.0-10.5) K/mm3 RBC 3.55 L (4.1-5.4) M/mm3 Hgb 9.7 L (12.0-16.0) gm/dl Hct 34.3 L (35-47) % MCV 96.6 (78-100) fl MCH 27.3 (26-32) pg MCHC 28.3 L (32-36) g/dl RDW 16.6 H (11.5-14.0) % Plt Count 140 L (150-450) K/mm3 MPV 11.9 H (7.5-11.0) fl Segmented Neutrophils 92 H (36.0-66.0) % Lymphocytes (Manual) 7 L (24-44) % Monocytes (Manual) 1 (0.0-12.0) % Platelet Estimate NORMAL (NORMAL) RBC Morphology ABNORMAL Poikilocytosis 1+ Anisocytosis 1+ Sodium 137 (137-145) mmol/L Potassium 4.2 (3.5-5.1) mmol/L Chloride 86 L (98-107) mmol/L Carbon Dioxide 41 H (22-30) mmol/L Anion Gap 14.2 (5-15) MEQ/L BUN 26 H (7-17) mg/dL Creatinine 1.18 H (0.52-1.04) mg/dL Estimated GFR 47.5 ML/MIN Glucose 135 H (74-106) mg/dL POC Glucometer 122 H (74 to 106) mg/dL Calcium 9.6 (8.4-10.2) mg/dL NT-Pro-B Natriuret Pep 1830 H (0-1800) pg/mL Radiology Exams: Radiology Procedures Category Date Time Status CHEST 2 VIEWS (PA AND LAT) Stat Exams 09/26/20 07:36 Completed CHEST WITH CONTRAST [CT] Stat Exams 09/24/20 18:25 Completed Multi-Disciplinary Progress Notes: Multi-Disciplinary Progress Notes 09/26/20 17:19 Physical Therapy Note by Rupal Cordova PT. SEEN BY P.T. BID THIS DATE. REPORTS NOT FEELING WELL TODAY. PT. WAS DYSPNEIC W/ CONVERSATION THIS AM. AGREED TO PERFORM SEATED LE EX'S. PT. PERFORMED SEATED LE EX'S X 10 REPS - LAQS, MARCHES, ANKLE PUMPS; RECLINED AND PERFORMED HEEL SLIDES, SLRS, HIP ABD, QUAD SETS. O2 SATS 95-97% W/ EX'S ON 4 L O2. IN PM PT. HAD WALKED W/ WATER MAIN PIPE LAYER AND REPORTED SHE HAD DONE WELL. PERFOMRED SAME LE EX'S AGAIN. PT. DID NOT WANT TO WALK AGAIN W/ P.T. D/T FATIGUE AND SOB. CNAS TO AMBULATE W/ PT. OVER THE WEEKEND. PLAN IS TO D/C HOME W/ HHC EARLY NEXT WEEK. Initialized on 09/26/20 17:19 - END OF NOTE 09/26/20 14:05 (created 09/26/20 14:56) Case Management Note by Ivone Mack DR. ROUNDED AND EVALUATED, REPORTS THAT PT WILL LIKELY BE HERE THROUGH THE WEEKEND FOR TREATMENT OF PNEUMONIA. WBC INCREASED TO 17.7 TODAY. PT IS SHORT OF BREATH AND NOT FEELING WELL. IV ABX CHANGED TO ZOSYN 3.375GM IV Q6H. Initialized on 09/26/20 14:56 - END OF NOTE 09/26/20 13:11 Nutrition Note by Morelia Mccallum F/u Note: Note Heart Healthy diet con't with 50-100% po intake. Labs 09/26: BUN 26, Creat 1.6, Glu 135, Hgb 9.7, Hct 34.3. Wt 09/25 93.4 kg. Goals remain. Will monitor, f/u prn. L.Alessio MSRDLD Initialized on 09/26/20 13:11 - END OF NOTE 09/26/20 11:23 Case Management Note by Nano Yang HAS ACCEPTED PATIENT. THEY WILL NEED NOTIFIED AT TIME OF DC AT [phone]. THEY WILL NEED FAXED THE DC INSTRUCTIONS, DC MED LIST AND DC SUMMARY(IF AVAILABLE) TO [phone] Initialized on 09/26/20 11:23 - END OF NOTE 09/26/20 10:44 Case Management Note by Nano Yang REFERRAL FAXED AT THIS TIME Initialized on 09/26/20 10:44 - END OF NOTE 09/26/20 10:26 Case Management Note by Nano Yang NOTIFIED PATIENT THAT INSURANCE HAS DENIED HER LONGTERM STAY- THEY FEEL LIKE HER CARE COULD BE HANDLED AT A LOWER LEVEL OF CARE. SHE VERIFIED UNDERSTANDING. WE DISCUSSED IF PATIENT WOULD LIKE TO PRIVATE PAY FOR THE LONGTERM- SHE DOES NOT WISH TO DO THIS. SHE PLANS TO RETURN HOME. SHE LIVES WITH A GREAT GRANDDAUGHTER BUT SHE IS GONE MOST OF THE TIME. SHE IS NOW AGREEABLE TO SOME HHC. SHE HAS USED 2 COMPANIES IN THE PAST THAT SHE IS NOT IMPRESSED WITH. SHE WANTS HER GRANDDAUGHTER VENANCIO TO DECIDE WHAT COMPANY TO USE. SHE REPORTS ALL OF HER OXYGEN IS IN GOOD WORKING CONDITION AT HOME AND SHE HAS A WALKER AND EVERYTHING SHE NEEDS AT HOME. S/W VENANCIO- UPDATED THAT INSURANCE DENIED LONGTERM STAY AND PATIENT HAS REFUSED/DENIED PRIVATE PAY OPTION AND SHE PLANS TO RETURN HOME. WE DISCUSSED HHC- SHE WAS GIVEN OPTIONS AND NOTIFIED SHE COULD PICK ANY COMPANY SHE PREFERS- SHE WOULD LIKE PATIENT TO HAVE [facility] WITH [facility] A BACK UP. WILL SEND REFERRAL. Initialized on 09/26/20 10:26 - END OF NOTE 09/26/20 09:43 Case Management Note by Ivone Mack FROM [facility] JUST CALLED, INSURANCE WILL NOT APPROVE REHAB STAY, INSURANCE FEELS THAT PT CAN BE MANAGED IN LOWER LEVEL OF CARE, IE: HOME WITH HHC SERVICES. Initialized on 09/26/20 09:43 - END OF NOTE Assessment/Plan (1) Chest pain at rest Current Visit: Yes Status: Resolved Code(s): R07.9 - CHEST PAIN, UNSPECIFIED (2) COPD exacerbation Current Visit: Yes Status: Acute Assessment & Plan: resp tech following Code(s): J44.1 - CHRONIC OBSTRUCTIVE PULMONARY DISEASE W (ACUTE) EXACERBATION (3) Leukocytosis Current Visit: Yes Status: Acute Assessment & Plan: WBC up to 17,700.Sputum for C&S -resp to induce. D/C Rocephin,start Zosyn,follow Code(s): D72.829 - ELEVATED WHITE BLOOD CELL COUNT, UNSPECIFIED (4) Hyponatremia Current Visit: Yes Status: Resolved Assessment & Plan: resolved Code(s): E87.1 - HYPO-OSMOLALITY AND HYPONATREMIA
[2020-09-26] MEDS: FEOSOL 325 MG PO SCH (22:05)
[2020-09-27] MEDS: DUONEB 0.5-3 MG/3 ml Neb IH SCH ×6 (03:08→23:43)
[2020-09-27] MEDS: Zosyn 3.375 GM Vial 3.375 GM in Sodium Chloride 100ML MINI-BAG PLUS 100 ML IV SCH ×4 (03:26→22:05)
[2020-09-27] MEDS: Protonix 40MG Tablet PO SCH (06:32)
[2020-09-27 06:39] LABS: Absolute Neutrophil Ct (ANC) 9.78 (1.4-6.9); BASOPHIL % 0.2 % (0.0-0.4); Basophil (Absolute #) 0.02 (0-0.4); Eosinophil % 3.8 % (0.00-5.0); Eosinophil (Absolute #) 0.44 (0-0.5); Hematocrit 33.7 % (35-47); Hemoglobin 9.2 gm/dl (12.0-16.0); Lymphocyte (Absolute #) 0.62 (1.0-4.6); Lymphocytes % 5.3 % (24.0-44.0); Mean Cell Volume 98.8 fl (78-100); Mean Corpuscular Hgb Concent. 27.3 g/dl (32-36); Mean Platelet Volume 12.1 fl (7.5-11.0); Monocyte (Absolute #) 0.87 (0.0-1.3); Monocytes % 7.4 % (0.0-12.0); Neutrophil % 83.3 % (36.0-66.0); Platelet Count 140 K/mm3 (150-450); Red Blood Count 3.41 M/mm3 (4.1-5.4); Red Cell Distribution Width 16.5 % (11.5-14.0); White Blood Count 11.7 K/mm3 (4.0-10.5)
[2020-09-27 06:53] LABS: Calcium 9.6 mg/dL (8.4-10.2); Creatinine 1 1.23 mg/dL (0.52-1.04); EST GLOMERULAR FILTRATION RATE 45.2 ML/MIN; Potassium 4.5 mmol/L (3.5-5.1)
[2020-09-27 07:02] LABS: ANION GAP 11.5 MEQ/L (5-15)
[2020-09-27] MEDS: LASIX 20 MG PO SCH (09:36)
[2020-09-27] MEDS: ELIQUIS 2.5 MG TABLET PO SCH ×2 (09:37→22:05)
[2020-09-27] MEDS: Mucinex 600MG ER Tabs PO SCH ×2 (09:37→22:06)
[2020-09-27] MEDS: Toprol-Xl 25MG Tablets PO SCH ×2 (09:37→22:06)
[2020-09-27] MEDS: Klor Con 10 MEQ PO SCH (09:37)
[2020-09-27] MEDS: Colace 100 MG PO SCH (09:37)
[2020-09-27] MEDS: Pepcid 20 MG VIAL IV SCH ×2 (10:45→22:06)
[2020-09-27 14:16] LABS: Slide Review 1 YES
[2020-09-27] MEDS: FEOSOL 325 MG PO SCH (22:05)
[2020-09-28] MEDS: DUONEB 0.5-3 MG/3 ml Neb IH SCH ×4 (03:40→19:59)
[2020-09-28] MEDS ORDERED: Sodium Chloride 100ML MINI-BAG PLUS 100 ML IV ONE (04:31)
[2020-09-28] MEDS: Zosyn 3.375 GM Vial 3.375 GM in Sodium Chloride 100ML MINI-BAG PLUS 100 ML IV SCH ×4 (05:04→20:56)
[2020-09-28] MEDS: Protonix 40MG Tablet PO SCH (06:24)
[2020-09-28 06:44] LABS: Hematocrit 32.1 % (35-47); Hemoglobin 8.8 gm/dl (12.0-16.0); Mean Cell Volume 99.1 fl (78-100); Mean Corpuscular Hemoglobin 27.2 pg (26-32); Mean Corpuscular Hgb Concent. 27.4 g/dl (32-36); Mean Platelet Volume 12.2 fl (7.5-11.0); Platelet Count 158 K/mm3 (150-450); Red Blood Count 3.24 M/mm3 (4.1-5.4); Red Cell Distribution Width 16.5 % (11.5-14.0); White Blood Count 8.1 K/mm3 (4.0-10.5)
[2020-09-28 06:50] LABS: Absolute Neutrophil Ct (ANC) 6.13 (1.4-6.9); BASOPHIL % 0.3 % (0.0-0.4); Basophil (Absolute #) 0.02 (0-0.4); Eosinophil % 3.9 % (0.00-5.0); Hematocrit 32.8 % (35-47); Hemoglobin 8.9 gm/dl (12.0-16.0); Lymphocyte (Absolute #) 0.68 (1.0-4.6); Lymphocytes % 8.7 % (24.0-44.0); Mean Cell Volume 98.8 fl (78-100); Mean Corpuscular Hemoglobin 26.8 pg (26-32); Mean Corpuscular Hgb Concent. 27.1 g/dl (32-36); Mean Platelet Volume 11.8 fl (7.5-11.0); Monocyte (Absolute #) 0.65 (0.0-1.3); Monocytes % 8.4 % (0.0-12.0); Neutrophil % 78.7 % (36.0-66.0); Platelet Count 167 K/mm3 (150-450); Red Blood Count 3.32 M/mm3 (4.1-5.4); Red Cell Distribution Width 16.5 % (11.5-14.0); White Blood Count 7.8 K/mm3 (4.0-10.5)
[2020-09-28 07:01] LABS: Calcium 9.4 mg/dL (8.4-10.2); Creatinine 1 1.05 mg/dL (0.52-1.04); EST GLOMERULAR FILTRATION RATE 54.3 ML/MIN; Potassium 4.2 mmol/L (3.5-5.1)
[2020-09-28 07:16] LABS: ANION GAP 9.2 MEQ/L (5-15)
[2020-09-28] MEDS: Mucinex 600MG ER Tabs PO SCH ×2 (09:55→21:27)
[2020-09-28] MEDS: Klor Con 10 MEQ PO SCH (09:56)
[2020-09-28] MEDS: LASIX 20 MG PO SCH (09:56)
[2020-09-28] MEDS: Colace 100 MG PO SCH (09:56)
[2020-09-28] MEDS: Toprol-Xl 25MG Tablets PO SCH ×2 (09:56→21:27)
[2020-09-28] MEDS: Pepcid 20 MG VIAL IV SCH ×2 (09:57→21:27)
[2020-09-28] MEDS: ELIQUIS 2.5 MG TABLET PO SCH ×2 (09:57→21:28)
[2020-09-28] MEDS ORDERED: PROVENTIL 2.5 MG/3 ML NEB IH PRN (10:34)
[2020-09-28] MEDS ORDERED: Lasix 20 MG/2 ML IV ONE (11:15)
[2020-09-28 11:26] LABS: Slide Review 1 YES
[2020-09-28 11:29] LABS: Slide Review YES
[2020-09-28 21:20] LABS: A-aADO2 42; ABG HEMOGLOBIN 9.4; ABG POTASSIUM 4.1 (3.5-5.1); ARTERIAL BLD GAS O2 SATURATION 97.7 % (95-100); ARTERIAL BLOOD GAS BASE EXCESS 20.8 (-2.0-2.0); ARTERIAL BLOOD GAS FIO2 34 %; ARTERIAL BLOOD GAS PCO2 94 mmHg (35-45); ARTERIAL BLOOD GAS PO2 83 mmHg (75-100); ARTERIAL BLOOD GAS pH 7.35 (7.35-7.45); CARBOXYHEMOGLOBIN 1.1 % THgb (0.0-6.9); HCO3- 51.9 (22-28); HGB O2 SAT 95.7 g/dF (94-100); Methhemoglobin 0.9 % (1.4-1.5)
[2020-09-28 21:21] LABS: ABG SITE RIGHT BRACHIAL
[2020-09-28] MEDS: FEOSOL 325 MG PO SCH (21:27)
[2020-09-29] MEDS: DUONEB 0.5-3 MG/3 ml Neb IH SCH ×2 (01:18→06:49)
[2020-09-29] MEDS: Zosyn 3.375 GM Vial 3.375 GM in Sodium Chloride 100ML MINI-BAG PLUS 100 ML IV SCH (05:36)
[2020-09-29] MEDS: Protonix 40MG Tablet PO SCH (05:42)
[2020-09-29 05:46] LABS: Absolute Neutrophil Ct (ANC) 4.65 (1.4-6.9); BASOPHIL % 0.5 % (0.0-0.4); Basophil (Absolute #) 0.03 (0-0.4); Eosinophil % 6.3 % (0.00-5.0); Eosinophil (Absolute #) 0.41 (0-0.5); Hematocrit 31.9 % (35-47); Hemoglobin 8.7 gm/dl (12.0-16.0); Lymphocyte (Absolute #) 0.78 (1.0-4.6); Lymphocytes % 11.9 % (24.0-44.0); Mean Cell Volume 98.8 fl (78-100); Mean Corpuscular Hemoglobin 26.9 pg (26-32); Mean Corpuscular Hgb Concent. 27.3 g/dl (32-36); Mean Platelet Volume 12.2 fl (7.5-11.0); Monocyte (Absolute #) 0.68 (0.0-1.3); Monocytes % 10.4 % (0.0-12.0); Neutrophil % 70.9 % (36.0-66.0); Platelet Count 185 K/mm3 (150-450); Red Blood Count 3.23 M/mm3 (4.1-5.4); Red Cell Distribution Width 16.3 % (11.5-14.0); White Blood Count 6.6 K/mm3 (4.0-10.5)
[2020-09-29 06:01] LABS: Calcium 9.5 mg/dL (8.4-10.2); Creatinine 1 1.1 mg/dL (0.52-1.04); EST GLOMERULAR FILTRATION RATE 51.5 ML/MIN
[2020-09-29 06:02] LABS: Potassium 3.8 mmol/L (3.5-5.1)
[2020-09-29 06:05] LABS: ANION GAP 9.8 MEQ/L (5-15)
[2020-09-29 06:55] LABS: A-aADO2 99; ABG HEMOGLOBIN 9.4; ABG POTASSIUM 4.1 (3.5-5.1); ARTERIAL BLD GAS O2 SATURATION 97.9 % (95-100); ARTERIAL BLOOD GAS BASE EXCESS 24.9 (-2.0-2.0); ARTERIAL BLOOD GAS FIO2 35 %; ARTERIAL BLOOD GAS PCO2 64 mmHg (35-45); ARTERIAL BLOOD GAS PO2 71 mmHg (75-100); ARTERIAL BLOOD GAS pH 7.52 (7.35-7.45); CARBOXYHEMOGLOBIN 1.6 % THgb (0.0-6.9); HCO3- 52.3 (22-28); HGB O2 SAT 95.3 g/dF (94-100); Methhemoglobin 1.1 % (1.4-1.5)
[2020-09-29 06:56] LABS: ABG SITE RIGHT BRACHIAL
[2020-09-29 07:09] LABS: Slide Review 1 YES
[2020-09-29] MEDS: Toprol-Xl 25MG Tablets PO SCH (09:03)
[2020-09-29] MEDS: Colace 100 MG PO SCH (09:03)
[2020-09-29] MEDS: Pepcid 20 MG VIAL IV SCH (09:03)
[2020-09-29] MEDS: LASIX 20 MG PO SCH (09:03)
[2020-09-29] MEDS: ELIQUIS 2.5 MG TABLET PO SCH (09:03)
[2020-09-29] MEDS: Mucinex 600MG ER Tabs PO SCH (09:03)
[2020-09-29] MEDS: Klor Con 10 MEQ PO SCH (09:03)
[2020-09-29 11:34] VITALS: BP 143/66; PULSE 82; O2SAT 99
--- NOTE | 2020-10-08 15:55 | PCM.DS ---
Discharge Summary Date of Admission: 09/18/20 08:40 Date of Discharge: 09/29/2020 Admitting Physician: SVEN BOND Consults: Consults on Case 09/17/20 09:38 Consult Pulmonology ROUTINE 09/17/20 09:39 Consult Cardiology ROUTINE 09/24/20 20:46 Consult Cardiology ROUTINE Primary Care Provider: SILVIA FOSTER DO Allergies Allergies metformin Allergy (Verified 09/16/20 21:26) Hospital Summary - Hospital Course Hospital Course: Patient is a 75yr old female with worsening of multiple health problems over the past several weeks. She was admitted to [facility] then transferred to [facility] last month when she developed an UGI bleed while on Eliquis and also developed a large pericardial effusion/tamponade treated at [facility] with pericardial window and IVC filter. She was readmitted to [facility] with dyspnea,found to be anemic and benefitted from transfusion but then developed WBC 17,700 and fever while on Rocephin for COPD exacerbation, antibiotic changed to Zosyn .CHF with increase in BNP . She became confused ,ABG showed pCO2 =94 patient grunting respirations. She was transfered to [facility] for a higher level of care. Hgb had dropped after transusion back down to 8.7 . Her Pricing Actuary is Dr Ren and Protection Manager is DR Strickland who will be able to monitor/treat her at [facility] - Vitals & Intake/Output Vital Signs: Vital Signs Temperature 98.2 F 09/29/20 11:33 Pulse Rate 82 09/29/20 11:33 Respiratory Rate 20 09/29/20 11:33 Blood Pressure 143/66 09/29/20 11:33 O2 Sat by Pulse Oximetry 99 09/29/20 11:33 - Lab Result Diagrams: 09/29/20 04:32 09/29/20 04:32 Micro Results-Entire Visit: Microbiology 09/24/20 22:26 Blood Culture Gram Stain - Final Blood Not Reportable Blood Culture - Final NO GROWTH 09/24/20 22:26 Blood Culture Gram Stain - Final Blood Not Reportable Blood Culture - Final NO GROWTH 09/16/20 16:15 Blood Culture Gram Stain - Final Blood Not Reportable Blood Culture - Final NO GROWTH 09/16/20 15:20 Blood Culture Gram Stain - Final Blood Not Reportable Blood Culture - Final NO GROWTH - Procedures and Test Procedures and Tests throughout Hospitalization: Therapy Orders & Screens 09/16/20 16:11 Respiratory Therapy Assessment DAILY Comment: 09/16/20 21:05 Oxygen NASAL CANNULA 2 lpm Comment: Diagnosis: CHF 09/16/20 21:34 Respiratory Therapy Assessment DAILY Comment: Diagnosis: CHF 09/17/20 01:01 EKG ROUTINE Comment: Diagnosis: CHF 09/18/20 09:02 PT Eval & Treat ( Order) ONCE Reason for Eval:: WEAKNESS, CHF Diagnosis: CHF 09/26/20 06:55 Sputum Specimen Obtain .as ordered Comment: Diagnosis: CHF, NSTEMI 09/28/20 20:40 Oxygen High Flow per RT 35% Comment: Diagnosis: CHF, NSTEMI Discharge Exam General Appearance: moderate distress (labored brathing per nursing and resp tech.), anxiety Neurologic Exam: alert, other (oriented to person and place but confused per nursing) Respiratory Exam: respiratory distress, diminished breath sounds, wheezing Cardiovascular Exam: tachycardia Gastrointestinal/Abdomen Exam: soft Final Diagnosis/Problem List - Final Discharge Diagnosis/Problem (1) COPD exacerbation Status: Acute Assessment & Plan: antibiotic changed from Rocephin to Zosyn day prior tp=o transfer due to elevated WBC 17,700 and worssening of wheezing and sputum production, CXR no acute infiltrate but clinically felt to be pneumonia Code(s): J44.1 - CHRONIC OBSTRUCTIVE PULMONARY DISEASE W (ACUTE) EXACERBATION (2) Leukocytosis Status: Acute Assessment & Plan: see comments above Code(s): D72.829 - ELEVATED WHITE BLOOD CELL COUNT, UNSPECIFIED (3) Hyponatremia Status: Resolved Code(s): E87.1 - HYPO-OSMOLALITY AND HYPONATREMIA (4) Hypercarbia Status: Acute Assessment & Plan: see resp therapists notes-transfer to [facility] -Dr Strickland Protection Manager asked she be managed also by Hospitalist due to multiple medical problems. Code(s): R06.89 - OTHER ABNORMALITIES OF BREATHING (5) CHF (congestive heart failure) Status: Chronic Assessment & Plan: acute on chronic. BNP up to 4,000 Code(s): I50.9 - HEART FAILURE, UNSPECIFIED - Discharge Disposition: DC TO [facility] Condition: Stable Prescriptions: No Action Albuterol 2.5 mg/3 ml Neb [Proventil 2.5 mg/3 ml Neb] 2.5 mg IH QID Albuterol 8 gm Mdi Hfa [Ventolin Hfa MDI] 8 gm IH QIDPRN PRN PRN Reason: resp Furosemide 40 mg [Lasix 40 MG] 40 mg PO DAILY Apixaban [Eliquis] 2.5 mg PO BID PANTOPRAZOLE 40 mg Tablet [Protonix 40MG Tablet] 40 mg PO QAM Furosemide 20 mg [Lasix 20 mg] 20 mg PO UD PRN PRN Reason: edema Docusate Sodium 100 mg [Colace 100 MG] 100 mg PO DAILY Ferrous Sulfate 325 mg PO QHS Metoprolol Succinate 25 mg PO BID Potassium Chloride 10 Meq Tab* [Klor Con 10 MEQ] 10 meq PO DAILY Additional Instructions: YOUR CARDIAC CALCIUM SCORE SCREEN APPOINTMENT needs rescheduled on d/c. [facility] HAS BEEN ARRANGED. THEY WILL BE ON CONTACT TO SET UP A VISIT. THEIR PHONE NUMBER IS [phone] Follow up with: SHAWNEE STRICKLAND [ACTIVE STAFF] - 10/01/20 1:15 pm ([facility]) SILVIA FOSTER DO [Primary Care Provider] - 10/03/20 9:00 am Forms: Ambulance Transport Record, Transfer Record Inter-Agency
== END 2020-09-29 13:05 | disposition short-term general hospital (02) | DRG 191 ==
LOC: ED 14:37 → ICU 21:03 → OBSVTOIN 09-18 08:40 → MED SURG 09-19 20:32
PROVIDERS: ADMIT Family Medicine; ATTEND Family Medicine
DX: J44.1 Chronic obstructive pulmonary disease with (acute) exacerbation (principal); J96.11 Chronic respiratory failure with hypoxia; J96.12 Chronic respiratory failure with hypercapnia; J90 Pleural effusion, not elsewhere classified; E87.1 Hypo-osmolality and hyponatremia; I11.0 Hypertensive heart disease with heart failure; I50.9 Heart failure, unspecified; D50.0 Iron deficiency anemia secondary to blood loss (chronic); E11.9 Type 2 diabetes mellitus without complications; I10 Essential (primary) hypertension; I45.10 Unspecified right bundle-branch block; M79.89 Other specified soft tissue disorders; Z99.81 Dependence on supplemental oxygen; Z79.899 Other long term (current) drug therapy; Z79.01 Long term (current) use of anticoagulants; D72.829 Elevated white blood cell count, unspecified; R54 Age-related physical debility; Z20.828 Contact with and (suspected) exposure to other viral communicable diseases
CPT/HCPCS: 0241U; 36000; 36415; 36430; 36600; 71045; 71046; 71260; 80048; 80053; 81001; 82150; 82375; 82607; 82728; 82746; 82803; 82947; 83540; 83550; 83690; 83735; 83880; 84484; 85025; 85027; 85045; 85379; 86850; 86900; 86901; 86922; 87040; 93005; 93041; 93268; 93306; 94640; 94760; 94762; 96374; 96375; 97110; 97161; 97530; 99284; G0378; P9016; J0696; J1940; J2405; J2930; J7609; A9270-GY

== ENCOUNTER 2021-07-05 15:09 | Observation (INO) | payer MEDICARE ==
[2021-07-05] MEDS ORDERED: DUONEB 0.5-3 MG/3 ml Neb IH ONE (15:31)
--- NOTE | 2021-07-05 15:38 | ERPHSYRPT ---
- History of Present Illness Time Seen by Provider: 07/05/21 15:36 Source: patient Exam Limitations: no limitations Patient Subjective Stated Complaint: pt here for increase sob for almost 2 weeks now, chills, pt wears home o2, not eating well, and loose stools Triage Nursing Assessment: pt alert, resp labored, o2 at 4 lnc , no edema noted , skn w/d/p. face mask in place Physician History: Patient is 76-year-old female with significant past medical history of COPD hypertension oxygen dependency started having shortness of breath 7 to 10 days ago. She denies any fever chills nausea vomiting heavy pressure type of chest pain. Patient recently has possible exposure to coronavirus but the antigen test at home was appears to be very weakly positive and inconclusive so patient's granddaughter advised her to come to the emergency room as patient was getting more and more short of breath. Timing/Duration: day(s) Severity of Dyspnea-Max: moderate Severity of Dyspnea-Current: moderate Possible Cause: frequent episodes Associated Symptoms: wheezing Allergies/Adverse Reactions: metformin Allergy (Verified 07/05/21 15:26) Home Medications: Albuterol 2.5 mg/3 ml Neb [Proventil 2.5 mg/3 ml Neb] 2.5 mg IH QID 07/30/16 [History] Albuterol 8 gm Mdi Hfa [Ventolin Hfa MDI] 8 gm IH QIDPRN PRN 07/30/16 [History] Furosemide 40 mg [Lasix 40 MG] 40 mg PO DAILY 08/15/17 [History] Apixaban [Eliquis] 2.5 mg PO BID 08/02/20 [History] Docusate Sodium 100 mg [Colace 100 MG] 100 mg PO DAILY 09/16/20 [History] Ferrous Sulfate 325 mg PO QHS 09/16/20 [History] Furosemide 20 mg [Lasix 20 mg] 20 mg PO UD PRN 09/16/20 [History] Metoprolol Succinate 25 mg PO BID 09/16/20 [History] PANTOPRAZOLE 40 mg Tablet [Protonix 40MG Tablet] 40 mg PO QAM 09/16/20 [History] Potassium Chloride 10 Meq Tab* [Klor Con 10 MEQ] 10 meq PO DAILY 09/16/20 [History] Hx Tetanus, Diphtheria Vaccination/Date Given: No Hx Influenza Vaccination/Date Given: Yes Hx Pneumococcal Vaccination/Date Given: No Immunizations Up to Date: Yes Travel Risk - International Travel Have you traveled outside of the country in past 3 weeks: No - Coronavirus Screening Are you exhibiting any of the following symptoms?: Yes Symptoms: Cough: New Onset, Shortness of Breath Close contact with a COVID-19 positive Pt in past 14-21 Days: No - Vaccine Status Have you recieved a Covid-19 vaccination: No - Review of Systems Constitutional: Weakness, No Fever, No Chills Eyes: No Symptoms Ears, Nose, & Throat: No Symptoms Respiratory: Dyspnea, Dyspnea on Exertion (JESUS), Wheezing, No Cough Cardiac: No Chest Pain, No Edema, No Syncope Abdominal/Gastrointestinal: No Abdominal Pain, No Nausea, No Vomiting, No Diarrhea Genitourinary Symptoms: No Dysuria Musculoskeletal: No Back Pain, No Neck Pain Skin: No Rash Neurological: No Dizziness, No Focal Weakness, No Sensory Changes Psychological: No Symptoms Endocrine: No Symptoms All Other Systems: Reviewed and Negative - Past Medical History Pertinent Past Medical History: Yes Neurological History: No Pertinent History ENT History: No Pertinent History Cardiac History: Congestive Heart Failure, Deep Vein Thrombosis, Hypertension Respiratory History: Asthma, CHF, COPD Endocrine Medical History: Diabetes Type II Musculoskeletal History: No Pertinent History GI Medical History: No Pertinent History History: No Pertinent History Psycho-Social History: No Pertinent History Female Reproductive Disorders: No Pertinent History - Past Surgical History Past Surgical History: Yes Neuro Surgical History: No Pertinent History Cardiac: No Pertinent History Respiratory: No Pertinent History Gastrointestinal: Appendectomy Genitourinary: No Pertinent History Musculoskeletal: No Pertinent History Female Surgical History: Hysterectomy Other Surgical History: mesh for dvt - Social History Smoking Status: Former smoker How long have you smoked: 25 years Exposure to second hand smoke: No Drug Use: none Patient Lives Alone: No (family) - Female History Hx Last Menstrual Period: post Hx Now: No - Nursing Vital Signs Nursing Vital Signs: Initial Vital Signs Respiratory Rate 28 H 07/05/21 15:10 O2 Sat by Pulse Oximetry 90 L 07/05/21 15:10 Pain Scale Pain Intensity 0 - Physical Exam General Appearance: no apparent distress, alert, lethargy Eye Exam: PERRL/EOMI Neck Exam: normal inspection, supple Respiratory Exam: diminished breath sounds, crackles/rales, rhonchi, wheezing Cardiovascular/Chest Exam: normal heart sounds, regular rate/rhythm Abdominal/Gastrointestinal Exam: soft, No tenderness, No distention, No mass Extremity Exam: non-tender, normal range of motion, normal inspection, no calf tenderness, no pedal edema Neurologic Exam: alert, oriented x 3, cooperative, die try out worker II-XII nml as tested, sensation nml, No motor deficits Skin Exam: normal color, warm, No dry SpO2 Interpretation: hypoxic SpO2: 86 O2 Delivery: Nasal Cannula - Course Nursing assessment & vital signs reviewed: Yes - Radiology Exams Chest X-ray Interpretation: Reviewed by me Ordered Tests: Active Orders 24 hr Category Date Time Status EKG-ER Only STAT Care 07/05/21 15:31 Active Oxygen-ED Only Nasal Cannula 3 lpm Care 07/05/21 15:31 Active CHEST 1 VIEW (PORTABLE) Stat Exams 07/05/21 15:34 Taken CBC W DIFF Stat Lab 07/05/21 15:55 Completed CMP Stat Lab 07/05/21 15:55 Received D-DIMER QUANTITATIVE Stat Lab 07/05/21 15:55 Completed MAGNESIUM Stat Lab 07/05/21 15:55 Received NT PRO BNP Stat Lab 07/05/21 15:55 Received TROPONIN Q3H Lab 07/05/21 15:55 Received TROPONIN Q3H Lab 07/05/21 18:45 Ordered TROPONIN Q3H Lab 07/05/21 21:45 Ordered TROPONIN Q3H Lab 07/06/21 00:45 Ordered TROPONIN Q3H Lab 07/06/21 03:45 Ordered UA W/RFX UR CULTURE Stat Lab 07/05/21 15:34 Ordered Respiratory MDI STAT RT 07/05/21 16:17 Active Respiratory Therapy Assessment DAILY RT 07/05/21 16:15 Active Medication Summary Generic Name Dose Route Start Last Admin Trade Name Freq PRN Reason Stop Dose Admin Albuterol Sulfate 4 puff 07/05/21 16:13 07/05/21 16:00 Albuterol Common Canister Inhaler IH 08/04/21 16:12 4 puff Q4H PRN PRN Administration SHORTNESS OF BREATH/WHEEZING Sodium Chloride 1,000 mls @ 50 mls/hr 07/05/21 15:45 07/05/21 15:45 Sodium Chloride 0.9% 1000 Ml IV 08/04/21 15:44 50 mls/hr .Q20H TONI Administration Discontinued Medications Generic Name Dose Route Start Last Admin Trade Name Kim PRN Reason Stop Dose Admin Albuterol/Ipratropium 3 ml 07/05/21 15:31 Ipratropium/Albuterol Sulfate 3 Ml Ampul.Neb IH 07/05/21 15:32 STAT ONE Lab/Rad Data: Laboratory Result Diagrams 07/05/21 15:55 Laboratory Results 07/05/21 07/05/21 Range/Units 15:55 15:55 WBC 6.0 (4.0-10.5) K/mm3 RBC 3.33 L (4.1-5.4) M/mm3 Hgb 9.7 L (12.0-16.0) gm/dl Hct 30.7 L (35-47) % MCV 92.2 (78-100) fl MCH 29.1 (26-32) pg MCHC 31.6 L (32-36) g/dl RDW 12.8 (11.5-14.0) % Plt Count 202 (150-450) K/mm3 MPV 11.3 H (7.5-11.0) fl Gran % 81.2 H (36.0-66.0) % Eos # (Auto) 0 (0-0.5) Absolute Lymphs (auto) 0.66 L (1.0-4.6) Absolute Monos (auto) 0.46 (0.0-1.3) Lymphocytes % 11.1 L (24.0-44.0) % Monocytes % 7.7 (0.0-12.0) % Eosinophils % 0.0 (0.00-5.0) % Basophils % 0.0 (0.0-0.4) % Absolute Granulocytes 4.85 (1.4-6.9) Basophils # 0 (0-0.4) D-Dimer 608 H* (215-500) ng/mL - Progress Progress: unchanged Air Movement: fair Blood Culture(s) Obtained: Yes Antibiotics given: Yes Will see patient in: hospital (observation) Counseled pt/family regarding: lab results, diagnosis, need for follow-up, rad results - Departure Departure Disposition: Observation Clinical Impression: Elevated d-dimer, Acute respiratory failure with hypercapnia Pneumonia Qualifiers: Pneumonia type: due to unspecified organism Laterality: bilateral Lung location: lower lobe of lung Qualified Code(s): J18.9 - Pneumonia, unspecified organism Condition: Fair Critical Care Time: Yes Critical Care Time(excluding separately billable procedures): Critical 30-74 mins Referrals: SILVIA FOSTER DO [Primary Care Provider] - Follow up/PCP as directed Instructions: Pneumonia, Adult (DC)
[2021-07-05] MEDS ORDERED: Sodium Chloride 0.9% 1000 ML 1,000 ML ONE (15:43)
[2021-07-05] MEDS ORDERED: Sodium Chloride 0.9% 1000 ML 1,000 ML IV SCH ×2 (15:45→16:45)
[2021-07-05] MEDS: VENTOLIN COMMON CANISTER IH PRN ×2 (16:00→19:43)
[2021-07-05 16:10] LABS: Absolute Neutrophil Ct (ANC) 4.85 (1.4-6.9); Basophil (Absolute #) 0 (0-0.4); Eosinophil (Absolute #) 0 (0-0.5); Hematocrit 30.7 % (35-47); Hemoglobin 9.7 gm/dl (12.0-16.0); Lymphocyte (Absolute #) 0.66 (1.0-4.6); Lymphocytes % 11.1 % (24.0-44.0); Mean Cell Volume 92.2 fl (78-100); Mean Corpuscular Hemoglobin 29.1 pg (26-32); Mean Corpuscular Hgb Concent. 31.6 g/dl (32-36); Mean Platelet Volume 11.3 fl (7.5-11.0); Monocyte (Absolute #) 0.46 (0.0-1.3); Monocytes % 7.7 % (0.0-12.0); Neutrophil % 81.2 % (36.0-66.0); Platelet Count 202 K/mm3 (150-450); Red Blood Count 3.33 M/mm3 (4.1-5.4); Red Cell Distribution Width 12.8 % (11.5-14.0)
[2021-07-05 16:33] LABS: ALBUMIN 3.7 g/dL (3.5-5.0); BILIRUBIN,TOTAL 0.7 mg/dL (0.2-1.3); Calcium 8.6 mg/dL (8.4-10.2); Creatinine 1 1.29 mg/dL (0.52-1.04); EST GLOMERULAR FILTRATION RATE 42.7 ML/MIN; MAGNESIUM 1.9 mg/dL (1.6-2.3); Total Protein 6.6 g/dL (6.3-8.2)
[2021-07-05] MEDS ORDERED: ROCEPHIN 1 Gm-D5w 50 ml Bag** 1 G/50 ML IVPB IV STA (16:35)
[2021-07-05 16:43] LABS: ANION GAP 11.7 MEQ/L (5-15); Potassium 2.7 mmol/L (3.5-5.1)
[2021-07-05 16:47] LABS: INFLUENZA A NEGATIVE (NEGATIVE); INFLUENZA B NEGATIVE (NEGATIVE); RESPIRATORY SYNCTIAL VIRUS NEGATIVE (Negative)
[2021-07-05] MEDS: POTASSIUM CHLORIDE 20 mEq IN WATER 100ML 20 MEQ/100 ML BAG IV SCH ×2 (16:49→20:08)
[2021-07-05 16:53] LABS: SARS-CoV-2 Xpert Express POSITIVE (NEGATIVE)
[2021-07-05] MEDS ORDERED: ROCEPHIN 1 Gm-D5w 50 ml Bag** 1 G/50 ML IVPB IV ONE (17:03)
--- NOTE | 2021-07-05 18:09 | XRAY ---
Indication: Cough and short of breath. Comparison: October 14, 2020. Portable chest again hyperinflated with new bilateral mid to lower lung hazy interstitial alveolar opacities without consolidation/large effusion. Stable right lung calcified granuloma. Heart not enlarged. Bony thorax intact again with osteopenia and degenerative changes.
[2021-07-05] MEDS ORDERED: Pepcid 20 MG VIAL IV ONE (20:02)
[2021-07-05] MEDS ORDERED: Toprol Xl 50 MG PO ONE (20:02)
[2021-07-05] MEDS ORDERED: solu-MEDROL ONE (20:02)
[2021-07-05] MEDS ORDERED: Sterile H2O 10 ml IJ ONE (20:03)
[2021-07-05] MEDS: solu-MEDROL 60 MG, Sterile H2O 10 ml 2 ML IV SCH ×2 (20:05)
[2021-07-05] MEDS: TYLENOL 325 MG PO PRN (20:07)
--- NOTE | 2021-07-05 20:15 | PCM.HP ---
History of Present Illness - Chief Complaint Chief Complaint: shortness of breath History of Present Illness: is a 76 year old female.Patient is 76-year-old female with significant past medical history of COPD hypertension oxygen dependency started having shortness of breath 7 to 10 days ago. She denies any fever chills nausea vomiting heavy pressure type of chest pain. Patient recently has possible exposure to coronavirus but the antigen test at home was appears to be very wea kly positive and inconclusive so patient's granddaughter advised her to come to the emergency room as patient was getting more and more short of breath. Timing/Duration: day(s) Severity of Dyspnea-Max: moderate Severity of Dyspnea-Current: moderate Possible Cause: frequent episodes Associated Symptoms: wheezing - Review of Systems Constitutional: No Fever, No Chills Eyes: No Symptoms Ears, Nose, & Throat: No Symptoms Respiratory: Cough, Orthopnea, Short Of Breath, Wheezing Cardiac: No Chest Pain, No Edema, No Syncope Abdominal/Gastrointestinal: No Abdominal Pain, No Nausea, No Vomiting, No Diarrhea Genitourinary Symptoms: No Dysuria Musculoskeletal: No Back Pain, No Neck Pain Skin: No Rash Neurological: No Dizziness, No Focal Weakness, No Sensory Changes Psychological: No Symptoms Endocrine: No Symptoms Hematologic/Lymphatic: No Symptoms Immunological/Allergic: No Symptoms Medications & Allergies Home Medications: Home Medication List Albuterol 2.5 mg/3 ml Neb [Proventil 2.5 mg/3 ml Neb] 2.5 mg IH QID 07/30/16 [History Confirmed 07/05/21] Albuterol 8 gm Mdi Hfa [Ventolin Hfa MDI] 8 gm IH QIDPRN PRN 07/30/16 [History Confirmed 07/05/21] Furosemide 40 mg [Lasix 40 MG] 40 mg PO DAILY 08/15/17 [History Confirmed 07/05/21] Apixaban [Eliquis] 2.5 mg PO BID 08/02/20 [History Confirmed 07/05/21] Docusate Sodium 100 mg [Colace 100 MG] 100 mg PO DAILY 09/16/20 [History Confirmed 07/05/21] Furosemide 20 mg [Lasix 20 mg] 20 mg PO UD PRN 09/16/20 [History Confirmed 07/05/21] Metoprolol Succinate 25 mg PO BID 09/16/20 [History Confirmed 07/05/21] PANTOPRAZOLE 40 mg Tablet [Protonix 40MG Tablet] 40 mg PO QAM 09/16/20 [ History Confirmed 07/05/21] Potassium Chloride 10 Meq Tab* [Klor Con 10 MEQ] 10 meq PO DAILY 09/16/20 [History Confirmed 07/05/21] Allergies/Adverse Reactions: Allergies Allergy/AdvReac Type Severity Reaction Status Date / Time metformin Allergy Verified 07/05/21 15:26 - Past Medical History Past Medical History: Yes Neurological History: No Pertinent History ENT History: No Pertinent History Cardiac History: Congestive Heart Failure, Deep Vein Thrombosis, Hypertension Respiratory History: Asthma, CHF, COPD Endocrine Medical History: No Pertinent History Musculoskelatal History: No Pertinent History GI Medical History: No Pertinent History History: No Pertinent History Pyscho-Social History: No Pertinent History Reproductive Disorders: No Pertinent History - Female History Hx Last Menstrual Period: post Are you now?: No - Past Surgical History Past Surgical History: Yes Neuro Surgical History: No Pertinent History Cardiac History: No Pertinent History Respiratory Surgery: No Pertinent History GI Surgical History: Appendectomy Genitourinary Surgical Hx: No Pertinent History Musculskeletal Surgical Hx: No Pertinent History Female Surgical History: Hysterectomy Other Surgical History: mesh for dvt - Social History Smoking Status: Former smoker How long have you smoked: 25 years Exposure to second hand smoke: No Alcohol: None Drug Use: none - Physical Exam Vital Signs: Vital Signs - 24 hr Pulse Resp BP Pulse Ox 07/05/21 19:35 93 H 20 89 L 07/05/21 17:56 86 22 96 07/05/21 16:45 70 24 98 07/05/21 16:34 86 L 07/05/21 16:16 81 25 H 116/72 95 07/05/21 16:00 79 20 93 L 07/05/21 15:18 28 H 86 L 07/05/21 15:10 28 H 90 L General Appearance: no apparent distress, alert Neurologic Exam: alert, oriented x 3, cooperative, normal mood/affect, nml cerebellar function, nml station & gait, sensation nml, No motor deficits Eye Exam: PERRL/EOMI, eyes nml inspection Ears, Nose, Throat Exam: normal ENT inspection, TMs normal, pharynx normal, moist mucous membranes Neck Exam: normal inspection, non-tender, supple, full range of motion Respiratory Exam: diminished breath sounds, accessory muscle use, crackles/rales, rhonchi, wheezing, No respiratory distress Cardiovascular Exam: regular rate/rhythm, normal heart sounds, normal peripheral pulses Gastrointestinal/Abdomen Exam: soft, normal bowel sounds, No tenderness, No mass Back Exam: normal inspection, normal range of motion, No CVA tenderness, No vertebral tenderness Extremity Exam: normal inspection, normal range of motion, pelvis stable Skin Exam: normal color, warm, dry, No rash Lymphatic Exam: No adenopathy Results - Labs Lab/Micro Results: Lab Results-Last 24 Hours 07/05/21 07/05/21 07/05/21 Range/Units 15:55 15:55 15:55 WBC 6.0 (4.0-10.5) K/mm3 RBC 3.33 L (4.1-5.4) M/mm3 Hgb 9.7 L (12.0-16.0) gm/dl Hct 30.7 L (35-47) % MCV 92.2 (78-100) fl MCH 29.1 (26-32) pg MCHC 31.6 L (32-36) g/dl RDW 12.8 (11.5-14.0) % Plt Count 202 (150-450) K/mm3 MPV 11.3 H (7.5-11.0) fl Gran % 81.2 H (36.0-66.0) % Eos # (Auto) 0 (0-0.5) Absolute Lymphs (auto) 0.66 L (1.0-4.6) Absolute Monos (auto) 0.46 (0.0-1.3) Lymphocytes % 11.1 L (24.0-44.0) % Monocytes % 7.7 (0.0-12.0) % Eosinophils % 0.0 (0.00-5.0) % Basophils % 0.0 (0.0-0.4) % Absolute Granulocytes 4.85 (1.4-6.9) Basophils # 0 (0-0.4) D-Dimer 608 H* (215-500) ng/mL Sodium 137 (137-145) mmol/L Potassium 2.7 L* (3.5-5.1) mmol/L Chloride 86 L (98-107) mmol/L Carbon Dioxide 42 H (22-30) mmol/L Anion Gap 11.7 (5-15) MEQ/L BUN 25 H (7-17) mg/dL Creatinine 1.29 H (0.52-1.04) mg/dL Estimated GFR 42.7 ML/MIN Glucose 116 H (74-106) mg/dL Calcium 8.6 (8.4-10.2) mg/dL Magnesium 1.9 (1.6-2.3) mg/dL Total Bilirubin 0.70 (0.2-1.3) mg/dL AST 45 H (14-36) U/L ALT 21 (0-35) U/L Alkaline Phosphatase 52 (38-126) U/L Troponin I (0.000-0.034) ng/mL NT-Pro-B Natriuret Pep 1730 (0-1800) pg/mL Serum Total Protein 6.6 (6.3-8.2) g/dL Albumin 3.7 (3.5-5.0) g/dL Influenza Type A Ag (NEGATIVE) Influenza Type B Ag (NEGATIVE) RSV (PCR) (Negative) SARS-CoV-2 (PCR) (NEGATIVE) 07/05/21 07/05/21 Range/Units 15:55 16:08 WBC (4.0-10.5) K/mm3 RBC (4.1-5.4) M/mm3 Hgb (12.0-16.0) gm/dl Hct (35-47) % MCV (78-100) fl MCH (26-32) pg MCHC (32-36) g/dl RDW (11.5-14.0) % Plt Count (150-450) K/mm3 MPV (7.5-11.0) fl Gran % (36.0-66.0) % Eos # (Auto) (0-0.5) Absolute Lymphs (auto) (1.0-4.6) Absolute Monos (auto) (0.0-1.3) Lymphocytes % (24.0-44.0) % Monocytes % (0.0-12.0) % Eosinophils % (0.00-5.0) % Basophils % (0.0-0.4) % Absolute Granulocytes (1.4-6.9) Basophils # (0-0.4) D-Dimer (215-500) ng/mL Sodium (137-145) mmol/L Potassium (3.5-5.1) mmol/L Chloride (98-107) mmol/L Carbon Dioxide (22-30) mmol/L Anion Gap (5-15) MEQ/L BUN (7-17) mg/dL Creatinine (0.52-1.04) mg/dL Estimated GFR ML/MIN Glucose (74-106) mg/dL Calcium (8.4-10.2) mg/dL Magnesium (1.6-2.3) mg/dL Total Bilirubin (0.2-1.3) mg/dL AST (14-36) U/L ALT (0-35) U/L Alkaline Phosphatase (38-126) U/L Troponin I 0.264 H* (0.000-0.034) ng/mL NT-Pro-B Natriuret Pep (0-1800) pg/mL Serum Total Protein (6.3-8.2) g/dL Albumin (3.5-5.0) g/dL Influenza Type A Ag NEGATIVE (NEGATIVE) Influenza Type B Ag NEGATIVE (NEGATIVE) RSV (PCR) NEGATIVE (Negative) SARS-CoV-2 (PCR) POSITIVE A (NEGATIVE) - Radiology Impressions Radiology Exams & Impressions: Radiology Procedures Category Date Time Status CHEST 1 VIEW (PORTABLE) Stat Exams 07/05/21 15:34 Completed - Other Procedures and Tests Respiratory Therapy 07/05/21 16:15 Respiratory Therapy Assessment DAILY 07/05/21 16:36 Oxygen Nasal Cannula 5 lpm Assessment/Plan (1) Acute respiratory failure with hypercapnia Current Visit: Yes Status: Acute Assessment & Plan: Chief Complaint Diagnosis pneumonia, COPD exacbation, COVID Allergies Allergy/AdvReac Type Severity Reaction Status Date / Time metformin Allergy Verified 07/05/21 15:26 Vital Signs (Last 24 hours) Pulse Resp BP Pulse Ox 07/05/21 19:35 93 H 20 89 L 07/05/21 17:56 86 22 96 07/05/21 16:45 70 24 98 07/05/21 16:34 86 L 07/05/21 16:16 81 25 H 116/72 95 07/05/21 16:00 79 20 93 L 07/05/21 15:18 28 H 86 L 07/05/21 15:10 28 H 90 L Current Medications Generic Name Dose Route Start Last Admin Trade Name Freq PRN Reason Stop Dose Admin Acetaminophen 650 mg 07/05/21 19:54 07/05/21 20:07 Acetaminophen 325 Mg Tablet PO 08/04/21 19:53 650 mg Q4H PRN PRN Administration PAIN AND/OR FEVER Albuterol Sulfate 4 puff 07/05/21 16:13 07/05/21 19:43 Albuterol Common Canister Inhaler 08/04/21 16:12 4 puff Q4H PRN PRN Administration SHORTNESS OF BREATH/WHEEZING Albuterol Sulfate 4 puff 07/06/21 07:00 Albuterol Common Canister Inhaler 08/05/21 06:59 QIDRT TONI Apixaban 2.5 mg 07/05/21 22:00 Apixaban 2.5 Mg Tablet PO 08/04/21 21:59 BID [facility] Methylprednisolone Sodium 0 mg 07/05/21 18:00 07/05/21 20:05 Succinate 60 mg/ Sterile Water IV 08/04/21 17:59 60 mg 2 ml Q6HT TONI Administration Enoxaparin Sodium 40 mg 07/06/21 10:00 Enoxaparin Sodium 40 Mg/0.4 Ml Syringe SQ 08/05/21 09:59 DAILY [facility] Famotidine 20 mg 07/05/21 22:00 Famotidine 20 Mg/1 Vial IV 08/04/21 21:59 Q12HT [facility] Sodium Chloride 1,000 mls @ 50 mls/hr 07/05/21 16:45 Sodium Chloride 0.9% 1000 Ml IV 08/04/21 16:44 .Q20H [facility] Ceftriaxone Sodium/Dextrose 1 g in 50 mls @ 100 mls/hr 07/06/21 10:00 Rocephin 1 Gm-D5w 50 Ml Bag IV 07/09/21 09:59 Q24H10 [facility] Azithromycin 500 mg in 250 mls @ 250 mls/hr 07/06/21 10:00 Zithromax 500 Mg/ 250 Ml Nacl Premix IV 08/05/21 09:59 Q24H10 [facility] Potassium Chloride 20 meq in 100 mls @ 50 mls/hr 07/05/21 16:45 02/13/22 20: 08 Potassium Chloride 20 Meq In Water 100ml IV 07/05/21 20:44 50 mls/hr Q2H TONI Administration Metoprolol Succinate 25 mg 07/05/21 22:00 Metoprolol Succinate 25 Mg Xl Tab PO 08/04/21 21:59 BID TONI Discontinued Medications Generic Name Dose Route Start Last Admin Trade Name Robertq PRN Reason Stop Dose Admin Albuterol/Ipratropium 3 ml 07/05/21 15:31 07/05/21 16:51 Ipratropium/Albuterol Sulfate 3 Ml Ampul.Neb IH 07/05/21 15:32 Not Given STAT ONE Sodium Chloride 1,000 mls @ 50 mls/hr 07/05/21 15:45 07/05/21 15:45 Sodium Chloride 0.9% 1000 Ml IV 08/04/21 15:44 50 mls/hr .Q20H TONI Administration Ceftriaxone Sodium/Dextrose 1 g in 50 mls @ 100 mls/hr 07/05/21 16:35 07/05/21 17:07 Rocephin 1 Gm-D5w 50 Ml Bag IV 07/05/21 17:04 100 mls/hr STAT STA 100 mls/hr Administration Ceftriaxone Sodium/Dextrose Confirm 07/05/21 17:03 Rocephin 1 Gm-D5w 50 Ml Bag Administered 07/05/21 17:04 Dose 1 g in 50 mls @ ud IV .STK-MED ONE Methylprednisolone Sodium Succinate Confirm 07/05/21 20:02 Methylprednis Sod Succ 125 Mg/2 Ml Vial Administered 07/05/21 20:03 Dose 125 mg .ROUTE .STK-MED ONE Metoprolol Succinate Confirm 07/05/21 20:02 Metoprolol Succinate 50 Mg Tablet.Sa Administered 07/05/21 20:03 Dose 50 mg PO .STK-MED ONE Sterile Water Confirm 07/05/21 20:03 Water For Injection,Sterile 10 Ml Vial Administered 07/05/21 20:04 Dose 10 ml IJ .STK-MED ONE Intake & Output (Last 24 hours) 07/03/21 07/04/21 07/05/21 07/06/21 11:59 11:59 11:59 11:59 Weight 91 kg Laboratory Results (Last 24 hours) 0207/05/21 07/05/21 16:08 15:55 15:55 WBC RBC Hgb Hct MCV MCH MCHC RDW Plt Count MPV Gran % Eos # (Auto) Absolute Lymphs (auto) Absolute Monos (auto) Lymphocytes % Monocytes % Eosinophils % Basophils % Absolute Granulocytes Basophils # D-Dimer 608 H* Sodium Potassium Chloride Carbon Dioxide Anion Gap BUN Creatinine Estimated GFR Glucose Calcium Magnesium Total Bilirubin AST ALT Alkaline Phosphatase Troponin I 0.264 H* NT-Pro-B Natriuret Pep Serum Total Protein Albumin Influenza Type A Ag NEGATIVE Influenza Type B Ag NEGATIVE RSV (PCR) NEGATIVE SARS-CoV-2 (PCR) POSITIVE A 07/05/21 07/05/21 15:55 15:55 WBC 6.0 RBC 3.33 L Hgb 9.7 L Hct 30.7 L MCV 92.2 MCH 29.1 MCHC 31.6 L RDW 12.8 Plt Count 202 MPV 11.3 H Gran % 81.2 H Eos # (Auto) 0 Absolute Lymphs (auto) 0.66 L Absolute Monos (auto) 0.46 Lymphocytes % 11.1 L Monocytes % 7.7 Eosinophils % 0.0 Basophils % 0.0 Absolute Granulocytes 4.85 Basophils # 0 D-Dimer Sodium 137 Potassium 2.7 L* Chloride 86 L Carbon Dioxide 42 H Anion Gap 11.7 BUN 25 H Creatinine 1.29 H Estimated GFR 42.7 Glucose 116 H Calcium 8.6 Magnesium 1.9 Total Bilirubin 0.70 AST 45 H ALT 21 Alkaline Phosphatase 52 Troponin I NT-Pro-B Natriuret Pep 1730 Serum Total Protein 6.6 Albumin 3.7 Influenza Type A Ag Influenza Type B Ag RSV (PCR) SARS-CoV-2 (PCR) Orders (Last 24 hours) Category Date Time Status Up Ad [place] ROUTINE Activity 07/05/21 16:36 Active Code Status Order ROUTINE Care 07/05/21 16:36 Active EKG-ER Only STAT Care 07/05/21 15:31 Completed Fall Protocol Q1H Care 07/05/21 16:36 Active IV Care Q6H Care 07/05/21 16:36 Active Isolation, Initiate & Maintain Q6H Care 07/05/21 16:[address] in Observation ROUTINE Care 07/05/21 16:[address] in Observation ROUTINE Care 07/05/21 18:33 Active Ruddy Olivares, Apply ROUTINE Care 07/05/21 16:36 Active Weight,Daily 0600 Care 07/05/21 16:36 Active 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 ROUTINE Cons 07/05/21 18:59 Active Heart-Healthy Diet Diet 07/05/21 Dinner Active CHEST 1 VIEW (PORTABLE) Stat Exams 07/05/21 15:34 Completed CBC W DIFF Stat Lab 07/05/21 15:55 Completed CMP AM.LAB Lab 07/06/21 04:00 Ordered CMP Stat Lab 07/05/21 15:55 Completed D-DIMER QUANTITATIVE Stat Lab 07/05/21 15:55 Completed MAGNESIUM Stat Lab 07/05/21 15:55 Completed NT PRO BNP Stat Lab 07/05/21 15:55 Completed TROPONIN Q3H Lab 07/05/21 15:55 Completed TROPONIN Q3H Lab 07/05/21 19:13 Received TROPONIN Q3H Lab 07/05/21 21:45 Ordered TROPONIN Q3H Lab 07/06/21 00:45 Ordered TROPONIN Q3H Lab 07/06/21 03:45 Ordered UA W/RFX UR CULTURE Stat Lab 07/05/21 15:34 Ordered Acetaminophen 325 mg [Tylenol 325 mg] Med 07/05/21 19:54 Ordered 650 mg PO Q4H PRN PRN Albuterol Common Canister [Ventolin Common Canister* Med 07/05/21 16:13 Ordered ] 4 puff IH Q4H PRN PRN Albuterol Common Canister [Ventolin Common Canister* Med 07/06/21 07:00 Ordered ] 4 puff IH QIDRT Albuterol/Ipratropium 3ml Neb* [DUONEB 0.5-3 MG/3 ml Med 07/05/21 15:31 Discontinued Neb] 3 ml IH STAT ONE Apixaban [Eliquis 2.5 mg Tablet] Med 07/05/21 22:00 Ordered 2.5 mg PO BID Azithromycin 500 mg/250 ml [Zithromax 500 MG/ 250 ML Med 07/06/21 10:00 Ordered NaCl Premix] 500 mg in 250 ml IV Q24H10 Ceftriaxone 1 GM/50 ML PREMIX* [ROCEPHIN 1 Gm-D5w 50 ml Med 07/06/21 10:00 Ordered Bag] 1 g in 50 ml IV Q24H10 Ceftriaxone 1 GM/50 ML PREMIX* [ROCEPHIN 1 Gm-D5w 50 ml Med 07/05/21 16:35 Discontinued Bag] 1 g in 50 ml IV STAT Ceftriaxone 1 GM/50 ML PREMIX* [ROCEPHIN 1 Gm-D5w 50 ml Med 07/05/21 17:03 Discontinued Bag] 1 g in 50 ml IV UD Enoxaparin Sodium [Enoxaparin Sodium] Med 07/06/21 10:00 Ordered 40 mg SQ DAILY Famotidine 20 mg Vial [Pepcid 20 MG VIAL] Med 07/05/21 22:00 Ordered 20 mg IV Q12HT Methylprednis Sod Succ 125 mg* [solu-MEDROL] Med 07/05/21 20:02 Discontinued 125 mg .ROUTE .STK-MED ONE Methylprednis Sod Succ 125 mg* [solu-MEDROL] 60 mg Med 07/05/21 18:00 Ordered Water For Injection,Sterile [Sterile H2O 10 ml] 2 ml IV Q6HT Metoprolol Succinate 25 mg Xl* [Toprol-Xl 25MG Tablets* Med 07/05/21 22:00 Ordered ] 25 mg PO BID Metoprolol Succinate 50 mg [Toprol Xl 50 MG] Med 07/05/21 20:02 Discontinued 50 mg PO .STK-MED ONE NaCl 0.9% 1000 ml [Sodium Chloride 0.9% 1000 ML] 1,000 Med 07/05/21 15:45 Discontinued ml IV 50 mls/hr NaCl 0.9% 1000 ml [Sodium Chloride 0.9% 1000 ML] 1,000 Med 07/05/21 16:45 Ordered ml IV 50 mls/hr Potassium Chloride 20Meq/100Ml [POTASSIUM CHLORIDE 20 Med 07/05/21 16:45 Ordered mEq IN WATER 100ML] 20 meq in 100 ml IV Q2H Water For Injection,Sterile [Sterile H2O 10 ml] Med 07/05/21 20:03 Discontinued 10 ml IJ .STK-MED ONE Oxygen Nasal Cannula 5 lpm RT 07/05/21 16:36 Active Pulse Oximetry .continuos RT 07/05/21 19:58 Active RT Screen per Nursing Assess ONCE RT 07/05/21 18:59 Completed Respiratory MDI STAT RT 07/05/21 16:17 Completed Respiratory Therapy Assessment DAILY RT 07/05/21 16:15 Active Respiratory Therapy Consult ROUTINE RT 07/05/21 16:57 Completed Transfer Order Routine Transfer 07/05/21 Completed Code(s): J96.02 - ACUTE RESPIRATORY FAILURE WITH HYPERCAPNIA (2) COVID-19 with pulmonary comorbidity Current Visit: Yes Status: Acute Code(s): U07.1 - COVID-19; J98.4 - OTHER DISORDERS OF LUNG (3) COPD exacerbation Current Visit: No Status: Suspected Code(s): J44.1 - CHRONIC OBSTRUCTIVE PULMONARY DISEASE W (ACUTE) EXACERBATION
[2021-07-05] MEDS: ELIQUIS 2.5 MG TABLET PO SCH (21:15)
[2021-07-05] MEDS: Toprol-Xl 25MG Tablets PO SCH (21:15)
[2021-07-05] MEDS: Pepcid 20 MG VIAL IV SCH (21:16)
[2021-07-06] MEDS ORDERED: solu-MEDROL ONE ×3 (00:34→18:15)
[2021-07-06] MEDS ORDERED: Sterile H2O 10 ml IJ ONE ×2 (00:34→05:57)
[2021-07-06] MEDS: TYLENOL 325 MG PO PRN (01:30)
[2021-07-06] MEDS: solu-MEDROL 60 MG, Sterile H2O 10 ml 2 ML IV SCH ×8 (01:31→18:17)
[2021-07-06 02:03] LABS: ALBUMIN 3.7 g/dL (3.5-5.0); ANION GAP 13.6 MEQ/L (5-15); BILIRUBIN,TOTAL 0.8 mg/dL (0.2-1.3); Calcium 8.5 mg/dL (8.4-10.2); Creatinine 1 1.43 mg/dL (0.52-1.04); EST GLOMERULAR FILTRATION RATE 37.9 ML/MIN; Potassium 3.3 mmol/L (3.5-5.1); Total Protein 6.6 g/dL (6.3-8.2)
[2021-07-06 02:53] LABS: Appearance SLIGHTLY CLOUDY (CLEAR); Bilirubin NEGATIVE (NEGATIVE); Blood NEGATIVE Ery/ul (0-5); Epithelial Cells RARE /HPF (FEW); Glucose NEGATIVE (NEGATIVE); Ketones NEGATIVE (NEGATIVE); Leukocyte Esterase NEGATIVE (NEGATIVE); Nitrite NEGATIVE (NEGATIVE); Protein,Urine Dip 30 (Negative); RBC 0-2 /HPF (0-2); Specific Gravity 1.014 (1.005-1.025); Urobilinogen 4 mg/dL (0-1)
[2021-07-06] MEDS ORDERED: LASIX 20 MG PO PRN (07:09)
[2021-07-06] MEDS: VENTOLIN COMMON CANISTER IH PRN (07:30)
[2021-07-06] MEDS ORDERED: ENOXAPARIN SODIUM SQ SCH (10:00)
[2021-07-06] MEDS: Colace 100 MG PO SCH (10:35)
[2021-07-06] MEDS: Protonix 40MG Tablet PO SCH (10:35)
[2021-07-06] MEDS: Klor Con 10 MEQ PO SCH (10:35)
[2021-07-06] MEDS: Pepcid 20 MG VIAL IV SCH ×2 (10:35→21:32)
[2021-07-06] MEDS: ELIQUIS 2.5 MG TABLET PO SCH ×2 (10:35→21:32)
[2021-07-06] MEDS: Lasix 40 MG PO SCH (10:35)
[2021-07-06] MEDS: ROCEPHIN 1 Gm-D5w 50 ml Bag** 1 G/50 ML IVPB IV SCH (10:36)
[2021-07-06] MEDS: Zithromax 500 MG/ 250 ML NaCl Premix 500 MG/250 ML IVPB IV SCH (10:36)
[2021-07-06] MEDS: Toprol-Xl 25MG Tablets PO SCH ×2 (10:36→21:33)
[2021-07-06] MEDS: VENTOLIN COMMON CANISTER IH SCH ×3 (11:14→18:40)
--- NOTE | 2021-07-06 13:29 | PCM.NOTE ---
Date and Time: 07/06/21 1328 Subjective Assessment: Patient is doing fairly well. Is on Home O2 at 2L and is requiring 4 L now. OBJECTIVE DATA Vital Signs: Vital Signs - 24 hr Temp Pulse Resp BP Pulse Ox 07/06/21 13:00 80 24 99 07/06/21 12:00 97.9 F 89 17 134/72 97 07/06/21 11:47 19 07/06/21 11:36 89 20 91 L 07/06/21 11:00 87 15 92 L 07/06/21 10:00 79 23 07/06/21 09:47 18 07/06/21 09:00 79 20 94 L 07/06/21 08:00 97.8 F 81 20 119/78 95 07/06/21 07:41 86 18 90 L 07/06/21 07:00 80 15 92 L 07/06/21 06:00 76 19 100 07/06/21 05:00 81 16 95 07/06/21 03:48 78 22 94 L 07/06/21 03:00 78 26 H 96 07/06/21 02:00 98.3 F 82 16 129/62 100 07/06/21 00:55 77 26 H 97 07/05/21 23:45 82 21 96 07/05/21 21:53 97 H 15 91 L 07/05/21 21:00 101.4 F 97 H 21 89 L 07/05/21 20:00 100.2 F 100 H 14 135/64 93 L 07/05/21 19:35 93 H 20 89 L 07/05/21 17:56 86 22 96 07/05/21 16:45 70 24 98 07/05/21 16:34 86 L 07/05/21 16:16 81 25 H 116/72 95 07/05/21 16:00 79 20 93 L 07/05/21 15:18 28 H 86 L 07/05/21 15:10 28 H 90 L Pain Assessment - Last Documented Pain Intensity 0 Pain Scale Used FLACC Intake and Output: Intake & Output 07/04/21 07/05/21 07/06/21 07/07/21 11:59 11:59 11:59 11:59 Intake Total 1751 200 Output Total 400 Balance 1351 200 Weight 92 kg Lab Results: Lab Results-Last 24 Hours 07/05/21 07/05/21 07/05/21 Range/Units 15:55 15:55 15:55 WBC 6.0 (4.0-10.5) K/mm3 RBC 3.33 L (4.1-5.4) M/mm3 Hgb 9.7 L (12.0-16.0) gm/dl Hct 30.7 L (35-47) % MCV 92.2 (78-100) fl MCH 29.1 (26-32) pg MCHC 31.6 L (32-36) g/dl RDW 12.8 (11.5-14.0) % Plt Count 202 (150-450) K/mm3 MPV 11.3 H (7.5-11.0) fl Gran % 81.2 H (36.0-66.0) % Eos # (Auto) 0 (0-0.5) Absolute Lymphs (auto) 0.66 L (1.0-4.6) Absolute Monos (auto) 0.46 (0.0-1.3) Lymphocytes % 11.1 L (24.0-44.0) % Monocytes % 7.7 (0.0-12.0) % Eosinophils % 0.0 (0.00-5.0) % Basophils % 0.0 (0.0-0.4) % Absolute Granulocytes 4.85 (1.4-6.9) Basophils # 0 (0-0.4) D-Dimer 608 H* (215-500) ng/mL Sodium 137 (137-145) mmol/L Potassium 2.7 L* (3.5-5.1) mmol/L Chloride 86 L (98-107) mmol/L Carbon Dioxide 42 H (22-30) mmol/L Anion Gap 11.7 (5-15) MEQ/L BUN 25 H (7-17) mg/dL Creatinine 1.29 H (0.52-1.04) mg/dL Estimated GFR 42.7 ML/MIN Glucose 116 H (74-106) mg/dL Calcium 8.6 (8.4-10.2) mg/dL Magnesium 1.9 (1.6-2.3) mg/dL Total Bilirubin 0.70 (0.2-1.3) mg/dL AST 45 H (14-36) U/L ALT 21 (0-35) U/L Alkaline Phosphatase 52 (38-126) U/L Troponin I (0.000-0.034) ng/mL NT-Pro-B Natriuret Pep 1730 (0-1800) pg/mL Serum Total Protein 6.6 (6.3-8.2) g/dL Albumin 3.7 (3.5-5.0) g/dL Urine Color (YELLOW) Urine Appearance (CLEAR) Urine pH (5-6) Ur Specific [place] (1.005-1.025) Urine Protein (Negative) Urine Ketones (NEGATIVE) Urine Blood (0-5) [place] Urine Nitrite (NEGATIVE) Urine Bilirubin (NEGATIVE) Urine Urobilinogen (0-1) mg/dL Ur Leukocyte Esterase (NEGATIVE) Urine WBC (Auto) (0-5) /HPF Urine RBC (Auto) (0-2) /HPF U Epithel Cells (Auto) (FEW) /HPF Urine Bacteria (Auto) (NEGATIVE) /HPF Urine Culture Reflexed (NO) Urine Glucose (NEGATIVE) mg/dL Influenza Type A Ag (NEGATIVE) Influenza Type B Ag (NEGATIVE) RSV (PCR) (Negative) SARS-CoV-2 (PCR) (NEGATIVE) 07/05/21 07/05/21 07/05/21 Range/Units 15:55 16:08 19:13 WBC (4.0-10.5) K/mm3 RBC (4.1-5.4) M/mm3 Hgb (12.0-16.0) gm/dl Hct (35-47) % MCV (78-100) fl MCH (26-32) pg MCHC (32-36) g/dl RDW (11.5-14.0) % Plt Count (150-450) K/mm3 MPV (7.5-11.0) fl Gran % (36.0-66.0) % Eos # (Auto) (0-0.5) Absolute Lymphs (auto) (1.0-4.6) Absolute Monos (auto) (0.0-1.3) Lymphocytes % (24.0-44.0) % Monocytes % (0.0-12.0) % Eosinophils % (0.00-5.0) % Basophils % (0.0-0.4) % Absolute Granulocytes (1.4-6.9) Basophils # (0-0.4) D-Dimer (215-500) ng/mL Sodium (137-145) mmol/L Potassium (3.5-5.1) mmol/L Chloride (98-107) mmol/L Carbon Dioxide (22-30) mmol/L Anion Gap (5-15) MEQ/L BUN (7-17) mg/dL Creatinine (0.52-1.04) mg/dL Estimated GFR ML/MIN Glucose (74-106) mg/dL Calcium (8.4-10.2) mg/dL Magnesium (1.6-2.3) mg/dL Total Bilirubin (0.2-1.3) mg/dL AST (14-36) U/L ALT (0-35) U/L Alkaline Phosphatase (38-126) U/L Troponin I 0.264 H* 0.247 H* (0.000-0.034) ng/mL NT-Pro-B Natriuret Pep (0-1800) pg/mL Serum Total Protein (6.3-8.2) g/dL Albumin (3.5-5.0) g/dL Urine Color (YELLOW) Urine Appearance (CLEAR) Urine pH (5-6) Ur Specific [place] (1.005-1.025) Urine Protein (Negative) Urine Ketones (NEGATIVE) Urine Blood (0-5) [place] Urine Nitrite (NEGATIVE) Urine Bilirubin (NEGATIVE) Urine Urobilinogen (0-1) mg/dL Ur Leukocyte Esterase (NEGATIVE) Urine WBC (Auto) (0-5) /HPF Urine RBC (Auto) (0-2) /HPF U Epithel Cells (Auto) (FEW) /HPF Urine Bacteria (Auto) (NEGATIVE) /HPF Urine Culture Reflexed (NO) Urine Glucose (NEGATIVE) mg/dL Influenza Type A Ag NEGATIVE (NEGATIVE) Influenza Type B Ag NEGATIVE (NEGATIVE) RSV (PCR) NEGATIVE (Negative) SARS-CoV-2 (PCR) POSITIVE A (NEGATIVE) 07/05/21 07/06/21 07/06/21 Range/Units 21:45 01:51 01:51 WBC (4.0-10.5) K/mm3 RBC (4.1-5.4) M/mm3 Hgb (12.0-16.0) gm/dl Hct (35-47) % MCV (78-100) fl MCH (26-32) pg MCHC (32-36) g/dl RDW (11.5-14.0) % Plt Count (150-450) K/mm3 MPV (7.5-11.0) fl Gran % (36.0-66.0) % Eos # (Auto) (0-0.5) Absolute Lymphs (auto) (1.0-4.6) Absolute Monos (auto) (0.0-1.3) Lymphocytes % (24.0-44.0) % Monocytes % (0.0-12.0) % Eosinophils % (0.00-5.0) % Basophils % (0.0-0.4) % Absolute Granulocytes (1.4-6.9) Basophils # (0-0.4) D-Dimer (215-500) ng/mL Sodium 139 (137-145) mmol/L Potassium 3.3 L D (3.5-5.1) mmol/L Chloride 90 L (98-107) mmol/L Carbon Dioxide 38 H (22-30) mmol/L Anion Gap 13.6 (5-15) MEQ/L BUN 22 H (7-17) mg/dL Creatinine 1.43 H (0.52-1.04) mg/dL Estimated GFR 37.9 ML/MIN Glucose 151 H (74-106) mg/dL Calcium 8.5 (8.4-10.2) mg/dL Magnesium (1.6-2.3) mg/dL Total Bilirubin 0.80 (0.2-1.3) mg/dL AST 44 H (14-36) U/L ALT 22 (0-35) U/L Alkaline Phosphatase 51 (38-126) U/L Troponin I 0.303 H* 0.367 H* (0.000-0.034) ng/mL NT-Pro-B Natriuret Pep (0-1800) pg/mL Serum Total Protein 6.6 (6.3-8.2) g/dL Albumin 3.7 (3.5-5.0) g/dL Urine Color (YELLOW) Urine Appearance (CLEAR) Urine pH (5-6) Ur Specific [place] (1.005-1.025) Urine Protein (Negative) Urine Ketones (NEGATIVE) Urine Blood (0-5) [place] Urine Nitrite (NEGATIVE) Urine Bilirubin (NEGATIVE) Urine Urobilinogen (0-1) mg/dL Ur Leukocyte Esterase (NEGATIVE) Urine WBC (Auto) (0-5) /HPF Urine RBC (Auto) (0-2) /HPF U Epithel Cells (Auto) (FEW) /HPF Urine Bacteria (Auto) (NEGATIVE) /HPF Urine Culture Reflexed (NO) Urine Glucose (NEGATIVE) mg/dL Influenza Type A Ag (NEGATIVE) Influenza Type B Ag (NEGATIVE) RSV (PCR) (Negative) SARS-CoV-2 (PCR) (NEGATIVE) 07/06/21 07/06/21 Range/Units 02:01 05:00 WBC (4.0-10.5) K/mm3 RBC (4.1-5.4) M/mm3 Hgb (12.0-16.0) gm/dl Hct (35-47) % MCV (78-100) fl MCH (26-32) pg MCHC (32-36) g/dl RDW (11.5-14.0) % Plt Count (150-450) K/mm3 MPV (7.5-11.0) fl Gran % (36.0-66.0) % Eos # (Auto) (0-0.5) Absolute Lymphs (auto) (1.0-4.6) Absolute Monos (auto) (0.0-1.3) Lymphocytes % (24.0-44.0) % Monocytes % (0.0-12.0) % Eosinophils % (0.00-5.0) % Basophils % (0.0-0.4) % Absolute Granulocytes (1.4-6.9) Basophils # (0-0.4) D-Dimer (215-500) ng/mL Sodium (137-145) mmol/L Potassium (3.5-5.1) mmol/L Chloride (98-107) mmol/L Carbon Dioxide (22-30) mmol/L Anion Gap (5-15) MEQ/L BUN (7-17) mg/dL Creatinine (0.52-1.04) mg/dL Estimated GFR ML/MIN Glucose (74-106) mg/dL Calcium (8.4-10.2) mg/dL Magnesium (1.6-2.3) mg/dL Total Bilirubin (0.2-1.3) mg/dL AST (14-36) U/L ALT (0-35) U/L Alkaline Phosphatase (38-126) U/L Troponin I 0.365 H* (0.000-0.034) ng/mL NT-Pro-B Natriuret Pep (0-1800) pg/mL Serum Total Protein (6.3-8.2) g/dL Albumin (3.5-5.0) g/dL Urine Color YELLOW (YELLOW) Urine Appearance SLIGHTLY CLOUDY (CLEAR) Urine pH 5.0 (5-6) Ur Specific [place] 1.014 (1.005-1.025) Urine Protein 30 (Negative) Urine Ketones NEGATIVE (NEGATIVE) Urine Blood NEGATIVE (0-5) [place] Urine Nitrite NEGATIVE (NEGATIVE) Urine Bilirubin NEGATIVE (NEGATIVE) Urine Urobilinogen 4 (0-1) mg/dL Ur Leukocyte Esterase NEGATIVE (NEGATIVE) Urine WBC (Auto) 3-5 (0-5) /HPF Urine RBC (Auto) 0-2 (0-2) /HPF U Epithel Cells (Auto) RARE (FEW) /HPF Urine Bacteria (Auto) NONE (NEGATIVE) /HPF Urine Culture Reflexed NO (NO) Urine Glucose NEGATIVE (NEGATIVE) mg/dL Influenza Type A Ag (NEGATIVE) Influenza Type B Ag (NEGATIVE) RSV (PCR) (Negative) SARS-CoV-2 (PCR) (NEGATIVE) Radiology Exams: Radiology Procedures Category Date Time Status CHEST 1 VIEW (PORTABLE) Stat Exams 07/05/21 15:34 Completed
[2021-07-06] MEDS: xanAX 0.25 MG PO PRN (14:26)
[2021-07-06] MEDS ORDERED: REMDESIVIR 200 MG in Sodium Chloride 0.9% 250 ML 250 ML IV ONE ×4 (18:00)
[2021-07-07] MEDS: VENTOLIN COMMON CANISTER IH PRN (00:55)
[2021-07-07] MEDS: solu-MEDROL 60 MG, Sterile H2O 10 ml 2 ML IV SCH ×10 (01:11→23:30)
[2021-07-07 05:29] LABS: Absolute Neutrophil Ct (ANC) 7.88 (1.4-6.9); Basophil (Absolute #) 0 (0-0.4); Eosinophil (Absolute #) 0 (0-0.5); Hematocrit 30.9 % (35-47); Hemoglobin 9.6 gm/dl (12.0-16.0); Lymphocyte (Absolute #) 0.43 (1.0-4.6); Lymphocytes % 4.9 % (24.0-44.0); Mean Cell Volume 92.5 fl (78-100); Mean Corpuscular Hemoglobin 28.7 pg (26-32); Mean Corpuscular Hgb Concent. 31.1 g/dl (32-36); Mean Platelet Volume 11.4 fl (7.5-11.0); Monocyte (Absolute #) 0.41 (0.0-1.3); Monocytes % 4.7 % (0.0-12.0); Neutrophil % 90.4 % (36.0-66.0); Platelet Count 253 K/mm3 (150-450); Red Blood Count 3.34 M/mm3 (4.1-5.4); Red Cell Distribution Width 12.8 % (11.5-14.0); White Blood Count 8.7 K/mm3 (4.0-10.5)
[2021-07-07 05:54] LABS: ALBUMIN 3.5 g/dL (3.5-5.0); ANION GAP 10.5 MEQ/L (5-15); BILIRUBIN,TOTAL 0.4 mg/dL (0.2-1.3); Calcium 8.4 mg/dL (8.4-10.2); Creatinine 1 1.34 mg/dL (0.52-1.04); EST GLOMERULAR FILTRATION RATE 40.9 ML/MIN; Total Protein 6.3 g/dL (6.3-8.2)
[2021-07-07] MEDS ORDERED: solu-MEDROL ONE (06:40)
[2021-07-07] MEDS: VENTOLIN COMMON CANISTER IH SCH (07:00)
[2021-07-07 08:24] LABS: Slide Review 1 YES
[2021-07-07] MEDS ORDERED: Klor Con 10 MEQ PO ONE (08:39)
[2021-07-07] MEDS: Colace 100 MG PO SCH (08:55)
[2021-07-07] MEDS: ELIQUIS 2.5 MG TABLET PO SCH ×2 (08:57→23:28)
[2021-07-07] MEDS: Zithromax 500 MG/ 250 ML NaCl Premix 500 MG/250 ML IVPB IV SCH (08:57)
[2021-07-07] MEDS: xanAX 0.25 MG PO PRN (08:57)
[2021-07-07] MEDS: Protonix 40MG Tablet PO SCH (08:57)
[2021-07-07] MEDS: Lasix 40 MG PO SCH (08:57)
[2021-07-07] MEDS: Klor Con 10 MEQ PO SCH (08:57)
[2021-07-07] MEDS: Pepcid 20 MG VIAL IV SCH ×2 (08:58→23:28)
[2021-07-07] MEDS: Toprol-Xl 25MG Tablets PO SCH ×2 (08:58→23:27)
[2021-07-07] MEDS ORDERED: VENTOLIN COMMON CANISTER IH PRN (10:35)
[2021-07-07] MEDS: ROCEPHIN 1 Gm-D5w 50 ml Bag** 1 G/50 ML IVPB IV SCH (10:35)
[2021-07-07] MEDS: DUONEB 0.5-3 MG/3 ml Neb IH SCH ×3 (10:38→19:10)
[2021-07-07] MEDS ORDERED: REMDESIVIR 100 MG in Sodium Chloride 0.9% 100 ML BAG 100 ML IV SCH (18:00)
[2021-07-08] MEDS: VENTOLIN COMMON CANISTER IH PRN (00:05)
[2021-07-08 06:12] LABS: Hematocrit 30.8 % (35-47); Hemoglobin 9.5 gm/dl (12.0-16.0); Mean Cell Volume 92.5 fl (78-100); Mean Corpuscular Hemoglobin 28.5 pg (26-32); Mean Corpuscular Hgb Concent. 30.8 g/dl (32-36); Mean Platelet Volume 11.5 fl (7.5-11.0); Platelet Count 318 K/mm3 (150-450); Red Blood Count 3.33 M/mm3 (4.1-5.4); Red Cell Distribution Width 12.8 % (11.5-14.0)
[2021-07-08] MEDS ORDERED: solu-MEDROL ONE (06:32)
[2021-07-08 06:38] LABS: ALBUMIN 3.3 g/dL (3.5-5.0); ANION GAP 7.5 MEQ/L (5-15); BILIRUBIN,TOTAL 0.4 mg/dL (0.2-1.3); Calcium 8.6 mg/dL (8.4-10.2); Creatinine 1 1.26 mg/dL (0.52-1.04); EST GLOMERULAR FILTRATION RATE 43.9 ML/MIN; Potassium 3.2 mmol/L (3.5-5.1); Total Protein 6.1 g/dL (6.3-8.2)
[2021-07-08] MEDS: solu-MEDROL 60 MG, Sterile H2O 10 ml 2 ML IV SCH ×2 (06:38)
[2021-07-08] MEDS: DUONEB 0.5-3 MG/3 ml Neb IH SCH ×2 (07:10→10:30)
[2021-07-08 07:41] VITALS: BP 158/63
[2021-07-08 10:14] VITALS: O2SAT 96
[2021-07-08] MEDS: Pepcid 20 MG VIAL IV SCH (10:15)
[2021-07-08] MEDS: Colace 100 MG PO SCH (10:15)
[2021-07-08] MEDS: ELIQUIS 2.5 MG TABLET PO SCH (10:16)
[2021-07-08] MEDS: Klor Con 10 MEQ PO SCH (10:16)
[2021-07-08] MEDS: Toprol-Xl 25MG Tablets PO SCH (10:16)
[2021-07-08] MEDS: Lasix 40 MG PO SCH (10:16)
[2021-07-08] MEDS: Protonix 40MG Tablet PO SCH (10:16)
[2021-07-08] MEDS: ROCEPHIN 1 Gm-D5w 50 ml Bag** 1 G/50 ML IVPB IV SCH (10:18)
[2021-07-08] MEDS: Zithromax 500 MG/ 250 ML NaCl Premix 500 MG/250 ML IVPB IV SCH (10:18)
[2021-07-08 10:41] VITALS: PULSE 90
== END 2021-07-08 11:30 | disposition home or self-care (01) ==
LOC: ED 15:09 → MED SURG 17:50
PROVIDERS: ADMIT General Practice; ATTEND Family Medicine
DX: U07.1 COVID-19 (principal); J96.02 Acute respiratory failure with hypercapnia; J98.4 Other disorders of lung; J44.1 Chronic obstructive pulmonary disease with (acute) exacerbation; I11.0 Hypertensive heart disease with heart failure; I50.9 Heart failure, unspecified; Z99.81 Dependence on supplemental oxygen; Z20.828 Contact with and (suspected) exposure to other viral communicable diseases; Z79.899 Other long term (current) drug therapy
CPT/HCPCS: 0241U; 36000; 36415; 71045; 80053; 81001; 83735; 83880; 84484; 85025; 85027; 85379; 93005; 93268; 94640; 94762; 96365; 99285; 99291; G0378; J0248; J0456; J0696; J2930; J3480; A9270-GY

== ENCOUNTER 2024-03-28 10:47 | Observation (INO) | payer MEDICARE ==
--- NOTE | 2024-03-28 11:06 | ERPHSYRPT ---
- History of Present Illness Time Seen by Provider: 03/28/24 10:55 Exam Limitations: no limitations Physician History: 79yo f presents via private vehicle for sob x 3d. Pt reports she has been having difficulty catching her breath for the past 3 days, denies any significant cough or sputum production. Pt denies any associated chest pains. Pt does endorse hx of COPD, wears 2L O2 at baseline, reports multiple hospitalizations for COPD exacerbations in the past. Pt does endorse some body aches and chills for the past several days, denies any known sick contacts. 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 Timing/Duration: day(s) (3), gradual onset Activities at Onset: none Severity of Dyspnea-Max: mild Severity of Dyspnea-Current: mild Possible Cause: frequent episodes, chronic episodes Associated Symptoms: constant, edema, wheezing, No chest pain/discomfort, No lightheadedness, No productive cough, No tingling face, No tingling hands Allergies/Adverse Reactions: metformin Allergy (Verified 03/28/24 10:49) Home Medications: Albuterol 8 gm Mdi Hfa [Ventolin Hfa MDI] 8 gm IH QIDPRN PRN 07/30/16 [History] Furosemide 40 mg [Lasix 40 MG] 40 mg PO DAILY 08/15/17 [History] Furosemide 20 mg [Lasix 20 mg] 20 mg PO DAILY PRN PRN 09/16/20 [History] Potassium Chloride Tab* [Klor Con] 10 meq PO DAILY 09/16/20 [History] Omeprazole 20 mg PO DAILY 02/14/23 [History] Docusate Sodium 100 mg [Docusate Sodium 100 MG] 1 tab PO BID 03/28/24 [History] Multivit-Minerals/Folic Acid [Multivitamin Gummies] 1 tab PO DAILY 03/28/24 [History] Polyethylene Glycol 3350 17 gm [Miralax Powder 17GM PACKET] 17 gm PO DAILY 03/28/24 [History] Potassium Bicarbonate/Cit AC [Klor-Con-Ef 25 Meq Tab Eff] 1 tablet PO DAILY 03/28/24 [History] Prednisone 10 mg [Deltasone 10 mg] 1 tab PO DAILY 03/28/24 [History] Hx Tetanus, Diphtheria Vaccination/Date Given: No Hx Influenza Vaccination/Date Given: Yes Hx Pneumococcal Vaccination/Date Given: Yes - Review of Systems Constitutional: Chills, Fatigue, Malaise, No Fever Respiratory: Dyspnea, Dyspnea on Exertion (JESUS), Wheezing, No Stridor Cardiac: No Symptoms Abdominal/Gastrointestinal: No Symptoms Neurological: No Focal Weakness, No Parasthesia - Past Medical History Pertinent Past Medical History: Yes Neurological History: No Pertinent History ENT History: No Pertinent History Cardiac History: Congestive Heart Failure, Deep Vein Thrombosis, Hypertension Respiratory History: Asthma, CHF, COPD Endocrine Medical History: No Pertinent History Musculoskeletal History: No Pertinent History GI Medical History: No Pertinent History History: No Pertinent History Psycho-Social History: No Pertinent History Female Reproductive Disorders: No Pertinent History - Past Surgical History Past Surgical History: Yes Neuro Surgical History: No Pertinent History Cardiac: No Pertinent History Respiratory: No Pertinent History Gastrointestinal: Appendectomy Genitourinary: No Pertinent History Musculoskeletal: No Pertinent History Female Surgical History: Hysterectomy Other Surgical History: mesh for dvt - Social History Smoking Status: Former smoker How long have you smoked: 8 years ag Exposure to second hand smoke: No Drug Use: none Patient Lives Alone: No - Social Determinants of Health Will the patient participate in the screening: Unable to obtain - Nursing Vital Signs Nursing Vital Signs: Initial Vital Signs Temperature 98.6 F 03/28/24 10:54 Pulse Rate 84 03/28/24 10:54 Respiratory Rate 30 H 03/28/24 10:54 Blood Pressure 164/74 03/28/24 10:54 O2 Sat by Pulse Oximetry 99 03/28/24 10:54 Pain Scale Pain Intensity 0 - Physical Exam General Appearance: no apparent distress, alert Respiratory Exam: airway intact, diminished breath sounds, crackles/rales (minimal b/l), wheezing (minimal right greater than left), No chest tenderness, No respiratory distress, No accessory muscle use, No rhonchi, No stridor Cardiovascular/Chest Exam: normal heart sounds, regular rate/rhythm, murmur (3/6 systolic murmur), edema (+1 b/l LE edema) Abdominal/Gastrointestinal Exam: soft, No tenderness, No distention Neurologic Exam: alert, oriented x 3, cooperative, normal mood/affect Skin Exam: normal color SpO2 Interpretation: borderline oxygenation, ABG ordered SpO2: 88 O2 Delivery: Nasal Cannula (2L) - Course EKG Interpreted by Me: RATE (78), Sinus Rhythm, Non-specific ST Changes (not suggestive of acute ischemia), Other (qtcb [id number]) Ordered Tests: Active Orders 24 hr Category Date Time Status EKG-ER Only STAT Care 03/28/24 10:59 Active CHEST 1 VIEW (PORTABLE) Stat Exams 03/28/24 11:00 Completed ABG [ARTERIAL BLOOD GASES] Routine Lab 03/28/24 12:22 Ordered ARTERIAL BLOOD GASES Stat Lab 03/28/24 10:59 Completed CBC W DIFF Stat Lab 03/28/24 11:19 Completed CMP Stat Lab 03/28/24 11:19 Completed NT PRO BNPII Stat Lab 03/28/24 11:19 Completed PROCALCITONIN Stat Lab 03/28/24 11:19 Completed TROPONIN Q4H Lab 03/28/24 11:19 Completed TROPONIN Q4H Lab 03/28/24 15:15 Ordered TROPONIN Q4H Lab 03/28/24 19:15 Ordered BiPap/CPAP ROUTINE RT 03/28/24 11:46 Active Medication Summary Discontinued Medications Generic Name Dose Route Start Last Admin Trade Name Freq PRN Reason Stop Dose Admin Amoxicillin/Clavulanate Potassium 875 mg 03/28/24 11:41 03/28/24 11:52 Amox Tr/Potassium Clavulanate 875 Mg Tablet PO 03/28/24 11:42 Not Given STAT ONE Furosemide 40 mg 03/28/24 11:01 03/28/24 11:09 Furosemide 40 Mg Tablet PO 03/28/24 11:02 40 mg STAT ONE Administration Ceftriaxone Sodium 1 gm in 100 mls @ 200 mls/hr 03/28/24 11:43 03/28/24 12:30 Rocephin 1 Gm / 100 Ml Nacl IV 03/28/24 12:12 Infused STAT ONE Infusion Ceftriaxone Sodium Confirm 03/28/24 11:53 Rocephin 1 Gm / 100 Ml Nacl Administered 03/28/24 11:54 Dose 1 gm in 100 mls @ ud IV .STK-MED ONE Prednisone 60 mg 03/28/24 11:12 03/28/24 11:19 Prednisone 20 Mg Tablet PO 03/28/24 11:13 60 mg STAT ONE Administration Prednisone Confirm 03/28/24 11:17 Prednisone 20 Mg Tablet Administered 03/28/24 11:18 Dose 60 mg .ROUTE .STK-MED ONE Lab/Rad Data: Laboratory Result Diagrams 03/28/24 11:19 03/28/24 11:19 Laboratory Results 03/28/24 03/28/24 03/28/24 Range/Units 11:19 11:19 11:19 WBC (3.98-10.04) x10^3/uL RBC (3.93-5.22) x10^6/uL Hgb (11.2-15.7) g/dL Hct (34.1-44.9) % MCV (79.4-94.8) fL MCH (25.6-32.2) pg MCHC (32.2-35.5) g/dL RDW (11.7-14.4) % Plt Count (182-369) x10^3/uL MPV (9.4-12.3) fL Gran % (34.0-71.1) % Immature Gran % (Auto) (0.001-0.429) % Nucleat RBC Rel Count (0.00-0.2) % Eos # (Auto) (0.04-0.36) x10^3/uL Immature Gran # (Auto) (0.001-0.031) x10^3u/L Absolute Lymphs (auto) (1.18-3.74) x10^3/uL Absolute Monos (auto) (0.24-0.86) x10^3/uL Absolute Nucleated RBC (0.00-0.012) x10^3u/L Lymphocytes % (19.3-51.7) % Monocytes % (4.7-12.5) % Eosinophils % (0.7-5.8) % Basophils % (0.1-1.2) % Absolute Granulocytes (1.56-6.13) x10^3/uL Basophils # (0.01-0.08) x10^3/uL Puncture Site pCO2 (35-45) mmHg pO2 (75-100) mmHg Base Excess (-2.0-2.0) O2 Saturation (94-100) g/dF ABG pH (7.35-7.45) ABG HCO3 (22-28) ABG O2 Sat (Measured) (95-100) % Huey Test A-a Gradient a/A Ratio Hemoglobin Carboxyhemoglobin (0.0-6.9) % THgb Methemoglobin (1.4-1.5) % Potassium 4.1 (3.5-5.1) Temperature C POC O2 Flow Rate % Sodium 142 (135-145) mmol/L Chloride 94 L (98-107) mmol/L Carbon Dioxide 37 H (22-30) mmol/L Anion Gap 15.1 H (5-15) MEQ/L BUN 21 H (7-17) mg/dL Creatinine 0.85 (0.52-1.04) mg/dL Estimated GFR 69.7 ML/MIN Glucose 123 H (74-106) mg/dL Calcium 9.2 (8.4-10.2) mg/dL Total Bilirubin 0.40 (0.2-1.3) mg/dL AST 19 (14-36) U/L ALT 14 (0-35) U/L Alkaline Phosphatase 78 (38-126) U/L Troponin I 0.068 H* (0.000-0.033) ng/mL NT-Pro-B Natriuret Pep 4900 (<300) pg/mL Serum Total Protein 6.0 L (6.3-8.2) g/dL Albumin 3.5 (3.5-5.0) g/dL Procalcitonin 0.087 H (0.030-0.080) ng/mL Influenza Type A Ag NEGATIVE (NEGATIVE) Influenza Type B Ag NEGATIVE (NEGATIVE) RSV (PCR) NEGATIVE (NEGATIVE) SARS-CoV-2 (PCR) NEGATIVE (NEGATIVE) 03/28/24 03/28/24 Range/Units 11:19 10:59 WBC 10.5 H (3.98-10.04) x10^3/uL RBC 3.21 L (3.93-5.22) x10^6/uL Hgb 8.7 L (11.2-15.7) g/dL Hct 30.0 L (34.1-44.9) % MCV 93.5 (79.4-94.8) fL MCH 27.1 (25.6-32.2) pg MCHC 29.0 L (32.2-35.5) g/dL RDW 12.7 (11.7-14.4) % Plt Count 181 L (182-369) x10^3/uL MPV 11.9 (9.4-12.3) fL Gran % 77.1 H (34.0-71.1) % Immature Gran % (Auto) 0.5 H (0.001-0.429) % Nucleat RBC Rel Count 0.0 (0.00-0.2) % Eos # (Auto) 0.15 (0.04-0.36) x10^3/uL Immature Gran # (Auto) 0.05 H (0.001-0.031) x10^3u/L Absolute Lymphs (auto) 1.16 L (1.18-3.74) x10^3/uL Absolute Monos (auto) 0.99 H (0.24-0.86) x10^3/uL Absolute Nucleated RBC 0.00 (0.00-0.012) x10^3u/L Lymphocytes % 11.1 L (19.3-51.7) % Monocytes % 9.5 (4.7-12.5) % Eosinophils % 1.4 (0.7-5.8) % Basophils % 0.4 (0.1-1.2) % Absolute Granulocytes 8.07 H (1.56-6.13) x10^3/uL Basophils # 0.04 (0.01-0.08) x10^3/uL Puncture Site RIGHT BRACHIAL pCO2 87 H* (35-45) mmHg pO2 88 (75-100) mmHg Base Excess 21.7 H (-2.0-2.0) O2 Saturation 96.4 (94-100) g/dF ABG pH 7.37 (7.35-7.45) ABG HCO3 50.3 H* (22-28) ABG O2 Sat (Measured) 98.5 (95-100) % Huey Test NOT APPLICABLE A-a Gradient 60 a/A Ratio 0.59 Hemoglobin 9.0 Carboxyhemoglobin 1.2 (0.0-6.9) % THgb Methemoglobin 0.9 L (1.4-1.5) % Potassium 4.0 (3.5-5.1) Temperature 37.0 C POC O2 Flow Rate 36 % Sodium (135-145) mmol/L Chloride (98-107) mmol/L Carbon Dioxide (22-30) mmol/L Anion Gap (5-15) MEQ/L BUN (7-17) mg/dL Creatinine (0.52-1.04) mg/dL Estimated GFR ML/MIN Glucose (74-106) mg/dL Calcium (8.4-10.2) mg/dL Total Bilirubin (0.2-1.3) mg/dL AST (14-36) U/L ALT (0-35) U/L Alkaline Phosphatase (38-126) U/L Troponin I (0.000-0.033) ng/mL NT-Pro-B Natriuret Pep (<300) pg/mL Serum Total Protein (6.3-8.2) g/dL Albumin (3.5-5.0) g/dL Procalcitonin (0.030-0.080) ng/mL Influenza Type A Ag (NEGATIVE) Influenza Type B Ag (NEGATIVE) RSV (PCR) (NEGATIVE) SARS-CoV-2 (PCR) (NEGATIVE) - Progress Progress: improved Air Movement: fair Progress Note: 03/28/24 11:43 ABG showed elevated pCO2 > 80, elevated HCO3 50 pt placed on brief period of bipap, will repeat ABG cxr suggestive of left sided pneumonia and small pleural effusion, will start rocephin 03/28/24 13:03 i discussed pt case w/ Dr Reynoso who is willing to accept pt for observation Blood Culture(s) Obtained: No Antibiotics given: Yes Will see patient in: hospital (observation) Counseled pt/family regarding: lab results, diagnosis, need for follow-up, rad results Medical Desision Making - Diagnostic Testing Diagnostic test were ordered, analyzed, and reviewed by me: Yes Radiological Interpretation: Reviewed by me, Teleradiologist Report - Risk of complications The pt has a high risk of morbidity or mortality based on: Decision regarding hospitilization or escalation of hosp level of care - Departure Departure Disposition: Observation Clinical Impression: COPD exacerbation, Elevated troponin I level Pneumonia Qualifiers: Pneumonia type: due to unspecified organism Laterality: left Lung location: unspecified part of lung Qualified Code(s): J18.9 - Pneumonia, unspecified organism Anemia Qualifiers: Anemia type: unspecified type Qualified Code(s): D64.9 - Anemia, unspecified CHF (congestive heart failure) Qualifiers: Heart failure type: unspecified Heart failure chronicity: acute on chronic Qualified Code(s): I50.9 - Heart failure, unspecified Condition: Stable Critical Care Time: No Referrals: VIOLET HONG NP [Primary Care Provider] - Follow up/PCP as directed Instructions: Heart Failure, Chronic Obstructive Pulmonary Disease
[2024-03-28] MEDS: Lasix 40 MG PO ONE (11:09)
[2024-03-28] MEDS ORDERED: DELTASONE 20 MG ONE (11:17)
[2024-03-28] MEDS: DELTASONE 20 MG PO ONE (11:19)
[2024-03-28 11:20] LABS: Absolute Neutrophil Ct (ANC) 8.07 x10^3/uL (1.56-6.13); BASOPHIL % 0.4 % (0.1-1.2); Basophil (Absolute #) 0.04 x10^3/uL (0.01-0.08); Eosinophil % 1.4 % (0.7-5.8); Eosinophil (Absolute #) 0.15 x10^3/uL (0.04-0.36); Hemoglobin 8.7 g/dL (11.2-15.7); IMMATURE GRAN # 0.05 x10^3u/L (0.001-0.031); IMMATURE GRAN % 0.5 % (0.001-0.429); Lymphocyte (Absolute #) 1.16 x10^3/uL (1.18-3.74); Lymphocytes % 11.1 % (19.3-51.7); Mean Cell Volume 93.5 fL (79.4-94.8); Mean Corpuscular Hemoglobin 27.1 pg (25.6-32.2); Mean Platelet Volume 11.9 fL (9.4-12.3); Monocyte (Absolute #) 0.99 x10^3/uL (0.24-0.86); Monocytes % 9.5 % (4.7-12.5); Neutrophil % 77.1 % (34.0-71.1); Platelet Count 181 x10^3/uL (182-369); Red Blood Count 3.21 x10^6/uL (3.93-5.22); Red Cell Distribution Width 12.7 % (11.7-14.4); White Blood Count 10.5 x10^3/uL (3.98-10.04)
[2024-03-28 11:31] LABS: A-aADO2 60; ARTERIAL BLD GAS O2 SATURATION 98.5 % (95-100); ARTERIAL BLOOD GAS BASE EXCESS 21.7 (-2.0-2.0); ARTERIAL BLOOD GAS FIO2 36 %; ARTERIAL BLOOD GAS PCO2 87 mmHg (35-45); ARTERIAL BLOOD GAS PO2 88 mmHg (75-100); ARTERIAL BLOOD GAS pH 7.37 (7.35-7.45); CARBOXYHEMOGLOBIN 1.2 % THgb (0.0-6.9); HCO3- 50.3 (22-28); HGB O2 SAT 96.4 g/dF (94-100); Methhemoglobin 0.9 % (1.4-1.5); paO2 pAO1 0.59
[2024-03-28 11:32] LABS: ABG SITE RIGHT BRACHIAL
--- NOTE | 2024-03-28 11:40 | XRAY ---
Indication: Short of breath. Comparison: February 17, 2023 Portable chest demonstrates presumed new left mid to lower lung consolidating airspace disease with small effusion. Remaining heart and right lung unremarkable. Bony thorax intact again with osteopenia and degenerative changes.
[2024-03-28] MEDS: Augmentin 875-125 Tablet PO ONE (11:52)
[2024-03-28] MEDS ORDERED: ROCEPHIN 1 GM / 100 ML NaCl 1 GM/100 ML IVPB IV ONE (11:53)
[2024-03-28] MEDS: ROCEPHIN 1 GM / 100 ML NaCl 1 GM/100 ML IVPB IV ONE (11:53)
[2024-03-28 11:56] LABS: ALBUMIN 3.5 g/dL (3.5-5.0); BILIRUBIN,TOTAL 0.4 mg/dL (0.2-1.3); Calcium 9.2 mg/dL (8.4-10.2); Creatinine 1 0.85 mg/dL (0.52-1.04); EST GLOMERULAR FILTRATION RATE 69.7 ML/MIN; PROCALCITONIN 0.087 ng/mL (0.030-0.080); Potassium 4.1 mmol/L (3.5-5.1)
[2024-03-28 11:57] LABS: INFLUENZA A NEGATIVE (NEGATIVE); INFLUENZA B NEGATIVE (NEGATIVE); RESPIRATORY SYNCTIAL VIRUS NEGATIVE (NEGATIVE); SARS-CoV-2 Xpert Express NEGATIVE (NEGATIVE)
[2024-03-28 12:05] LABS: ANION GAP 15.1 MEQ/L (5-15)
[2024-03-28 12:10] LABS: TROPONIN 0.068 ng/mL (0.000-0.033)
[2024-03-28 13:20] LABS: ABG HEMOGLOBIN 10.8; ABG POTASSIUM 3.8 (3.5-5.1); ARTERIAL BLD GAS O2 SATURATION 98.2 % (95-100); ARTERIAL BLOOD GAS BASE EXCESS 16.6 (-2.0-2.0); ARTERIAL BLOOD GAS FIO2 32 %; ARTERIAL BLOOD GAS VENT MODE BiPAP; CARBOXYHEMOGLOBIN 1.6 % THgb (0.0-6.9); HCO3- 45.1 (22-28); HGB O2 SAT 95.5 g/dF (94-100); Methhemoglobin 1.2 % (1.4-1.5)
[2024-03-28 13:21] LABS: ARTERIAL BLOOD GAS PCO2 78 mmHg (35-45); ARTERIAL BLOOD GAS pH 7.37 (7.35-7.45)
[2024-03-28] MEDS ORDERED: LASIX 20 MG PO PRN (15:03)
[2024-03-28] MEDS ORDERED: PROVENTIL 2.5 MG/3 ML NEB IH PRN (15:03)
[2024-03-28] MEDS ORDERED: DELTASONE 10 MG PO PRN (15:03)
[2024-03-28] MEDS ORDERED: Zofran 4 MG/2 ML VIAL IV PRN (15:04)
[2024-03-28] MEDS ORDERED: FEVERALL 650 MG PR PRN ×2 (15:04→15:41)
--- NOTE | 2024-03-28 15:11 | PCM.HP ---
History of Present Illness - Chief Complaint Chief Complaint: acute on chronic COPD exacerbation, pneumonia Date: 03/28/24 History of Present Illness: 79yo F with PMHX of Asthma, CHF, COPD ( wears 2lNC at baseline). DVT ( on Eliquis), and HTN. She presented to the ER today via private vehicle for SOB x 3 days. Pt reports she has been having difficulty catching her breath for the past 3 days, denies any significant cough or sputum production. Pt denies any associated chest pains. Pt does endorse hx of COPD, with multiple hospitalizations for COPD exacerbations in the past. Pt does endorse some body aches and chills for the past several days, denies any known sick contacts. CXR shows left lower lobe pneumonia and small pleural effusion. In ER she was given Augmentin, Rocephin, prednisone, and Lasix. She was placed on Bipap. ABG shows Primary respiratory acidosis, chronic with secondary metabolic alkalosis. Will admit and continue treatment for COPD exacerbation and pneumonia. - Review of Systems Constitutional: No Fever, No Chills Eyes: No Symptoms Ears, Nose, & Throat: No Symptoms Respiratory: Short Of Breath, No Cough Cardiac: No Chest Pain, No Edema, No Syncope Abdominal/Gastrointestinal: No Abdominal Pain, No Nausea, No Vomiting, No Diarrhea Genitourinary Symptoms: No Dysuria Musculoskeletal: No Back Pain, No Neck Pain Skin: No Rash Neurological: No Dizziness, No Focal Weakness, No Sensory Changes Psychological: No Symptoms Endocrine: No Symptoms Hematologic/Lymphatic: No Symptoms Immunological/Allergic: No Symptoms Medications & Allergies Home Medications: Home Medication List Albuterol 8 gm Mdi Hfa [Ventolin Hfa MDI] 8 gm IH QIDPRN PRN 07/30/16 [History Confirmed 03/28/24] Furosemide 40 mg [Lasix 40 MG] 40 mg PO DAILY 08/15/17 [History Confirmed 03/28/24] Furosemide 20 mg [Lasix 20 mg] 20 mg PO EVENING MEAL PRN 09/16/20 [History Confirmed 03/28/24] Albuterol 2.5 mg/3 ml Neb [Proventil 2.5 mg/3 ml Neb] 2.5 mg IH QIDPRN PRN #1 07/08/21 [Rx Confirmed 03/28/24] Omeprazole 20 mg PO DAILY 02/14/23 [History Confirmed 03/28/24] Apixaban [Eliquis 2.5 mg Tablet] 5 mg PO BID 30 Days #60 tablet 02/16/23 [Rx Confirmed 03/28/24] Aspirin EC 81 mg [Ecotrin 81 mg] 81 mg PO QAM 30 Days #30 tablet 02/16/23 [Rx Confirmed 03/28/24] Metoprolol Succinate 50 mg [Toprol Xl 50 MG] 50 mg PO BID 30 Days #60 tablet 02/16/23 [Rx Confirmed 03/28/24] Simvastatin 20Mg [Zocor 20Mg] 40 mg PO HS 30 Days #30 tablet 02/16/23 [Rx Confirmed 03/28/24] Docusate Sodium 100 mg [Docusate Sodium 100 MG] 1 tab PO BID 03/28/24 [History Confirmed 03/28/24] Multivit-Minerals/Folic Acid [Multivitamin Gummies] 1 tab PO DAILY 03/28/24 [History Confirmed 03/28/24] Polyethylene Glycol 3350 17 gm [Miralax Powder 17GM PACKET] 17 gm PO DAILY 03/28/24 [History Confirmed 03/28/24] Potassium Bicarbonate/Cit AC [Klor-Con-Ef 25 Meq Tab Eff] 25 meq PO DAILY 03/28/24 [History Confirmed 03/28/24] Prednisone 10 mg [Deltasone 10 mg] 1 tab PO DAILY PRN 03/28/24 [History Confirmed 03/28/24] Allergies/Adverse Reactions: Allergies Allergy/AdvReac Type Severity Reaction Status Date / Time metformin Allergy Verified 03/28/24 10:49 - Past Medical History Past Medical History: Yes Neurological History: No Pertinent History ENT History: No Pertinent History Cardiac History: Congestive Heart Failure, Deep Vein Thrombosis, Hypertension Respiratory History: Asthma, CHF, COPD Endocrine Medical History: No Pertinent History Musculoskelatal History: No Pertinent History GI Medical History: No Pertinent History History: No Pertinent History Pyscho-Social History: No Pertinent History Reproductive Disorders: No Pertinent History - Past Surgical History Past Surgical History: Yes Neuro Surgical History: No Pertinent History Cardiac History: No Pertinent History Respiratory Surgery: No Pertinent History GI Surgical History: Appendectomy Genitourinary Surgical Hx: No Pertinent History Musculskeletal Surgical Hx: No Pertinent History Female Surgical History: Hysterectomy Other Surgical History: mesh for dvt - Social History Smoking Status: Former smoker How long have you smoked: 8 years ag Exposure to second hand smoke: No Alcohol: None Drug Use: none - Social Determinants of Health Will the patient participate in the screening: Unable to obtain Do you worry about a steady place to live?: No Do you have any problems with any of the following?: No known problems In the past 12 months,have you had to go without utilities?: No Have you or anyone in your house had to go without enough: No Transportation Issues: No Has anyone in your support network made you feel unsafe?: No - Physical Exam Vital Signs: Vital Signs - 24 hr Temp Pulse Resp BP BP Pulse Ox 03/28/24 14:46 99.6 F 86 22 136/66 93 L 03/28/24 14:30 124/64 03/28/24 14:00 87 23 149/59 98 03/28/24 13:30 84 17 145/64 99 03/28/24 13:03 88 L 03/28/24 13:00 81 19 139/61 99 03/28/24 12:30 78 24 149/64 98 03/28/24 12:00 79 16 150/66 97 03/28/24 11:58 78 32 H 149/76 99 03/28/24 11:50 78 25 H 98 03/28/24 11:40 81 34 H 100 03/28/24 11:31 83 37 H 92 L 03/28/24 11:01 82 27 H 155/72 94 L 03/28/24 10:54 98.6 F 84 30 H 164/74 99 General Appearance: no apparent distress, alert Neurologic Exam: alert, oriented x 3, cooperative, normal mood/affect, nml cerebellar function, nml station & gait, sensation nml, No motor deficits Eye Exam: PERRL/EOMI, eyes nml inspection Ears, Nose, Throat Exam: normal ENT inspection, TMs normal, pharynx normal, moist mucous membranes Neck Exam: normal inspection, non-tender, supple, full range of motion Respiratory Exam: normal breath sounds, lungs clear, No respiratory distress Cardiovascular Exam: regular rate/rhythm, normal heart sounds, normal peripheral pulses Gastrointestinal/Abdomen Exam: soft, normal bowel sounds, No tenderness, No mass Back Exam: normal inspection, normal range of motion, No CVA tenderness, No vertebral tenderness Extremity Exam: normal inspection, normal range of motion, pelvis stable Skin Exam: normal color, warm, dry, No rash Lymphatic Exam: No adenopathy Results - Labs Lab/Micro Results: Lab Results-Last 24 Hours 03/28/24 03/28/24 03/28/24 Range/Units 10:59 11:19 11:19 WBC 10.5 H (3.98-10.04) x10^3/uL RBC 3.21 L (3.93-5.22) x10^6/uL Hgb 8.7 L (11.2-15.7) g/dL Hct 30.0 L (34.1-44.9) % MCV 93.5 (79.4-94.8) fL MCH 27.1 (25.6-32.2) pg MCHC 29.0 L (32.2-35.5) g/dL RDW 12.7 (11.7-14.4) % Plt Count 181 L (182-369) x10^3/uL MPV 11.9 (9.4-12.3) fL Gran % 77.1 H (34.0-71.1) % Immature Gran % (Auto) 0.5 H (0.001-0.429) % Nucleat RBC Rel Count 0.0 (0.00-0.2) % Eos # (Auto) 0.15 (0.04-0.36) x10^3/uL Immature Gran # (Auto) 0.05 H (0.001-0.031) x10^3u/L Absolute Lymphs (auto) 1.16 L (1.18-3.74) x10^3/uL Absolute Monos (auto) 0.99 H (0.24-0.86) x10^3/uL Absolute Nucleated RBC 0.00 (0.00-0.012) x10^3u/L Lymphocytes % 11.1 L (19.3-51.7) % Monocytes % 9.5 (4.7-12.5) % Eosinophils % 1.4 (0.7-5.8) % Basophils % 0.4 (0.1-1.2) % Absolute Granulocytes 8.07 H (1.56-6.13) x10^3/uL Basophils # 0.04 (0.01-0.08) x10^3/uL Puncture Site RIGHT BRACHIAL pCO2 87 H* (35-45) mmHg pO2 88 (75-100) mmHg Base Excess 21.7 H (-2.0-2.0) O2 Saturation 96.4 (94-100) g/dF ABG pH 7.37 (7.35-7.45) ABG HCO3 50.3 H* (22-28) ABG O2 Sat (Measured) 98.5 (95-100) % Huey Test NOT APPLICABLE A-a Gradient 60 a/A Ratio 0.59 Hemoglobin 9.0 Carboxyhemoglobin 1.2 (0.0-6.9) % THgb Methemoglobin 0.9 L (1.4-1.5) % Potassium 4.0 4.1 (3.5-5.1) Temperature 37.0 C POC O2 Flow Rate 36 % Vent Mode PEEP cmH2O Sodium 142 (135-145) mmol/L Chloride 94 L (98-107) mmol/L Carbon Dioxide 37 H (22-30) mmol/L Anion Gap 15.1 H (5-15) MEQ/L BUN 21 H (7-17) mg/dL Creatinine 0.85 (0.52-1.04) mg/dL Estimated GFR 69.7 ML/MIN Glucose 123 H (74-106) mg/dL Calcium 9.2 (8.4-10.2) mg/dL Total Bilirubin 0.40 (0.2-1.3) mg/dL AST 19 (14-36) U/L ALT 14 (0-35) U/L Alkaline Phosphatase 78 (38-126) U/L Troponin I (0.000-0.033) ng/mL NT-Pro-B Natriuret Pep (<300) pg/mL Serum Total Protein 6.0 L (6.3-8.2) g/dL Albumin 3.5 (3.5-5.0) g/dL Procalcitonin 0.087 H (0.030-0.080) ng/mL Influenza Type A Ag (NEGATIVE) Influenza Type B Ag (NEGATIVE) RSV (PCR) (NEGATIVE) SARS-CoV-2 (PCR) (NEGATIVE) 03/28/24 03/28/24 03/28/24 Range/Units 11:19 11:19 12:22 WBC (3.98-10.04) x10^3/uL RBC (3.93-5.22) x10^6/uL Hgb (11.2-15.7) g/dL Hct (34.1-44.9) % MCV (79.4-94.8) fL MCH (25.6-32.2) pg MCHC (32.2-35.5) g/dL RDW (11.7-14.4) % Plt Count (182-369) x10^3/uL MPV (9.4-12.3) fL Gran % (34.0-71.1) % Immature Gran % (Auto) (0.001-0.429) % Nucleat RBC Rel Count (0.00-0.2) % Eos # (Auto) (0.04-0.36) x10^3/uL Immature Gran # (Auto) (0.001-0.031) x10^3u/L Absolute Lymphs (auto) (1.18-3.74) x10^3/uL Absolute Monos (auto) (0.24-0.86) x10^3/uL Absolute Nucleated RBC (0.00-0.012) x10^3u/L Lymphocytes % (19.3-51.7) % Monocytes % (4.7-12.5) % Eosinophils % (0.7-5.8) % Basophils % (0.1-1.2) % Absolute Granulocytes (1.56-6.13) x10^3/uL Basophils # (0.01-0.08) x10^3/uL Puncture Site Pending pCO2 78 H* (35-45) mmHg pO2 (75-100) mmHg Base Excess 16.6 H (-2.0-2.0) O2 Saturation 95.5 (94-100) g/dF ABG pH 7.37 (7.35-7.45) ABG HCO3 45.1 H* (22-28) ABG O2 Sat (Measured) 98.2 (95-100) % Huey Test Pending A-a Gradient a/A Ratio Hemoglobin 10.8 Carboxyhemoglobin 1.6 (0.0-6.9) % THgb Methemoglobin 1.2 L (1.4-1.5) % Potassium 3.8 (3.5-5.1) Temperature 37.0 C POC O2 Flow Rate 32 % Vent Mode BiPAP PEEP 6.0 cmH2O Sodium (135-145) mmol/L Chloride (98-107) mmol/L Carbon Dioxide (22-30) mmol/L Anion Gap (5-15) MEQ/L BUN (7-17) mg/dL Creatinine (0.52-1.04) mg/dL Estimated GFR ML/MIN Glucose (74-106) mg/dL Calcium (8.4-10.2) mg/dL Total Bilirubin (0.2-1.3) mg/dL AST (14-36) U/L ALT (0-35) U/L Alkaline Phosphatase (38-126) U/L Troponin I 0.068 H* (0.000-0.033) ng/mL NT-Pro-B Natriuret Pep 4900 (<300) pg/mL Serum Total Protein (6.3-8.2) g/dL Albumin (3.5-5.0) g/dL Procalcitonin (0.030-0.080) ng/mL Influenza Type A Ag NEGATIVE (NEGATIVE) Influenza Type B Ag NEGATIVE (NEGATIVE) RSV (PCR) NEGATIVE (NEGATIVE) SARS-CoV-2 (PCR) NEGATIVE (NEGATIVE) - Radiology Impressions Radiology Exams & Impressions: Radiology Procedures Category Date Time Status CHEST 1 VIEW (PORTABLE) Stat Exams 03/28/24 11:00 Completed - Other Procedures and Tests Respiratory Therapy 03/28/24 11:46 BiPap/CPAP ROUTINE Assessment/Plan (1) Pneumonia Current Visit: Yes Status: Acute Qualifiers: Pneumonia type: due to unspecified organism Laterality: left Lung location: unspecified part of lung Qualified Code(s): J18.9 - Pneumonia, unspecified organism Assessment & Plan: Steriods, antibiotocs, duonebs, advair CBC, CMP reviewed ABG reviewed BIpap/ Oxygen keep O2 > 92% RT eval and treat CXR reviewed Tele IS Flu/COVID/RSV negative WBC 10.5 Code(s): J18.9 - PNEUMONIA, UNSPECIFIED ORGANISM (2) COPD exacerbation Current Visit: Yes Status: Acute Assessment & Plan: See above plan for pneumonia Baseline O2 is 2lNC Continue Bipap at night RT to eval and ABG PRN On baseline 3.5LNC- 93% Code(s): J44.1 - CHRONIC OBSTRUCTIVE PULMONARY DISEASE W (ACUTE) EXACERBATION (3) History of atrial fibrillation Current Visit: Yes Status: Chronic Assessment & Plan: Continue Eliquis, metoprolol Tele Code(s): Z86.79 - PERSONAL HISTORY OF OTHER DISEASES OF THE CIRCULATORY SYSTEM (4) Hx of deep venous thrombosis Current Visit: Yes Status: Chronic Assessment & Plan: Continue Eliquis Code(s): Z86.718 - PERSONAL HISTORY OF OTHER VENOUS THROMBOSIS AND EMBOLISM (5) Anemia Current Visit: Yes Status: Chronic Qualifiers: Anemia type: unspecified type Qualified Code(s): D64.9 - Anemia, unspecified Assessment & Plan: - Hgb 8.7- trend - anemia panel - Consider referral to Hematology at d/c Code(s): D64.9 - ANEMIA, UNSPECIFIED (6) CHF (congestive heart failure) Current Visit: Yes Status: Chronic Qualifiers: Heart failure type: unspecified Heart failure chronicity: acute on chronic Qualified Code(s): I50.9 - Heart failure, unspecified Assessment & Plan: Lasix IV x1 gave in ER Continue home meds ECHO ordered- none done in the last yr Follows Dr. Page for cardiology Echo 02/15/23- EF 60% IMPRESSION: 1) NO REGIONAL WALL MOTION ABNORMALITY. ESTIMATED GLOBAL LEFT VENTRICULAR EJECTION FRACTION 60%. 2) MILD MITRAL REGURGITATION. 3) TRACE TRICUSPID REGURGITATION. RIGHT VENTRICULAR SYSTOLIC PRESSURE OF 25 MM OF MERCURY. 4) MILD AORTIC STENOSIS. PEAK TRANSAORTIC GRADIENT OF 22 MM OF MERCURY AND MEAN GRADIENT 12 MM OF MERCURY. 5) LEFT VENTRICLE DIASTOLIC DYSFUNCTION. 6) MILDLY DILATED LEFT ATRIUM. Code(s): I50.9 - HEART FAILURE, UNSPECIFIED (7) Pleural effusion Current Visit: No Status: Acute Assessment & Plan: As seen on CXR- IV Lasix x1 gave in ER Continue home lasix for now- will reassess in AM Code(s): J90 - PLEURAL EFFUSION, NOT ELSEWHERE CLASSIFIED (8) Thrombocytopenia Current Visit: No Status: Acute Assessment & Plan: Plt 181- trend (9) Hypertension Current Visit: No Status: Chronic Assessment & Plan: - continue home meds - BP stable VTE: Eliquis PPI: Omeprazole Next of KIN: Molly Rivas Code status: D/C plan: 1-2 days Code(s): I10 - ESSENTIAL (PRIMARY) HYPERTENSION Telemedicine Encounter - Telemedicine Encounter Telemedicine Encounter: "The entirety of this encounter was performed via Telemedicine" This visit was performed using real-time audio and video connection between my location and thepatients locationwith the assistance of a surrogateat the patients location. Written or verbal consent was obtained from the patient/guardian to perform this visit [facility] technology. Any patient questions regarding the telemedicine interaction were answered.
[2024-03-28] MEDS ORDERED: DUONEB 0.5-3 MG/3 ml Neb IH ONE (15:28)
[2024-03-28] MEDS ORDERED: VENTOLIN COMMON CANISTER IH PRN (15:38)
[2024-03-28] MEDS: DUONEB 0.5-3 MG/3 ml Neb IH SCH (15:44)
[2024-03-28 15:51] LABS: Iron 30 ug/dL (37-170); Iron Saturation 10 % (20-39); TIBC 296 ug/dL (265-462)
[2024-03-28 16:36] LABS: Ferritin 55.1 ng/mL (11.1-264); Vitamin B12 641 pg/mL (239-931)
[2024-03-28] MEDS: Zithromax 500 MG/ 250 ML NaCl Premix 500 MG/250 ML IVPB IV SCH (17:11)
[2024-03-28] MEDS: Advair Hfa 115/21 Common canister IH SCH (18:40)
[2024-03-28 18:47] LABS: Folate (Folic Acid) > 20.0 ng/mL (2.76 - >20)
[2024-03-28] MEDS: FEOSOL 325 MG PO SCH (19:03)
[2024-03-28] MEDS: ZOCOR 20MG PO SCH (21:18)
[2024-03-28] MEDS: Toprol Xl 50 MG PO SCH (21:18)
[2024-03-28] MEDS: ELIQUIS 2.5 MG TABLET PO SCH (21:18)
[2024-03-28] MEDS: solu-MEDROL 40 MG, Sterile H2O 10 ml 1 ML IV SCH (21:18)
[2024-03-28] MEDS: Docusate Sodium 100 MG PO SCH (21:18)
[2024-03-29 04:58] LABS: Hematocrit 26.9 % (34.1-44.9); Hemoglobin 8.1 g/dL (11.2-15.7); Mean Cell Volume 91.2 fL (79.4-94.8); Mean Corpuscular Hemoglobin 27.5 pg (25.6-32.2); Mean Corpuscular Hgb Concent. 30.1 g/dL (32.2-35.5); Mean Platelet Volume 12.2 fL (9.4-12.3); Platelet Count 182 x10^3/uL (182-369); Red Blood Count 2.95 x10^6/uL (3.93-5.22); Red Cell Distribution Width 12.7 % (11.7-14.4); White Blood Count 11.7 x10^3/uL (3.98-10.04)
[2024-03-29 05:15] LABS: ALBUMIN 3.1 g/dL (3.5-5.0); BILIRUBIN,TOTAL 0.2 mg/dL (0.2-1.3); Calcium 8.9 mg/dL (8.4-10.2); Creatinine 1 0.97 mg/dL (0.52-1.04); EST GLOMERULAR FILTRATION RATE 59.4 ML/MIN; Total Protein 5.5 g/dL (6.3-8.2)
[2024-03-29 07:27] LABS: ABG SITE LEFT RADIAL; ALLEN TEST OK? Yes
[2024-03-29] MEDS: ECOTRIN 81 MG PO SCH (09:54)
[2024-03-29] MEDS: ROCEPHIN 1 GM / 100 ML NaCl 1 GM/100 ML IVPB IV SCH (09:54)
[2024-03-29] MEDS: THERAGRAN MULTIVITAMIN PO SCH (09:54)
[2024-03-29] MEDS: Protonix 40MG Tablet PO SCH (09:55)
[2024-03-29] MEDS: K-LYTE PO SCH (09:55)
[2024-03-29] MEDS: Miralax Powder 17GM PACKET PO SCH (09:55)
[2024-03-29] MEDS: Lasix 40 MG PO SCH (09:55)
--- NOTE | 2024-03-29 10:50 | PCM.NOTE ---
Date and Time: 03/29/24 1048 Subjective Assessment: 03/28/24 79yo F with PMHX of Asthma, CHF, COPD ( wears 2lNC at baseline). DVT ( on Eliquis), and HTN. She presented to the ER today via private vehicle for SOB x 3 days. Pt reports she has been having difficulty catching her breath for the past 3 days, denies any significant cough or sputum production. Pt denies any associated chest pains. Pt does endorse hx of COPD, with multiple hospitalizations for COPD exacerbations in the past. Pt does endorse some body aches and chills for the past several days, denies any known sick contacts. CXR shows left lower lobe pneumonia and small pleural effusion. In ER she was given Augmentin, Rocephin, prednisone, and Lasix. She was placed on Bipap. ABG shows Primary respiratory acidosis, chronic with secondary metabolic alkalosis. Will admit and continue treatment for COPD exacerbation and pneumonia. 03/29/24 Pt sitting up in bed this AM. She states she feels congested and wants Mucinex- this was ordered. Continue antibiotics, steroids, donebs for COPD exacerbation and PNE. Ferrous sulfate started for iron deficiency anemia. Echo and cardiology consult pending today. Lasix 40 BID ordered for crackles in BLLL. She feels she is doing better today. She denies CP, Abd. pain, N/V/D. - Review of Systems Constitutional: No Fever, No Chills Eyes: No Symptoms Ears, Nose, & Throat: No Symptoms Respiratory: Cough, Short Of Breath Cardiac: No Chest Pain, No Edema, No Syncope Abdominal/Gastrointestinal: No Abdominal Pain, No Nausea, No Vomiting, No Diarrhea Genitourinary Symptoms: No Dysuria Musculoskeletal: No Back Pain, No Neck Pain Skin: No Rash Neurological: No Dizziness, No Focal Weakness, No Sensory Changes Psychological: No Symptoms Endocrine: No Symptoms Hematologic/Lymphatic: No Symptoms Immunological/Allergic: No Symptoms Objective Exam General Appearance: no apparent distress, alert Neurologic Exam: alert, oriented x 3, cooperative, normal mood/affect, nml cerebellar function, sensation nml, No motor deficits Skin Exam: normal color, warm, dry Eye Exam: PERRL, EOMI, eyes nml inspection Ears, Nose, Throat Exam: normal ENT inspection, pharynx normal, moist mucous membranes Neck Exam: normal inspection, non-tender, supple, full range of motion Respiratory Exam: crackles/rales (BLLL), No respiratory distress Cardiovascular Exam: regular rate/rhythm, normal heart sounds Gastrointestinal/Abdomen Exam: soft, No tenderness, No mass Extremity Exam: normal inspection, normal range of motion Back Exam: normal inspection, normal range of motion, No CVA tenderness, No vertebral tenderness Pelvic Exam: deferred Rectal Exam: deferred Objective Data Vital Signs: Vital Signs - 24 hr Temp Pulse Resp BP BP Pulse Ox 03/29/24 07:49 96.6 F 80 18 135/82 92 L 03/29/24 05:15 99 H 20 94 L 03/29/24 04:00 97.0 F 74 18 149/71 93 L 03/29/24 01:05 70 20 95 03/28/24 23:56 97.3 F 74 22 141/73 92 L 03/28/24 20:00 97.3 F 80 18 144/67 96 03/28/24 18:40 80 18 94 L 03/28/24 16:10 81 20 96 03/28/24 15:15 99.6 F 86 22 136/66 93 L 03/28/24 15:12 96 03/28/24 14:46 99.6 F 86 22 136/66 93 L 03/28/24 14:30 124/64 03/28/24 14:00 87 23 149/59 98 03/28/24 13:30 84 17 145/64 99 03/28/24 13:03 88 L 03/28/24 13:00 81 19 139/61 99 03/28/24 12:30 78 24 149/64 98 03/28/24 12:00 79 16 150/66 97 03/28/24 11:58 78 32 H 149/76 99 03/28/24 11:50 78 25 H 98 03/28/24 11:40 81 34 H 100 03/28/24 11:31 83 37 H 92 L 03/28/24 11:01 82 27 H 155/72 94 L 03/28/24 10:54 98.6 F 84 30 H 164/74 99 Pain Assessment - Last Documented Pain Intensity 0 Intake and Output: Intake & Output 03/26/24 03/27/24 03/28/24 03/29/24 11:59 11:59 11:59 11:59 Intake Total 1350 Balance 1350 Weight 86.5 kg 86.3 kg Lab Results: Lab Results-Last 24 Hours 03/28/24 03/28/24 03/28/24 Range/Units 10:59 11:19 11:19 WBC 10.5 H (3.98-10.04) x10^3/uL RBC 3.21 L (3.93-5.22) x10^6/uL Hgb 8.7 L (11.2-15.7) g/dL Hct 30.0 L (34.1-44.9) % MCV 93.5 (79.4-94.8) fL MCH 27.1 (25.6-32.2) pg MCHC 29.0 L (32.2-35.5) g/dL RDW 12.7 (11.7-14.4) % Plt Count 181 L (182-369) x10^3/uL MPV 11.9 (9.4-12.3) fL Gran % 77.1 H (34.0-71.1) % Immature Gran % (Auto) 0.5 H (0.001-0.429) % Nucleat RBC Rel Count 0.0 (0.00-0.2) % Eos # (Auto) 0.15 (0.04-0.36) x10^3/uL Immature Gran # (Auto) 0.05 H (0.001-0.031) x10^3u/L Absolute Lymphs (auto) 1.16 L (1.18-3.74) x10^3/uL Absolute Monos (auto) 0.99 H (0.24-0.86) x10^3/uL Absolute Nucleated RBC 0.00 (0.00-0.012) x10^3u/L Lymphocytes % 11.1 L (19.3-51.7) % Monocytes % 9.5 (4.7-12.5) % Eosinophils % 1.4 (0.7-5.8) % Basophils % 0.4 (0.1-1.2) % Absolute Granulocytes 8.07 H (1.56-6.13) x10^3/uL Basophils # 0.04 (0.01-0.08) x10^3/uL Puncture Site RIGHT BRACHIAL pCO2 87 H* (35-45) mmHg pO2 88 (75-100) mmHg Base Excess 21.7 H (-2.0-2.0) O2 Saturation 96.4 (94-100) g/dF ABG pH 7.37 (7.35-7.45) ABG HCO3 50.3 H* (22-28) ABG O2 Sat (Measured) 98.5 (95-100) % Huey Test NOT APPLICABLE A-a Gradient 60 a/A Ratio 0.59 Hemoglobin 9.0 Carboxyhemoglobin 1.2 (0.0-6.9) % THgb Methemoglobin 0.9 L (1.4-1.5) % Potassium 4.0 4.1 (3.5-5.1) Temperature 37.0 C POC O2 Flow Rate 36 % Vent Mode PEEP cmH2O Sodium 142 (135-145) mmol/L Chloride 94 L (98-107) mmol/L Carbon Dioxide 37 H (22-30) mmol/L Anion Gap 15.1 H (5-15) MEQ/L BUN 21 H (7-17) mg/dL Creatinine 0.85 (0.52-1.04) mg/dL Estimated GFR 69.7 ML/MIN Glucose 123 H (74-106) mg/dL Calcium 9.2 (8.4-10.2) mg/dL Iron (37-170) ug/dL TIBC (265-462) ug/dL Iron Saturation (20-39) % Ferritin (11.1-264) ng/mL Total Bilirubin 0.40 (0.2-1.3) mg/dL AST 19 (14-36) U/L ALT 14 (0-35) U/L Alkaline Phosphatase 78 (38-126) U/L Troponin I (0.000-0.033) ng/mL NT-Pro-B Natriuret Pep (<300) pg/mL Serum Total Protein 6.0 L (6.3-8.2) g/dL Albumin 3.5 (3.5-5.0) g/dL Vitamin B12 (239-931) pg/mL Folic Acid (2.76 - >20) ng/mL Procalcitonin 0.087 H (0.030-0.080) ng/mL Influenza Type A Ag (NEGATIVE) Influenza Type B Ag (NEGATIVE) RSV (PCR) (NEGATIVE) SARS-CoV-2 (PCR) (NEGATIVE) 03/28/24 03/28/24 03/28/24 Range/Units 11:19 11:19 12:22 WBC (3.98-10.04) x10^3/uL RBC (3.93-5.22) x10^6/uL Hgb (11.2-15.7) g/dL Hct (34.1-44.9) % MCV (79.4-94.8) fL MCH (25.6-32.2) pg MCHC (32.2-35.5) g/dL RDW (11.7-14.4) % Plt Count (182-369) x10^3/uL MPV (9.4-12.3) fL Gran % (34.0-71.1) % Immature Gran % (Auto) (0.001-0.429) % Nucleat RBC Rel Count (0.00-0.2) % Eos # (Auto) (0.04-0.36) x10^3/uL Immature Gran # (Auto) (0.001-0.031) x10^3u/L Absolute Lymphs (auto) (1.18-3.74) x10^3/uL Absolute Monos (auto) (0.24-0.86) x10^3/uL Absolute Nucleated RBC (0.00-0.012) x10^3u/L Lymphocytes % (19.3-51.7) % Monocytes % (4.7-12.5) % Eosinophils % (0.7-5.8) % Basophils % (0.1-1.2) % Absolute Granulocytes (1.56-6.13) x10^3/uL Basophils # (0.01-0.08) x10^3/uL Puncture Site LEFT RADIAL pCO2 78 H* (35-45) mmHg pO2 (75-100) mmHg Base Excess 16.6 H (-2.0-2.0) O2 Saturation 95.5 (94-100) g/dF ABG pH 7.37 (7.35-7.45) ABG HCO3 45.1 H* (22-28) ABG O2 Sat (Measured) 98.2 (95-100) % Huey Test Yes A-a Gradient a/A Ratio Hemoglobin 10.8 Carboxyhemoglobin 1.6 (0.0-6.9) % THgb Methemoglobin 1.2 L (1.4-1.5) % Potassium 3.8 (3.5-5.1) Temperature 37.0 C POC O2 Flow Rate 32 % Vent Mode BiPAP PEEP 6.0 cmH2O Sodium (135-145) mmol/L Chloride (98-107) mmol/L Carbon Dioxide (22-30) mmol/L Anion Gap (5-15) MEQ/L BUN (7-17) mg/dL Creatinine (0.52-1.04) mg/dL Estimated GFR ML/MIN Glucose (74-106) mg/dL Calcium (8.4-10.2) mg/dL Iron (37-170) ug/dL TIBC (265-462) ug/dL Iron Saturation (20-39) % Ferritin (11.1-264) ng/mL Total Bilirubin (0.2-1.3) mg/dL AST (14-36) U/L ALT (0-35) U/L Alkaline Phosphatase (38-126) U/L Troponin I 0.068 H* (0.000-0.033) ng/mL NT-Pro-B Natriuret Pep 4900 (<300) pg/mL Serum Total Protein (6.3-8.2) g/dL Albumin (3.5-5.0) g/dL Vitamin B12 (239-931) pg/mL Folic Acid (2.76 - >20) ng/mL Procalcitonin (0.030-0.080) ng/mL Influenza Type A Ag NEGATIVE (NEGATIVE) Influenza Type B Ag NEGATIVE (NEGATIVE) RSV (PCR) NEGATIVE (NEGATIVE) SARS-CoV-2 (PCR) NEGATIVE (NEGATIVE) 03/28/24 03/28/24 03/28/24 Range/Units 15:17 15:25 15:25 WBC (3.98-10.04) x10^3/uL RBC (3.93-5.22) x10^6/uL Hgb (11.2-15.7) g/dL Hct (34.1-44.9) % MCV (79.4-94.8) fL MCH (25.6-32.2) pg MCHC (32.2-35.5) g/dL RDW (11.7-14.4) % Plt Count (182-369) x10^3/uL MPV (9.4-12.3) fL Gran % (34.0-71.1) % Immature Gran % (Auto) (0.001-0.429) % Nucleat RBC Rel Count (0.00-0.2) % Eos # (Auto) (0.04-0.36) x10^3/uL Immature Gran # (Auto) (0.001-0.031) x10^3u/L Absolute Lymphs (auto) (1.18-3.74) x10^3/uL Absolute Monos (auto) (0.24-0.86) x10^3/uL Absolute Nucleated RBC (0.00-0.012) x10^3u/L Lymphocytes % (19.3-51.7) % Monocytes % (4.7-12.5) % Eosinophils % (0.7-5.8) % Basophils % (0.1-1.2) % Absolute Granulocytes (1.56-6.13) x10^3/uL Basophils # (0.01-0.08) x10^3/uL Puncture Site pCO2 (35-45) mmHg pO2 (75-100) mmHg Base Excess (-2.0-2.0) O2 Saturation (94-100) g/dF ABG pH (7.35-7.45) ABG HCO3 (22-28) ABG O2 Sat (Measured) (95-100) % Huey Test A-a Gradient a/A Ratio Hemoglobin Carboxyhemoglobin (0.0-6.9) % THgb Methemoglobin (1.4-1.5) % Potassium (3.5-5.1) Temperature C POC O2 Flow Rate % Vent Mode PEEP cmH2O Sodium (135-145) mmol/L Chloride (98-107) mmol/L Carbon Dioxide (22-30) mmol/L Anion Gap (5-15) MEQ/L BUN (7-17) mg/dL Creatinine (0.52-1.04) mg/dL Estimated GFR ML/MIN Glucose (74-106) mg/dL Calcium (8.4-10.2) mg/dL Iron 30 L (37-170) ug/dL TIBC 296 (265-462) ug/dL Iron Saturation 10 L (20-39) % Ferritin 55.1 (11.1-264) ng/mL Total Bilirubin (0.2-1.3) mg/dL AST (14-36) U/L ALT (0-35) U/L Alkaline Phosphatase (38-126) U/L Troponin I 0.081 H* (0.000-0.033) ng/mL NT-Pro-B Natriuret Pep (<300) pg/mL Serum Total Protein (6.3-8.2) g/dL Albumin (3.5-5.0) g/dL Vitamin B12 641 (239-931) pg/mL Folic Acid > 20.0 (2.76 - >20) ng/mL Procalcitonin (0.030-0.080) ng/mL Influenza Type A Ag (NEGATIVE) Influenza Type B Ag (NEGATIVE) RSV (PCR) (NEGATIVE) SARS-CoV-2 (PCR) (NEGATIVE) 03/28/24 03/29/24 03/29/24 Range/Units 18:14 04:20 04:20 WBC 11.7 H (3.98-10.04) x10^3/uL RBC 2.95 L (3.93-5.22) x10^6/uL Hgb 8.1 L (11.2-15.7) g/dL Hct 26.9 L (34.1-44.9) % MCV 91.2 (79.4-94.8) fL MCH 27.5 (25.6-32.2) pg MCHC 30.1 L (32.2-35.5) g/dL RDW 12.7 (11.7-14.4) % Plt Count 182 (182-369) x10^3/uL MPV 12.2 (9.4-12.3) fL Gran % (34.0-71.1) % Immature Gran % (Auto) (0.001-0.429) % Nucleat RBC Rel Count (0.00-0.2) % Eos # (Auto) (0.04-0.36) x10^3/uL Immature Gran # (Auto) (0.001-0.031) x10^3u/L Absolute Lymphs (auto) (1.18-3.74) x10^3/uL Absolute Monos (auto) (0.24-0.86) x10^3/uL Absolute Nucleated RBC (0.00-0.012) x10^3u/L Lymphocytes % (19.3-51.7) % Monocytes % (4.7-12.5) % Eosinophils % (0.7-5.8) % Basophils % (0.1-1.2) % Absolute Granulocytes (1.56-6.13) x10^3/uL Basophils # (0.01-0.08) x10^3/uL Puncture Site pCO2 (35-45) mmHg pO2 (75-100) mmHg Base Excess (-2.0-2.0) O2 Saturation (94-100) g/dF ABG pH (7.35-7.45) ABG HCO3 (22-28) ABG O2 Sat (Measured) (95-100) % Huey Test A-a Gradient a/A Ratio Hemoglobin Carboxyhemoglobin (0.0-6.9) % THgb Methemoglobin (1.4-1.5) % Potassium 4.0 (3.5-5.1) Temperature C POC O2 Flow Rate % Vent Mode PEEP cmH2O Sodium 140 (135-145) mmol/L Chloride 95 L (98-107) mmol/L Carbon Dioxide 39 H (22-30) mmol/L Anion Gap 10.0 (5-15) MEQ/L BUN 25 H (7-17) mg/dL Creatinine 0.97 (0.52-1.04) mg/dL Estimated GFR 59.4 ML/MIN Glucose 163 H (74-106) mg/dL Calcium 8.9 (8.4-10.2) mg/dL Iron (37-170) ug/dL TIBC (265-462) ug/dL Iron Saturation (20-39) % Ferritin (11.1-264) ng/mL Total Bilirubin 0.20 (0.2-1.3) mg/dL AST 16 (14-36) U/L ALT 12 (0-35) U/L Alkaline Phosphatase 74 (38-126) U/L Troponin I 0.084 H* (0.000-0.033) ng/mL NT-Pro-B Natriuret Pep (<300) pg/mL Serum Total Protein 5.5 L (6.3-8.2) g/dL Albumin 3.1 L (3.5-5.0) g/dL Vitamin B12 (239-931) pg/mL Folic Acid (2.76 - >20) ng/mL Procalcitonin (0.030-0.080) ng/mL Influenza Type A Ag (NEGATIVE) Influenza Type B Ag (NEGATIVE) RSV (PCR) (NEGATIVE) SARS-CoV-2 (PCR) (NEGATIVE) 03/29/24 Range/Units 04:20 WBC (3.98-10.04) x10^3/uL RBC (3.93-5.22) x10^6/uL Hgb (11.2-15.7) g/dL Hct (34.1-44.9) % MCV (79.4-94.8) fL MCH (25.6-32.2) pg MCHC (32.2-35.5) g/dL RDW (11.7-14.4) % Plt Count (182-369) x10^3/uL MPV (9.4-12.3) fL Gran % (34.0-71.1) % Immature Gran % (Auto) (0.001-0.429) % Nucleat RBC Rel Count (0.00-0.2) % Eos # (Auto) (0.04-0.36) x10^3/uL Immature Gran # (Auto) (0.001-0.031) x10^3u/L Absolute Lymphs (auto) (1.18-3.74) x10^3/uL Absolute Monos (auto) (0.24-0.86) x10^3/uL Absolute Nucleated RBC (0.00-0.012) x10^3u/L Lymphocytes % (19.3-51.7) % Monocytes % (4.7-12.5) % Eosinophils % (0.7-5.8) % Basophils % (0.1-1.2) % Absolute Granulocytes (1.56-6.13) x10^3/uL Basophils # (0.01-0.08) x10^3/uL Puncture Site pCO2 (35-45) mmHg pO2 (75-100) mmHg Base Excess (-2.0-2.0) O2 Saturation (94-100) g/dF ABG pH (7.35-7.45) ABG HCO3 (22-28) ABG O2 Sat (Measured) (95-100) % Huey Test A-a Gradient a/A Ratio Hemoglobin Carboxyhemoglobin (0.0-6.9) % THgb Methemoglobin (1.4-1.5) % Potassium (3.5-5.1) Temperature C POC O2 Flow Rate % Vent Mode PEEP cmH2O Sodium (135-145) mmol/L Chloride (98-107) mmol/L Carbon Dioxide (22-30) mmol/L Anion Gap (5-15) MEQ/L BUN (7-17) mg/dL Creatinine (0.52-1.04) mg/dL Estimated GFR ML/MIN Glucose (74-106) mg/dL Calcium (8.4-10.2) mg/dL Iron (37-170) ug/dL TIBC (265-462) ug/dL Iron Saturation (20-39) % Ferritin (11.1-264) ng/mL Total Bilirubin (0.2-1.3) mg/dL AST (14-36) U/L ALT (0-35) U/L Alkaline Phosphatase (38-126) U/L Troponin I 0.090 H* (0.000-0.033) ng/mL NT-Pro-B Natriuret Pep (<300) pg/mL Serum Total Protein (6.3-8.2) g/dL Albumin (3.5-5.0) g/dL Vitamin B12 (239-931) pg/mL Folic Acid (2.76 - >20) ng/mL Procalcitonin (0.030-0.080) ng/mL Influenza Type A Ag (NEGATIVE) Influenza Type B Ag (NEGATIVE) RSV (PCR) (NEGATIVE) SARS-CoV-2 (PCR) (NEGATIVE) Radiology Exams: Radiology Procedures Category Date Time Status CHEST 1 VIEW (PORTABLE) Stat Exams 03/28/24 11:00 Completed ECHO W/2D AND DOPPLER [US] Routine Exams 03/29/24 15:06 Ordered Assessment/Plan (1) Pneumonia Current Visit: Yes Status: Acute Qualifiers: Pneumonia type: due to unspecified organism Laterality: left Lung location: unspecified part of lung Qualified Code(s): J18.9 - Pneumonia, unspecified organism Code(s): J18.9 - PNEUMONIA, UNSPECIFIED ORGANISM (2) COPD exacerbation Current Visit: Yes Status: Acute Code(s): J44.1 - CHRONIC OBSTRUCTIVE PULMONARY DISEASE W (ACUTE) EXACERBATION (3) History of atrial fibrillation Current Visit: Yes Status: Chronic Code(s): Z86.79 - PERSONAL HISTORY OF OTHER DISEASES OF THE CIRCULATORY SYSTEM (4) Hx of deep venous thrombosis Current Visit: Yes Status: Chronic Code(s): Z86.718 - PERSONAL HISTORY OF OTHER VENOUS THROMBOSIS AND EMBOLISM (5) Anemia Current Visit: Yes Status: Chronic Qualifiers: Anemia type: unspecified type Qualified Code(s): D64.9 - Anemia, unspecified Code(s): D64.9 - ANEMIA, UNSPECIFIED (6) CHF (congestive heart failure) Current Visit: Yes Status: Chronic Qualifiers: Heart failure type: unspecified Heart failure chronicity: acute on chronic Qualified Code(s): I50.9 - Heart failure, unspecified Code(s): I50.9 - HEART FAILURE, UNSPECIFIED (7) Pleural effusion Current Visit: No Status: Acute Code(s): J90 - PLEURAL EFFUSION, NOT ELSEWHERE CLASSIFIED (8) Thrombocytopenia Current Visit: No Status: Acute (9) Hypertension Current Visit: No Status: Chronic Assessment & Plan: (1) Pneumonia Current Visit: Yes Status: Acute Qualifiers: Pneumonia type: due to unspecified organism Laterality: left Lung location: unspecified part of lung Qualified Code(s): J18.9 - Pneumonia, unspecified organism Assessment & Plan: Steriods, antibiotocs, duonebs, advair CBC, CMP reviewed ABG reviewed BIpap/ Oxygen keep O2 > 92% RT eval and treat CXR reviewed Tele IS Flu/COVID/RSV negative WBC 10.5 11/7 - WBC 11.7 up 2:2 steroids - 3lNC 94%- bipap at night - Mucinex added - Lasix 40 BID IV started Code(s): J18.9 - PNEUMONIA, UNSPECIFIED ORGANISM (2) COPD exacerbation Current Visit: Yes Status: Acute Assessment & Plan: See above plan for pneumonia Baseline O2 is 2lNC Continue Bipap at night RT to eval and ABG PRN On baseline 3.5LNC- 93% Code(s): J44.1 - CHRONIC OBSTRUCTIVE PULMONARY DISEASE W (ACUTE) EXACERBATION (3) History of atrial fibrillation Current Visit: Yes Status: Chronic Assessment & Plan: Continue Eliquis, metoprolol Tele Code(s): Z86.79 - PERSONAL HISTORY OF OTHER DISEASES OF THE CIRCULATORY SYSTEM (4) Hx of deep venous thrombosis Current Visit: Yes Status: Chronic Assessment & Plan: Continue Eliquis Code(s): Z86.718 - PERSONAL HISTORY OF OTHER VENOUS THROMBOSIS AND EMBOLISM (5) Anemia Current Visit: Yes Status: Chronic Qualifiers: Anemia type: unspecified type Qualified Code(s): D64.9 - Anemia, unspecified Assessment & Plan: - Hgb 8.7- trend - anemia panel - Consider referral to Hematology at d/c Code(s): D64.9 - ANEMIA, UNSPECIFIED (6) CHF (congestive heart failure) Current Visit: Yes Status: Chronic Qualifiers: Heart failure type: unspecified Heart failure chronicity: acute on chronic Qualified Code(s): I50.9 - Heart failure, unspecified Assessment & Plan: Lasix IV x1 gave in ER Continue home meds ECHO ordered- none done in the last yr Follows Dr. Page for cardiology Echo 02/15/23- EF 60% IMPRESSION: 1) NO REGIONAL WALL MOTION ABNORMALITY. ESTIMATED GLOBAL LEFT VENTRICULAR EJECTION FRACTION 60%. 2) MILD MITRAL REGURGITATION. 3) TRACE TRICUSPID REGURGITATION. RIGHT VENTRICULAR SYSTOLIC PRESSURE OF 25 MM OF MERCURY. 4) MILD AORTIC STENOSIS. PEAK TRANSAORTIC GRADIENT OF 22 MM OF MERCURY AND MEAN GRADIENT 12 MM OF MERCURY. 5) LEFT VENTRICLE DIASTOLIC DYSFUNCTION. 6) MILDLY DILATED LEFT ATRIUM. 03/29 - pending echo and cardiology consult - Lasix 40 IV BID started - Trops 0.084, 0.081, 0.068- elevated 2:2 pneumonia and COPD exacerbation likely Code(s): I50.9 - HEART FAILURE, UNSPECIFIED (7) Pleural effusion Current Visit: No Status: Acute Assessment & Plan: As seen on CXR- IV Lasix x1 gave in ER Continue home lasix for now- will reassess in AM 03/29 - started Lasix BID Code(s): J90 - PLEURAL EFFUSION, NOT ELSEWHERE CLASSIFIED (8) Thrombocytopenia Current Visit: No Status: Acute Assessment & Plan: Plt 181- trend 03/29 - Plt 182- resolved (9) Hypertension Current Visit: No Status: Chronic Assessment & Plan: - continue home meds - BP stable Code(s): I10 - ESSENTIAL (PRIMARY) HYPERTENSION Code(s): I10 - ESSENTIAL (PRIMARY) HYPERTENSION (10) Iron deficiency anemia Current Visit: Yes Status: Acute Assessment & Plan: - iron panel - ferrous sulfate daily - Hgb 8.1 VTE: Eliquis PPI: Omeprazole Next of KIN: Mollyjamin Rivas Code status: Full D/C plan: 1-2 days Code(s): D50.9 - IRON DEFICIENCY ANEMIA, UNSPECIFIED
[2024-03-29] MEDS: Mucinex 600MG ER Tabs PO SCH (11:40)
--- NOTE | 2024-03-29 16:11 | PCM.CONS ---
History of Present Illness - Date of Consult Date of Encounter: 03/29/24 Consulting Bankruptcy Manager: BRANDON PUENTES MD Requesting Provider: Attending Provider: ENRIQUE WONG MD Primary Care Provider: PCP: VIOLET HONG Consent was: Given for this tele-med encounter - Consult Narrative Reason for Consult: CHF, Elevated troponin-I HPI: Patient is a 79 year-old female with history of HFpEF, HTN, hypercholesterolemia, COPD, DVT on Eliquis, and remote tobacco use who presented with a 2-3 day history of worsening dyspnea of exertion and a noproductive cough. in the ER she was found to have a left-sided pneumonia, COPD exacerbation, and CHF exacerbation. Serial troponin-I showed a slowly rising level from 0.068 to 0.090 prompting consultation. Patient did have left sided chest discomfort which is in the area of her pneumonia. She has experienced this same discomfort with prior pneumonia infections. She denies any orthopnea, PND, or LE edema. She has been treated with IV furosemide, IV antibiotics, steroids, and bronchodilators with improvement in symptoms over the past 24 hours. Echocardiogram today reveals a hypertrophic cardiomyopathy with LVEF 60-65%, moderate diastolic dysfunction, mild pulmonary HTN, and severely elevated right atrial pressure. cc:: The requesting physician and primary line runner, Dr. Yan Ren in [facility], will be sent a copy of the consult. Review of Systems - Review of Systems All systems: all other systems reviewed and were unremarkable (Denies hematemasis, melena, and hematochezia.) - Past Medical History Past Medical History: Yes Neurological History: No Pertinent History ENT History: No Pertinent History Cardiac History: Congestive Heart Failure, Deep Vein Thrombosis, Hypertension Respiratory History: Asthma, CHF, COPD Endocrine Medical History: No Pertinent History Musculoskelatal History: No Pertinent History GI Medical History: No Pertinent History History: No Pertinent History Pyscho-Social History: No Pertinent History Reproductive Disorders: No Pertinent History - Past Surgical History Past Surgical History: Yes Neuro Surgical History: No Pertinent History Cardiac History: No Pertinent History Respiratory Surgery: No Pertinent History GI Surgical History: Appendectomy Genitourinary Surgical Hx: No Pertinent History Musculskeletal Surgical Hx: No Pertinent History Female Surgical History: Hysterectomy Other Surgical History: mesh for dvt Family History: Father diagnosed with a cardiomyopathy at age 45 and with CHF at age 60. - Social History Smoking Status: Former smoker How long have you smoked: 8 years ag Exposure to second hand smoke: No Alcohol: None Drug Use: none - Social Determinants of Health Will the patient participate in the screening: Unable to obtain Do you worry about a steady place to live?: No Do you have any problems with any of the following?: No known problems In the past 12 months,have you had to go without utilities?: No Have you or anyone in your house had to go without enough: No Transportation Issues: No Has anyone in your support network made you feel unsafe?: No Does the patient want assistance with any of the above?: No Medications & Allergies Home Medications: Home Medication List Albuterol 8 gm Mdi Hfa [Ventolin Hfa MDI] 8 gm IH QIDPRN PRN 07/30/16 [History Confirmed 03/28/24] Furosemide 40 mg [Lasix 40 MG] 40 mg PO DAILY 08/15/17 [History Confirmed 03/28/24] Furosemide 20 mg [Lasix 20 mg] 20 mg PO EVENING MEAL PRN 09/16/20 [History Confirmed 03/28/24] Albuterol 2.5 mg/3 ml Neb [Proventil 2.5 mg/3 ml Neb] 2.5 mg IH QIDPRN PRN #1 07/08/21 [Rx Confirmed 03/28/24] Omeprazole 20 mg PO DAILY 02/14/23 [History Confirmed 03/28/24] Apixaban [Eliquis 2.5 mg Tablet] 5 mg PO BID 30 Days #60 tablet 02/16/23 [Rx Confirmed 03/28/24] Aspirin EC 81 mg [Ecotrin 81 mg] 81 mg PO QAM 30 Days #30 tablet 02/16/23 [Rx Confirmed 03/28/24] Metoprolol Succinate 50 mg [Toprol Xl 50 MG] 50 mg PO BID 30 Days #60 tablet 02/16/23 [Rx Confirmed 03/28/24] Simvastatin 20Mg [Zocor 20Mg] 40 mg PO HS 30 Days #30 tablet 02/16/23 [Rx Confirmed 03/28/24] Docusate Sodium 100 mg [Docusate Sodium 100 MG] 1 tab PO BID 03/28/24 [History Confirmed 03/28/24] Multivit-Minerals/Folic Acid [Multivitamin Gummies] 1 tab PO DAILY 03/28/24 [History Confirmed 03/28/24] Polyethylene Glycol 3350 17 gm [Miralax Powder 17GM PACKET] 17 gm PO DAILY 03/28/24 [History Confirmed 03/28/24] Potassium Bicarbonate/Cit AC [Klor-Con-Ef 25 Meq Tab Eff] 25 meq PO DAILY 03/28/24 [History Confirmed 03/28/24] Prednisone 10 mg [Deltasone 10 mg] 1 tab PO DAILY PRN 03/28/24 [History Confirmed 03/28/24] Allergies/Adverse Reactions: Allergies Allergy/AdvReac Type Severity Reaction Status Date / Time metformin Allergy Verified 03/28/24 10:49 Exam - Vitals Vital Signs: Vital Signs - 24 hr Temp Pulse Resp BP Pulse Ox 03/29/24 13:19 78 18 94 L 03/29/24 12:00 97.3 F 80 18 157/65 94 L 03/29/24 07:49 96.6 F 80 18 135/82 92 L 03/29/24 05:15 99 H 20 94 L 03/29/24 04:00 97.0 F 74 18 149/71 93 L 03/29/24 01:05 70 20 95 03/28/24 23:56 97.3 F 74 22 141/73 92 L 03/28/24 20:00 97.3 F 80 18 144/67 96 03/28/24 18:40 80 18 94 L 03/28/24 16:10 81 20 96 General:: no acute distress, alert HEENT: EOMI, JVD (2/3 way up to jaw with head of chair elevated 80 degrees.) Cardiovascular Exam: regular rate/rhythm, normal heart sounds, No murmur, No friction rub, No gallop Respiratory Exam: other (Left basilar crackles) SpO2: 94 Gastrointestinal/Abdomen Exam: normal bowel sounds Extremity Exam: other (LLE>RLE. No edema.) Neurologic: other (Grossly nonfocal) Results Vital Signs: Vital Signs - 24 hr Temp Pulse Resp BP Pulse Ox 03/29/24 13:19 78 18 94 L 03/29/24 12:00 97.3 F 80 18 157/65 94 L 03/29/24 07:49 96.6 F 80 18 135/82 92 L 03/29/24 05:15 99 H 20 94 L 03/29/24 04:00 97.0 F 74 18 149/71 93 L 03/29/24 01:05 70 20 95 03/28/24 23:56 97.3 F 74 22 141/73 92 L 03/28/24 20:00 97.3 F 80 18 144/67 96 03/28/24 18:40 80 18 94 L 03/28/24 16:10 81 20 96 Pain Assessment - Last Documented Pain Intensity 0 Intake and Output: Intake & Output 03/27/24 03/28/24 03/29/24 03/30/24 11:59 11:59 11:59 11:59 Intake Total 1700 120 Balance 1700 120 Weight 86.5 kg 86.3 kg LAB: I have reviewed the Labs in [facility]. Radiology Exams: Radiology Procedures Category Date Time Status CHEST 1 VIEW (PORTABLE) Stat Exams 03/28/24 11:00 Completed ECHO W/2D AND DOPPLER [US] Routine Exams 03/29/24 15:06 Taken TRANSTHORACIC ECHOARDIOGRAM 03/29/2024: 1. Severe bi-atrial enlargement. Mildly dilated right ventricle. Normal left ventricular chamber size. 2. Severe concentric left ventricular hypertrophy. 3. Normal left ventricular systolic function without focal wall motion abnormalities. Estimated EF 60-65%. 4. Moderate diastolic dysfunction. 5. Normal right ventricular systolic function. 6. Moderate aortic sclerosis without stenosis. 7. Doppler: Mild mitral regurgitation, trace to mild tricuspid regurgitation. 8. Mild pulmonary hypertension with an estimated PA systolic pressure 47 mmHg. 9. Severely elevated right atrial preesure. 10. No pericardial effusion. 11. Small right pleural effusion. 12. Impression: Hypertrophic cardiomyopathy. CXR (AP) 03/28/2024: Left mid to lower consolidation with small effusion. Tracing 1 Attestation: I have reviewed this EKG and interpreted as documented below. EKG Narrative: 03/28/2024: Normal sinus rhythm at 78 bpm. RBBB. LAFB. LVH by voltage. Multi-Disciplinary Progress Notes: Multi-Disciplinary Progress Notes 03/29/24 16:01 Radiology Note by BRANDON PUENTES TRANSTHORACIC ECHOCARDIOGRAM 03/29/2024: 1. Severe bi-atrial enlargement. Mildly dilated right ventricle. Normal left ventricular chamber size. 2. Severe concentric left ventricular hypertrophy. 3. Normal left ventricular systolic function without focal wall motion abnormalities. Estimated EF 60-65%. 4. Moderate diastolic dysfunction. 5. Normal right ventricular systolic function. 6. Moderate aortic sclerosis without stenosis. 7. Doppler: Mild mitral regurgitation, trace to mild tricuspid regurgitation. 8. Mild pulmonary hypertension with an estimated PA systolic pressure 47 mmHg. 9. Severely elevated right atrial preesure. 10. No pericardial effusion. 11. Small right pleural effusion. 12. Impression: Hypertrophic cardiomyopathy. Brandon Puentes MD [facility] Initialized on 03/29/24 16:01 - END OF NOTE 03/29/24 13:52 Case Management Note by Nano Yang CARD[facility]-PULMO REHAB REFERRAL GIVEN TO [facility] Initialized on 03/29/24 13:52 - END OF NOTE 03/29/24 12:52 Physical Therapy Note by Oliver (L [id number])Faviola PT CHART REVIEWED THIS AM FOR PT EVALUATION ORDER. HOWEVER, TRENDING UP TROPONIN LABS NOTED WITH CARDIOLOGY CONSULTED. PT TO HOLD EVALUATION AT THIS TIME UNTIL TROPONINS DOWNTRENDING FOR PATIENT MEDICAL STABILITY TO COMPLETE PT EVALUATION. Initialized on 03/29/24 12:52 - END OF NOTE Assessment & Plan (1) Acute on chronic heart failure with preserved ejection fraction (HFpEF) Current Visit: Yes Status: Acute Assessment & Plan: Diastolic CHF exacerbated in setting of pneumonia. Severely elevated right atrial pressure on today's echo. Continue IV furosemide. Add Jardiance 10 mg by mouth daily. Consider outpatient evaluation for CAD if not done already. Will continue aspirin for now. Will defer to her line runner her current treatment of aspirin and Eliquis. Code(s): I50.33 - ACUTE ON CHRONIC DIASTOLIC (CONGESTIVE) HEART FAILURE (2) Hypertrophic cardiomyopathy Current Visit: Yes Status: Chronic Assessment & Plan: Noted on today's echocardiogram with severe concentric left ventricular hypertrophy. Nonobstructive at rest (not evaluated with Valsalva maneuver). Recommend outpatient evaluation for amyloidosis. Would start with a cardiac MRI. Continue metoprolol succinate. Code(s): I42.2 - OTHER HYPERTROPHIC CARDIOMYOPATHY (3) Pneumonia Current Visit: Yes Status: Acute Qualifiers: Pneumonia type: due to unspecified organism Laterality: left Lung location: unspecified part of lung Qualified Code(s): J18.9 - Pneumonia, unspecified organism Assessment & Plan: Consolidation in left mid and lower lung field. As per primary service. Code(s): J18.9 - PNEUMONIA, UNSPECIFIED ORGANISM (4) COPD exacerbation Current Visit: No Status: Acute Assessment & Plan: Clincally improving. Bronchospasms now resolved. as per primary service. Code(s): J44.1 - CHRONIC OBSTRUCTIVE PULMONARY DISEASE W (ACUTE) EXACERBATION (5) Acute respiratory failure with hypercapnia Current Visit: No Status: Acute Code(s): J96.02 - ACUTE RESPIRATORY FAILURE WITH HYPERCAPNIA (6) Elevated troponin level not due myocardial infarction Current Visit: Yes Status: Acute Assessment & Plan: Secondary to CHF and demand ischemia in setting of pneumonia and COPD exacerbaton. Code(s): R79.89 - OTHER SPECIFIED ABNORMAL FINDINGS OF BLOOD CHEMISTRY - Encounter Encounter: "The entirety of this encounter was performed via Telemedicine using audio and visual " Permission granted by patient for this type of encounter. Case discussed with Dr. Wong yesterday and Molly Lee NP today. Brandon Puentes MD [facility] [phone]
[2024-03-29] MEDS: Lasix 40 MG/4 ML IV SCH (17:25)
[2024-03-30 05:32] LABS: ALBUMIN 3.6 g/dL (3.5-5.0); BILIRUBIN,TOTAL 0.2 mg/dL (0.2-1.3); Calcium 9.1 mg/dL (8.4-10.2); Creatinine 1 1.1 mg/dL (0.52-1.04); EST GLOMERULAR FILTRATION RATE 51.1 ML/MIN; Total Protein 6.6 g/dL (6.3-8.2)
[2024-03-30 07:45] LABS: Hematocrit 26.3 % (34.1-44.9); Hemoglobin 8.1 g/dL (11.2-15.7); Mean Cell Volume 88.9 fL (79.4-94.8); Mean Corpuscular Hemoglobin 27.4 pg (25.6-32.2); Mean Corpuscular Hgb Concent. 30.8 g/dL (32.2-35.5); Mean Platelet Volume 12.7 fL (9.4-12.3); Platelet Count 225 x10^3/uL (182-369); Red Blood Count 2.96 x10^6/uL (3.93-5.22); Red Cell Distribution Width 12.9 % (11.7-14.4); White Blood Count 10.5 x10^3/uL (3.98-10.04)
[2024-03-30] MEDS: JARDIANCE PO SCH (10:45)
[2024-03-30 12:40] VITALS: BP 197/78; TEMP 97.5
--- NOTE | 2024-03-30 12:48 | PCM.DS ---
Discharge Summary Date of Admission: 03/28/24 14:44 Date of Discharge: 03/30/24 Admitting Physician: ENRIQUE WONG MD Consults: Consults on Case 03/28/24 16:15 Consult Cardiology TODAY Primary Care Provider: VIOLET HONG Allergies Allergies metformin Allergy (Verified 03/28/24 10:49) Hospital Summary - Hospital Course Hospital Course: 03/29/24 is a 76 year old male with a history of seizure disorder (on 3 antiepileptic drugs) and cognitive/communication deficits. He presented to the ED from the [facility] for evaluation of suspected seizure. Patient was being cared for by staff and was being transferred, when they observed patient abruptly stare off into space for several minutes. Upon arrival to our ED patient was at his baseline. Workup in the ED demonstrated a pneumonia, ANDREW, and hypernatremia suggestive of significant dehydration. CT head was negative for acute concern but he is rather sleepy today. Barium swallow ordered and per ST he needs to be NPO as he is not safe to eat at this time. MRI brain ordered for further eval. Per ECF records pt does not want artificial nutrition. K+ 3.4 and replaced. Sodium level ramins elevated but improved at 149. Continue IVF. Continue IV antibiotics for pneumonia. 03/30/24 Pt sitting up in bed. She explains she is feeling better and wants to d/c. Cardiology consulted yesterday and started on Jardiance. She has severe right atrial pressure and hypertrophic cardiomyopathy. Pt follows Dr. Page and pt appointment made OP. She is on baseline 3LNC at 95%. Will d/c with antibiotics and steroids for pneumonia. She denies CP, SOB, abd pain, N/V/D. - Vitals & Intake/Output Vital Signs: Vital Signs Temperature 97.3 F 03/30/24 08:00 Pulse Rate 84 03/30/24 08:00 Respiratory Rate 20 03/30/24 08:00 Blood Pressure 187/85 03/30/24 08:00 O2 Sat by Pulse Oximetry 98 03/30/24 08:00 Intake & Output: Intake & Output 03/28/24 03/29/24 03/30/24 03/31/24 11:59 11:59 11:59 11:59 Intake Total 1700 1440 Balance 1700 1440 Weight 86.5 kg 86.3 kg - Lab Result Diagrams: 03/30/24 04:50 03/30/24 04:45 Lab Results-Last 24 Hrs: Lab Results-Last 24 Hours 03/30/24 03/30/24 Range/Units 04:45 04:50 WBC 10.5 H (3.98-10.04) x10^3/uL RBC 2.96 L (3.93-5.22) x10^6/uL Hgb 8.1 L (11.2-15.7) g/dL Hct 26.3 L (34.1-44.9) % MCV 88.9 (79.4-94.8) fL MCH 27.4 (25.6-32.2) pg MCHC 30.8 L (32.2-35.5) g/dL RDW 12.9 (11.7-14.4) % Plt Count 225 (182-369) x10^3/uL MPV 12.7 H (9.4-12.3) fL Sodium 139 (135-145) mmol/L Potassium 4.0 (3.5-5.1) mmol/L Chloride 93 L (98-107) mmol/L Carbon Dioxide 37 H (22-30) mmol/L Anion Gap 10.0 (5-15) MEQ/L BUN 30 H (7-17) mg/dL Creatinine 1.10 H (0.52-1.04) mg/dL Estimated GFR 51.1 ML/MIN Glucose 165 H (74-106) mg/dL Calcium 9.1 (8.4-10.2) mg/dL Total Bilirubin 0.20 (0.2-1.3) mg/dL AST 19 (14-36) U/L ALT 15 (0-35) U/L Alkaline Phosphatase 72 (38-126) U/L Serum Total Protein 6.6 (6.3-8.2) g/dL Albumin 3.6 (3.5-5.0) g/dL - Radiology Exams Ordered Rad Exams-Entire Visit: Radiology Procedures Category Date Time Status ECHO W/2D AND DOPPLER [US] Routine Exams 03/29/24 15:06 Taken - Procedures and Test Procedures and Tests throughout Hospitalization: Therapy Orders & Screens 03/28/24 11:46 BiPap/CPAP ROUTINE Comment: 03/28/24 15:04 PT Eval & Treat ( Order) ONCE Reason for Eval:: COPD exacerbation Diagnosis: acute on chronic COPD exacerbation 03/28/24 15:12 Incentive Spirometry UD Comment: RT eval and treat, ABG PRN Diagnosis: acute on chronic COPD exacerbation, pneumonia RT Miscellaneous Order ROUTINE Comment: RT eval and treat, ABG PRN Physician Instructions: Reason For Exam: Biapap at night per home settings Diagnosis: acute on chronic COPD exacerbation, pneumonia 03/28/24 15:36 Oxygen Nasal Cannula 3 lpm Comment: Diagnosis: acute on chronic COPD exacerbation, pneumonia 03/28/24 15:56 Respiratory Therapy Assessment DAILY Comment: Diagnosis: acute on chronic COPD exacerbation, pneumonia Discharge Exam General Appearance: no apparent distress, alert Neurologic Exam: alert, oriented x 3, cooperative, normal mood/affect, nml cerebellar function, sensation nml, No motor deficits Eye Exam: PERRL, EOMI, eyes nml inspection Ears, Nose, Throat Exam: normal ENT inspection, pharynx normal, moist mucous membranes Neck Exam: normal inspection, non-tender, supple, full range of motion Respiratory Exam: normal breath sounds, lungs clear, No respiratory distress Cardiovascular Exam: regular rate/rhythm, normal heart sounds Gastrointestinal/Abdomen Exam: soft, No tenderness, No mass Pelvic Exam: deferred Rectal Exam: deferred Back Exam: normal inspection, normal range of motion, No CVA tenderness, No vertebral tenderness Extremity Exam: normal inspection, normal range of motion Skin Exam: normal color, warm, dry Final Diagnosis/Problem List - Final Discharge Diagnosis/Problem (1) Pneumonia Current Visit: Yes Status: Acute Code(s): J18.9 - PNEUMONIA, UNSPECIFIED ORGANISM (2) COPD exacerbation Current Visit: Yes Status: Acute Code(s): J44.1 - CHRONIC OBSTRUCTIVE PULMONARY DISEASE W (ACUTE) EXACERBATION (3) History of atrial fibrillation Current Visit: Yes Status: Chronic Code(s): Z86.79 - PERSONAL HISTORY OF OTH ER DISEASES OF THE CIRCULATORY SYSTEM (4) Hx of deep venous thrombosis Current Visit: Yes Status: Chronic Code(s): Z86.718 - PERSONAL HISTORY OF OTHER VENOUS THROMBOSIS AND EMBOLISM (5) Anemia Current Visit: Yes Status: Chronic Code(s): D64.9 - ANEMIA, UNSPECIFIED (6) CHF (congestive heart failure) Current Visit: Yes Status: Chronic Code(s): I50.9 - HEART FAILURE, UNSPECIFIED (7) Pleural effusion Current Visit: No Status: Acute Code(s): J90 - PLEURAL EFFUSION, NOT ELSEWHERE CLASSIFIED (8) Thrombocytopenia Current Visit: No Status: Acute (9) Hypertension Current Visit: No Status: Chronic Code(s): I10 - ESSENTIAL (PRIMARY) HYPERTENSION (10) Iron deficiency anemia Current Visit: Yes Status: Acute Assessment & Plan: (1) Pneumonia Current Visit: Yes Status: Acute Qualifiers: Pneumonia type: due to unspecified organism Laterality: left Lung location: unspecified part of lung Qualified Code(s): J18.9 - Pneumonia, unspecified organism Assessment & Plan: Steriods, antibiotocs, duonebs, advair CBC, CMP reviewed ABG reviewed BIpap/ Oxygen keep O2 > 92% RT eval and treat CXR reviewed Tele IS Flu/COVID/RSV negative WBC 10.5 11/ - WBC 11.7 up 2:2 steroids - 3lNC 94%- bipap at night - Mucinex added - Lasix 40 BID IV started 03/30 - WBC 10.5 - Continue PO antibiotics and steroids OP - Continue Mucinex OP OTC - on baseline 3lNC at 95% O2 - CBC, CMP reviewed Code(s): J18.9 - PNEUMONIA, UNSPECIFIED ORGANISM (2) COPD exacerbation Current Visit: Yes Status: Acute Assessment & Plan: See above plan for pneumonia Baseline O2 is 2lNC Continue Bipap at night RT to eval and ABG PRN On baseline 3.5LNC- 93% 03/30 - Continue PO antibiotics and steroids OP - Continue Mucinex OP OTC - on baseline 3lNC at 95% O2 Code(s): J44.1 - CHRONIC OBSTRUCTIVE PULMONARY DISEASE W (ACUTE) EXACERBATION (3) History of atrial fibrillation Current Visit: Yes Status: Chronic Assessment & Plan: Continue Eliquis, metoprolol Tele Code(s): Z86.79 - PERSONAL HISTORY OF OTHER DISEASES OF THE CIRCULATORY SYSTEM (4) Hx of deep venous thrombosis Current Visit: Yes Status: Chronic Assessment & Plan: Continue Eliquis Code(s): Z86.718 - PERSONAL HISTORY OF OTHER VENOUS THROMBOSIS AND EMBOLISM (5) Anemia Current Visit: Yes Status: Chronic Qualifiers: Anemia type: unspecified type Qualified Code(s): D64.9 - Anemia, unspecified Assessment & Plan: - Hgb 8.7- trend - anemia panel - Consider referral to Hematology at d/c 03/30 - + iron def. anemia- chronic per pt - Hgb 8.1 - Ferrous sulfate PO daily Code(s): D64.9 - ANEMIA, UNSPECIFIED (6) CHF (congestive heart failure) Current Visit: Yes Status: Chronic Qualifiers: Heart failure type: unspecified Heart failure chronicity: acute on chronic Qualified Code(s): I50.9 - Heart failure, unspecified Assessment & Plan: Lasix IV x1 gave in ER Continue home meds ECHO ordered- none done in the last yr Follows Dr. Page for cardiology Echo 02/15/23- EF 60% IMPRESSION: 1) NO REGIONAL WALL MOTION ABNORMALITY. ESTIMATED GLOBAL LEFT VENTRICULAR EJECTION FRACTION 60%. 2) MILD MITRAL REGURGITATION. 3) TRACE TRICUSPID REGURGITATION. RIGHT VENTRICULAR SYSTOLIC PRESSURE OF 25 MM OF MERCURY. 4) MILD AORTIC STENOSIS. PEAK TRANSAORTIC GRADIENT OF 22 MM OF MERCURY AND MEAN GRADIENT 12 MM OF MERCURY. 5) LEFT VENTRICLE DIASTOLIC DYSFUNCTION. 6) MILDLY DILATED LEFT ATRIUM. 03/29 - pending echo and cardiology consult - Lasix 40 IV BID started - Trops 0.084, 0.081, 0.068- elevated 2:2 pneumonia and COPD exacerbation likely 03/30 - Discussed Pt case with cardiology - Jardiance started - F/U with Dr. Ren - Echo EF 60-65% TRANSTHORACIC ECHOARDIOGRAM 03/29/2024: 1. Severe bi-atrial enlargement. Mildly dilated right ventricle. Normal left ventricular chamber size. 2. Severe concentric left ventricular hypertrophy. 3. Normal left ventricular systolic function without focal wall motion abnormalities. Estimated EF 60-65%. 4. Moderate diastolic dysfunction. 5. Normal right ventricular systolic function. 6. Moderate aortic sclerosis without stenosis. 7. Doppler: Mild mitral regurgitation, trace to mild tricuspid regurgitation. 8. Mild pulmonary hypertension with an estimated PA systolic pressure 47 mmHg. 9. Severely elevated right atrial preesure. 10. No pericardial effusion. 11. Small right pleural effusion. 12. Impression: Hypertrophic cardiomyopathy. Code(s): I50.9 - HEART FAILURE, UNSPECIFIED (7) Pleural effusion Current Visit: No Status: Acute Assessment & Plan: As seen on CXR- IV Lasix x1 gave in ER Continue home lasix for now- will reassess in AM 03/29 - started Lasix BID IV 03/30 - sxs improved Code(s): J90 - PLEURAL EFFUSION, NOT ELSEWHERE CLASSIFIED (8) Thrombocytopenia Current Visit: No Status: Acute Assessment & Plan: Plt 181- trend 03/29 - Plt 182- resolved (9) Hypertension Current Visit: No Status: Chronic Assessment & Plan: - continue home meds - BP stable Code(s): I10 - ESSENTIAL (PRIMARY) HYPERTENSION Code(s): I10 - ESSENTIAL (PRIMARY) HYPERTENSION (10) Iron deficiency anemia Current Visit: Yes Status: Acute Assessment & Plan: - iron panel - ferrous sulfate daily - Hgb 8.1 Code(s): D50.9 - IRON DEFICIENCY ANEMIA, UNSPECIFIED - Discharge Discharge Date: 03/30/24 Disposition: Home, Self-Care Condition: Stable Prescriptions: New Ferrous Sulfate 325 mg [Feosol 325 mg] 325 mg PO DAILY 30 Days #30 ta blet Empagliflozin [Jardiance] 10 mg PO DAILY 30 Days #30 tablet Continue Albuterol 8 gm Mdi Hfa [Ventolin Hfa MDI] 8 gm IH QIDPRN PRN PRN Reason: resp Furosemide 40 mg [Lasix 40 MG] 40 mg PO DAILY Furosemide 20 mg [Lasix 20 mg] 20 mg PO EVENING MEAL PRN PRN Reason: edema Albuterol 2.5 mg/3 ml Neb [Proventil 2.5 mg/3 ml Neb] 2.5 mg IH QIDPRN PRN #1 PRN Reason: Shortness Of Breath/Wheezing Omeprazole 20 mg PO DAILY Aspirin EC 81 mg [Ecotrin 81 mg] 81 mg PO QAM 30 Days #30 tablet Apixaban [Eliquis 2.5 mg Tablet] 5 mg PO BID 30 Days #60 tablet Metoprolol Succinate 50 mg [Toprol Xl 50 MG] 50 mg PO BID 30 Days #60 tablet Simvastatin 20Mg [Zocor 20Mg] 40 mg PO HS 30 Days #30 tablet Prednisone 10 mg [Deltasone 10 mg] 1 tab PO DAILY PRN PRN Reason: polymyalgia rheumatic flare up Polyethylene Glycol 3350 17 gm [Miralax Powder 17GM PACKET] 17 gm PO DAILY Multivit-Minerals/Folic Acid [Multivitamin Gummies] 1 tab PO DAILY Docusate Sodium 100 mg [Docusate Sodium 100 MG] 1 tab PO BID Potassium Bicarbonate/Cit AC [Klor-Con-Ef 25 Meq Tab Eff] 25 meq PO DAILY Follow up with: SHAWNEE BILLY [ACTIVE STAFF] - 04/09/24 4:30 pm ([facility]) JENNY REN [CONSULTING PHYSICIAN] - 04/13/24 12:30 pm VIOLET HONG NP [Primary Care Provider] - 04/06/24 2:00 pm
[2024-03-30 13:09] VITALS: PULSE 75; RESP 18; O2SAT 97
== END 2024-03-30 13:45 | disposition home or self-care (01) ==
LOC: ED 10:47 → MED SURG 14:44
PROVIDERS: ADMIT Internal Medicine; ATTEND Internal Medicine
DX: J18.9 Pneumonia, unspecified organism (principal); J44.1 Chronic obstructive pulmonary disease with (acute) exacerbation; E78.5 Hyperlipidemia, unspecified; F17.200 Nicotine dependence, unspecified, uncomplicated; I11.0 Hypertensive heart disease with heart failure; I50.33 Acute on chronic diastolic (congestive) heart failure; I42.2 Other hypertrophic cardiomyopathy; J96.02 Acute respiratory failure with hypercapnia; R78.89 Finding of other specified substances, not normally found in blood; Z86.79 Personal history of other diseases of the circulatory system; D64.9 Anemia, unspecified; J90 Pleural effusion, not elsewhere classified; D69.6 Thrombocytopenia, unspecified; Z79.01 Long term (current) use of anticoagulants; Z79.899 Other long term (current) drug therapy; Z86.718 Personal history of other venous thrombosis and embolism; Z99.81 Dependence on supplemental oxygen
CPT/HCPCS: 0241U; 36000; 36415; 36600; 71045; 80053; 82375; 82607; 82728; 82746; 82803; 83540; 83550; 83880; 84145; 84484; 85025; 85027; 93005; 93268; 93306; 94002; 94003; 94640; 94762; 96365; 97161; 99284; G0378; Q3014; J0456; J0696; J1940; J2919; A9270-GY